=== PATIENT | male | born 1950 | race Caucasian/White ===

== ENCOUNTER → 2019-12-14 13:01 | Outpatient (BNVA) | payer MEDICARE, SELFPAY | PROVIDERS: Family Provider Family Medicine; PCP Family Medicine; Visit Provider Internal Medicine | DX: M05.79 Rheumatoid arthritis with rheumatoid factor of multiple sites without organ or systems involvement (principal); Z79.899 Other long term (current) drug therapy | CPT/HCPCS: 99203; 99213 ==

== ENCOUNTER 2019-12-14 13:46 | Outpatient (CLI) | payer MEDICARE, SELFPAY ==
--- NOTE | 2019-12-14 13:55 | XR_ITS ---
WS: [id number] XR hand RT 2V [id number] REASON FOR EXAM: hand pain FINDINGS: Defect is seen along the base of the fifth metacarpal suggesting a nondisplaced fracture. T here is soft tissue swelling over this area. [place] the remaining phalanges, metacarpals, and carpals are normal. XR/XR hand RT 2V [id number] IMPRESSION: Displaced fracture through the base of the fifth metacarpal with overriding sof t tissue swelling
--- NOTE | 2019-12-14 13:55 | XR_ITS ---
WS: [id number] XR hand LT 2V [id number] REASON FOR EXAM: hand pain FINDINGS: Mild degenerate changes of the distal interphalangeal joints. There is no fractures of the phalanges metacarpals or carpals. XR/XR hand LT 2V [id number] IMPRESSION: Negative left hand.
== END 2019-12-14 13:47 | disposition home or self-care (01) ==
LOC: WPI 13:50
PROVIDERS: Family Provider Family Medicine; PCP Family Medicine; Visit Provider Internal Medicine
DX: M79.642 Pain in left hand (principal); S62.316A Displaced fracture of base of fifth metacarpal bone, right hand, initial encounter for closed fracture; X58.XXXA Exposure to other specified factors, initial encounter
CPT/HCPCS: 73120; 80053; 85025; 85651; 86140

== ENCOUNTER → 2020-01-18 10:48 | Outpatient (BNVA) | payer MEDICARE, SELFPAY | PROVIDERS: Family Provider Family Medicine; PCP Family Medicine; Visit Provider Internal Medicine | DX: M05.79 Rheumatoid arthritis with rheumatoid factor of multiple sites without organ or systems involvement (principal); Z79.899 Other long term (current) drug therapy | CPT/HCPCS: 99213 ==

== ENCOUNTER → 2020-01-24 09:57 | Outpatient (BNVA) | payer MEDICARE, BC, SELFPAY | PROVIDERS: Family Provider Family Medicine; PCP Family Medicine; Referring Provider Internal Medicine; Visit Provider Specialist | DX: M79.643 Pain in unspecified hand (principal) | CPT/HCPCS: 73130 ==

== ENCOUNTER 2020-01-31 13:02 | Outpatient (RCR) | payer MEDICARE, BC, SELFPAY | END 2020-02-21 23:00 | disposition home or self-care (01) | LOC: SOT 13:02 | PROVIDERS: PCP Family Medicine; Referring Provider Specialist; Visit Provider Specialist | DX: M19.041 Primary osteoarthritis, right hand (principal); M25.641 Stiffness of right hand, not elsewhere classified | CPT/HCPCS: 97110; 97166; 97530 ==

== ENCOUNTER → 2020-02-08 12:46 | Outpatient (BNVA) | payer MEDICARE, BC, SELFPAY | PROVIDERS: PCP Family Medicine; Visit Provider Internal Medicine | DX: Z79.899 Other long term (current) drug therapy (principal) | CPT/HCPCS: 36415; 80053; 85025 ==

== ENCOUNTER → 2020-03-21 13:06 | Outpatient (BNVA) | payer MEDICARE, BC, SELFPAY | PROVIDERS: PCP Family Medicine; Visit Provider Internal Medicine | DX: M05.79 Rheumatoid arthritis with rheumatoid factor of multiple sites without organ or systems involvement (principal); Z79.899 Other long term (current) drug therapy | CPT/HCPCS: 99213 ==

== ENCOUNTER → 2020-05-07 14:49 | Outpatient (BNVA) | payer MEDICARE, BC, SELFPAY | PROVIDERS: PCP Family Medicine; Visit Provider Internal Medicine | DX: E11.9 Type 2 diabetes mellitus without complications (principal); Z79.899 Other long term (current) drug therapy; M05.79 Rheumatoid arthritis with rheumatoid factor of multiple sites without organ or systems involvement | CPT/HCPCS: 36415; 80053; 83036; 85025; 85651; 86140 ==

== ENCOUNTER → 2020-08-19 15:31 | Outpatient (BNVA) | payer MEDICARE, SELFPAY | PROVIDERS: PCP Family Medicine; Visit Provider Internal Medicine | DX: M05.79 Rheumatoid arthritis with rheumatoid factor of multiple sites without organ or systems involvement (principal); Z79.899 Other long term (current) drug therapy; R06.00 Dyspnea, unspecified | CPT/HCPCS: 99214 ==

== ENCOUNTER 2020-08-27 11:17 | Outpatient (CLI) | payer MEDICARE, SELFPAY ==
--- NOTE | 2020-08-27 11:38 | XRR_ITS ---
PROCEDURE INFORMATION: Exam: XR Chest Exam date and time: 08/27/2020 11:52 AM Age: 70 years old Clinical indication: Screening exam; Other screening; Additional info: Z79.899 - other skilled nursing (current) drug therapy TECHNIQUE: Imaging protocol: XR of the chest Views: 2 views. COMPARISON: No relevant prior studies available. FINDINGS: Lungs: Unremarkable. No consolidation. Pleural spaces: Unremarkable. No pleural effusion. No pneumothorax. Heart/Mediastinum: Unremarkable. No cardiomegaly. Bones/joints: Unremarkable. XR/XR chest 2V* [id number] IMPRESSION: No acute findings.
[2020-08-27 12:10] LABS: Basophils % 0.5 %; Eosinophils # 0.5 10^3/uL (0.0-0.8); Eosinophils % 8.9 %; Hematocrit 45.3 % (42.0-52.0); Lymphocytes % 17.8 %; Mean Corpuscular HGB Conc 33.1 g/dL (30.0-36.0); Mean Corpuscular Volume 96.6 fL (80-94); Mean Platelet Volume 10.3 fL (7.4-10.4); Monocytes # 0.6 10^3/uL (0.2-0.9); Monocytes % 10.8 %; Neutrophils # 3.48 10^3/uL (1.8-7.7); Neutrophils % 61.8 %; Nucleated Red Blood Cells % 0 %; Platelet Count 211 10^3/cmm (130-400); Red Blood Count 4.69 10^6/uL (4.1-5.3); Red Cell Distribution Width 13.4 % (12.1-15.1); White Blood Count 5.6 10^3/uL (4.0-10.0)
[2020-08-27 12:36] LABS: Alanine Aminotransferase 40 U/L (0-41); Albumin Level 4.2 g/dL (3.5-5.2); Alkaline Phosphatase 77 IU/L (40-130); Aspartate Amino Transferase 35 U/L (0-40); Blood Urea Nitrogen 12 mg/dL (8-23); C Reactive Protein 4.8 mg/L (0.0-4.9); Calcium 9.2 mg/dL (8.5-10.5); Carbon Dioxide 26 mmol/L (22-29); Chloride 105 mmol/L (98-107); Glomerular Filtration Rate 111.5 mL/min (90-130); Glucose 87 mg/dL (65-115); Osmolality Calculated 287 mOsm/kg (285-295); Sodium 139 mmol/L (136-145); Total Protein 7.2 g/dL (6.6-8.7)
[2020-08-27 13:35] LABS: Erythrocyte Sedimentation Rate 14 mm/hr (0-10)
== END 2020-08-27 11:18 | disposition home or self-care (01) ==
PROVIDERS: PCP Family Medicine; Visit Provider Internal Medicine
DX: M05.79 Rheumatoid arthritis with rheumatoid factor of multiple sites without organ or systems involvement (principal); Z79.899 Other long term (current) drug therapy
CPT/HCPCS: 36415; 71046; 80053; 85025; 85651; 86140

== ENCOUNTER → 2020-12-17 09:47 | Outpatient (BNVA) | payer MEDICARE, SELFPAY | PROVIDERS: PCP Family Medicine; Visit Provider Internal Medicine Rheumatology | DX: M05.79 Rheumatoid arthritis with rheumatoid factor of multiple sites without organ or systems involvement (principal); Z79.899 Other long term (current) drug therapy | CPT/HCPCS: 36415; 80053; 85025; 85651; 86140 ==

== ENCOUNTER → 2021-01-01 14:48 | Outpatient (BNVA) | payer MEDICARE, SELFPAY | PROVIDERS: PCP Family Medicine; Visit Provider Internal Medicine | DX: M05.79 Rheumatoid arthritis with rheumatoid factor of multiple sites without organ or systems involvement (principal); R06.00 Dyspnea, unspecified; Z79.899 Other long term (current) drug therapy | CPT/HCPCS: 99214 ==

== ENCOUNTER 2021-01-24 13:14 | Emergency (ER) | payer MEDICARE, SELFPAY ==
[2021-01-24 13:28] VITALS: BP 137/81; PULSE 64; RESP 15; TEMP 36.9; O2SAT 97; BMI 32.5
--- NOTE | 2021-01-24 13:38 | ECG_ITS ---
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
[2021-01-24 16:45] LABS: Basophils % 0.6 %; Eosinophils # 0.4 10^3/uL (0.0-0.8); Eosinophils % 6.3 %; Hematocrit 45.6 % (42.0-52.0); Hemoglobin 15.1 g/dL (11.7-16.6); Lymphocytes # 1.1 10^3/uL (0.8-4.8); Lymphocytes % 16.4 %; Mean Corpuscular HGB Conc 33.1 g/dL (30.0-36.0); Mean Corpuscular Hemoglobin 32.5 pg (28.0-34.0); Mean Corpuscular Volume 98.3 fL (80-94); Mean Platelet Volume 10.6 fL (7.4-10.4); Monocytes # 0.7 10^3/uL (0.2-0.9); Monocytes % 9.4 %; Neutrophils # 4.65 10^3/uL (1.8-7.7); Neutrophils % 66.9 %; Nucleated Red Blood Cells % 0 %; Platelet Count 253 10^3/cmm (130-400); Red Blood Count 4.64 10^6/uL (4.1-5.3); Red Cell Distribution Width 13.4 % (12.1-15.1)
[2021-01-24 17:01] LABS: Alanine Aminotransferase 39 U/L (0-41); Albumin Level 4.2 g/dL (3.5-5.2); Alkaline Phosphatase 71 IU/L (40-130); Anion Gap 12.9 (5-19); Aspartate Amino Transferase 33 U/L (0-40); Blood Urea Nitrogen 11 mg/dL (8-23); Calcium 8.9 mg/dL (8.5-10.5); Carbon Dioxide 28 mmol/L (22-29); Chloride 103 mmol/L (98-107); Globulin 2.8 g/dL (1.3-4.6); Glomerular Filtration Rate 111.5 mL/min (90-130); Glucose 96 mg/dL (65-115); Osmolality Calculated 289 mOsm/kg (285-295); Potassium 3.9 mmol/L (3.5-5.1); Sodium 140 mmol/L (136-145); Total Bilirubin 1.1 mg/dL (0.15-1.2)
--- NOTE | 2021-01-24 20:34 | CTR_ITS ---
PROCEDURE INFORMATION: Exam: CT Head Without Contrast Exam date and time: 01/24/2021 8:34 PM Age: 70 years old Clinical indication: Numbness / parasthesia; Patient HX: Left facial/upper ext numbness. ; Additional info: Facial and lue paresthesia TECHNIQUE: Imaging protocol: Computed tomography of the head without contrast. Radiation optimization: All CT scans at this facility use at least one of these dose optimization techniques: automated exposure control; mA and/or kV adjustment per patient size (includes targeted exams where dose is matched to clinical indication); or iterative reconstruction. COMPARISON: No relevant prior studies available. RADIATION DOSE METRICS: Total DLP (mGy-cm): 970.55 FINDINGS: Brain: Mild cerebral atrophy and ischemic leukoencephalopathy. Cerebral ventricles: No ventriculomegaly. Paranasal sinuses: Visualized sinuses are unremarkable. No fluid levels. Mastoid air cells: Visualized mastoid air cells are well aerated. Vasculature: Severe calcified intracranial atherosclerotic vessel disease. Bones/joints: Unremarkable. No acute fracture. Soft tissues: Unremarkable. CT/CT head wo con* [id number] IMPRESSION: No acute intracranial findings. Radiation Dose CTDIVOL = (mGy): DLP = 970.55 (mGy-cm)
--- NOTE | 2021-01-24 20:58 | W.ED.NEUROSD ---
HPI - Neuro Symptoms/Deficit General: Chief Complaint: Neuro Symptoms/Deficit Stated Complaint: NEURO SX:NUMBNESS/TINGLING L SIDE FACE/ARM, LIPS Time Seen by Provider: 01/24/21 20:17 History of Present Illness: HPI Narrative: 70-year-old male who for the past 2 to 3 days has been having symptoms of intermittent facial numbness on the left side. This afternoon he noticed numbness to the left upper extremity as well that lasted 4 to 5 minutes. Symptoms are resolved now. His physician told him to come to the ER to get checked out . Onset (ago): day(s) Timing confirmed by: other Location: left face and left arm History of same: Yes Severity: moderate Quality: numb and tingling Relieving factors: none Exacerbating factors: none Context: gradual onset On Anticoagulants: No Associated symptoms: Reports tingling; Deny chest pain, fevers/chills, headache(s), anorexia, vomiting or weakness Review of Systems Const: Denies: fever(s) or chills Eyes: Denies: change in vision or blurry vision ENMT: Denies: odynophagia, swelling of lips/tongue or sinus pain Card: Denies: chest pain or palpitations Resp: Denies: dyspnea or productive cough GI: Denies: vomiting : Denies: difficulty urinating or hematuria Musc: Denies: neck pain or joint warmth Skin/Breast: Denies: rash or erythema Neuro: Denies: headache(s) Psych: Denies: anxiety PFSH ED PFSH: Medical History Other snf (current) drug therapy Rheumatoid arthritis with rheumatoid factor of multiple sites without organ or systems involvement Seropositive rheumatoid arthritis Surgical History History of tonsillectomy Family History Other Diabetes Social History (Updated 01/01/21 @ 15:17 by Tanya Redding LPN) Smoking and tobacco status: never smoked Alcohol intake: current Alcohol intake frequency: few times a week Alcohol type: beer History of recent travel: No Physical Exam Const: COMMON NORMALS: patient oriented x3 GENERAL APPEARANCE: well developed ORIENTATION/CONSCIOUSNESS: Yes oriented to person, Yes oriented to place and Yes oriented to time HENMT: COMMON NORMALS: normocephalic, external ears normal and Normal external nose present HEAD & SCALP: normocephalic FACE & SINUS: normal facial exam NOSE: Normal external nose present and No nasal discharge present EXTERNAL EAR: Yes external ears normal THROAT: posterior oropharynx normal; no peritonsillar mass Eye: COMMON NORMALS: Equal, round and reactive pupils present, EOMs intact bilaterally and conjunctivae normal EYELID: eyelids normal CONJUNCTIVA: Yes conjunctivae normal PUPIL: Yes Equal, round and reactive pupils present Neck/C-Spine: GENERAL: No tracheal deviation Chest: COMMONS NORMALS: normal inspection of the chest CHEST: No tenderness Resp: COMMON NORMALS: clear to auscultation bilaterally EFFORT & INSPECTION: No tachypneic, No respiratory distress, No retractions, No uses accessory muscles and No tracheal deviation AUSCULTATION: clear to auscultation bilaterally, no rhonchi, no wheezes and lung sounds not diminished Cardio: COMMON NORMALS: regular rate and regular rhythm RATE: regular rate RHYTHM: regular rhythm HEART SOUNDS: no murmurs PERIPHERAL PULSES: radial pulses present GI: INSPECTION: No abdominal distension AUSCULTATION: No Hyperactive bowel sounds present and No Hypoactive bowel sounds present PALPATION: No Guarding due to palpation present (GI) and No Rigid due to palpation PERCUSSION: no dullness to percussion and no tympanic to percussion Neuro: PRISCILA COMA SCALE: document GCS findings Priscila coma scale eye opening: Spontaneous [place] coma scale verbal response: Orientated [place] coma scale motor response: Obey commands Priscila coma scale total score: 15 COMMON NORMALS: patient oriented x3 SENSORIUM/ORIENTATION: Yes oriented to person, Yes oriented to place and Yes oriented to time CRANIAL NERVES: Yes CN normal except as noted COORDINATION/BALANCE: [id number]-ji-[id number] test normal and lvoo-vt-[id number] test normal SPEECH: speech normal GAIT: Yes Unable to assess gait SENSORY EXAM: Yes extremities (Normal) MOTOR EXAM: Pronator motor function not present COORDINATION: [id number]-[id number] test normal and hrmt-[id number]-sbaa test normal Psych: COMMON NORMALS: mental status grossly normal Skin: COMMON NORMALS: no rashes or lesions noted GENERAL SKIN EXAM: no rashes or lesions noted Course Vital Signs: Vital signs: Vital Signs Temperature 98.5 F 07/30/21 13:28 Pulse Rate 64 01/24/21 13:28 Respiratory Rate 15 01/24/21 13:28 Blood Pressure 137/81 01/24/21 13:28 Pulse Oximetry 97 01/24/21 13:28 MDM - Neuro Symptoms/Deficit MDM Narrative: Medical decision making narrative: Ulcer good. Head CT is negative he has not had any recurrence of the paresthesia. No other symptoms. Labs are normal. He will be allowed home. He was told to increase his aspirin from baby aspirin to full dose aspirin for the time being. Further work-up as needed as an outpatient Lab Data: Labs: Lab Results 01/24/21 01/24/21 Range/Units 16:08 16:08 WBC 7.0 (4.0-10.0) 10^3/ uL RBC 4.64 (4.1-5.3) 10^6/u L Hgb 15.1 (11.7-16.6) g/dL Hct 45.6 (42.0-52.0) % MCV 98.3 H (80-94) fL MCH 32.5 (28.0-34.0) pg MCHC 33.1 (30.0-36.0) g/dL RDW 13.4 (12.1-15.1) % Plt Count 253 (130-400) 10^3/c mm MPV 10.6 H (7.4-10.4) fL Neut % (Auto) 66.9 % Lymph % (Auto) 16.4 % [place] % (Auto) 9.4 % Eos % (Auto) 6.3 % Baso % (Auto) 0.6 % Neut # (Auto) 4.65 (1.8-7.7) 10^3/u L Lymph # (Auto) 1.1 (0.8-4.8) 10^3/u L [place] # (Auto) 0.7 (0.2-0.9) 10^3/u L Eos # (Auto) 0.4 (0.0-0.8) 10^3/u L Baso # (Auto) 0.0 (0.0-0.1) 10^3/u L Nucleated RBC % (a uto) 0 % Nucleated RBCs # 0.0 /100WBC Sodium 140 (136-145) mmol/L Potassium 3.9 (3.5-5.1) mmol/L Chloride 103 (98-107) mmol/L Carbon Dioxide 28 (22-29) mmol/L Anion Gap 12.9 (5-19) BUN 11 (8-23) mg/dL Creatinine 0.7 (0.7-1.2) mg/dL GFR Calculation 111.5 (90-130) mL/min Glucose 96 (65-115) mg/dL Calculated Osmolal ity 289 (285-295) mOsm/k g Calcium 8.9 (8.5-10.5) mg/dL Total Bilirubin 1.1 (0.15-1.2) mg/dL AST 33 (0-40) U/L ALT 39 (0-41) U/L Alkaline Phosphata se 71 (40-130) IU/L Total Protein 7.0 (6.6-8.7) g/dL Albumin 4.2 (3.5-5.2) g/dL Globulin 2.8 (1.3-4.6) g/dL Discharge Plan Discharge Patient Disposition: Home Clinical Impression: Paresthesia Condition: Stable Prescriptions: New aspirin 325 mg tablet 325 mg PO DAILY Qty: 30 RF: 0 No Action folic acid 1 mg tablet 2 mg PO DAILY Qty: 60 RF: 3 lisinopril-hydrochlorothiazide 20-12.5 mg tablet 1.5 tab PO DAILY RF: 0 clonazepam [Klonopin] 0.5 mg tablet 0.5 mg PO BID RF: 0 aspirin [Adult Aspirin Regimen] 81 mg tablet,delayed release (DR/EC) 81 mg PO DAILY RF: 0 ascorbate calcium (vitamin C) 500 mg tablet 500 mg PO DAILY RF: 0 tamsulosin [Flomax] 0.4 mg capsule 0.4 mg PO DAILY RF: 0 simvastatin 40 mg tablet 40 mg PO DAILY RF: 0 paroxetine HCl 40 mg tablet 40 mg PO DAILY RF: 0 methotrexate sodium 2.5 mg tablet 17.5 mg PO Q7D RF: 0 Discharge Orders: Discharge ED (Routine); Ordered 01/24/21 Ordered By: Trenton Ashby Referrals: Ashwin Roberson MD [Primary Care Provider] - 1-3 days Patient Instructions: Paresthesia (ED) Activity Restrictions/Additional Instructions: Guidelines suggest that you increase your aspirin from a baby aspirin to a full dose aspirin daily until seen by your doctor. Further outpatient testing may be needed if symptoms continue. Return for trouble with speech, language, weakness, vision problems, other concerning symptoms. Coding Level of Care Code ED Orthodontic Treatment Coordinator for Chg Fwd Exam Comprehensive
[2021-01-25 00:02] VITALS: BP 131/65; PULSE 84; O2SAT 96
== END 2021-01-24 22:40 | disposition home or self-care (01) ==
PROVIDERS: Nurse Practitioner Family; Emergency Provider Emergency Medicine; PCP Family Medicine
DX: R20.2 Paresthesia of skin (principal); Z79.82 Long term (current) use of aspirin
CPT/HCPCS: 36415; 70450; 80053; 85025; 93005; 99283

== ENCOUNTER 2021-03-26 09:49 | Outpatient (CLI) | payer MEDICARE, SELFPAY ==
--- NOTE | 2021-03-26 09:57 | USCV_ITS ---
Cesar Mederos Age: 71 Gender: M : 1950 Exam Date: 03/26/2021 10:06 Ordering Phys: Jalen Mcclain MD Technologist: Taylor Asencio [place] [facility] [place]: Shortness of breath BP: 127 / 70 HR: 62 Rhythm: Sinus Technical Quality: Adequate MEASUREMENTS (Male / Female) Normal Values 2D ECHO LV Diastolic Diameter PLAX 4.2 cm 4.2 - 5.9 / 3.9 - 5.3 cm LV Systolic Diameter PLAX 3.4 cm LV Chamber Size 4.1 cm IVS Diastolic Thickness 1.6 cm 0.6 - 1.0 / 0.6 - 0.9 cm IVS Systolic Thickness 2.4 cm LVPW Diastolic Thickness 1.6 cm 0.6 - 1.0 / 0.6 - 0.9 cm LVPW Systolic Thickness 1.7 cm RV Chamber Size 3.5 cm LVOT Diameter 2.0 cm LV Ejection Fraction 2D Teich 39.7 % LV Ejection Fraction MOD 2C 71.5 % LV Ejection Fraction 2C AL 70.5 % LA Diameter 3.3 cm LA Width 3.8 cm LA Height 4.9 cm RA Width 3.6 cm RA Height 3.8 cm Aorta at Sinotubular Diameter 3.1 cm DOPPLER AV Peak Velocity 151.0 cm/s LVOT Peak Velocity 103.0 cm/s AV Area Cont Eq vti 2.9 cm squared AV Area Cont Eq pk 2.2 cm squared MV Area PHT 3.3 cm squared Mitral E to A Ratio 1.3 MV E' Velocity 32.0 cm/s Mitral E to MV E' Ratio 8.3 Mitral E to LV E' Lateral Ratio 11.6 Mitral E to LV E' Septal Ratio 6.5 TR Peak Velocity 119.0 cm/s TR Peak Gradient 5.7 mmHg TR Mean Velocity 98.6 cm/s TR Mean Gradient 4.3 mmHg TR Velocity Time Integral 36.5 cm TV Peak E Velocity 58.0 cm/s Right Atrial Pressure 3.0 mmHg Pulmonary Artery Systolic Pressu 8.7 mmHg PV Peak Velocity 74.0 cm/s RV Acceleration Time 0.2 s RV Ejection Time 0.3 s RV AcT/ET 0.5 FINDINGS Left Ventricle Normal left ventricular size, systolic function and mildly increased wall thickness, with no regional wall motion abnormalities. Left ventricular ejection fraction is estimated at 65 %. Normal diastolic function. Right Ventricle Normal right ventricular size and systolic function. Right ventricular systolic pressure 14 mmHg. Right Atrium Normal right atrial size. Left Atrium Normal left atrial size. Mitral Valve Structurally normal mitral valve. No mitral valve stenosis. No mitral valve regurgitation. Aortic Valve Mildly thickened trileaflet aortic valve. No aortic valve stenosis. No aortic valve regurgitation. Tricuspid Valve Structurally normal tricuspid valve. Trace tricuspid valve regurgitation. Pulmonic Valve Pulmonic valve not well visualized. No pulmonary valve stenosis. Trace pulmonary valve regurgitation. Pericardium No pericardial effusion. Aorta Normal-sized aortic root and ascending aorta. CONCLUSIONS 1. Normal left ventricular size, systolic function and mildly increased wall thickness, with no regional wall motion abnormalities. Left ventricular ejection fraction is estimated at 65 %. Normal diastolic function. 2. Normal right ventricular size and systolic function. 3. Normal pulmonary artery pressure. 4. No significant valvular normality. 5. No prior similar studies to compare. Lisa Sorto MD (Electronically Signed) Final Date: 27 March 2021 13:10 S
== END 2021-03-26 09:50 | disposition home or self-care (01) ==
LOC: RAD 09:52
PROVIDERS: PCP Family Medicine; Visit Provider Internal Medicine
DX: M05.79 Rheumatoid arthritis with rheumatoid factor of multiple sites without organ or systems involvement (principal); R06.00 Dyspnea, unspecified
CPT/HCPCS: 93306

== ENCOUNTER → 2021-03-28 10:49 | Outpatient (BNVA) | payer MEDICARE, SELFPAY | PROVIDERS: PCP Family Medicine; Visit Provider Registered Nurse Neonatal Intensive Care | DX: Z01.812 Encounter for preprocedural laboratory examination (principal); Z20.822 Contact with and (suspected) exposure to COVID-19 | CPT/HCPCS: 87635 ==

== ENCOUNTER 2021-04-03 11:27 | Outpatient (CLI) | payer MEDICARE, SELFPAY ==
--- NOTE | 2021-04-03 11:44 | PFTS_ITS ---
Date of Study:04/03/21 Date of Dictation: MECHANICS: Forced vital capacity (FVC) is reduced. Forced expiratory volume in one second (FEV1) is reduced. FEV1/FVC is normal. FLOW VOLUME LOOP: Minimal scooping. LUNG VOLUMES: Not measured DIFFUSING CAPACITY FOR CARBON MONOXIDE: Not measured. INTERPRETATION: The postbronchodilator spirometry is consistent with mild restriction. There is no significant postbronchodilator response. MTDD
== END 2021-04-03 11:28 | disposition home or self-care (01) ==
LOC: RT 11:28
PROVIDERS: PCP Family Medicine; Visit Provider Internal Medicine
DX: R06.00 Dyspnea, unspecified (principal); M05.79 Rheumatoid arthritis with rheumatoid factor of multiple sites without organ or systems involvement
CPT/HCPCS: 94060; J7611

== ENCOUNTER → 2021-04-21 12:48 | Outpatient (BNVA) | payer MEDICARE, SELFPAY | PROVIDERS: PCP Family Medicine; Visit Provider Internal Medicine | DX: M05.79 Rheumatoid arthritis with rheumatoid factor of multiple sites without organ or systems involvement (principal); J98.4 Other disorders of lung; R06.00 Dyspnea, unspecified; Z79.899 Other long term (current) drug therapy | CPT/HCPCS: 99214 ==

== ENCOUNTER 2021-07-14 15:59 | Outpatient (CLI) | payer MEDICARE, SELFPAY ==
--- NOTE | 2021-07-14 | XRR_ITS ---
PROCEDURE INFORMATION: Exam: XR Chest Exam date and time: 07/14/2021 4:27 PM Age: 71 years old Clinical indication: Cough; Additional info: Cough x 3 weeks TECHNIQUE: Imaging protocol: XR of the chest. Views: 2 views. COMPARISON: CR XR chest 2V* [id number] 08/27/2020 11:50 AM FINDINGS: Lungs: No consolidation. Pleural spaces: No pleural effusion. No pneumothorax. Heart/Mediastinum: No cardiomegaly. Bones/joints: Visualized osseous structures are intact. XR/XR chest 2V* [id number] IMPRESSION: No acute findings.
== END 2021-07-14 16:00 | disposition home or self-care (01) ==
PROVIDERS: PCP Family Medicine; Visit Provider Family Medicine
DX: R05.9 Cough, unspecified (principal)
CPT/HCPCS: 71046

== ENCOUNTER 2021-08-26 15:42 | Outpatient (CLI) | payer MEDICARE, SELFPAY ==
--- NOTE | 2021-08-26 15:59 | XRR_ITS ---
PROCEDURE INFORMATION: Exam: XR Chest Exam date and time: 08/26/2021 3:59 PM Age: 71 years old Clinical indication: Cough TECHNIQUE: Imaging protocol: XR of the chest. Views: 2 views. COMPARISON: CR XR chest 2V* [id number] 07/14/2021 4:26 PM FINDINGS: Lungs: Calcified granuloma noted in the left perihilar region. No consolidation. Pleural spaces: No pleural effusion. No pneumothorax. Heart/Mediastinum: No cardiomegaly. Bones/joints: Visualized osseous structures are intact. XR/XR chest 2V* [id number] IMPRESSION: No acute findings.
== END 2021-08-26 15:43 | disposition home or self-care (01) ==
PROVIDERS: PCP Family Medicine; Visit Provider Family Medicine
DX: R05.9 Cough, unspecified (principal)
CPT/HCPCS: 71046

== ENCOUNTER 2021-09-14 15:06 | Emergency (ER) | payer MEDICARE, SELFPAY ==
[2021-09-14 15:07] VITALS: BP 156/82; PULSE 72; RESP 16; TEMP 36.5; O2SAT 92; BMI 32.5
--- NOTE | 2021-09-14 15:13 | PC.NURSE ---
PT STATES HE REMEMBERS FEELING WEAK AND SHORT OF BREATH AND THE NEXT THING HE KNEW HE WAS ON THE GROUDN WAKING UP WHILE PEOPLE WERE SHOUTING HIS NAME.
--- NOTE | 2021-09-14 16:11 | ECG_ITS ---
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 Measurements Intervals [place] Rate: 66 P: 159 ID: [id number] QRS: -6 QRSD: 98 T: 0 QT: 394 QTc: 415 Interpretive Statements SINUS RHYTHM WITH OCCASIONAL SUPRAVENTRICULAR PREMATURE COMPLEXES Compared to ECG 01/24/2021 21:36:17 Sinus bradycardia no longer present Electronically Signed On 09-14-2021 17:30:07 CDT by Alexsandra Harper M.D. [email or web address] [facility] hospitalS B E/store/[id number]
--- NOTE | 2021-09-14 16:12 | XRR_ITS ---
PROCEDURE INFORMATION: Exam: XR Chest Exam date and time: 09/14/2021 3:31 PM Age: 71 years old Clinical indication: Shortness of breath; Additional info: Syncope TECHNIQUE: Imaging protocol: XR of the chest. Views: 1 view. COMPARISON: CR XR chest 2V* [id number] 08/26/2021 4:06 PM FINDINGS: Lungs: Slight increased density seen in the inferolateral aspects of both lungs is likely due to overlying soft tissues. The lungs are clear. Pleural spaces: Unremarkable. No pleural effusion. No pneumothorax. Heart/Mediastinum: Unremarkable. No cardiomegaly. Bones/joints: Unremarkable. XR/XR chest 1V [id number] IMPRESSION: No acute cardiopulmonary abnormality.
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
--- NOTE | 2021-09-14 16:16 | CTR_ITS ---
PROCEDURE INFORMATION: Exam: CT Head Without Contrast Exam date and time: 09/14/2021 4:38 PM Age: 71 years old Clinical indication: Syncope and collapse; Additional info: Synope with prolonged confusion TECHNIQUE: Imaging protocol: Computed tomography of the head without contrast. Radiation optimization: All CT scans at this facility use at least one of these dose optimization techniques: automated exposure control; mA and/or kV adjustment per patient size (includes targeted exams where dose is matched to clinical indication); or iterative reconstruction. COMPARISON: CT head wo con* [id number] 01/24/2021 8:48 PM RADIATION DOSE METRICS: Total DLP (mGy-cm): 958.78 FINDINGS: Brain: Mild atrophy and mild white matter chronic microvascular changes are noted. No hemorrhage or evidence of acute infarction. Cerebral ventricles: No ventriculomegaly. Paranasal sinuses: Visualized sinuses are unremarkable. No fluid levels. Mastoid air cells: Mild chronic right mastoiditis is again seen. Bones/joints: Unremarkable. No acute fracture. Soft tissues: Unremarkable. CT/CT head wo con* [id number] IMPRESSION: No acute intracranial abnormality. Mild chronic right mastoiditis is noted.
--- NOTE | 2021-09-14 16:18 | ECG_ITS ---
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 Measurements Intervals [place] Rate: 66 P: 1 VA: 151 QRS: -27 QRSD: 97 T: 12 QT: 396 QTc: 416 Interpretive Statements SINUS RHYTHM WITH OCCASIONAL SUPRAVENTRICULAR PREMATURE COMPLEXES BORDERLINE LEFT AXIS DEVIATION [QRS AXIS < -20] Compared to ECG 09/14/2021 16:24:53 No significant changes Electronically Signed On 09-15-2021 20:14:25 CDT by Alexsandra Harper M.D. [id number]
[2021-09-14 16:22] LABS: Basophils % 0.5 %; Eosinophils # 0.4 10^3/uL (0.0-0.8); Eosinophils % 4.9 %; Hematocrit 47.6 % (42.0-52.0); Hemoglobin 15.8 g/dL (11.7-16.6); Lymphocytes % 14.1 %; Mean Corpuscular HGB Conc 33.2 g/dL (30.0-36.0); Mean Corpuscular Hemoglobin 32.6 pg (28.0-34.0); Mean Corpuscular Volume 98.3 fl (80-94); Mean Platelet Volume 11.5 fL (7.4-10.4); Monocytes # 0.8 10^3/uL (0.2-0.9); Monocytes % 10.8 %; Neutrophils # 5.04 10^3/uL (1.8-7.7); Neutrophils % 69.3 %; Nucleated Red Blood Cells % 0 %; Platelet Count 212 10^3/cmm (130-400); Red Blood Count 4.84 10^6/uL (4.1-5.3); Red Cell Distribution Width 13.2 % (12.1-15.1); White Blood Count 7.3 10^3/uL (4.0-10.0)
[2021-09-14 16:33] LABS: Alanine Aminotransferase 37 U/L (0-41); Albumin Level 4.5 g/dL (3.5-5.2); Alkaline Phosphatase 73 IU/L (40-130); Anion Gap 16.5 (5-19); Aspartate Amino Transferase 29 U/L (0-40); Blood Urea Nitrogen 10 mg/dL (8-23); Calcium 9.7 mg/dL (8.5-10.5); Carbon Dioxide 26 mmol/L (22-29); Chloride 104 mmol/L (98-107); Globulin 2.6 g/dL (1.3-4.6); Glucose 114 mg/dL (65-115); Osmolality Calculated 296 mOsm/kg (285-295); Potassium 3.5 mmol/L (3.5-5.1); Sodium 143 mmol/L (136-145); Total Bilirubin 1.6 mg/dL (0.15-1.2); Total Protein 7.1 g/dL (6.6-8.7)
[2021-09-14 16:48] LABS: Troponin(5th) Baseline 21 ng/L (0-15)
[2021-09-14 18:12] VITALS: BP 156/82; PULSE 66; RESP 16; O2SAT 95
[2021-09-14 18:15] VITALS: BP 155/97; PULSE 67; RESP 20; O2SAT 98
[2021-09-14 18:45] LABS: Troponin 5 2HR 20.07 ng/L (0-15)
[2021-09-14 18:47] LABS: Troponin 5 2HR Delta -0.93 ABS# (0-10)
[2021-09-14 19:20] VITALS: BP 125/74; PULSE 70; RESP 18; O2SAT 100
== END 2021-09-14 19:11 | disposition home or self-care (01) ==
PROVIDERS: Emergency Provider Emergency Medicine; PCP Family Medicine
DX: R55 Syncope and collapse (principal); Z79.82 Long term (current) use of aspirin
CPT/HCPCS: 70450; 71045; 80053; 84484; 85025; 93005; 99283

== ENCOUNTER → 2022-02-11 09:59 | Outpatient (BNVA) | payer MEDICARE, SELFPAY | PROVIDERS: PCP Family Medicine; Visit Provider Internal Medicine | DX: R07.9 Chest pain, unspecified (principal); I48.91 Unspecified atrial fibrillation; I49.3 Ventricular premature depolarization; I47.2 Ventricular tachycardia | CPT/HCPCS: 93225 ==

== ENCOUNTER 2022-02-13 08:19 | Observation (INO) | payer MEDICARE, SELFPAY ==
[2022-02-13] VITALS (41 sets, daily range): BP systolic 95–207; BP diastolic 66–161; PULSE 71–144; RESP 13–46; TEMP 36.4; O2SAT 90–97; BMI 31.2
--- NOTE | 2022-02-13 08:22 | W.ED.SOB ---
HPI - SOB/Dyspnea General: Chief Complaint: Shortness of Breath/Dyspnea Stated Complaint: SOB, difficulty sleeping, high hr Time Seen by Provider: 02/13/22 08:21 History of Present Illness: HPI Narrative: Mr. Mederos is a 71-year-old gentleman with history of SVT, RA, hypertension, hyperlipidemia who presents to the emergency department due to shortness of breath. Symptom onset 2 weeks ago and subacute with intermittent irregular heartbeat feeling. He denies associated chest pain or other typical cardiac features. He does have fatigue and difficulty sleeping when laying flat. He saw PCP today and was noted to have tachycardia and referred to the ER for further evaluation. He did recently have a flexographic printing press operator that was unsure of exactly what it showed. Intensity symptoms is moderate to severe. Course is worsened. No other specific changes in health, exacerbating, or alleviating factors identified. 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 Rheumatoid arthritis with rheumatoid factor of multiple sites without organ or systems involvement Seropositive rheumatoid arthritis Surgical History History of tonsillectomy Family History Other Diabetes Social History (Updated 02/13/22 @ 13:38 by Abdias Harper MD) Smoking and tobacco status: never smoked Alcohol intake: current Alcohol intake frequency: few times a week Alcohol type: beer History of recent travel: No Physical Exam Const: COMMON NORMALS: alert GENERAL APPEARANCE: cooperative and well developed HENMT: COMMON NORMALS: normocephalic and atraumatic HEAD & SCALP: normocephalic and atraumatic Eye: COMMON NORMALS: conjunctivae normal CONJUNCTIVA: Yes conjunctivae normal SCLERA: sclerae normal Neck/C-Spine: COMMON NORMALS: supple GENERAL: Yes trachea midline Resp: COMMON NORMALS: normal respiratory effort EFFORT & INSPECTION: Yes able to speak in complete sentences Cardio: RATE: tachycardic RHYTHM: abnormal rhythm irregularly irregular GI: COMMON NORMALS: Soft to palpation PALPATION: Yes Soft to palpation and No Tenderness to palpation present (GI) Extremity: GENERAL: Yes normal exam except as noted and No edema Neuro: COMMON NORMALS: moves all extremities SENSORIUM/ORIENTATION: Yes alert and No Orientation impaired Psych: COMMON NORMALS: mental status grossly normal and Normal thought process present THOUGHT PROCESS: Normal thought process present Course ED course: - Patient was seen and evaluated by me at bedside - Patient placed on cardiac monitors, IV access obtained - Initial evaluation notable for exam as above. A. fib with RVR. - Labs and xrays personally interpreted by me. EKG notable for A. fib with RVR, no STEMI -Cardizem bolus and drip ordered - Labs notable for no significant hematologic abnormality for no significant electrolyte derangement to explain symptoms. Daily mild elevated compared to prior with transaminitis. Patient does have history of alcohol daily drinking - Imaging notable for no lobar consolidation or pneumothorax. Heart appears enlarged. - Upon serial reexamination after treatment the patient was improved - Based on patient history, evaluation, and testing as interpreted the most likely cause of the patient's condition is new onset atrial fibrillation with RVR - The results of ED evaluation were discussed with the patient including plan for admission due to requirement for level of care not available if discharged to prevent significant worsening/deterioration. - Admitting service was contacted and Dr Harper with the hospital service agreed to admit the patient - Patient was admitted without further deterioration or significant events. Note: Click bubbles or prepopulated haider in note writing are used for assistance with data collection and billing and are inherently more limited than narrative and other text portions of this note. Please use narrative for additional clinical history and defer to narrative/free test for any case of contradictory information. If information appears in only free text or click bubble it should be considered present or absent as reported. Please contact note video game script writer for clarifications of clinical information or contradictory information. MDM is a brief summary, contradictory or erroneous seeming information should be clarified and full note should be reviewed. Vital Signs: Vital signs: Vital Signs Temperature 98 F 02/14/22 15:03 Pulse Rate 94 02/14/22 15:03 Respiratory Rate 19 H 02/14/22 15:03 Blood Pressure 109/84 02/14/22 15:03 Pulse Oximetry 91 02/14/22 15:03 Oxygen Delivery Hi thod 02/13/22 16:17 MDM - SOB/Dyspnea Medical Decision Making 71-year-old gentleman presenting with roughly 2 weeks of progressively worsening symptoms found to have new onset A. fib with RVR. Patient placed on Cardizem drip and admitted for further management. Medical Records I reviewed the patient's medical records. Lab Data I reviewed the patient's lab results. : 02/14/22 03:13 02/14/22 03:13 Labs/Radiology: Radiology Impressions Chest X-Ray 02/13/22 08:53 Impression: 1. Bibasilar basilar patchy opacity more in the right than the left which could represent atelectasis, effusion and or pneumonia. 2. Cardiomegaly and atherosclerosis. Gallbladder Ultrasound 02/14/22 08:51 IMPRESSION: Enlarged, fatty liver. Laboratory Results WBC 8.0 10^3/uL (4.0-10.0) 02/13/22 09:06 RBC 4.50 10^6/uL (4.1-5.3) 02/13/22 09:06 Hgb 14.8 g/dL (11.7-16.6) 02/13/22 09:06 Hct 45.6 % (42.0-52.0) 02/13/22 09:06 MCV 101.3 fl (80-94) H 02/13/22 09:06 MCH 32.9 pg (28.0-34.0) 02/13/22 09:06 MCHC 32.5 g/dL (30.0-36.0) 02/13/22 09:06 RDW 14.1 % (12.1-15.1) 02/13/22 09:06 Plt Count 178 10^3/cmm (130-400) 02/13/22 09:06 MPV 12.4 fL (7.4-10.4) H 02/13/22 09:06 Neut % (Auto) 71.7 % 02/13/22 09:06 Lymph % (Auto) 14.6 % 02/13/22 09:06 [place] % (Auto) 7.3 % 02/13/22 09:06 Eos % (Auto) 5.7 % 02/13/22 09:06 Baso % (Auto) 0.4 % 02/13/22 09:06 Neut # (Auto) 5.72 10^3/uL (1.8-7.7) 02/13/22 09:06 Lymph # (Auto) 1.2 10^3/uL (0.8-4.8) 02/13/22 09:06 [place] # (Auto) 0.6 10^3/uL (0.2-0.9) 02/13/22 09:06 Eos # (Auto) 0.5 10^3/uL (0.0-0.8) 02/13/22 09:06 Baso # (Auto) 0.0 10^3/uL (0.0-0.1) 02/13/22 09:06 Nucleated RBC % (auto) 0 % 02/13/22 09:06 Nucleated RBCs # 0.0 /100WBC 02/13/22 09:06 Sodium 140 mmol/L (136-145) 02/13/22 10:20 Potassium 3.7 mmol/L (3.5-5.1) 02/13/22 10:20 Chloride 105 mmol/L (98-107) 02/13/22 10:20 Carbon Dioxide 26 mmol/L (22-29) 02/13/22 10:20 Anion Gap 12.7 (5-19) 02/13/22 10:20 BUN 15 mg/dL (8-23) 02/13/22 10:20 Creatinine 0.8 mg/dL (0.7-1.2) 02/13/22 10:20 GFR Calculation Not Reportable 02/13/22 10:20 Glucose 110 mg/dL (65-115) 02/13/22 10:20 Calculated Osmolality 291 mOsm/kg (285-295) 02/13/22 10:20 Calcium 9.0 mg/dL (8.5-10.5) 02/13/22 10:20 Magnesium 2.1 mg/dL (1.7-2.3) 02/13/22 10:20 Total Bilirubin 2.7 mg/dL (0.15-1.2) H 02/13/22 10:20 AST 62 U/L (0-40) H 02/13/22 10:20 ALT 81 U/L (0-41) H 02/13/22 10:20 Alkaline Phosphatase 79 U/L (40-130) 02/13/22 10:20 Troponin T Baseline 15 ng/L (0-15) 02/13/22 09:06 Troponin T 120 Minute 15.42 ng/L (0-15) H 02/13/22 10:20 Delta Troponin T 0.42 ABS# (0-10) 02/13/22 10:20 NT-Pro-B Natriuret Pep 1394 pg/mL (0-125) H 02/13/22 10:20 Total Protein 7.0 g/dL (6.6-8.7) 02/13/22 10:20 Albumin 4.1 g/dL (3.5-5.2) 02/13/22 10:20 Globulin 2.9 g/dL (1.3-4.6) 02/13/22 10:20 TSH 2.87 uIU/mL (0.27-4.20) 02/13/22 10:20 Coronavirus 229E (PCR) Not detected (NOT DETECT) 02/13/22 09:30 SARS-CoV-2 (PCR) Not detected (NOT DETECT) 02/13/22 09:30 Critical Care Time Critical Care Time: Critical Care Time: Yes Total Critical Care Time: 35 Attestation: Due to a high probability of clinically significant, possibly life threatening deterioration, the patient required my highest level of attention and preparedness to intervene emergently and I personally spent this critical care time directly and personally managing the patient. This critical care time included obtaining a history; examining the patient; pulse oximetry; ordering and review of laboratory and imaging studies; arranging urgent treatment with development of a management plan; evaluation of patient's response to treatment; frequent reassessment; and, discussions with other providers as applicable. It was exclusive of separately billable procedures. Primary system involved is cardiopulmonary Discharge Plan Discharge Patient Disposition: Placed in Observation Admit Provider: Abdias Harper Clinical Impression: Shortness of breath, Atrial fibrillation, new onset, Atrial fibrillation with rapid ventricular response Discharge Diet: Cardiac and Low Cholesterol Coding Level of Care Code ED Auto Claim Representative for Chg Fwd Exam Comprehensive
--- NOTE | 2022-02-13 08:42 | ECG_ITS ---
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 Measurements Intervals [place] Rate: 139 P: [place]: QRS: 9 QRSD: 94 T: 29 QT: 313 QTc: 477 Interpretive Statements ATRIAL FIBRILLATION WITH RAPID VENTRICULAR RESPONSE ABNORMAL RHYTHM ECG Compared to ECG 09/14/2021 16:50:58 Sinus rhythm no longer present Electronically Signed On 02-13-2022 17:46:24 CDT by Raffaele Sneed M.D. [id number]
--- NOTE | 2022-02-13 08:53 | XR_ITS ---
WS: [id number] Portable AP upright chest, 02/13/2022 Clinical Data: sob Comparison: Portable chest, 09/14/2021. Findings: There is patchy opacity in the right lower lobe which may represent atelectasis, effusion a nd/or pneumonia. There is minimal patchy opacity in the left basilar region which again could represe nt atelectasis and/or pneumonia. The heart is enlarged. The aortic arch is tortuous. No pneumothorax is seen. There is an old left seventh rib fracture. XR/XR chest 1V portable [id number] Impression: 1. Bibasilar basilar patchy opacity more in the right than the left which could represent atelectasis, effusion and or pneumonia. 2. Cardiomegaly and atherosclerosis.
[2022-02-13] MEDS: dilTIAZem 5 mg/mL SDV 5 mL 20 MG IVP (09:16)
[2022-02-13 09:20] LABS: Basophils % 0.4 %; Eosinophils # 0.5 10^3/uL (0.0-0.8); Eosinophils % 5.7 %; Hematocrit 45.6 % (42.0-52.0); Hemoglobin 14.8 g/dL (11.7-16.6); Lymphocytes # 1.2 10^3/uL (0.8-4.8); Lymphocytes % 14.6 %; Mean Corpuscular HGB Conc 32.5 g/dL (30.0-36.0); Mean Corpuscular Hemoglobin 32.9 pg (28.0-34.0); Mean Corpuscular Volume 101.3 fl (80-94); Mean Platelet Volume 12.4 fL (7.4-10.4); Monocytes # 0.6 10^3/uL (0.2-0.9); Monocytes % 7.3 %; Neutrophils # 5.72 10^3/uL (1.8-7.7); Neutrophils % 71.7 %; Nucleated Red Blood Cells % 0 %; Platelet Count 178 10^3/cmm (130-400); Red Cell Distribution Width 14.1 % (12.1-15.1)
[2022-02-13 09:51] LABS: Troponin(5th) Baseline 15 ng/L (0-15)
--- NOTE | 2022-02-13 09:59 | PC.PHAR ---
pt states he takes care of his own medications-pt states the dr vogt the lexapro 10mg daily on 01/29/22-notes are made in the pharmacy comments
--- NOTE | 2022-02-13 10:38 | ECG_ITS ---
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 Measurements Intervals [place] Rate: 102 P: AR: QRS: 14 QRSD: 96 T: 30 QT: 371 QTc: 485 Interpretive Statements ATRIAL FIBRILLATION WITH RAPID VENTRICULAR RESPONSE Compared to ECG 02/13/2022 08:42:21 No significant changes Electronically Signed On 02-13-2022 17:51:13 CDT by Raffaele Sneed M.D. [id number]
[2022-02-13 11:01] LABS: Troponin 5 2HR 15.42 ng/L (0-15)
[2022-02-13 11:02] LABS: Troponin 5 2HR Delta 0.42 ABS# (0-10)
[2022-02-13 11:06] LABS: Alanine Aminotransferase 81 U/L (0-41); Albumin Level 4.1 g/dL (3.5-5.2); Alkaline Phosphatase 79 U/L (40-130); Anion Gap 12.7 (5-19); Aspartate Amino Transferase 62 U/L (0-40); Blood Urea Nitrogen 15 mg/dL (8-23); Carbon Dioxide 26 mmol/L (22-29); Chloride 105 mmol/L (98-107); Globulin 2.9 g/dL (1.3-4.6); Glucose 110 mg/dL (65-115); Magnesium 2.1 mg/dL (1.7-2.3); NT Pro B Type Natriuretic Pept 1394 pg/mL (0-125); Osmolality Calculated 291 mOsm/kg (285-295); Potassium 3.7 mmol/L (3.5-5.1); Sodium 140 mmol/L (136-145); Thyroid Stimulating Hormone 2.87 uIU/mL (0.27-4.20); Total Bilirubin 2.7 mg/dL (0.15-1.2)
[2022-02-13 12:43] LABS: Adenovirus Not Detected (NOT DETECT); Chlamydia Pneumoniae Not Detected (NOT DETECT); Coronavirus 229E,HKU1,NL63,OC4 Not Detected (NOT DETECT); Human Metapneumovirus Not Detected (NOT DETECT); Human Rhinovirus/Enterovirus Not Detected (NOT DETECT); Influenza A Not Detected (NOT DETECT); Influenza A H1 Not Detected (NOT DETECT); Influenza A H1-2009 Not Detected (NOT DETECT); Influenza A H3 Not Detected (NOT DETECT); Influenza B Not Detected (NOT DETECT); Mycoplasma Pneumoniae Not Detected (NOT DETECT); Parainfluenza Virus Type 1 Not Detected (NOT DETECT); Parainfluenza Virus Type 2 Not Detected (NOT DETECT); Parainfluenza Virus Type 3 Not Detected (NOT DETECT); Parainfluenza Virus Type 4 Not Detected (NOT DETECT); Respiratory Syncytial Virus A Not Detected (NOT DETECT); Respiratory Syncytial Virus B Not Detected (NOT DETECT); SARS-COV-2 Not Detected (NOT DETECT)
--- NOTE | 2022-02-13 13:29 | USCV_ITS ---
Cesar Mederos Age: 71 Gender: M : 1950 Exam Date: 02/13/2022 15:54 Ordering Phys: Abdias Harper MD Technologist: LINSEY Exam Location: [facility] Indication: CHRONIC HEART FAILURE BP: 124 / 101 HR: 90 Rhythm: Sinus Technical Quality: Adequate MEASUREMENTS (Male / Female) Normal Values 2D ECHO LVOT Diameter 2.0 cm LV Ejection Fraction MOD 2C 65.7 % LV Ejection Fraction 2C AL 66.9 % LA Diameter 4.8 cm LA Width 4.7 cm LA Height 6.1 cm RA Width 5.1 cm RA Height 5.4 cm Aorta at Sinotubular Diameter 2.9 cm IVC Diameter 1.9 cm M-MODE Aortic Annulus Diameter 3.5 cm LA Ao Ratio MM 1.3 MV E Point Septal Separation 0.9 cm DOPPLER AV Peak Velocity 145.3 cm/s LVOT Peak Velocity 92.0 cm/s AV Area Cont Eq vti 2.2 cm squared AV Area Cont Eq pk 2.0 cm squared MV Peak Velocity 93.0 cm/s MV Area PHT 3.7 cm squared Mitral E to A Ratio 1.4 MV E' Velocity 45.0 cm/s Mitral E to MV E' Ratio 9.0 Mitral E to LV E' Lateral Ratio 9.9 Mitral E to LV E' Septal Ratio 8.3 TR Peak Velocity 243.8 cm/s TR Peak Gradient 23.8 mmHg TR Mean Velocity 188.4 cm/s TR Mean Gradient 16.2 mmHg TR Velocity Time Integral 63.6 cm TV Peak E Velocity 59.0 cm/s Right Atrial Pressure 3.0 mmHg Pulmonary Artery Systolic Pressu 26.8 mmHg PV Peak Velocity 95.0 cm/s RV Acceleration Time 0.1 s RV Ejection Time 0.3 s RV AcT/ET 0.4 FINDINGS Left Ventricle Normal left ventricular size, systolic function and wall thickness, with no regional wall motion abnormalities. Left ventricular ejection fraction is estimated at 60 %. Rhythm precludes evaluation of diastolic function. Right Ventricle Normal right ventricular size and systolic function. Right ventricular systolic pressure 32 mmHg. Right Atrium Normal right atrial size. Right atrial pressure estimated at 8 mm Hg. Left Atrium Mildly increased left atrial size. Mitral Valve Structurally normal mitral valve. No mitral valve stenosis. Trace mitral valve regurgitation. Aortic Valve Aortic valve not well visualized. No aortic valve stenosis. No aortic valve regurgitation. Tricuspid Valve Structurally normal tricuspid valve. Trace tricuspid valve regurgitation. Pulmonic Valve Pulmonic valve not well visualized. Pericardium No pericardial effusion. Aorta Normal size aortic root and proximal ascending aorta. IVC Normal IVC dimension with <50% respiratory change of the inferior vena cava. CONCLUSIONS 1. Normal left ventricular size, systolic function and wall thickness, with no regional wall motion abnormalities. Left ventricular ejection fraction is estimated at 60 %. 2. Pulmonary artery pressure estimated at 32 mm Hg. 3. Mildly increased left atrial size. 4. No significant change when compared to study dated 03/26/21. Lisa Sorto MD (Electronically Signed) Final Date: 14 February 2022 08:43 S
--- NOTE | 2022-02-13 13:30 | PM.HP ---
Providers/Chief Complaint Admitting Physician: Abdias Harper MD Primary Care Provider: Ashwin Roberson MD Chief Complaint: SOB, difficulty sleeping, high hr History of Present Illness Cesar Mederos is a 71 year old male who presents to the emergency department short of breath, with palpitations. He reports he has a nonproductive cough. This has been going on at least since early January although he thinks he had several episodes before this. He has been evaluation by his primary care provider in clinic, found to be tachycardic, and metoprolol was initiated. Patient believes this helps some. He denies any chest discomfort. He reports no fevers. No nausea or vomiting. Denies any prior history of coronary disease or heart rhythm abnormalities. In the emergency department a Cardizem drip was initiated. Review of Systems General: Reports: 10 or more systems reviewed and unremarkable except in HPI and below Const: Reports: fatigue and change in sleep pattern; Denies: fever(s) or chills Eyes: Denies: change in vision ENMT: Denies: throat pain Card: Reports: palpitations, dyspnea on exertion and orthopnea; Denies: chest pain Resp: Reports: dyspnea and non-productive cough GI: Denies: abdominal pain, hematemesis, hematochezia or melena : Denies: flank pain Musc: Denies: neck pain Skin/Breast: Denies: rash or pruritus Neuro: Denies: headache(s) Psych: Denies: anxiety or depression Endo: Denies: polyuria Leonid/Lymph: Denies: easy bruising All/Imm: Denies: urticaria Medications/Allergies Home Medications Medication Instructions Recorded Confirmed Last Taken Type ascorbate calcium (vitamin C) 500 500 mg PO DAILY 12/14/19 02/13/22 02/13/22 History mg tablet aspirin 81 mg tablet,delayed 81 mg PO QAM 12/14/19 02/13/22 02/13/22 History release (Adult Aspirin Regimen) clonazepam 0.5 mg tablet (Klonopin) See Rx Instructions .Route .COMPLEX 12/14/19 02/13/22 02/13/22 History tamsulosin 0.4 mg capsule (Flomax) 0.4 mg PO QAM 12/14/19 02/13/22 02/13/22 History simvastatin 40 mg tablet 40 mg PO QAM 0702/13/22 02/13/22 History methotrexate sodium 2.5 mg tablet 17.5 mg PO Q7D #90 tabs 05/05/21 02/13/22 Unknown Rx fluticasone propionate 50 2 spray intranasal DAILY PRN 01/09/22 02/13/22 Unknown History mcg/actuation nasal Allergy Symptoms spray,suspension lisinopril 20 1 tab PO QAM 01/29/22 02/13/22 02/13/22 History mg-hydrochlorothiazide 12.5 mg tablet metoprolol tartrate 25 mg tablet 50 mg PO BID #120 tabs 02/03/22 02/13/22 02/13/22 Rx cholecalciferol (vitamin D3) 25 25 mcg PO DAILY 02/13/22 02/13/22 Unknown History mcg (1,000 unit) tablet (Vitamin D3) folic acid 1 mg tablet 2 mg PO QAM #180 tabs 02/13/22 Unknown Rx zinc 50 mg tablet 50 mg PO DAILY 02/13/22 02/13/22 Unknown History Allergies Allergy/AdvReac Type Severity Reaction Status Date / Time ciprofloxacin [From Cipro] Allergy Severe muscle or Verified 02/13/22 07:58 joint pain paroxetine [From Paxil] AdvReac Mild made his Verified 02/13/22 07:58 head feel weird PFSH Acute PFSH: Medical History (Updated 02/13/22 @ 13:45 by Abdias Harper MD) BPH (benign prostatic hyperplasia) Depression Hyperlipidemia Hypertension Other longterm (current) drug therapy Rheumatoid arthritis with rheumatoid factor of multiple sites without organ or systems involvement Seropositive rheumatoid arthritis Surgical History History of tonsillectomy Family History Other Diabetes Social History (Updated 02/13/22 @ 13:38 by Abdias Harper MD) Smoking and tobacco status: never smoked Alcohol intake: current Alcohol intake frequency: few times a week Alcohol type: beer History of recent travel: No Vitals/I&O/Wt Last Vital Signs Temp 97.5 F L 02/13/22 08:31 Pulse 104 H 02/13/22 12:00 Resp 22 H 02/13/22 12:00 BP 177/123 02/13/22 12:00 Pulse Ox 94 02/13/22 12:00 O2 Del Method 02/13/22 12:00 Weight last 48 hrs Weight 113.398 kg Weight 113.398 kg Physical Exam Narrative: General exam is a elderly male, obviously short of breath, sitting upright in bed with at least mild retractions and mild respiratory distress HEENT: Atraumatic normocephalic. Pupils equally round. Oropharynx clear. Neck is supple no lymphadenopathy or thyromegaly Cardiovascular irregular, irregular and tachycardic. No murmur. Lungs diminished breath sounds at the bases. Few crackles. No wheezing. Abdomen is soft nontender positive bowel sounds. No obvious organomegaly exam is deferred Extremities no cyanosis clubbing or edema, cap refill brisk Skin no rash Neuro no obvious focal deficits. Data : 02/13/22 09:06 02/13/22 10:20 Other Labs: Calcium is normal. LFTs demonstrate an elevated bilirubin of 2.7, AST of 62, ALT of 61. Alk phos is normal. Troponin is 15 with repeat of 15. BNP is 1394. COVID PCR negative. TSH is normal. Chest x-ray shows fluid overload and cardiomegaly. EKG demonstrates atrial fibrillation with rapid ventricular rate, normal axis. Previous echocardiogram February 2021 demonstrates EF of 65%, no major valvular abnormalities A&P Assessment and plan (1) Atrial fibrillation with rapid ventricular response: Patient with new onset atrial fibrillation with rapid ventricular rate. Cardizem IV was started in the emergency department. TSH was checked and normal. No electrolyte abnormalities are present on potassium and magnesium is normal. He had been placed on metoprolol recently, 50 mg twice a day. He has not yet taken his morning dose. We will give him 25 mg now, and initiate his home dose. Start Cardizem 30 mg p.o. every 6 hours, wean off Cardizem drip as tolerated Has associated heart failure Check echocardiogram full anticoagulation. Patient with low bleeding risk. Risks and benefits discussed. His [id number] score will be over 2. Status: Acute (2) CHF (congestive heart failure): Consistent with acute diastolic heart failure, exacerbated with his atrial fibrillation with rapid ventricular rate Initiate Lasix 40 mg IV every 12 hours Await echocardiogram Status: Acute (3) Transaminitis: Probably secondary to acute heart failure Recheck tomorrow Check hepatitis panel Status: Acute Plan Hypertension. Continue metoprolol. Add diltiazem. Hold lisinopril/HCTZ currently until effects of other medicine on blood pressure can be appreciated Full code Lovenox for DVT prophylaxis Attestations Medical Necessity Statement*: Will need less than 2 midnight stay for evaluation and treatment of atrial fibrillation with rapid ventricular rate. Coding Level of Care Code Acute Evaluation Advisor for [facility] Fwd Diagnoses Atrial fibrillation with rapid ventricular response I48.91 CHF (congestive heart failure) I50.9 Transaminitis R74.01
[2022-02-13] MEDS: benzonatate 100 mg Capsule PO ×2 (13:36→21:52)
[2022-02-13] MEDS: enoxaparin 120 mg/0.8 mL Syringe 110 MG SUBCUT (13:36)
[2022-02-13] MEDS: metoprolol tartrate 25 mg Tablet PO (13:36)
[2022-02-13] MEDS: FUROsemide 10 mg/mL SDV 4mL 40 MG IVP (13:37)
[2022-02-13 14:55] LABS: Hepatitis A Antibody IgM Non-Reactive (Nonreactive); Hepatitis B Core IgM Non-Reactive (Nonreactive); Hepatitis B Surface Antigen Non-Reactive (Nonreactive); Hepatitis C Virus Antibody Non-Reactive (Nonreactive)
[2022-02-13] MEDS: dilTIAZem 30 mg Tablet PO ×2 (14:57→19:46)
[2022-02-13 15:23] LABS: Troponin 5 6HR 16.23 ng/L (0-15)
[2022-02-13 15:24] LABS: Troponin 5 6HR Delta 1.23 ng/L (0-12)
--- NOTE | 2022-02-13 16:48 | ECG_ITS ---
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 Measurements Intervals [place] Rate: 96 P: AL: QRS: 10 QRSD: 87 T: 20 QT: 371 QTc: 471 Interpretive Statements ATRIAL FIBRILLATION Compared to ECG 02/13/2022 10:38:26 No significant changes Electronically Signed On 02-13-2022 17:48:40 CDT by Raffaele Sneed M.D. [id number]
[2022-02-13] MEDS: famotidine 20 mg Tablet PO (17:13)
[2022-02-13] MEDS: CLONazepam 0.5 mg Tablet 0.25 MG PO (17:13)
[2022-02-13] MEDS: metoprolol tartrate 50 mg Tablet PO (20:00)
[2022-02-13] MEDS: acetaminophen 325 mg Tablet 650 MG PO (21:52)
[2022-02-14] VITALS (35 sets, daily range): BP systolic 97–143; BP diastolic 57–99; PULSE 69–135; RESP 17–34; TEMP 36.6; O2SAT 81–97
[2022-02-14] MEDS: dilTIAZem 30 mg Tablet PO ×3 (01:32→13:15)
[2022-02-14] MEDS: FUROsemide 10 mg/mL SDV 4mL 40 MG IVP (01:32)
[2022-02-14] MEDS: enoxaparin 120 mg/0.8 mL Syringe 110 MG SUBCUT ×2 (01:36→13:15)
[2022-02-14 04:15] LABS: Basophils % 0.3 %; Eosinophils # 0.4 10^3/uL (0.0-0.8); Eosinophils % 4.2 %; Hematocrit 40.5 % (42.0-52.0); Lymphocytes # 1.2 10^3/uL (0.8-4.8); Lymphocytes % 13.4 %; Mean Corpuscular HGB Conc 32.1 g/dL (30.0-36.0); Mean Corpuscular Hemoglobin 32.3 pg (28.0-34.0); Mean Corpuscular Volume 100.7 fl (80-94); Mean Platelet Volume 11.5 fL (7.4-10.4); Monocytes # 0.5 10^3/uL (0.2-0.9); Monocytes % 6.1 %; Neutrophils # 6.69 10^3/uL (1.8-7.7); Neutrophils % 75.8 %; Nucleated Red Blood Cells % 0 %; Platelet Count 183 10^3/cmm (130-400); Red Blood Count 4.02 10^6/uL (4.1-5.3); Red Cell Distribution Width 13.8 % (12.1-15.1); White Blood Count 8.8 10^3/uL (4.0-10.0)
[2022-02-14 04:43] LABS: Alanine Aminotransferase 68 U/L (0-41); Albumin Level 4.2 g/dL (3.5-5.2); Alkaline Phosphatase 71 U/L (40-130); Anion Gap 13.5 (5-19); Aspartate Amino Transferase 46 U/L (0-40); Blood Urea Nitrogen 16 mg/dL (8-23); Calcium 9.1 mg/dL (8.5-10.5); Carbon Dioxide 29 mmol/L (22-29); Chloride 102 mmol/L (98-107); Globulin 2.4 g/dL (1.3-4.6); Glucose 126 mg/dL (65-115); Magnesium 2.1 mg/dL (1.7-2.3); Osmolality Calculated 295 mOsm/kg (285-295); Potassium 3.5 mmol/L (3.5-5.1); Sodium 141 mmol/L (136-145); Total Bilirubin 2.7 mg/dL (0.15-1.2); Total Protein 6.6 g/dL (6.6-8.7)
[2022-02-14] MEDS: CLONazepam 0.5 mg Tablet 0.75 MG PO (05:11)
[2022-02-14] MEDS: atorvastatin 40 mg Tablet 20 MG PO (05:11)
[2022-02-14] MEDS: tamsulosin 0.4 mg Capsule PO (05:11)
[2022-02-14] MEDS: aspirin 81 mg EC Tablet PO (05:11)
--- NOTE | 2022-02-14 08:29 | PC.NURSE ---
restless and agitated wanting to go home somewhat confused this am has gotten out of bed removed monitor and pulled out iv line up to bathroom reoriented and placed back on monitor... 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
[2022-02-14] MEDS: metoprolol tartrate 50 mg Tablet PO (08:44)
[2022-02-14] MEDS: famotidine 20 mg Tablet PO (08:44)
--- NOTE | 2022-02-14 08:51 | USR_ITS ---
PROCEDURE INFORMATION: Exam: US Abdomen, Limited; Right Upper Quadrant Exam date and time: 02/14/2022 12:25 PM Age: 71 years old Clinical indication: Other: Abn blood work; Additional info: Hyperbilirubinemia TECHNIQUE: Imaging protocol: Real time ultrasound of the abdomen with image documentation. Limited exam focused on the right upper quadrant. COMPARISON: [facility] Abdomen Limited 03/05/2015 3:11 PM FINDINGS: Liver: Enlarged. Echogenic, consistent with fatty infiltration. Gallbladder: No gallstones. No gallbladder wall thickening or pericholecystic fluid. 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 Biliary ducts: Normal. No stones. No dilation. Pancreas: Unremarkable as visualized. Right kidney: No mass. No definite stones. No hydronephrosis. US/US gall bladder [id number] IMPRESSION: Enlarged, fatty liver.
--- NOTE | 2022-02-14 09:28 | PC.NURSE ---
Dr persaud here with orders for gallbladder us informed of npo at this time .. will stay until after test.. monitor on
[2022-02-14] MEDS: benzonatate 100 mg Capsule PO (13:15)
--- NOTE | 2022-02-14 15:05 | PM.DCS ---
Discharge Providers Date of Admission: 02/13/22 11:18 Date of Discharge: February 14, 2022 Attending Provider at Admission: Abdias Harper MD Attending Provider at Discharge: Ayan Burrell Primary Care Provider: Ashwin Roberson MD Diagnoses at Discharge Discharge Diagnosis (1) Atrial fibrillation with rapid ventricular response: Status: Acute (2) CHF (congestive heart failure): Status: Acute (3) Transaminitis: Status: Acute Reason for Visit Reason for Visit: SOB, difficulty sleeping, high hr Hospital Course Hospital Course Pleasant 71-year-old gentleman with history of HTN, HLD, RA, BPH, other comorbidities presented after having palpitations, shortness of breath, some cough, on presentation he was found to be in atrial fibrillation with RVR. He was started on Cardizem drip, his home metoprolol dose was resumed as well. Heart rate with improvement, was transitioned to oral Cardizem in addition to metoprolol. During hospitalization was started on therapeutic Lovenox for initiation of anticoagulation. TSH, electrolytes were unremarkable. He on presentation was thought to have possibly some mild CHF for which he received short course of Lasix. NT proBNP was elevated at 1394. TTE showed normal ejection fraction, pulmonary artery pressure estimated at 32 mmHg. No R WMA. Otherwise unremarkable. Today he did not appear fluid overloaded. In the morning he still had heart rate in 120s-130s before receiving his medication, but this had promptly improved and remained in the 90s. He had no chest pain or pressure. EKGs and troponin series though mildly elevated, not suggestive of acute VT. This morning he felt somewhat like he was in a haze for short period, felt disoriented, which I suspect was secondary to receiving higher dose of clonazepam 0.75 mg early this morning. This has resolved. He is otherwise feeling well, he had gotten himself dressed and ready to go. Noted mild transaminitis, T bili elevation higher than usual up to 2.7. Viral hepatitis panel was unremarkable. Gallbladder ultrasound shows enlarged liver with fatty infiltration. Please keep close follow-up of NAFLD. Abstain from any alcohol. Avoid NSAIDs. Please help him with lifestyle changes and reassess for progression to fibrosis/cirrhosis. On follow-up please reassess heart rates. If heart rates are well controlled, please refer for additional assessment by stress testing due to risk factors of coronary disease. NB due to listed interaction between Cardizem and simvastatin, simvastatin was switched over to atorvastatin. Blood pressure soft with both Cardizem and metoprolol, so her lisinopril/HCTZ for the time being is stopped. Physical Exam Narrative: Sitting up in chair Const: COMMON NORMALS: patient oriented x3 and alert GENERAL APPEARANCE: cooperative ORIENTATION/CONSCIOUSNESS: Yes awake OTHER: Conversant, feeling better HENMT: COMMON NORMALS: oropharynx normal Neck/C-Spine: COMMON NORMALS: no JVD Resp: COMMON NORMALS: normal respiratory effort and clear to auscultation bilaterally AUSCULTATION: clear to auscultation bilaterally Cardio: COMMON NORMALS: no JVD, S1 normal heart sound present, S2 normal heart sound present and No murmurs present (Cardio) RHYTHM: abnormal rhythm irregularly irregular HEART SOUNDS: S1 normal heart sound present and S2 normal heart sound present GI: COMMON NORMALS: Normal to inspection, nondistended, normoactive bowel sounds present, Soft to palpation and non-tender PALPATION: Yes Soft to palpation Extremity: COMMON NORMALS: no joint enlargement and no pedal edema Neuro: COMMON NORMALS: patient oriented x3 and moves all extremities SENSORIUM/ORIENTATION: Yes alert Skin: COMMON NORMALS: no rashes or lesions noted GENERAL SKIN EXAM: no rashes or lesions noted Discharge Data Studies Completed and Pending Completed Studies During Hospitalization Category Date Time Status XR chest 1V portable [id number] Stat Exams 02/13/22 08:53 Completed CV. echo complete* [id number] Routine Ultrasound 02/13/22 13:29 Completed US gall bladder [id number] Routine Ultrasound 02/14/22 08:51 Completed Radiology Impressions Chest X-Ray 02/13/22 08:53 Impression: 1. Bibasilar basilar patchy opacity more in the right than the left which could represent atelectasis, effusion and or pneumonia. 2. Cardiomegaly and atherosclerosis. Gallbladder Ultrasound 02/14/22 08:51 IMPRESSION: Enlarged, fatty liver. Laboratory Results WBC 8.8 10^3/uL (4.0-10.0) 02/14/22 03:13 RBC 4.02 10^6/uL (4.1-5.3) L 02/14/22 03:13 Hgb 13.0 g/dL (11.7-16.6) 02/14/22 03:13 Hct 40.5 % (42.0-52.0) L 02/14/22 03:13 MCV 100.7 fl (80-94) H 02/14/22 03:13 MCH 32.3 pg (28.0-34.0) 02/14/22 03:13 MCHC 32.1 g/dL (30.0-36.0) 02/14/22 03:13 RDW 13.8 % (12.1-15.1) 02/14/22 03:13 Plt Count 183 10^3/cmm (130-400) 02/14/22 03:13 MPV 11.5 fL (7.4-10.4) H 02/14/22 03:13 Neut % (Auto) 75.8 % 02/14/22 03:13 Lymph % (Auto) 13.4 % 02/14/22 03:13 Webb % (Auto) 6.1 % 02/14/22 03:13 Eos % (Auto) 4.2 % 02/14/22 03:13 Baso % (Auto) 0.3 % 02/14/22 03:13 Neut # (Auto) 6.69 10^3/uL (1.8-7.7) 02/14/22 03:13 Lymph # (Auto) 1.2 10^3/uL (0.8-4.8) 02/14/22 03:13 Webb # (Auto) 0.5 10^3/uL (0.2-0.9) 02/14/22 03:13 Eos # (Auto) 0.4 10^3/uL (0.0-0.8) 02/14/22 03:13 Baso # (Auto) 0.0 10^3/uL (0.0-0.1) 02/14/22 03:13 Nucleated RBC % (auto) 0 % 02/14/22 03:13 Nucleated RBCs # 0.0 /100WBC 02/14/22 03:13 Sodium 141 mmol/L (136-145) 02/14/22 03:13 Potassium 3.5 mmol/L (3.5-5.1) 02/14/22 03:13 Chloride 102 mmol/L (98-107) 02/14/22 03:13 Carbon Dioxide 29 mmol/L (22-29) 02/14/22 03:13 Anion Gap 13.5 (5-19) 02/14/22 03:13 BUN 16 mg/dL (8-23) 02/14/22 03:13 Creatinine 0.8 mg/dL (0.7-1.2) 02/14/22 03:13 GFR Calculation Not Reportable 02/14/22 03:13 Glucose 126 mg/dL (65-115) H 02/14/22 03:13 Calculated Osmolality 295 mOsm/kg (285-295) 02/14/22 03:13 Calcium 9.1 mg/dL (8.5-10.5) 02/14/22 03:13 Magnesium 2.1 mg/dL (1.7-2.3) 02/14/22 03:13 Total Bilirubin 2.7 mg/dL (0.15-1.2) H 02/14/22 03:13 AST 46 U/L (0-40) H 02/14/22 03:13 ALT 68 U/L (0-41) H 02/14/22 03:13 Alkaline Phosphatase 71 U/L (40-130) 02/14/22 03:13 Troponin T Baseline 15 ng/L (0-15) 02/13/22 09:06 Troponin T 120 Minute 15.42 ng/L (0-15) H 02/13/22 10:20 Delta Troponin T 0.42 ABS# (0-10) 02/13/22 10:20 Troponin T Hi Sens 6Hr 16.23 ng/L (0-15) H 02/13/22 14:51 Troponin T Hi Sens 6Hr Delta 1.23 ng/L (0-12) 02/13/22 14:51 NT-Pro-B Natriuret Pep 1394 pg/mL (0-125) H 02/13/22 10:20 Total Protein 6.6 g/dL (6.6-8.7) 02/14/22 03:13 Albumin 4.2 g/dL (3.5-5.2) 02/14/22 03:13 Globulin 2.4 g/dL (1.3-4.6) 02/14/22 03:13 TSH 2.87 uIU/mL (0.27-4.20) 02/13/22 10:20 Coronavirus 229E (PCR) Not detected (NOT DETECT) 02/13/22 09:30 Hepatitis A IgM Ab Non-reactive (Nonreactive) 02/13/22 13:59 Hep Bs Antigen Non-reactive (Nonreactive) 02/13/22 13:59 Hep B Core IgM Ab Non-reactive (Nonreactive) 02/13/22 13:59 Hepatitis C Antibody Non-reactive (Nonreactive) 02/13/22 13:59 SARS-CoV-2 (PCR) Not detected (NOT DETECT) 02/13/22 09:30 Vitals Last Vital Signs Temp 98 F 02/14/22 15:03 Pulse 94 02/14/22 15:03 Resp 19 H 02/14/22 15:03 BP 109/84 02/14/22 15:03 Pulse Ox 91 02/14/22 15:03 O2 Del Method 02/13/22 16:17 Discharge Plan Discharge Patient Disposition: Home Condition: Stable Prescriptions: New diltiazem HCl 60 mg capsule,extended release 12 hr 60 mg PO BID Qty: 180 0RF atorvastatin 40 mg Tablet 20 mg PO QAM Qty: 90 0RF apixaban 5 mg tablet 5 mg PO BID Qty: 180 0RF furosemide 40 mg tablet 40 mg PO DAILY PRN (Reason: edema) Qty: 90 0RF Continued clonazepam [Klonopin] 0.5 mg tablet See Rx Instructions .ROUTE .COMPLEX Rx Instructions: 0.75mg (1-1/2 tab)po qam and 0.25mg (1/2 tab) qpm aspirin [Adult Aspirin Regimen] 81 mg tablet,delayed release (DR/EC) 81 mg PO QAM ascorbate calcium (vitamin C) 500 mg tablet 500 mg PO DAILY tamsulosin [Flomax] 0.4 mg capsule 0.4 mg PO QAM fluticasone propionate 50 mcg/actuation spray,suspension 2 spray intranasal DAILY PRN (Reason: Allergy Symptoms) Rx Instructions: administer into each nostril metoprolol tartrate 25 mg tablet 50 mg PO BID Qty: 120 12RF methotrexate sodium 2.5 mg tablet 17.5 mg PO Q7D Qty: 90 1RF Rx Instructions: TAKE ON WEDNESDAY folic acid 1 mg tablet 2 mg PO QAM Qty: 180 0RF zinc 50 mg Tablet 50 mg PO DAILY Vitamin D3 25 mcg (1,000 unit) Tablet 25 mcg PO DAILY Discontinued lisinopril-hydrochlorothiazide 20-12.5 mg tablet 1 tab PO QAM simvastatin 40 mg tablet 40 mg PO QAM Discharge Orders: Discharge Order (Routine); Ordered 02/14/22 Ordered By: Ayan Burrell Referrals: Ashwin Roberson MD [Primary Care Provider] - 4-7 days Discharge Diet: Cardiac and Low Cholesterol Patient Instructions: Diltiazem (By mouth), Furosemide (By mouth) (Lasix), Atorvastatin (By mouth) (Lipitor), Apixaban (By mouth), A-fib (Atrial Fibrillation) (GEN), Non-Alcoholic Fatty Liver Disease (GEN) Activity Restrictions/Additional Instructions: Please discuss with your primary doctor regarding atrial fibrillation. Please discuss regarding anticoagulation being initiated. Please discuss referral for stress test if your heart rate is well controlled not reassessment. Please note you are found to have liver enlargement with fatty infiltration. Please make sure to maintain low-cholesterol diet, avoid any alcohol whatsoever because it may lead to progression to cirrhosis, avoid NSAIDs, and please follow-up with your primary doctor for close monitoring of fatty liver disease to avoid progression to liver cirrhosis, development of liver cancer. Please monitor your blood pressures twice a day at home. Please for now stop lisinopril/HCTZ as blood pressures are soft with metoprolol and Cardizem. Please call Wednesday to schedule follow-up appointment with Dr. Roberson. Discharge Attestations Time Spent in Discharge Care*: greater than 30 min Quality Metrics Clinical Quality Measures [ No reported AMI, CVA or VTE this stay] Coding Level of Care Code Acute [facility] note Diagnoses Atrial fibrillation with rapid ventricular response I48.91 CHF (congestive heart failure) I50.9 Transaminitis R74.01
== END 2022-02-14 17:14 | disposition home or self-care (01) ==
LOC: ER 11:18 → ICU 12:23
PROVIDERS: Admitting Provider Internal Medicine; Emergency Provider Emergency Medicine; PCP Family Medicine; Visit Provider Internal Medicine
DX: I48.91 Unspecified atrial fibrillation (principal); I11.0 Hypertensive heart disease with heart failure; I50.9 Heart failure, unspecified; R74.01 Elevation of levels of liver transaminase levels; E78.5 Hyperlipidemia, unspecified; N40.0 Benign prostatic hyperplasia without lower urinary tract symptoms; Z79.899 Other long term (current) drug therapy; M05.9 Rheumatoid arthritis with rheumatoid factor, unspecified
CPT/HCPCS: 36415; 71045; 76705; 80053; 80074; 83735; 83880; 84443; 84484; 85025; 87635; 93005; 93306; 94760; 96365; 96366; 96372; 96375; 99285; G0378; J1650; J1940; J3490

== ENCOUNTER → 2022-03-06 08:34 | Outpatient (BNVA) | payer MEDICARE, SELFPAY | PROVIDERS: PCP Family Medicine; Visit Provider Family Medicine | DX: I50.9 Heart failure, unspecified (principal); I10 Essential (primary) hypertension; I48.91 Unspecified atrial fibrillation; Z79.899 Other long term (current) drug therapy | CPT/HCPCS: 80053; 83880; 85025 ==

== ENCOUNTER → 2022-04-02 14:30 | Outpatient (BNVA) | payer MEDICARE, SELFPAY | PROVIDERS: PCP Family Medicine; Visit Provider Family Medicine | DX: I48.91 Unspecified atrial fibrillation (principal); I50.9 Heart failure, unspecified | CPT/HCPCS: 80048; 85025 ==

== ENCOUNTER → 2022-04-13 10:37 | Outpatient (BNVA) | payer MEDICARE, SELFPAY | PROVIDERS: PCP Family Medicine; Visit Provider Internal Medicine Cardiovascular Disease | DX: I48.91 Unspecified atrial fibrillation (principal); I11.0 Hypertensive heart disease with heart failure; I50.9 Heart failure, unspecified; E78.5 Hyperlipidemia, unspecified; R07.89 Other chest pain | CPT/HCPCS: 99204; 99205 ==

== ENCOUNTER 2022-05-20 07:34 | Outpatient (CLI) | payer MEDICARE, SELFPAY ==
--- NOTE | 2022-05-20 | ECG_ITS ---
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 Interpretive Statements NAME OF STUDY: LEXISCAN SESTAMIBI STRESS TEST INDICATION: Chest Pain, PROCEDURE: At the baseline, the EKG revealed atrial fibrillation with controlled ventricular response rate. Incomplete right bundle branch block. Aberrantly conducted beats. The baseline heart was 75 bpm with a blood pressue of 158/73 mm of Hg Lexiscan was infused over a period of 20 seconds. A total of 0.4 milligrams of Lexiscan was infused. The stress phase was continued for a total of 5 minutes. Heart rate at the end of the stress phase was 104 bpm with a blood pressure 122/87 mm of Hg. The EKG at the peak infusion revealed no significant changes. Sestamibi was injected 20 seconds after the Lexiscan infusion. Heart rate at the end of the recovery phase was 101 bpm with a blood pressure of 142/94 mm of Hg. CONCLUSION: 1. No significant EKG changes with the LexiScan infusion 2. No LexiScan induced chest pain or cardiac arrhythmia 3. Normal blood pressure and heart rate response 4. Sestamibi/sestamibi perfusion scan pending; see separate report. Electronically Signed On 05-21-2022 12:28:03 MEDICAL RESEARCH SCIENTIST by Alexsandra Harper M.D. [email or web address]
[2022-05-20 07:42] VITALS: BMI 31.2
--- NOTE | 2022-05-20 07:43 | NMCV_ITS ---
NM westley perf SPECT r/s* [id number] Cesar Mederos Age: 72 Gender: M : 1950 Exam Date: 05/20/2022 09:06 Ordering Phys: Adi Harper MD Technologist: STUART Perez Exam Location: [facility] Indications: CORONARY ANGIOPLASTY STATUS STRESS TEST Please [facility] IMAGE PROTOCOL Rest/Stress 1 Lexiscan Day Radiopharmaceutical Dose (mCi) Administration Site Administered by Rest: Tc-99m 9.5 IV STUART Kay Sestamibi Stress:Tc-99m 29.8 IV STUART Kay Sestamibi Rest: 20-May-2022 60 Discovery 630 Stress: 20-May-2022 30 Discovery 630 0.4mg Lexiscan. Images obtained in supine and prone position. SPECT RESULTS Technical Quality: Excellent Raw Data Analysis: Normal Image Corrections: No attenuation or motion correction applied Summed Stress Score: 0 Summed Rest Score: 3 Summed Difference Score: 0 PERFUSION FINDINGS Small area of slightly decreased tracer uptake was noted in the inferior wall, apical lateral and LV apex. No significant reversibility was noted in these regions. FUNCTIONAL RESULTS (calculated via Gated SPECT) Stress Image LV EF (%): 35 Stress EDV (mL):152 TID: 0.93 Stress ESV (mL):99 FUNCTIONAL FINDINGS: Segmental wall motion analysis revealing diffuse hypokinesia left ventricle, more so of the septum and the LV apex IMPRESSIONS 1. Myocardial perfusion imaging revealing small area of slightly decreased persistent tracer uptake in the inferior wall, apical lateral and LV apex, suggestive of myocardial scarring versus attenuation artifact. 2. Diminished LV ejection fraction of 35%. 3. Segmental wall motion analysis revealing diffuse hypokinesia of the left ventricle most of the septum and the LV apex. 4. Mildly dilated LV cavity with an end-systolic volume of 99 mL. Low probability for coronary ischemia, based on the above findings Dr Alexsandra Harper MD FACC (Electronically Signed) Final Date: 20 May 2022 18:53 S
[2022-05-20] MEDS: regadenoson 0.4 Mg/5 ml Syringe IVP (09:45)
[2022-05-20 09:55] VITALS: BP 142/94; PULSE 93
== END 2022-05-20 07:35 | disposition home or self-care (01) ==
PROVIDERS: PCP Family Medicine; Visit Provider Internal Medicine
DX: Z98.61 Coronary angioplasty status (principal)
CPT/HCPCS: 36415; 78452; 93017; 96374; A9500; J2785

== ENCOUNTER → 2022-06-26 09:51 | Outpatient (BNVA) | payer MEDICARE, SELFPAY | PROVIDERS: PCP Family Medicine; Visit Provider Family Medicine | DX: I10 Essential (primary) hypertension (principal); E78.5 Hyperlipidemia, unspecified; Z79.899 Other long term (current) drug therapy | CPT/HCPCS: 80053; 83036; 85025 ==

== ENCOUNTER → 2022-07-16 10:37 | Outpatient (BNVA) | payer MEDICARE, SELFPAY | PROVIDERS: PCP Family Medicine; Visit Provider Family Medicine | DX: R07.9 Chest pain, unspecified (principal) | CPT/HCPCS: 80061 ==

== ENCOUNTER → 2022-08-13 11:49 | Outpatient (BNVA) | payer MEDICARE, SELFPAY | PROVIDERS: PCP Family Medicine; Visit Provider Internal Medicine Cardiovascular Disease | DX: I48.91 Unspecified atrial fibrillation (principal); E78.5 Hyperlipidemia, unspecified; I10 Essential (primary) hypertension; I49.3 Ventricular premature depolarization; Z79.01 Long term (current) use of anticoagulants; Z79.82 Long term (current) use of aspirin | CPT/HCPCS: 99214 ==

== ENCOUNTER → 2022-09-03 11:17 | Outpatient (BNVA) | payer MEDICARE, SELFPAY | PROVIDERS: PCP Family Medicine; Visit Provider Nurse Practitioner Family | DX: I48.19 Other persistent atrial fibrillation (principal); I11.0 Hypertensive heart disease with heart failure; I50.9 Heart failure, unspecified; Z79.01 Long term (current) use of anticoagulants; Z79.82 Long term (current) use of aspirin | CPT/HCPCS: 93005; 99214 ==

== ENCOUNTER 2022-09-11 10:53 | Outpatient (CLI) | payer MEDICARE, SELFPAY ==
[2022-09-11 12:04] LABS: Anion Gap 12.2 (5-19); Blood Urea Nitrogen 14 mg/dL (8-23); Calcium 8.9 mg/dL (8.5-10.5); Carbon Dioxide 28 mmol/L (22-29); Chloride 107 mmol/L (98-107); Glucose 137 mg/dL (65-115); NT Pro B Type Natriuretic Pept 1221 pg/mL (0-125); Osmolality Calculated 299 mOsm/kg (285-295); Potassium 4.2 mmol/L (3.5-5.1); Sodium 143 mmol/L (136-145)
== END 2022-09-11 10:54 | disposition home or self-care (01) ==
PROVIDERS: Nurse Practitioner Family; PCP Family Medicine; Visit Provider Internal Medicine Cardiovascular Disease
DX: E78.5 Hyperlipidemia, unspecified (principal); I50.9 Heart failure, unspecified; I48.91 Unspecified atrial fibrillation
CPT/HCPCS: 36415; 80048; 83880

== ENCOUNTER → 2022-09-17 11:03 | Outpatient (BNVA) | payer MEDICARE, SELFPAY | PROVIDERS: PCP Family Medicine; Visit Provider Nurse Practitioner Family | DX: I48.19 Other persistent atrial fibrillation (principal); Z79.01 Long term (current) use of anticoagulants; Z79.82 Long term (current) use of aspirin; I11.0 Hypertensive heart disease with heart failure; I50.9 Heart failure, unspecified | CPT/HCPCS: 93005; 99214 ==

== ENCOUNTER → 2022-11-04 16:49 | Outpatient (BNVA) | payer MEDICARE, SELFPAY | PROVIDERS: PCP Family Medicine; Visit Provider Internal Medicine Cardiovascular Disease | DX: R07.9 Chest pain, unspecified (principal) | CPT/HCPCS: 93005; 99214 ==

== ENCOUNTER → 2023-01-18 09:13 | Outpatient (BNVA) | payer MEDICARE, SELFPAY | PROVIDERS: PCP Family Medicine; Visit Provider Family Medicine | DX: E78.5 Hyperlipidemia, unspecified (principal); I48.91 Unspecified atrial fibrillation; I50.9 Heart failure, unspecified; R06.02 Shortness of breath | CPT/HCPCS: 80048; 83880; 84443 ==

== ENCOUNTER → 2023-01-20 12:03 | Outpatient (BNVA) | payer MEDICARE, SELFPAY | PROVIDERS: PCP Family Medicine; Visit Provider Family Medicine | DX: I48.19 Other persistent atrial fibrillation (principal); I10 Essential (primary) hypertension; I50.9 Heart failure, unspecified; F32.A Depression, unspecified | CPT/HCPCS: 80053; 83880; 84443; 85025 ==

== ENCOUNTER → 2023-05-05 14:47 | Outpatient (BNVA) | payer MEDICARE, SELFPAY | PROVIDERS: PCP Family Medicine; Visit Provider Clinical Nurse Specialist Adult Health | DX: I50.9 Heart failure, unspecified (principal); Z23 Encounter for immunization; I50.33 Acute on chronic diastolic (congestive) heart failure; I48.91 Unspecified atrial fibrillation; I10 Essential (primary) hypertension | CPT/HCPCS: 80048; 83880 ==

== ENCOUNTER → 2023-05-19 16:36 | Outpatient (BNVA) | payer MEDICARE, SELFPAY | PROVIDERS: PCP Family Medicine; Visit Provider Internal Medicine Cardiovascular Disease | DX: R06.02 Shortness of breath (principal); Z79.899 Other long term (current) drug therapy; I10 Essential (primary) hypertension; I50.9 Heart failure, unspecified; E78.5 Hyperlipidemia, unspecified; I48.91 Unspecified atrial fibrillation; R60.0 Localized edema | CPT/HCPCS: 36415; 80048; 83880; 99214 ==

== ENCOUNTER → 2023-05-31 16:29 | Outpatient (BNVA) | payer MEDICARE, SELFPAY | PROVIDERS: PCP Family Medicine; Visit Provider Family Medicine | DX: I50.33 Acute on chronic diastolic (congestive) heart failure (principal); R60.0 Localized edema; I50.9 Heart failure, unspecified; I48.91 Unspecified atrial fibrillation; I10 Essential (primary) hypertension | CPT/HCPCS: 80048; 83880 ==

== ENCOUNTER → 2023-06-07 13:40 | Outpatient (BNVA) | payer MEDICARE, SELFPAY | PROVIDERS: PCP Family Medicine; Visit Provider Family Medicine | DX: R60.0 Localized edema (principal); I50.9 Heart failure, unspecified; I10 Essential (primary) hypertension | CPT/HCPCS: 80048; 83880 ==

== ENCOUNTER → 2023-06-10 13:23 | Outpatient (BNVA) | payer MEDICARE, SELFPAY | PROVIDERS: PCP Family Medicine; Visit Provider Family Medicine | DX: I48.91 Unspecified atrial fibrillation; I50.33 Acute on chronic diastolic (congestive) heart failure; R60.0 Localized edema; I48.19 Other persistent atrial fibrillation; R07.9 Chest pain, unspecified; E78.5 Hyperlipidemia, unspecified | CPT/HCPCS: 80053; 85025 ==

== ENCOUNTER 2023-06-18 14:18 | Outpatient (CLI) | payer MEDICARE, SELFPAY ==
--- NOTE | 2023-06-18 14:30 | USCV_ITS ---
Cesar Mederos Age: 73 Gender: M : 1950 Exam Date: 06/18/2023 14:52 Ordering Phys: Ashwin Robreson MD Technologist: Win Nguyen Exam Location: [facility] – [place] Indication: EDEMA BP: 148 / 86 HR: 106 Rhythm: Other Technical Quality: Adequate MEASUREMENTS (Male / Female) Normal Values 2D ECHO LVOT Diameter 2.1 cm LV Ejection Fraction MOD 2C 68.1 % LV Ejection Fraction 2C AL 68.6 % LA Diameter 5.3 cm LA Width 3.6 cm LA Height 5.1 cm RA Width 3.6 cm RA Height 5.1 cm Aorta at Sinotubular Diameter 3.2 cm IVC Diameter 2.8 cm M-MODE Aortic Annulus Diameter 4.1 cm LA Ao Ratio MM 1.3 MV E Point Septal Separation 0.7 cm DOPPLER AV Peak Velocity 107.0 cm/s LVOT Peak Velocity 57.0 cm/s AV Area Cont Eq vti 2.3 cm squared AV Area Cont Eq pk 1.9 cm squared MV Peak Velocity 89.0 cm/s MV Area PHT 8.1 cm squared Mitral E to A Ratio 2.3 MV E' Velocity 67.0 cm/s Mitral E to LV E' Septal Ratio 4.8 TR Peak Velocity 206.2 cm/s TR Peak Gradient 17.0 mmHg TR Mean Velocity 160.8 cm/s TR Mean Gradient 11.1 mmHg TR Velocity Time Integral 45.7 cm Right Atrial Pressure 15.0 mmHg Pulmonary Artery Systolic Pressu 32.0 mmHg PV Peak Velocity 63.7 cm/s RV Acceleration Time 0.1 s RV Ejection Time 0.2 s RV AcT/ET 0.4 FINDINGS Left Ventricle Normal left ventricular size and systolic function, EF 66 %. No regional wall motion abnormalities. Right Ventricle The right ventricle is normal in size and function. Right Atrium The right atrium is normal in size. Left Atrium Mildly increased left atrial size. Mitral Valve Mild mitral valve regurgitation. Aortic Valve Thickened aortic valve. Tricuspid Valve Trace to mild tricuspid valve regurgitation. Estimated pulmonary artery peak systolic pressure 32 mmHg. This could be an underestimation because of the poor Doppler signals. The right atrial pressure was calculated to be 15 mmHg. Pulmonic Valve No gross abnormalities noted Pericardium Normal pericardium without effusion. Aorta Normal ascending aorta dimension. IVC Dilated IVC with decreased respiratory variation. CONCLUSIONS Normal left ventricular size and systolic function, EF 66 %. No regional wall motion abnormalities. Trace to mild tricuspid valve regurgitation. Estimated pulmonary artery peak systolic pressure 32 mmHg. This could be an underestimation because of the poor Doppler signals. The right atrial pressure was calculated to be 15 mmHg. Mildly increased left atrial size. Mild mitral valve regurgitation. Thickened aortic valve. There is no pericardial effusion. There are no intracardiac masses. Compared to the study from 02/13/2022, there may not be a significant change Dr Alexsandra Harper MD [facility] (Electronically Signed) Final Date: 19 June 2023 13:58 S
== END 2023-06-18 14:19 | disposition home or self-care (01) ==
LOC: RAD 14:18
PROVIDERS: PCP Family Medicine; Visit Provider Family Medicine
DX: I08.3 Combined rheumatic disorders of mitral, aortic and tricuspid valves (principal); R07.9 Chest pain, unspecified
CPT/HCPCS: 93306

== ENCOUNTER → 2023-07-15 15:53 | Outpatient (BNVA) | payer MEDICARE, SELFPAY | PROVIDERS: PCP Family Medicine; Visit Provider Family Medicine | DX: I50.9 Heart failure, unspecified (principal) | CPT/HCPCS: 80048; 85025 ==

== ENCOUNTER → 2023-08-17 15:29 | Outpatient (BNVA) | payer MEDICARE, SELFPAY | PROVIDERS: PCP Family Medicine; Visit Provider Family Medicine | DX: F32.A Depression, unspecified (principal); I50.9 Heart failure, unspecified; I48.91 Unspecified atrial fibrillation; M05.79 Rheumatoid arthritis with rheumatoid factor of multiple sites without organ or systems involvement; I10 Essential (primary) hypertension | CPT/HCPCS: 80053; 83880; 85025 ==

== ENCOUNTER → 2023-08-24 12:05 | Outpatient (BNVA) | payer MEDICARE, SELFPAY | PROVIDERS: PCP Family Medicine; Visit Provider Internal Medicine Cardiovascular Disease | DX: R06.02 Shortness of breath (principal); I10 Essential (primary) hypertension; I48.91 Unspecified atrial fibrillation; I50.32 Chronic diastolic (congestive) heart failure; E78.5 Hyperlipidemia, unspecified; I49.3 Ventricular premature depolarization; R53.82 Chronic fatigue, unspecified | CPT/HCPCS: 36415; 80048; 83880; 99214 ==

== ENCOUNTER → 2023-09-16 14:47 | Outpatient (BNVA) | payer MEDICARE, SELFPAY | PROVIDERS: PCP Family Medicine; Visit Provider Family Medicine | DX: I50.32 Chronic diastolic (congestive) heart failure (principal); I48.91 Unspecified atrial fibrillation; I10 Essential (primary) hypertension | CPT/HCPCS: 80048; 83880 ==

== ENCOUNTER → 2023-10-14 16:18 | Outpatient (BNVA) | payer MEDICARE, SELFPAY | PROVIDERS: PCP Family Medicine; Visit Provider Family Medicine | DX: I50.33 Acute on chronic diastolic (congestive) heart failure (principal); I10 Essential (primary) hypertension | CPT/HCPCS: 80048; 83880 ==

== ENCOUNTER → 2023-10-18 09:07 | Outpatient (BNVA) | payer MEDICARE, SELFPAY | PROVIDERS: PCP Family Medicine; Visit Provider Family Medicine | DX: R53.82 Chronic fatigue, unspecified (principal); I50.33 Acute on chronic diastolic (congestive) heart failure; I48.91 Unspecified atrial fibrillation; F41.9 Anxiety disorder, unspecified; R06.02 Shortness of breath; I50.32 Chronic diastolic (congestive) heart failure; I10 Essential (primary) hypertension | CPT/HCPCS: 80048; 83880 ==

== ENCOUNTER → 2023-10-19 14:17 | Outpatient (BNVA) | payer MEDICARE, SELFPAY | PROVIDERS: PCP Family Medicine; Visit Provider Family Medicine | DX: I50.32 Chronic diastolic (congestive) heart failure (principal) | CPT/HCPCS: 80048 ==

== ENCOUNTER → 2023-10-26 15:02 | Outpatient (BNVA) | payer MEDICARE, SELFPAY | PROVIDERS: PCP Family Medicine; Visit Provider Family Medicine | DX: I50.32 Chronic diastolic (congestive) heart failure (principal); I48.91 Unspecified atrial fibrillation; I10 Essential (primary) hypertension | CPT/HCPCS: 80053; 83880 ==

== ENCOUNTER → 2023-11-08 14:57 | Outpatient (BNVA) | payer MEDICARE, SELFPAY | PROVIDERS: PCP Family Medicine; Visit Provider Family Medicine | DX: I50.32 Chronic diastolic (congestive) heart failure (principal); I10 Essential (primary) hypertension | CPT/HCPCS: 80048; 83880 ==

== ENCOUNTER → 2023-11-23 11:02 | Outpatient (BNVA) | payer MEDICARE, SELFPAY | PROVIDERS: PCP Family Medicine; Visit Provider Nurse Practitioner Family | DX: I48.19 Other persistent atrial fibrillation (principal); I11.0 Hypertensive heart disease with heart failure; I50.33 Acute on chronic diastolic (congestive) heart failure; Z79.01 Long term (current) use of anticoagulants; Z79.82 Long term (current) use of aspirin | CPT/HCPCS: 99214 ==

== ENCOUNTER → 2023-12-06 12:27 | Outpatient (BNVA) | payer MEDICARE, SELFPAY | PROVIDERS: PCP Family Medicine; Visit Provider Internal Medicine Cardiovascular Disease | DX: I48.91 Unspecified atrial fibrillation (principal); R07.9 Chest pain, unspecified; I49.3 Ventricular premature depolarization | CPT/HCPCS: 93246 ==

== ENCOUNTER → 2023-12-07 14:38 | Outpatient (BNVA) | payer MEDICARE, SELFPAY | PROVIDERS: PCP Family Medicine; Visit Provider Family Medicine | DX: I50.32 Chronic diastolic (congestive) heart failure (principal); I48.91 Unspecified atrial fibrillation; Z79.899 Other long term (current) drug therapy | CPT/HCPCS: 80048; 80053; 83880; 85025 ==

== ENCOUNTER → 2024-01-10 16:17 | Outpatient (BNVA) | payer MEDICARE, SELFPAY | PROVIDERS: PCP Family Medicine; Visit Provider Family Medicine | DX: I50.33 Acute on chronic diastolic (congestive) heart failure (principal); I50.32 Chronic diastolic (congestive) heart failure; I48.91 Unspecified atrial fibrillation; M17.12 Unilateral primary osteoarthritis, left knee | CPT/HCPCS: 80048; 83880 ==

== ENCOUNTER 2024-01-19 11:50 | Outpatient (RCR) | payer MEDICARE, SELFPAY | END 2024-01-26 23:59 | disposition home or self-care (01) | LOC: SPT 11:50 | PROVIDERS: PCP Family Medicine; Visit Provider Family Medicine | DX: M17.12 Unilateral primary osteoarthritis, left knee (principal) | CPT/HCPCS: 97110; 97162 ==

== ENCOUNTER 2024-02-01 14:53 | Outpatient (RCR) | payer MEDICARE, SELFPAY | END 2024-02-26 23:59 | disposition home or self-care (01) | LOC: SPT 14:53 | PROVIDERS: PCP Family Medicine; Visit Provider Family Medicine | DX: M17.12 Unilateral primary osteoarthritis, left knee (principal) | CPT/HCPCS: 97110 ==

== ENCOUNTER → 2024-02-14 15:55 | Outpatient (BNVA) | payer MEDICARE, SELFPAY | PROVIDERS: PCP Family Medicine; Visit Provider Family Medicine | DX: I50.32 Chronic diastolic (congestive) heart failure (principal); I48.91 Unspecified atrial fibrillation | CPT/HCPCS: 80048; 83880; 85025 ==

== ENCOUNTER → 2024-02-15 10:25 | Outpatient (BNVA) | payer MEDICARE, SELFPAY | PROVIDERS: PCP Family Medicine; Visit Provider Internal Medicine Cardiovascular Disease | DX: I48.91 Unspecified atrial fibrillation (principal); I11.0 Hypertensive heart disease with heart failure; I50.32 Chronic diastolic (congestive) heart failure; E78.5 Hyperlipidemia, unspecified; E87.6 Hypokalemia | CPT/HCPCS: 99214 ==

== ENCOUNTER 2024-03-02 22:50 | Emergency (ER) | payer MEDICARE, SELFPAY ==
[2024-03-02 22:58] VITALS: BP 136/96; RESP 18
[2024-03-02] MEDS: tetanus-dipt-pertussis 0.5 mL SDV IM (23:21)
--- NOTE | 2024-03-02 23:37 | ED_ITS ---
HPI - Wound/Laceration General: Chief Complaint: Wound/Laceration Stated Complaint: Left Finger INjury Time Seen by Provider: 03/02/24 22:54 History of Present Illness: Patient presents to the ER with a small laceration on the distal tip of his left middle finger. He cut it earlier in the day while he was cutting up food to eat. He is on Eliquis and has had multiple bandages on and the bleeding is not controlled. As a still suctioned all the bandages. Related Data Home Medications Medication Instructions Recorded Confirmed ascorbate calcium (vitamin C) 500 500 mg PO DAILY 12/14/19 02/14/24 mg tablet cholecalciferol (vitamin D3) 25 25 mcg PO DAILY 02/13/22 02/14/24 mcg (1,000 unit) tablet (Vitamin D3) zinc 50 mg tablet 50 mg PO DAILY 02/13/22 02/14/24 metolazone 5 mg tablet See Rx Instructions .Route .COMPLEX 08/17/23 02/14/24 Previous Rx's Medication Instructions Recorded tamsulosin 0.4 mg capsule See Rx Instructions .Route 08/04/22 .COMPLEX #90 caps escitalopram oxalate 20 mg tablet 20 mg PO DAILY #30 tabs 01/20/23 potassium chloride 20 mEq See Rx Instructions .Route 06/02/23 tablet,extended release .COMPLEX #90 tabs aripiprazole 5 mg tablet (Abilify) 5 mg PO DAILY #30 tabs 08/17/23 apixaban 5 mg tablet (Eliquis) See Rx Instructions .Route 08/24/23 .COMPLEX #180 tabs fluticasone propionate 50 2 spray intranasal DAILY PRN 09/30/23 mcg/actuation nasal Allergy Symptoms #16 grams spray,suspension levocetirizine 5 mg tablet 5 mg PO DAILY PRN allergy symptoms 10/18/23 #30 tabs atorvastatin 20 mg tablet 20 mg PO DAILY #180 tabs 12/23/23 furosemide 40 mg tablet 80 mg (2 x 40 mg) PO BID #60 tabs 01/10/24 spironolactone 100 mg tablet 100 mg PO DAILY #30 tabs 01/10/24 clonazepam 0.5 mg tablet (Klonopin) 1 mg (2 x 0.5 mg) PO DAILY #60 tabs 01/27/24 amiodarone 200 mg tablet 200 mg PO DAILY #90 tabs 02/15/24 Allergies Allergy/AdvReac Type Severity Reaction Status Date / Time ciprofloxacin [From Cipro] Allergy Severe muscle or Verified 02/15/24 10:34 joint pain paroxetine [From Paxil] AdvReac Mild made his Verified 02/15/24 10:34 head feel weird Review of Systems General: Reports: 10 or more systems reviewed and unremarkable except in HPI and below PFSH ED PFSH: Medical History Type 2 diabetes mellitus without complication Persistent atrial fibrillation BPH (benign prostatic hyperplasia) Hyperlipidemia Depression Hypertension Seropositive rheumatoid arthritis Rheumatoid arthritis with rheumatoid factor of multiple sites without organ or systems involvement Other care home (current) drug therapy Surgical History History of tonsillectomy Family History Other Diabetes Social History Smoking and tobacco/nicotine status: unknown if used tobacco/nicotine Alcohol intake: current Alcohol intake frequency: few times a week Alcohol type: beer Substance/Drug Use: never Physical Exam Const: COMMON NORMALS: no acute distress, average body habitus, patient oriented x3, no limitations, healthy appearing, alert and well nourished Neck/C-Spine: COMMON NORMALS: no JVD Chest: COMMONS NORMALS: normal inspection of the chest and normal palpation of entire chest wall Resp: COMMON NORMALS: normal respiratory effort, No retractions, No use of accessory muscles and clear to auscultation bilaterally AUSCULTATION: clear to auscultation bilaterally Cardio: COMMON NORMALS: no JVD, regular rate, regular rhythm, S1 normal heart sound present, S2 normal heart sound present, No gallops present (Cardio), No clicks present (Cardio), No murmurs present (Cardio) and No rub (Cardio) RATE: regular rate RHYTHM: regular rhythm HEART SOUNDS: S1 normal heart sound present and S2 normal heart sound present Extremity: NARRATIVE EXTREMITY EXAM: Small half centimeter laceration on the distal tip of the left index finger, bleeding was controlled with tourniquet, wound was cleansed and Dermabond was applied. Bleeding controlled after that. Neuro: COMMON NORMALS: patient oriented x3 SENSORIUM/ORIENTATION: Yes alert Course Vital Signs: Vital signs: Vital Signs Respiratory Rate 18 03/02/24 22:58 Blood Pressure 136/96 03/02/24 22:58 Oxygen Delivery Me thod Room Air 03/02/24 22:58 MDM - Wound/Laceration Medical Decision Making Wound repaired with Dermabond. Patient be discharged Medical Records I reviewed the patient's medical records. Lab Data I reviewed the patient's lab results. No radiology studies performed this visit Discharge Plan Discharge Patient Disposition: Home Clinical Impression: Laceration Condition: Stable Prescriptions: No Action ascorbate calcium (vitamin C) 500 mg tablet 500 mg PO DAILY atorvastatin 20 mg tablet 20 mg PO DAILY Qty: 180 11RF spironolactone 100 mg tablet 100 mg PO DAILY Qty: 30 11RF furosemide 40 mg tablet 80 mg PO BID Qty: 60 11RF escitalopram oxalate 20 mg tablet 20 mg PO DAILY Qty: 30 11RF Eliquis 5 mg tablet See Rx Instructions .ROUTE .COMPLEX Qty: 180 3RF Dose Instruction: TAKE 1 TABLET BY MOUTH TWICE DAILY Rx Instructions: TAKE 1 TABLET BY MOUTH TWICE DAILY potassium chloride 20 mEq tablet extended release See Rx Instructions .ROUTE .COMPLEX Qty: 90 11RF Dose Instruction: Take 2 tablets by mouth once daily Rx Instructions: Take 3 tablets by mouth once daily aripiprazole [Abilify] 5 mg tablet 5 mg PO DAILY Qty: 30 11RF metolazone 5 mg tablet See Rx Instructions .ROUTE .COMPLEX Dose Instruction: Take 1 tablet by mouth once daily Rx Instructions: Take 1 tablet by mouth daily levocetirizine 5 mg tablet 5 mg PO DAILY PRN (Reason: allergy symptoms) Qty: 30 11RF amiodarone 200 mg tablet 200 mg PO DAILY Qty: 90 3RF Hold Instructions: Patient No Longer Taking Rx Instructions: as instructed by the physician clonazepam [Klonopin] 0.5 mg tablet 1 mg PO DAILY Qty: 60 5RF tamsulosin 0.4 mg capsule See Rx Instructions .ROUTE .COMPLEX Qty: 90 3RF Dose Instruction: TAKE 1 CAPSULE BY MOUTH ONCE DAILY FOR PROSTATE Rx Instructions: TAKE 1 CAPSULE BY MOUTH ONCE DAILY FOR PROSTATE fluticasone propionate 50 mcg/actuation spray,suspension 2 spray intranasal DAILY PRN (Reason: Allergy Symptoms) Qty: 16 11RF Rx Instructions: administer into each nostril zinc 50 mg Tablet 50 mg PO DAILY Vitamin D3 25 mcg (1,000 unit) Tablet 25 mcg PO DAILY Discharge Orders: Discharge ED (Routine); Ordered 03/02/24 Ordered By: Flo Bradford Referrals: Ashwin Roberson MD [Primary Care Provider] - 1 week Patient Instructions: Laceration (ED), Skin Adhesive Care (ED) Activity Restrictions/Additional Instructions: Thank you for choosing [facility] for your healthcare needs today. Please realize that you were seen in the emergency department and that we are providing you with an emergency medical screening exam and this may not be a complete and all exclusive of all testing and/or medical workup we may need to determine your element or severity of your illness. It is very important that you follow-up as instructed with your primary care provider or specialist for the additional evaluation and to discuss your medical treatment plan. You may return to the emergency department should you have concerns or if your condition changes or worsens in any way. Coding Level of Care Code ED Laboratory Asst for Naya Mccord
[2024-03-02 23:56] VITALS: BP 90/65; PULSE 91; O2SAT 94
== END 2024-03-02 23:59 | disposition home or self-care (01) ==
PROVIDERS: Emergency Provider Emergency Medicine; PCP Family Medicine
DX: S61.211A Laceration without foreign body of left index finger without damage to nail, initial encounter (principal); E11.9 Type 2 diabetes mellitus without complications; E78.5 Hyperlipidemia, unspecified; I10 Essential (primary) hypertension; Z79.01 Long term (current) use of anticoagulants; W26.0XXA Contact with knife, initial encounter; Z23 Encounter for immunization
CPT/HCPCS: 90471; 90715; 99283

== ENCOUNTER → 2024-03-16 15:51 | Outpatient (BNVA) | payer MEDICARE, SELFPAY | PROVIDERS: PCP Family Medicine; Visit Provider Family Medicine | DX: I50.32 Chronic diastolic (congestive) heart failure (principal); R60.0 Localized edema | CPT/HCPCS: 80048; 83880 ==

== ENCOUNTER → 2024-03-21 11:00 | Outpatient (BNVA) | payer MEDICARE, SELFPAY | PROVIDERS: PCP Family Medicine; Visit Provider Nurse Practitioner Family | DX: L57.0 Actinic keratosis (principal); L98.1 Factitial dermatitis; L81.4 Other melanin hyperpigmentation; L57.8 Other skin changes due to chronic exposure to nonionizing radiation; D22.5 Melanocytic nevi of trunk; L82.1 Other seborrheic keratosis | CPT/HCPCS: 17000; 99203 ==

== ENCOUNTER → 2024-04-13 15:37 | Outpatient (BNVA) | payer MEDICARE, SELFPAY | PROVIDERS: PCP Family Medicine; Visit Provider Family Medicine | DX: I50.32 Chronic diastolic (congestive) heart failure (principal); I48.91 Unspecified atrial fibrillation; N18.9 Chronic kidney disease, unspecified | CPT/HCPCS: 80048; 83735 ==

== ENCOUNTER → 2024-05-11 15:39 | Outpatient (BNVA) | payer MEDICARE, SELFPAY | PROVIDERS: PCP Family Medicine; Visit Provider Family Medicine | DX: I50.32 Chronic diastolic (congestive) heart failure (principal); I48.91 Unspecified atrial fibrillation; N18.9 Chronic kidney disease, unspecified; I10 Essential (primary) hypertension | CPT/HCPCS: 80053; 82607; 83735; 84100; 84550; 85025 ==

== ENCOUNTER → 2024-06-02 11:00 | Outpatient (BNVA) | payer MEDICARE, SELFPAY | PROVIDERS: PCP Family Medicine; Visit Provider Nurse Practitioner Family | DX: L98.1 Factitial dermatitis (principal); L57.0 Actinic keratosis | CPT/HCPCS: 17000; 99213 ==

== ENCOUNTER → 2024-06-14 11:18 | Outpatient (BNVA) | payer MEDICARE, SELFPAY | PROVIDERS: PCP Family Medicine; Visit Provider Family Medicine | DX: I50.32 Chronic diastolic (congestive) heart failure (principal) | CPT/HCPCS: 80048 ==

== ENCOUNTER → 2024-07-31 16:24 | Outpatient (BNVA) | payer MEDICARE, SELFPAY | PROVIDERS: PCP Family Medicine; Visit Provider Family Medicine | DX: I48.91 Unspecified atrial fibrillation (principal); I10 Essential (primary) hypertension; I50.32 Chronic diastolic (congestive) heart failure; R73.9 Hyperglycemia, unspecified; I50.33 Acute on chronic diastolic (congestive) heart failure; N18.9 Chronic kidney disease, unspecified | CPT/HCPCS: 80048; 80053; 83036; 85025 ==

== ENCOUNTER → 2024-08-29 14:42 | Outpatient (BNVA) | payer MEDICARE, SELFPAY | PROVIDERS: PCP Family Medicine; Visit Provider Family Medicine | DX: I50.32 Chronic diastolic (congestive) heart failure (principal) | CPT/HCPCS: 80048 ==

== ENCOUNTER → 2024-09-05 13:08 | Outpatient (BNVA) | payer MEDICARE, SELFPAY | PROVIDERS: PCP Family Medicine; Visit Provider Nurse Practitioner Family | DX: S81.801A Unspecified open wound, right lower leg, initial encounter (principal); I87.2 Venous insufficiency (chronic) (peripheral); R60.0 Localized edema; L98.1 Factitial dermatitis; L85.3 Xerosis cutis; X58.XXXA Exposure to other specified factors, initial encounter | CPT/HCPCS: 99214 ==

== ENCOUNTER → 2024-09-12 13:51 | Outpatient (BNVA) | payer MEDICARE, SELFPAY | PROVIDERS: PCP Family Medicine; Visit Provider Family Medicine | DX: I50.32 Chronic diastolic (congestive) heart failure (principal) | CPT/HCPCS: 80048 ==

== ENCOUNTER → 2024-09-19 14:46 | Outpatient (BNVA) | payer MEDICARE, SELFPAY | PROVIDERS: PCP Family Medicine; Visit Provider Nurse Practitioner Family | DX: S81.801A Unspecified open wound, right lower leg, initial encounter (principal); I87.2 Venous insufficiency (chronic) (peripheral); R60.0 Localized edema; X58.XXXA Exposure to other specified factors, initial encounter | CPT/HCPCS: 99214 ==

== ENCOUNTER → 2024-09-20 11:38 | Outpatient (BNVA) | payer MEDICARE, SELFPAY | PROVIDERS: PCP Family Medicine; Visit Provider Nurse Practitioner Family | DX: R00.0 Tachycardia, unspecified (principal); I48.91 Unspecified atrial fibrillation; R06.02 Shortness of breath; I11.0 Hypertensive heart disease with heart failure; I50.32 Chronic diastolic (congestive) heart failure; R94.31 Abnormal electrocardiogram [ECG] [EKG]; I21.9 Acute myocardial infarction, unspecified; E78.5 Hyperlipidemia, unspecified; E87.6 Hypokalemia; Z79.01 Long term (current) use of anticoagulants | CPT/HCPCS: 36415; 80048; 83880; 93005; 99214 ==

== ENCOUNTER → 2024-10-05 12:57 | Outpatient (BNVA) | payer MEDICARE, SELFPAY | PROVIDERS: PCP Family Medicine; Visit Provider Nurse Practitioner Family | DX: S81.801A Unspecified open wound, right lower leg, initial encounter (principal); X58.XXXA Exposure to other specified factors, initial encounter; I87.2 Venous insufficiency (chronic) (peripheral); R60.0 Localized edema | CPT/HCPCS: 99214 ==

== ENCOUNTER → 2024-10-24 13:11 | Outpatient (BNVA) | payer MEDICARE, SELFPAY | PROVIDERS: PCP Family Medicine; Visit Provider Family Medicine | DX: I50.32 Chronic diastolic (congestive) heart failure (principal); E87.6 Hypokalemia | CPT/HCPCS: 80048 ==

== ENCOUNTER → 2024-11-02 13:02 | Outpatient (BNVA) | payer MEDICARE, SELFPAY | PROVIDERS: PCP Family Medicine; Visit Provider Nurse Practitioner Family | DX: D48.5 Neoplasm of uncertain behavior of skin (principal); D23.5 Other benign neoplasm of skin of trunk; L90.5 Scar conditions and fibrosis of skin | CPT/HCPCS: 99214 ==

== ENCOUNTER 2024-11-23 15:35 | Outpatient (CLI) | payer MEDICARE, SELFPAY ==
--- NOTE | 2024-11-23 16:00 | XRR_ITS ---
PROCEDURE INFORMATION: Exam: XR Chest Exam date and time: 11/23/2024 4:05 PM Age: 74 years old Clinical indication: Dyspnea; Afib x 2 years. Frequent chest pain; Additional info: Dyspnea/ on amiodarone TECHNIQUE: Imaging protocol: Radiologic exam of the chest. Views: 2 views. COMPARISON: CR XR chest 1V portable [id number] 02/13/2022 8:56 AM FINDINGS: Lungs: Mild linear opacity mid right lung with surrounding slight increased interstitial markings. No consolidation. Pleural spaces: Trace effusion versus mild pleural thickening right costophrenic angle. No significant pleural effusion. No pneumothorax. Heart/Mediastinum: Cardiac size is within normal limits. Vasculature: Mild arteriosclerosis of the thoracic aorta. Bones/joints: Old healed rib fracture 8th rib on the left. XR/XR chest 2V* [id number] IMPRESSION: Mild linear opacity mid right lung with surrounding slight increased interstitial markings. There may be some component of mild thickening of the minor fissure or linear atelectasis, though also consider mild interstitial pneumonitis mid right lung.
== END 2024-11-23 15:36 | disposition home or self-care (01) ==
PROVIDERS: Absent Provider Nurse Practitioner Family; PCP Family Medicine; Visit Provider Family Medicine
DX: Z79.899 Other long term (current) drug therapy (principal); I50.32 Chronic diastolic (congestive) heart failure; R91.8 Other nonspecific abnormal finding of lung field; R00.0 Tachycardia, unspecified; R07.9 Chest pain, unspecified
CPT/HCPCS: 71046; 80053; 83880; 84443; 85025

== ENCOUNTER 2024-11-30 11:10 | Outpatient (CLI) | payer MEDICARE, SELFPAY ==
--- NOTE | 2024-11-30 08:30 | USCV_ITS ---
Cesar Mederos Age: 74 Gender: M : 1950 Exam Date: 11/30/2024 11:37 Ordering Phys: Farheen Garzon NP Technologist: URSULA Exam Location: [facility] – [place] Indication: SoB BP: 90 / 68 HR: 80 Rhythm: Sinus Technical Quality: Adequate MEASUREMENTS (Male / Female) Normal Values 2D ECHO LV Diastolic Diameter PLAX 4.6 cm 4.2 - 5.9 / 3.9 - 5.3 cm IVS Diastolic Thickness 1.0 cm 0.6 - 1.0 / 0.6 - 0.9 cm IVS Systolic Thickness 1.5 cm LVPW Diastolic Thickness 1.0 cm 0.6 - 1.0 / 0.6 - 0.9 cm LVPW Systolic Thickness 1.7 cm LVOT Diameter 2.1 cm LV Ejection Fraction 2D Teich 49.5 % LV Ejection Fraction MOD 4C 49.4 % LV Ejection Fraction MOD 2C 48.6 % LV Ejection Fraction 2C AL 48.1 % LA Diameter 4.7 cm RA Systolic Volume 4C AL 82.9 ml RA Systolic Volume 4C MOD 80.6 ml LA Sys Volume AL 104.5 cm cubed LA Sys Volume Index AL 44.1 cm cubed/m squared Aorta at Sinotubular Diameter 3.1 cm IVC Diameter 2.8 cm M-MODE LA Ao Ratio MM 2.7 AV Cusp Separation MM 1.3 cm DOPPLER AV Peak Velocity 118.0 cm/s AV Area Cont Eq vti 2.0 cm squared AV Area Cont Eq pk 2.0 cm squared MV Peak Velocity 82.0 cm/s MV Area PHT 5.1 cm squared Mitral E to A Ratio 3.1 TV Peak Velocity 161.5 cm/s TR Peak Velocity 209.0 cm/s TR Peak Gradient 17.5 mmHg TV Peak E Velocity 95.0 cm/s PV Peak Velocity 95.0 cm/s FINDINGS Left Ventricle Normal left ventricular cavity size. Mildly decreased left ventricular systolic function. Left ventricular ejection fraction is estimated at 48 %. Global left ventricular hypokinesis. Right Ventricle The right ventricle is normal in size and function. Right Atrium The right atrium is normal in size. Left Atrium Moderately increased left atrial size. Mitral Valve Moderately thickened mitral valve. Mild mitral annular calcification. No mitral valve stenosis. Mild mitral valve regurgitation. Aortic Valve Moderate aortic valve calcification. No aortic valve stenosis. Trace aortic valve regurgitation. Tricuspid Valve Structurally normal tricuspid valve without significant stenosis or regurgitation. Pulmonary artery systolic pressure is normal. Pulmonic Valve Structurally normal pulmonic valve without significant stenosis. There is no pulmonic regurgitation. Pericardium Normal pericardium without effusion. Aorta Normal ascending aorta dimension. IVC The inferior vena cava appears normal. CONCLUSIONS Normal left ventricular cavity size. Mildly decreased left ventricular systolic function. Left ventricular ejection fraction is estimated at 48 %. Global left ventricular hypokinesis. There is no pericardial effusion. No significant valve abnormalities. Right atrial pressure is around 5 mm of mercury. Yovanny Holden MD (Electronically Signed) Final Date: 04 December 2024 21:35 S
== END 2024-11-30 11:11 | disposition home or self-care (01) ==
PROVIDERS: PCP Family Medicine; Visit Provider Nurse Practitioner Family
DX: I50.32 Chronic diastolic (congestive) heart failure (principal); R93.1 Abnormal findings on diagnostic imaging of heart and coronary circulation; I50.1 Left ventricular failure, unspecified; I51.7 Cardiomegaly; I34.81 Nonrheumatic mitral (valve) annulus calcification; I34.0 Nonrheumatic mitral (valve) insufficiency; I35.8 Other nonrheumatic aortic valve disorders
CPT/HCPCS: 93306

== ENCOUNTER 2024-12-13 08:17 | Outpatient (CLI) | payer MEDICARE, SELFPAY ==
[2024-12-13 08:40] VITALS: PULSE 107; RESP 18; O2SAT 98
[2024-12-13] MEDS: albuterol 2.5 mg/3 mL Neb INHALATION (08:40)
== END 2024-12-13 08:18 | disposition home or self-care (01) ==
PROVIDERS: PCP Family Medicine; Visit Provider Family Medicine
DX: Z79.899 Other long term (current) drug therapy (principal); I50.32 Chronic diastolic (congestive) heart failure; R94.2 Abnormal results of pulmonary function studies
CPT/HCPCS: 94060

== ENCOUNTER → 2025-01-01 14:23 | Outpatient (BNVA) | payer MEDICARE, SELFPAY | PROVIDERS: PCP Family Medicine; Visit Provider Internal Medicine Cardiovascular Disease | DX: I11.0 Hypertensive heart disease with heart failure (principal); I50.30 Unspecified diastolic (congestive) heart failure; I48.20 Chronic atrial fibrillation, unspecified; Z79.01 Long term (current) use of anticoagulants; E78.2 Mixed hyperlipidemia; E87.6 Hypokalemia; R06.02 Shortness of breath | CPT/HCPCS: 36415; 80048; 83880; 99214 ==

== ENCOUNTER → 2025-01-01 15:33 | Outpatient (BNVA) | payer MEDICARE, SELFPAY | PROVIDERS: PCP Family Medicine; Visit Provider Internal Medicine Cardiovascular Disease | DX: I48.91 Unspecified atrial fibrillation (principal); I48.92 Unspecified atrial flutter; I49.3 Ventricular premature depolarization | CPT/HCPCS: 93246 ==

== ENCOUNTER → 2025-01-22 14:50 | Outpatient (BNVA) | payer MEDICARE, SELFPAY | PROVIDERS: PCP Family Medicine; Referring Provider Family Medicine; Visit Provider Internal Medicine | DX: J84.9 Interstitial pulmonary disease, unspecified (principal); J98.4 Other disorders of lung; N18.9 Chronic kidney disease, unspecified; R60.0 Localized edema; I50.9 Heart failure, unspecified; I10 Essential (primary) hypertension; I48.91 Unspecified atrial fibrillation; R53.83 Other fatigue | CPT/HCPCS: 99204 ==

== ENCOUNTER 2025-02-01 15:17 | Outpatient (CLI) | payer MEDICARE, SELFPAY ==
--- NOTE | 2025-02-01 15:15 | CT_ITS ---
WS: [id number] CT CHEST CT-HIGH RESOLUTION, NONCONTRAST. HISTORY: Interstitial lung disease., Increasing short of breath. Technique: High-resolution chest CT is performed in inspiration, expiration, supine and prone positioning. All CT scans at [facility] use at least one of these dose optimization techniques: automated exposure control; mA and/or kV adjustment per patient size (includes targeted exams where dose is matched to clinical indication); or iterative reconstruction. DLP: 1945.54 mGy.cm COMPARISON: 10/13/2005 Findings: Mild volume loss in the RIGHT thorax. Linear areas of subsegmental atelectasis in the RIGHT middle and RIGHT lower lobes. There is pleural thickening along the fissures. Rounded consolidation along the RIGHT minor fissure is probably fluid. Pleural thickening in the RIGHT lower thorax. Bronch ial wall thickening RIGHT lower lobe. There is mild bronchiectasis in the RIGHT lower lobe. Bronchi are encased by bronchial wall thickening. These findings are new since 2005. No honeycombing. The areas of atelectasis and volume loss do not improve with prone positioning. There is mild mosaic attenuation within both lungs which may represent mild air trapping. Mild atherosclerosis aorta. Dilated pulmonary artery. Main pulmonary artery measures 5.0 cm. LEFT and RIGHT pulmonary arteries are also dilated. Cardiomegaly. Moderate coronary artery calcifications. Mild pericardial thickening. Small hiatal hernia. No mediastinal or hilar adenopathy. Mild thickening of the adrenal glands. CT/CT chest wo con [id number] Impression: 1. Mild volume loss in the RIGHT thorax with pleural thickening and areas of s ubsegmental atelectasis and consolidations, most significant in the RIGHT middl e and RIGHT lower lobes. 2. Diffuse bronchial wall thickening greatest in the RIGHT lower lobe with ear ly changes of bronchiectasis. 3. Additional pleural thickening along the RIGHT fissures. 4. Mild cardiomegaly with calcified coronary arteries. 5. No honeycombing identified.
--- NOTE | 2025-02-01 15:23 | CTR_ITS ---
PROCEDURE INFORMATION: Exam: CT Neck With Contrast Exam date and time: 02/01/2025 3:43 PM Age: 74 years old Clinical indication: Dysphagia / difficulty swallowing TECHNIQUE: Imaging protocol: Computed tomography of the neck with contrast. Radiation optimization: All CT scans at this facility use at least one of these dose optimization techniques: automated exposure control; mA and/or kV adjustment per patient size (includes targeted exams where dose is matched to clinical indication); or iterative reconstruction. Contrast material: OMNI 350; Contrast volume: 100 ml; Contrast route: INTRAVENOUS (IV); COMPARISON: CT chest wo con [id number] 02/01/2025 3:30 PM RADIATION DOSE METRICS: Total DLP (mGy-cm): 225.75 FINDINGS: Salivary glands: Normal. Glands are normal in size. Pharynx: Unremarkable. No significant tonsillar enlargement. Larynx: Unremarkable. Epiglottis is normal. Thyroid: Normal. No enlarged or calcified nodules. Trachea: Visualized trachea is unremarkable. Lungs: Unremarkable as visualized. Lymph nodes: Unremarkable. No lymphadenopathy. Bones/joints: Cervical spondylosis reversal of cervical lordosis. Canal stenosis at C4-C5 and C5-C6. Soft tissues: Unremarkable. No significant soft tissue swelling. CT/CT neck w con* [id number] IMPRESSION: Normal CT soft tissue neck.
[2025-02-01] MEDS: iohexol 350 mg/mL 500 mL Btl (per mL) IV (15:53)
== END 2025-02-01 15:18 | disposition home or self-care (01) ==
LOC: RAD 15:19
PROVIDERS: PCP Family Medicine; Visit Provider Specialist
DX: J84.9 Interstitial pulmonary disease, unspecified (principal); M47.812 Spondylosis without myelopathy or radiculopathy, cervical region; I51.7 Cardiomegaly
CPT/HCPCS: 70491; 71250

== ENCOUNTER 2025-02-06 12:58 | Outpatient (CLI) | payer MEDICARE, SELFPAY ==
[2025-02-06 13:23] VITALS: PULSE 81; RESP 18; O2SAT 97
== END 2025-02-06 12:59 | disposition home or self-care (01) ==
PROVIDERS: PCP Family Medicine
DX: J98.4 Other disorders of lung (principal); R94.2 Abnormal results of pulmonary function studies
CPT/HCPCS: 94060; 94726; 94729; J7613

== ENCOUNTER → 2025-02-15 14:44 | Outpatient (BNVA) | payer MEDICARE, SELFPAY | PROVIDERS: PCP Family Medicine; Visit Provider Family Medicine | DX: I50.32 Chronic diastolic (congestive) heart failure (principal) | CPT/HCPCS: 80048 ==

== ENCOUNTER 2025-02-19 11:05 | Outpatient (CLI) | payer MEDICARE, SELFPAY ==
--- NOTE | 2025-02-19 11:09 | FL_ITS ---
WS: [id number] Exam: FL barium swallow [id number] Date/Time of Exam: 02/19/2025 11:10 AM Reason For Exam: DYSPHAGIA Fluoroscopy time: 2min [id number] minutes # of spot films: 4 Oropharyngeal phase of swallowing was normal. No aspiration. The esophagus is widely patent without stricture or mass. There is some leftward deviation of the upper thoracic esophagus but no underlying mediastinal or neck mass was noted on recent CT scan of the neck performed 02/01/2025. No hiatal hernia or gastroesophageal reflux. No significant motility disorder. FL/FL barium swallow [id number] IMPRESSION: 1. No esophageal stricture mass or luminal narrowing. 2. There is some leftward deviation of the upper thoracic esophagus. No underly ing mass was identified in this region on recent CT scan performed 02/01/2025.
== END 2025-02-19 11:06 | disposition home or self-care (01) ==
LOC: RAD 11:06
PROVIDERS: PCP Family Medicine; Visit Provider Specialist
DX: R13.10 Dysphagia, unspecified (principal)
CPT/HCPCS: 74220

== ENCOUNTER → 2025-02-27 13:53 | Outpatient (BNVA) | payer MEDICARE, SELFPAY | PROVIDERS: PCP Family Medicine; Visit Provider Internal Medicine | DX: I11.0 Hypertensive heart disease with heart failure (principal); I50.9 Heart failure, unspecified; N28.9 Disorder of kidney and ureter, unspecified; I48.91 Unspecified atrial fibrillation; Z79.01 Long term (current) use of anticoagulants; J98.4 Other disorders of lung; E03.9 Hypothyroidism, unspecified; Z79.899 Other long term (current) drug therapy; J84.9 Interstitial pulmonary disease, unspecified; R06.00 Dyspnea, unspecified; R60.0 Localized edema | CPT/HCPCS: 36415; 80048; 99215; Q3014 ==

== ENCOUNTER → 2025-03-05 11:49 | Outpatient (BNVA) | payer MEDICARE, SELFPAY | PROVIDERS: PCP Family Medicine; Visit Provider Family Medicine | DX: R00.0 Tachycardia, unspecified (principal); I50.32 Chronic diastolic (congestive) heart failure; I48.91 Unspecified atrial fibrillation | CPT/HCPCS: 80053; 84439; 84443 ==

== ENCOUNTER 2025-03-14 11:49 | Outpatient (CLI) | payer MEDICARE, SELFPAY ==
--- NOTE | 2025-03-14 11:00 | CTR_ITS ---
PROCEDURE INFORMATION: Exam: CT Chest With Contrast; Diagnostic Exam date and time: 03/14/2025 12:07 PM Age: 75 years old Clinical indication: Abnormal findings; Abnormal radiologic finding of the abdomen; Radiologic exam and body structure: CT chest; Abnormal radiologic exam of lung or chest; Additional info: Rule out underlying malignancy TECHNIQUE: Imaging protocol: Diagnostic computed tomography of the chest with contrast. Radiation optimization: All CT scans at this facility use at least one of these dose optimization techniques: automated exposure control; mA and/or kV adjustment per patient size (includes targeted exams where dose is matched to clinical indication); or iterative reconstruction. Contrast material: OMNI 350; Contrast volume: 100 ml; Contrast route: INTRAVENOUS (IV); COMPARISON: 1. CT chest ION (PULM ONLY) [id number] 03/14/2025 12:[address] chest wo con [id number] 02/01/2025 3:30 PM RADIATION DOSE METRICS: Total DLP (mGy-cm): 1274.89 FINDINGS: Lungs: Unchanged right lung volume loss. Moderate soft tissue thickening surrounding lower lobe bronchi persists. Persistent linear bands of atelectasis in the right lower and middle lobes. Mild degree of peripheral interstitial thickening persists in the right middle and lower lobes. Unchanged 6 mm left lower lobe calcification. No left lung infiltrate. Pleural spaces: Moderate posterior basilar pleural thickening and small amount of pleural fluid persists on the right. Fluid or soft tissue thickening again noted along the right major and minor fissures. No left effusion. Heart: Multi chamber cardiac enlargement. Coronary arteries: Mild coronary artery calcifications. Lymph nodes: No lymph node enlargement. Vasculature: Pulmonary artery to aorta ratio is 1.3. Relative enlargement of the right ventricle (4.7 cm) as compared to the left ventricle (3.2 cm) . The pulmonary arteries are patent. Aortic caliber is normal. Bones/joints: Multilevel bulky anterior osteophyte formation in the spine. Soft tissues: Bilateral gynecomastia. PROCEDURE INFORMATION: Exam: CT Abdomen And Pelvis With Contrast Exam date and time: 03/14/2025 12:07 PM Age: 75 years old Clinical indication: Abnormal findings; Abnormal radiologic finding of the abdomen; Radiologic exam and body structure: CT chest; Abnormal radiologic exam of lung or chest; Additional info: Rule out underlying malignancy TECHNIQUE: Imaging protocol: Computed tomography of the abdomen and pelvis with contrast. Radiation optimization: All CT scans at this facility use at least one of these dose optimization techniques: automated exposure control; mA and/or kV adjustment per patient size (includes targeted exams where dose is matched to clinical indication); or iterative reconstruction. Contrast material: OMNI 350; Contrast volume: 100 ml; Contrast route: INTRAVENOUS (IV); COMPARISON: CT chest ION (PULM ONLY) [id number] 03/14/2025 12:04 PM RADIATION DOSE METRICS: Total DLP (mGy-cm): 1274.89 FINDINGS: Heart: The liver reveals early phase enhancement, likely secondary to cardiac dysfunction. No mass identified. Diaphragm: There is a small hiatal hernia. Liver: Normal. No mass. Gallbladder and biliary ducts: The gallbladder is small. Ill-defined radiodense structures in the gallbladder lumen likely represent gallstones. No pericholecystic inflammatory changes. There is no evidence of biliary ductal dilation. Pancreas: The pancreas is normal. No mass. Spleen: The spleen is normal. Adrenal glands: Unchanged 15 mm right adrenal nodule. Kidneys and ureters: 12 mm left renal cyst. No hydronephrosis. Stomach and bowel: Colonic diverticulosis without evidence of diverticulitis. Bowel caliber is normal. No paracolonic inflammatory changes. Appendix: Normal appendix. Intraperitoneal space: Small amount of free fluid in the right anterior pelvis and rectovesical space. No free intraperitoneal gas. Vasculature: Aortic caliber is normal. Lymph nodes: Portal and peripancreatic nodes are at the upper limit of normal in size, measuring up to 13 mm in short axis. Numerous para-aortic nodes also at the upper limit of normal in size, measuring 8 mm in short axis. Borderline pelvic node enlargement with external iliac nodes measuring up to 14 mm. Urinary bladder: No focal wall thickening of the urinary bladder. Reproductive: Prostate gland is enlarged. Bones/joints: Moderate lumbar scoliosis. Severe degenerative disc disease at L1-L2, L3-L4 and L4-L5. Soft tissues: Strand-like increased density is present throughout the subcutaneous fat diffusely. CT/CT chest abdpel w/*[id number] IMPRESSION: 1. Enlarged pulmonary artery and right heart chambers, consistent with pulmonary hypertension. 2. No interval change in right lung volume loss with associated pleural thickening and mild pleural fluid. 3. Right lower lobe peribronchial soft tissue thickening most consistent with a chronic inflammatory process. IMPRESSION: 1. Small amount of nonspecific free fluid in the pelvis. 2. Borderline portal, para-aortic and pelvic gabe enlargement. 3. Anasarca. 4. Unchanged 15 mm right adrenal nodule. If not previously characterized, this can be further evaluated with nonemergent adrenal protocol CT or MRI. 5. Cholelithiasis. COMMENTS: Consistent with the [employer]'s Incidental Findings Committee white paper (J Am Yonas Radiol 2018): Any incidental renal lesion less than 1 cm or classified as too small to characterize, or any incidental cystic renal lesion characterized as simple-appearing, is likely benign. No follow-up imaging is recommended for these lesions per consensus recommendations based on imaging criteria.
--- NOTE | 2025-03-14 11:00 | CT_ITS ---
WS: [id number] CT chest ION (PULM ONLY) [id number] HISTORY: Needs scheduled prior to 03/06/25 TECHNIQUE: Axial imaging performed through the thorax. Coronal and sagittal reformats are submitted. All CT scans at [facility] use at least one of these dose optimization techniques: automated exposure control; mA and/or kV adjustment per patient size (includes targeted exams where dose is matched to clinical indication); or iterative reconstruction. CONTRAST: None DLP: 369.50 mGy COMPARISON: 02/01/2025 Lungs and central airway: High-resolution imaging performed prior to navigational bronchoscopy reveals mild volume loss in the RIGHT lung with pleural thickening and areas of chronic atelectasis in the RIGHT lower lobe. These findings have been previously described. There is mild motion artifact. Bandlike areas of linear atelectasis in the RIGHT upper, RIGHT middle and RIGHT lower lobes. Thickening of the pleura along the fissures. Loculated effusion along the RIGHT minor fissure. Benign granuloma LEFT lower lobe. Pleura: Normal. No pleural effusion. Heart and pericardium: Moderate cardiomegaly. Mediastinum and sridhar: Small mediastinal and hilar lymph nodes. Vessels: Marked dilatation of the pulmonary artery. Chest wall and lower neck: No soft tissue masses. Upper abdomen: 2.0 cm RIGHT adrenal mass stable since 2005. Suspect tiny LEFT adrenal adenoma also. Cholelithiasis. Osseous structures: Degenerative scoliosis thoracic spine. CT/CT chest ION (PULM ONLY) [id number] IMPRESSION: 1. Chronic volume loss in the RIGHT thorax. Bandlike areas of atelectasis with bronchial thickening in the RIGHT lung, most significant in the RIGHT lower lo be. 2. RIGHT pleural thickening with a loculated effusion along the RIGHT minor fi ssure. 3. Moderate cardiomegaly. 4. Marked enlargement of the pulmonary artery.
[2025-03-14] MEDS: iohexol 350 mg/mL 500 mL Btl (per mL) IV (12:10)
== END 2025-03-14 11:50 | disposition home or self-care (01) ==
LOC: RAD 11:49
PROVIDERS: PCP Family Medicine; Visit Provider Internal Medicine
DX: I48.20 Chronic atrial fibrillation, unspecified (principal); Z79.01 Long term (current) use of anticoagulants; I13.0 Hypertensive heart and chronic kidney disease with heart failure and stage 1 through stage 4 chronic kidney disease, or unspecified chronic kidney disease; N18.31 Chronic kidney disease, stage 3a; I50.30 Unspecified diastolic (congestive) heart failure; E78.2 Mixed hyperlipidemia; E87.6 Hypokalemia; R06.02 Shortness of breath; I48.91 Unspecified atrial fibrillation; I49.3 Ventricular premature depolarization; R07.9 Chest pain, unspecified; J98.4 Other disorders of lung; J84.9 Interstitial pulmonary disease, unspecified; R06.00 Dyspnea, unspecified
CPT/HCPCS: 71250; 71260; 74177; 93005; 99215

== ENCOUNTER 2025-03-15 21:46 | Emergency (ER) | payer MEDICARE, SELFPAY ==
--- OUTSIDE RECORDS SUMMARY | 2025-03-15 21:51 | XMS_ITS | Clinical Summary ---
Author Organization [facility] Address [address] 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
--- OUTSIDE RECORDS SUMMARY | 2025-03-15 21:51 | XMS_ITS | Encounter Summary ---
Author Organization [facility] Address [address] [place] [address] Care Team Providers Care Shoulder Puncher Name Role Phone Unavailable Primary Care Provider Unavailabl e Encounter Details Date Type Department Care Team (Latest Contact Info) Description 11/03/1999 Outpatient Historical [facility] Ophthalmology 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
--- OUTSIDE RECORDS SUMMARY | 2025-03-15 21:51 | XMS_ITS | Encounter Summary ---
Author Organization [facility] Address [address] [place] [address] Care Team Providers Care Open Hearth Furnace Laborer Name Role Phone Unavailable Primary Care Provider Unavailabl e Encounter Details Date Type Department Care Team (Latest Contact Info) Description 01/02/2003 Outpatient Historical [facility] Opt[facility] [address] [place] [address] Nolberto Luis, OD [address] [place] [address] PREGLAUCOMA NOS (Primary Dx); MYOPIA Social History Tobacco Use Types Packs/Day Years Used Date Smoking Tobacco: Never Assessed Sex and Gender Information Value Date Recorded Sex Assigned at Not on file 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
--- OUTSIDE RECORDS SUMMARY | 2025-03-15 21:51 | XMS_ITS | Encounter Summary ---
Author Organization [facility] Address [address] [place] [address] Care Team Providers Care Title Specialist Name Role Phone Unavailable Primary Care Provider Unavailabl e Encounter Details Date Type Department Care Team (Latest Contact Info) Description 06/14/1997 Outpatient Historical [facility] Op[facility]mology 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
--- OUTSIDE RECORDS SUMMARY | 2025-03-15 21:51 | XMS_ITS | Clinical Summary ---
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
--- OUTSIDE RECORDS SUMMARY | 2025-03-15 21:51 | XMS_ITS | Encounter Summary ---
Author Organization [facility] Address [address] [place] [address] Care Team Providers Care Manager Philosophy Name Role Phone Unavailable Primary Care Provider Unavailabl e Encounter Details Date Type Department Care Team (Latest Contact Info) Description 01/04/2004 Outpatient Historical [facility] Optometry 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
--- NOTE | 2025-03-15 21:58 | CTR_ITS ---
PROCEDURE INFORMATION: Exam: CT Head Without Contrast Exam date and time: 03/15/2025 10:57 PM Age: 75 years old Clinical indication: Injury or trauma; Fall; Blunt trauma (contusions or hematomas) TECHNIQUE: Imaging protocol: Computed tomography of the head without contrast. Radiation optimization: All CT scans at this facility use at least one of these dose optimization techniques: automated exposure control; mA and/or kV adjustment per patient size (includes targeted exams where dose is matched to clinical indication); or iterative reconstruction. COMPARISON: CT head wo con* [id number] 09/14/2021 4:38 PM RADIATION DOSE METRICS: Total DLP (mGy-cm): 1194.18 FINDINGS: Brain: Cerebral volume loss, which may be age related. Periventricular white matter hypoattenuation is consistent with chronic ischemic small vessel disease. Thomson-white differentiation is otherwise normal. No mass or mass effect. No hemorrhage. Cerebral ventricles: Ex vacuo ventricular dilatation. Paranasal sinuses: Visualized sinuses are unremarkable. No fluid levels. Mastoid air cells: Visualized mastoid air cells are well aerated. Bones: No acute calvarial fracture. Soft tissues: Suggested small left frontal scalp soft tissue contusion. Subcutaneous gas over the midline parieto-occipital scalp, consistent with laceration/abrasion and contusion. Vasculature: Calcification of the V4 segment of the vertebral arteries is noted. CT/CT head wo con* [id number] IMPRESSION: 1. Midline parieto-occipital soft tissue laceration/contusion. Question of additional small left frontal scalp soft tissue contusion. Correlate with physical exam. 2. Changes from chronic ischemic small vessel disease of periventricular white matter and cerebral volume loss, likely age related. Otherwise, no acute intracranial process. 3. No acute calvarial fracture.
--- NOTE | 2025-03-15 21:59 | XRR_ITS ---
PROCEDURE INFORMATION: Exam: XR Chest Exam date and time: 03/15/2025 10:42 PM Age: 75 years old Clinical indication: Injury or trauma; Fall; Blunt trauma (contusions or hematomas); Additional info: Chest pain TECHNIQUE: Imaging protocol: Radiologic exam of the chest. Views: 1 view. COMPARISON: CT chest abdpel w/*[id number] 03/14/2025 12:07 PM FINDINGS: Lungs: Stable patchy right lower lobe airspace opacities. Pleural spaces: Stable right pleural thickening and fissural fluid. Trace right pleural effusion is present with associated atelectasis. Heart/Mediastinum: The heart is enlarged. Vasculature: Atherosclerotic changes of the aorta are noted. Bones/joints: Unremarkable. XR/XR chest 1V portable [id number] IMPRESSION: 1. Relatively stable findings of right pleural thickening and fissural/trace pleural fluid with comparison to prior CT from 03/14/2025. Right lower lobe airspace opacities favored to represent sequela of airspace disease as noted on prior CT. 2. Cardiomegaly.
--- NOTE | 2025-03-15 21:59 | ECG_ITS ---
[facility]: 2025[facility]15 Pat Name: Cesar Mederos Department: Room: Gender: Male Audio Visual Engineer: : 1950 Requested By: Dimitris Lerma Order Number: [id number] Potter MD: Raffaele Sneed M.D. Measurements Intervals [place] Rate: 103 P: 0 [place]: 0 QRS: -85 QRSD: 105 T: 0 QT: 365 QTc: 480 Interpretive Statements ATRIAL FIBRILLATION WITH RAPID VENTRICULAR RESPONSE LEFT AXIS DEVIATION [QRS AXIS < -30] LOW QRS VOLTAGE IN EXTREMITY LEADS [QRS DEFLECTION < 0.5 mV IN LIMB LEADS] Compared to ECG 03/14/2025 11:34:30 Left-axis deviation now present Low QRS voltage now present Electronically Signed On 03-17-2025 13:09:11 CDT by Raffaele Sneed M.D. [id number]
[2025-03-15 22:01] VITALS: BP 108/74; PULSE 105; RESP 18; TEMP 36.9; O2SAT 97; BMI 27.6
[2025-03-15 22:46] LABS: Troponin(5th) Baseline 26 ng/L (0-15)
[2025-03-15 22:48] LABS: Alanine Aminotransferase 13 U/L (0-41); Albumin Level 3.5 g/dL (3.5-5.2); Alkaline Phosphatase 165 U/L (40-130); Blood Urea Nitrogen 26 mg/dL (8-23); Calcium 9.0 mg/dL (8.5-10.5); Carbon Dioxide 19 mmol/L (22-29); Chloride 94 mmol/L (98-107); Creatinine Clr Calc Pharmacy 44.3007; Globulin 3.5 g/dL (1.3-4.6); Glucose 114 mg/dL (65-115); Osmolality Calculated 278 mOsm/kg (285-295); Sodium 131 mmol/L (136-145); Total Protein 7.0 g/dL (6.6-8.7)
[2025-03-15 22:52] LABS: Anion Gap 23.1 (5-19); Aspartate Amino Transferase 30 U/L (0-40); Potassium 5.1 mmol/L (3.5-5.1)
[2025-03-15 23:19] LABS: Hematocrit 31.3 % (37-53); Hemoglobin 9.40 g/dL (11.27-16.99); Mean Corpuscular HGB Conc 30.0 g/dL (30-55); Mean Corpuscular Hemoglobin 24.8 pg (27-33); Mean Corpuscular Volume 82.6 fl (82-101); Nucleated Red Blood Cells % 0 %; Platelet Count 300 10^3/cmm (157-399); Red Blood Count 3.79 10^6/uL (3.85-5.65); White Blood Count 10.03 10^3/uL (3.29-11.43)
[2025-03-15 23:22] LABS: Slide Review Slide Review Perform
--- NOTE | 2025-03-15 23:54 | ED_ITS ---
HPI - Fall 2 General: Chief Complaint: Fall Stated Complaint: Fell Time Seen by Provider: 03/15/25 21:48 History of Present Illness: 75 yo M with Hx of chronic renal dysfunc tion, type 2 DM, persistent AFib, BPH, HLD, depression, HTN, rheumatoid arthritis, and recent visits for CHF and renal insufficiency presents after a fall at a movie theater. Pt reports feeling ?woozy? after prolonged sitting when the movie ended, then does not recall events until after the fall; EMS reports he was found in the bathroom. Denies significant head pain except at the posterior scalp. On apixaban and clonazepam. Denies chest, abdominal, or back pain during interview. Related Data Home Medications ?Medication ?Instructions ?Recorded ?Confirmed ascorbate calcium (vitamin C) 500 500 mg PO DAILY 11/2603/14/25 mg tablet Previous Rx's ?Medication ?Instructions ?Recorded fluticasone propionate 50 2 spray intranasal DAILY PRN 09/30/23 mcg/actuation nasal Allergy Symptoms #16 grams spray,suspension escitalopram oxalate 20 mg tablet 20 mg PO DAILY #30 t abs 05/11/24 spironolactone 100 mg tablet 100 mg PO DAILY #30 tabs 05/11/24 levocetirizine 5 mg tablet 5 mg PO DAILY PRN allergy s ymptoms 06/28/24 #30 tabs aripiprazole 5 mg tablet (Abilify) 5 mg PO DAILY #30 t abs 07/03/24 potassium chloride 20 mEq 20 meq PO DAILY #90 tabs tablet,extended release Held on 02/15/25. Instructions: Home Medication placed on hold at Doctor's office apixaban 5 mg tablet (Eliquis) See Rx Instructions .Ro juliana 09/28/24 .COMPLEX #60 tabs tamsulosin 0.4 mg capsule See Rx Instructions .Route 0 09/28/24 .COMPLEX #30 caps lorazepam 0.5 mg tablet See Rx Instructions PO DAILY PRN 10/05/24 anxiety/ sleep #30 tabs clonazepam 0.5 mg tablet (Klonopin) 1 mg (2 x 0.5 mg) PO DAILY #60 tabs 02/13/25 furosemide 40 mg tablet 80 mg (2 x 40 mg) PO QAM #60 tabs 03/01/25 levothyroxine 25 mcg tablet 25 mcg PO DAILY #30 tabs 0 03/06/25 (Levoxyl) Allergies Allergy/AdvReac Type Severity Reaction Status Date / Time ciprofloxacin (From Cipro) Allergy Severe muscle or Verified 02/27/25 14:04 joint pain paroxetine (From Paxil) AdvReac Mild made his Verified 02/27/25 14:04 head feel weird [facility] ED 2 PFSH: Medical History (Updated 03/14/25 @ 22:55 by Alexsandra Harper MD) Acute on chronic renal insufficiency Type 2 diabetes mellitus without complication Persistent atrial fibrillation BPH (benign prostatic hyperplasia) Hyperlipidemia Depression Hypertension Seropositive rheumatoid arthritis Rheumatoid arthritis with rheumatoid factor of multiple sites without organ or systems involvement Other rn long term care (current) drug therapy Surgical History History of tonsillectomy Family History Other Diabetes Social History Smoking and tobacco/nicotine status: never used tobacco/nicotine Alcohol intake: current Alcohol intake frequency: few times a week Alcohol type: beer Substance/Drug Use: never Physical Exam 2 Narrative: EXAM NARRATIVE: Gen: Appears well. HEENT: 1.5 cm linear laceration at occipital scalp, no active bleeding. Dried blood at right edge of mouth, no obvious intraoral or lip laceration noted. Neck: Full ROM, no pain. CV: Irregularly irregular rhythm, tachycardic ~110 bpm. Skin: Very small skin tear on dorsum of L hand, no active bleeding. Neuro: Alert and oriented. Const: COMMON NORMALS: no acute distress Eye: COMMON NORMALS: Equal, round and reactive pupils present, EOMs intact bilaterally and no scleral icterus PUPIL: Yes Equal, round and reactive pupils present Resp: COMMON NORMALS: normal respiratory effort and No retractions GI: COMMON NORMALS: Normal to inspection, nondistended, normoactive bowel sounds present, Soft to palpation and non-tender PALPATION: Yes Soft to palpation Procedures Laceration Laceration 1: Site: scalp Size (cm): 1.5 Description: linear Depth: simple, single layer Skin layer closed with: other (tissue adhesive, hair apposition technique) Course 2 Vital Signs: Vital signs: Vital Signs Temperature 98.4 F 03/15/25 22:01 Pulse Rate 105 H 03/15/25 22:01 Respiratory Rate 18 03/15/25 22:01 Blood Pressure 108/74 03/15/25 22:01 Pulse Oximetry 97 03/15/25 22:01 Oxygen Delivery Me thod Room Air 03/15/25 22:01 MDM - Fall Medical Decision Making 75 yo M on apixaban with AFib presents after near-syncope/syncope and fall at movie theater with occipital scalp laceration and brief amnesia to event. No chest, abdominal, or back pain reported. Vitals notable for AFib with RVR around 110?115. PE: A&O, occipital 1.5 cm scalp lac without active bleeding, small L hand skin tear, neck full ROM without pain, irregularly irregular tachycardic heart sounds, overall well appearing. EKG interpreted by me: Time?2233?atrial fibrillation with RVR, rate of 103, no ST segment elevation or depression, no T wave inversions, QTc = 425 Planned: syncope workup with basic labs, EKG, and noncontrast head CT to evaluate for intracranial hemorrhage (ICH) given fall on anticoagulation. Wound management with hair apposition technique using tissue adhesive after thorough cleaning. Cleansing of minor oral area and L hand skin tear. Wound was closed without difficulty using hair apposition technique after wound was thoroughly cleansed. CT head shows nothing acute. Chest x-ray, EKG, labs are reassuring. I do not suspect any other emergent process warranting further workup. He is able to get up and move around. He will be observed in the emergency department overnight until he can get a ride home but feel he will be safe for discharge in the morning. Patient is agreeable to the plan Lab Data 03/15/25 22:20 03/15/25 22:[address] 03/15/25 21:58 IMPRESSION: 1. Midline parieto-occipital soft tissue laceration/contusion. Question of additional small left frontal scalp soft tissue contusion. Correlate with physical exam. 2. Changes from chronic ischemic small vessel disease of periventricular white matter and cerebral volume loss, likely age related. Otherwise, no acute intracranial process. 3. No acute calvarial fracture. Chest X-Ray 03/15/25 21:59 IMPRESSION: 1. Relatively stable findings of right pleural thickening and fissural/trace pleural fluid with comparison to prior CT from 03/14/2025. Right lower lobe airspace opacities favored to represent sequela of airspace disease as noted on prior CT. 2. Cardiomegaly. Laboratory Results WBC 10.03 10^3/uL (3.29-11.43) 03/15/25 22:20 RBC 3.79 10^6/uL (3.85-5.65) L 03/15/25 22:20 Hgb 9.40 g/dL (11.27-16.99) L 03/15/25 22:20 Hct 31.3 % (37-53) L 03/15/25 22:20 MCV 82.6 fl (82-101) 03/15/25 22:20 MCH 24.8 pg (27-33) L 03/15/25 22:20 MCHC 30.0 g/dL (30-55) 03/15/25 22:20 RDW 15.4 % (12.1-15.1) H 03/15/25 22:20 Plt Count 300 10^3/cmm (157-399) 03/15/25 22:20 MPV 10.8 fL (7.4-10.4) H 03/15/25 22:20 Neut % (Auto) 88.3 % 03/15/25 22:20 Lymph % (Auto) 3.0 % 03/15/25 22:20 [place] % (Auto) 6.3 % 03/15/25 22:20 Eos % (Auto) 1.4 % 03/15/25 22:20 Baso % (Auto) 0.5 % 03/15/25 22:20 Neut # (Auto) 8.86 10^3/uL (1.8-7.7) H 03/15/25 22:20 Lymph # (Auto) 0.3 10^3/uL (0.8-4.8) L 03/15/25 22:20 [place] # (Auto) 0.6 10^3/uL (0.2-0.9) 03/15/25 22:20 Eos # (Auto) 0.1 10^3/uL (0.0-0.8) 03/15/25 22:20 Baso # (Auto) 0.1 10^3/uL (0.0-0.1) 03/15/25 22:20 Nucleated RBC % (auto) 0 % 03/15/25 22:20 Nucleated RBCs # 0.0 /100WBC 03/15/25 22:20 Sodium 131 mmol/L (136-145) L 03/15/25 22:20 Potassium 5.1 mmol/L (3.5-5.1) 03/15/25 22:20 Chloride 94 mmol/L (98-107) L 03/15/25 22:20 Carbon Dioxide 19 mmol/L (22-29) L 03/15/25 22:20 Anion Gap 23.1 (5-19) H 03/15/25 22:20 BUN 26 mg/dL (8-23) H 03/15/25 22:20 Creatinine 1.8 mg/dL (0.7-1.2) H 03/15/25 22:20 GFR Calculation Not Reportable 03/15/25 22:20 Glucose 114 mg/dL (65-115) 03/15/25 22:20 Calculated Osmolality 278 mOsm/kg (285-295) L 03/15/25 22:20 Calcium 9.0 mg/dL (8.5-10.5) 03/15/25 22:20 Total Bilirubin 1.0 mg/dL (0.15-1.2) 03/15/25 22:20 AST 30 U/L (0-40) 03/15/25 22:20 ALT 13 U/L (0-41) 03/15/25 22:20 Alkaline Phosphatase 165 U/L (40-130) H 03/15/25 22:20 Troponin T Baseline 26 ng/L (0-15) H 03/15/25 22:20 Total Protein 7.0 g/dL (6.6-8.7) 03/15/25 22:20 Albumin 3.5 g/dL (3.5-5.2) 03/15/25 22:20 Globulin 3.5 g/dL (1.3-4.6) 03/15/25 22:20 All radiology interpretation(s) finalized by discharge Discharge Plan Discharge Condition: Stable Prescriptions: No Action ascorbate calcium (vitamin C) 500 mg tablet 500 mg PO DAILY levothyroxine [Levoxyl] 25 mcg tablet 25 mcg PO DAILY Qty: 30 11RF Rx Instructions: take 30 mins prior to food or meds escitalopram oxalate 20 mg tablet 20 mg PO DAILY Qty: 30 11RF spironolactone 100 mg tablet 100 mg PO DAILY Qty: 30 11RF potassium chloride 20 mEq tablet extended release 20 meq PO DAILY Qty: 90 11RF Eliquis 5 mg tablet See Rx Instructions .ROUTE .COMPLEX Qty: 60 11RF Dose Instruction: TAKE 1 TABLET BY MOUTH TWICE DAILY Rx Instructions: TAKE 1 TABLET BY MOUTH TWICE DAILY tamsulosin 0.4 mg capsule See Rx Instructions .ROUTE .COMPLEX Qty: 30 11RF Dose Instruction: TAKE 1 CAPSULE BY MOUTH ONCE DAILY FOR PROSTATE Rx Instructions: TAKE 1 CAPSULE BY MOUTH ONCE DAILY FOR PROSTATE lorazepam 0.5 mg tablet See Rx Instructions PO DAILY PRN (Reason: anxiety/ sleep) Qty: 30 3RF Rx Instructions: 1-2 tabs QHS prn sleep orally daily PRN; furosemide 40 mg tablet 80 mg PO QAM Qty: 60 11RF fluticasone propionate 50 mcg/actuation spray,suspension 2 spray intranasal DAILY PRN (Reason: Allergy Symptoms) Qty: 16 11RF Rx Instructions: administer into each nostril levocetirizine 5 mg tablet 5 mg PO DAILY PRN (Reason: allergy symptoms) Qty: 30 11RF aripiprazole [Abilify] 5 mg tablet 5 mg PO DAILY Qty: 30 11RF clonazepam [Klonopin] 0.5 mg tablet 1 mg PO DAILY Qty: 60 5RF Referrals: Ashwin Roberson MD [Primary Care Provider, Family Practice] Print Language: Tristanian Coding Level of Care Code ED Broke Beater for Naya Mccord
[2025-03-16 00:49] LABS: Troponin 5 2HR 24.07 ng/L (0-15)
[2025-03-16 00:51] LABS: Troponin 5 2HR Delta -1.93 ABS# (0-10)
[2025-03-16 01:06] VITALS: BP 93/66; PULSE 109; RESP 14; O2SAT 99
[2025-03-16 03:03] VITALS: BP 84/56; PULSE 108; RESP 16; O2SAT 96
[2025-03-16 05:42] LABS: Troponin 5 6HR 24.71 ng/L (0-15)
[2025-03-16 05:43] LABS: Troponin 5 6HR Delta -1.29 ng/L (0-12)
[2025-03-16 06:51] VITALS: BP 107/62; PULSE 105; RESP 14; O2SAT 93
[2025-03-16 07:07] VITALS: BP 94/65; PULSE 105; O2SAT 93
== END 2025-03-16 07:43 | disposition home or self-care (01) ==
PROVIDERS: Emergency Provider Student in an Organized Health Care Education/Training Program; PCP Family Medicine
DX: S01.01XA Laceration without foreign body of scalp, initial encounter (principal); R55 Syncope and collapse; W19.XXXA Unspecified fall, initial encounter; I48.20 Chronic atrial fibrillation, unspecified; Z79.01 Long term (current) use of anticoagulants; E78.5 Hyperlipidemia, unspecified; E11.9 Type 2 diabetes mellitus without complications; I10 Essential (primary) hypertension
CPT/HCPCS: 12001; 36415; 70450; 71045; 80053; 84484; 85025; 93005; 99285; J7030

== ENCOUNTER → 2025-03-28 10:08 | Outpatient (BNVA) | payer MEDICARE, SELFPAY | PROVIDERS: PCP Family Medicine; Visit Provider Internal Medicine | DX: R91.8 Other nonspecific abnormal finding of lung field (principal); I11.0 Hypertensive heart disease with heart failure; I50.9 Heart failure, unspecified; N28.9 Disorder of kidney and ureter, unspecified; I48.91 Unspecified atrial fibrillation; Z79.01 Long term (current) use of anticoagulants; R59.1 Generalized enlarged lymph nodes; R91.1 Solitary pulmonary nodule; E03.9 Hypothyroidism, unspecified; E27.9 Disorder of adrenal gland, unspecified; D64.9 Anemia, unspecified | CPT/HCPCS: 36415; 80048; 82570; 83880; 84156; 99213 ==

== ENCOUNTER → 2025-04-09 11:22 | Outpatient (BNVA) | payer MEDICARE, SELFPAY | PROVIDERS: PCP Family Medicine; Visit Provider Internal Medicine | DX: R93.89 Abnormal findings on diagnostic imaging of other specified body structures (principal); I48.20 Chronic atrial fibrillation, unspecified; Z79.01 Long term (current) use of anticoagulants; I11.0 Hypertensive heart disease with heart failure; I50.9 Heart failure, unspecified; R91.1 Solitary pulmonary nodule | CPT/HCPCS: 99214; Q3014 ==

== ENCOUNTER 2025-04-11 13:38 | Oncology outpatient (recurring) (ONCR) | payer MEDICARE, SELFPAY ==
[2025-04-04 11:10] LABS: Hematocrit 31.0 % (37-53); Hemoglobin 9.10 g/dL (11.27-16.99); Mean Corpuscular HGB Conc 29.4 g/dL (30-55); Mean Corpuscular Hemoglobin 23.9 pg (27-33); Mean Corpuscular Volume 81.4 fl (82-101); Nucleated Red Blood Cells % 0 %; Platelet Count 306 10^3/cmm (157-399); Red Blood Count 3.81 10^6/uL (3.85-5.65); White Blood Count 9.15 10^3/uL (3.29-11.43)
[2025-04-04 11:24] LABS: Alanine Aminotransferase 10 U/L (0-41); Albumin Level 3.9 g/dL (3.5-5.2); Alkaline Phosphatase 186 U/L (40-130); Anion Gap 18.2 (5-19); Aspartate Amino Transferase 27 U/L (0-40); Blood Urea Nitrogen 40 mg/dL (8-23); Calcium 8.7 mg/dL (8.5-10.5); Carbon Dioxide 21 mmol/L (22-29); Chloride 98 mmol/L (98-107); Creatinine Clr Calc Pharmacy 42.6858; Globulin 3.0 g/dL (1.3-4.6); Glucose 111 mg/dL (65-115); Osmolality Calculated 284 mOsm/kg (285-295); Potassium 5.2 mmol/L (3.5-5.1); Sodium 132 mmol/L (136-145); Total Protein 6.9 g/dL (6.6-8.7)
[2025-04-04 12:59] LABS: Ferritin 48 ng/mL (30-400); Iron 23 ug/dL (59-158); Total Iron Binding Capacity 425 mcg/dl; Unsaturated Iron Binding 402 ug/dL (112-347)
[2025-04-04 13:15] LABS: Vitamin B12 630 pg/mL (232-1245)
[2025-04-05 06:44] LABS: PROTEIN, TOTAL 6.4 g/dL (6.1-8.1)
[2025-04-05 14:49] LABS: KAPPA LIGHT CHAIN, FREE, SERUM 63.9 mg/L (3.3-19.4); KAPPA/LAMBDA LIGHT CHAINS FREE 1.82 (0.26-1.65); LAMBDA LIGHT CHAIN, FREE, SERU 35.2 mg/L (5.7-26.3)
[2025-04-05 16:59] LABS: ALPHA 1 GLOBULIN 0.4 g/dL (0.2-0.3); ALPHA 2 GLOBULIN 0.8 g/dL (0.5-0.9); BETA 1 GLOBULIN 0.5 g/dL (0.4-0.6); BETA 2 GLOBULIN 0.3 g/dL (0.2-0.5)
--- NOTE | 2025-04-06 14:00 | PETR_ITS ---
PROCEDURE INFORMATION: Exam: PET/CT Skull Base to Mid-thigh Exam date and time: 04/06/2025 3:38 PM Age: 75 years old Clinical indication: Abnormal findings; Lesion of lung; Additional info: Lymphadenopathy LABS AND CLINICAL REPORTS: Glucose: 132 mg/dl Treatment strategy for malignancy (PET staging): Initial Staging (PI) TECHNIQUE: Imaging protocol: Following at least four-hour fasting and following the injection of radiopharmaceutical, low dose CT images were obtained. Then, PET images were obtained. Attenuation corrected images were constructed using the CT scan. Fused images of PET and CT were reviewed. The standardized uptake values (SUV) reported below are maximum values within a region of interest, expressed in gm/ml. Exam includes orbital meatal line to mid-thigh. SUV normalization method: BodyWeight Radiopharmaceutical: 11.83 mCi F-18 FDG (Fluorodeoxyglucose), IV. Time of imaging post radiopharmaceutical administration: 45 minutes Injection site: L AC COMPARISON: 1. CT chest wo con [id number] 02/01/2025 3:[address] chest abdpel w/*[id number] 03/14/2025 12:[address] neck w con* [id number] 02/01/2025 3:43 PM FINDINGS: Brain: Visualized brain has normal physiologic uptake. Salivary glands: Stable 5 mm anterior left superficial parotid nodule with SUV max 3.5 on axial image 33. Pharynx: No abnormal uptake. Larynx: No abnormal uptake. Lungs, pleura and trachea: Stable small right pleural effusion with mildly metabolic lower right chest pleural thickening showing associated FDG uptake with SUV max 5.1. Stable right lower lobe and right middle lobe subsegmental atelectasis versus scarring. Left lower lobe calcified granuloma. Heart: Normal physiologic uptake. Cardiomegaly. Coronary arteries: Heavy coronary artery calcification. Mediastinal space: No abnormal uptake. Liver: No abnormal uptake. Gallbladder and biliary ducts: No abnormal uptake. Cholelithiasis. Pancreas: No abnormal uptake. Spleen: No abnormal uptake. Adrenal glands: No abnormal uptake. Stable non FDG avid hypodense right adrenal nodule compatible with adenoma. Unremarkable left adrenal gland. Kidneys and ureters: Normal physiologic uptake. Stomach and bowel: No abnormal uptake. Colonic diverticulosis without findings of diverticulitis. Intraperitoneal and retroperitoneal spaces: Small volume nonspecific free fluid redemonstrated. Reproductive: Prostatomegaly. No abnormal uptake. Small left hydrocele. Vasculature: No abnormal uptake. Mild systemic atherosclerotic calcification without aortic aneurysm. Stable pulmonary arterial dilatation may be seen in the setting of pulmonary hypertension. Lymph nodes: No abnormal uptake. Stable borderline prominent periportal, retroperitoneal and bilateral pelvic lymph nodes are non FDG avid. Skeleton: Focal FDG uptake at the lower S5 sacral segment with subtle suggestion of underlying fracture lucency, axial image 237, shows SUV max 4.0. Degenerative change along the axial skeletal system and shoulders. Soft tissues: No abnormal uptake in the visualized head, neck, chest, abdomen, pelvis, and extremities. Mild bilateral gynecomastia. Small bilateral fat containing inguinal hernias. Bilateral body wall and proximal thigh soft tissue edema. METRICS: Mediastinal blood pool: SUV mean 2.1 Liver uptake: SUV mean 2.7 PET/PET skull to thigh INIT [id number] IMPRESSION: 1. Stable small right pleural effusion and right lower chest pleural thickening with associated FDG uptake favored to represent chronic inflammatory process. 2. Stable non FDG avid right lower lobe and right middle lobe subsegmental atelectasis versus scarring. 3. Stable mildly FDG avid 5 mm anterior left superficial parotid nodule likely representing primary neoplasm. 4. Stable borderline prominent abdominopelvic lymph nodes are non FDG avid suggesting benignity. 5. Suggestion of nondisplaced lower S5 sacral fracture with subtle suggested fracture lucency and associated FDG uptake. 6. Additional chronic and incidental findings as above.
== END 2025-04-27 23:59 | disposition home or self-care (01) ==
PROVIDERS: Internal Medicine; PCP Family Medicine; Visit Provider Internal Medicine
DX: N18.31 Chronic kidney disease, stage 3a (principal); D64.9 Anemia, unspecified; R91.8 Other nonspecific abnormal finding of lung field; R59.0 Localized enlarged lymph nodes; R93.89 Abnormal findings on diagnostic imaging of other specified body structures; Z79.899 Other long term (current) drug therapy
CPT/HCPCS: 36415; 78815; 80053; 82607; 82668; 82728; 82784; 83010; 83540; 83550; 83615; 83883; 84155; 84165; 85025; 85045; 86334; 86880; 99204; 99213; A9552

== ENCOUNTER → 2025-04-24 14:29 | Outpatient (BNVA) | payer MEDICARE, SELFPAY | PROVIDERS: PCP Family Medicine; Visit Provider Family Medicine | DX: I50.32 Chronic diastolic (congestive) heart failure (principal); I11.0 Hypertensive heart disease with heart failure | CPT/HCPCS: 80048 ==

== ENCOUNTER 2025-04-30 13:43 | Inpatient (IN) | payer MEDICARE, SELFPAY ==
[2025-04-30] VITALS (7 sets, daily range): BP systolic 100–109; BP diastolic 65–82; PULSE 97–112; RESP 16–25; TEMP 36.6–37; O2SAT 91–97; BMI 28.2
--- NOTE | 2025-04-30 13:46 | CT_ITS ---
WS: [id number] CT HEAD TECHNIQUE: Noncontrast CT of the head obtained from the skullbase to the vertex. CLINICAL INFORMATION: fall, head injury COMPARISON: CT 03/15/2025 DLP: 1244.[address] scans at [facility] use at least one of these dose optimization techniques: automated exposure control; mA and/or kV adjustment per patient size (includes targeted exams where dose is matched to clinical indication); or iterative reconstruction. FINDINGS: No evidence of intracranial hemorrhage or mass effect. Ventricular system and basal cisterns are patent. Moderate small vessel changes with moderate parenchymal volume loss. No extra-axial chronic infarcts in the RIGHT cerebellum. Diffuse scalp soft tissue edema overlying the RIGHT frontal parietal scalp. Trace fluid in the sphenoid sinus. CT/CT head wo con* [id number] IMPRESSION: 1. No evidence of intracranial hemorrhage or mass effect. 2. No acute intracranial findings.
--- NOTE | 2025-04-30 13:46 | ECG_ITS ---
[facility] Date: 2025-04-30 Pat Name: Cesar Mederos Department: Room: Gender: Male Line Closer: : 1950 Requested By: Yani Kulkarni Order Number: [id number] Potter MD: Alexsandra Harper M.D. Measurements Intervals [place] Rate: 103 P: 0 SC: 0 QRS: 192 QRSD: 94 T: 43 QT: 345 QTc: 452 Interpretive Statements ATRIAL FIBRILLATION WITH RAPID VENTRICULAR RESPONSE RIGHT AXIS DEVIATION [QRS AXIS > 100] LOW QRS VOLTAGE IN EXTREMITY LEADS [QRS DEFLECTION < 0.5 mV IN LIMB LEADS] SEPTAL MYOCARDIAL INFARCTION , PROBABLY OLD [40+ ms Q WAVE IN V1/V2] Compared to ECG 03/15/2025 22:34:01 Right-axis deviation now present Myocardial infarct finding now present Left-axis deviation no longer present Electronically Signed On 05-01-2025 22:06:19 WIG SALES CONSULTANT by Alexsandra Harper M.D. [email or web address]
--- NOTE | 2025-04-30 13:46 | XR_ITS ---
WS: [id number] Portable AP upright chest, 04/30/2025 Clinical Data: Weakness Comparison: Portable chest, 03/15/2025 Findings: There is increase in the thickness of the right pleura which may represent a loculated pleural effusion. There is scarring of the lateral aspect of the right midlung unchanged. The left lung is clear. No nodules or masses are seen. The heart is enlarged. The descending thoracic aorta shows tortuosity. There are monitor leads on the chest wall. XR/XR chest 1V portable [id number] Impression: 1. Increase in right pleural thickening which may represent right pleural fluid . 2. Right midlung scarring unchanged. 3. Cardiomegaly and atherosclerosis.
--- OUTSIDE RECORDS SUMMARY | 2025-04-30 13:51 | XMS_ITS | Encounter Summary ---
Author Organization [facility] Address [address] [place] [address] Care Team Providers Care Teacher Of Family And Consumer Science Name Role Phone Unavailable Primary Care Provider Unavailabl e Encounter Details Date Type Department Care Team (Latest Contact Info) Description 06/14/1997 Outpatient Historical [facility] Ophthalmology 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
--- OUTSIDE RECORDS SUMMARY | 2025-04-30 13:51 | XMS_ITS | Clinical Summary ---
Author Organization [facility] Address [address] 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
--- OUTSIDE RECORDS SUMMARY | 2025-04-30 13:51 | XMS_ITS | Encounter Summary ---
Author Organization [facility] Address [address] [place] [address] Care Team Providers Care Knit Goods Mender Name Role Phone Unavailable Primary Care Provider Unavailabl e Encounter Details Date Type Department Care Team (Latest Contact Info) Description 01/04/2004 Outpatient Historical [facility] Optometry 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
--- OUTSIDE RECORDS SUMMARY | 2025-04-30 13:52 | XMS_ITS | Encounter Summary ---
Author Organization [facility] Address [address] [place] [address] Care Team Providers Care Straightening Press Operator Name Role Phone Unavailable Primary Care Provider Unavailabl e Encounter Details Date Type Department Care Team (Latest Contact Info) Description 11/03/1999 Outpatient Historical [facility] Ophthalmology [address] [place] [address] Nolberto Luis, OD [address] [place] [address] Myopia (Primary Dx) Social History Tobacco Use Types Packs/Day Years Used Date Smoking Tobacco: Never Assessed Sex and Gender Information Value Date Recorded Sex Assigned at Not on file Legal Sex Male 5:34 AM ORCHID HAND Gender Identity Not on file Sexual Orientation Not on file documented as of this encounter Plan of Treatment Not on file documented as of this encounter Visit Diagnoses Diagnosis Myopia- Primary documented in this encounter
--- OUTSIDE RECORDS SUMMARY | 2025-04-30 13:52 | XMS_ITS | Clinical Summary ---
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
--- OUTSIDE RECORDS SUMMARY | 2025-04-30 13:52 | XMS_ITS | Encounter Summary ---
Author Organization [facility] Address [address] [place] [address] Care Team Providers Care Signal Maintainer Helper Name Role Phone Unavailable Primary Care Provider Unavailabl e Encounter Details Date Type Department Care Team (Latest Contact Info) Description 01/02/2003 Outpatient Historical [facility] Opt[facility] [address] [place] [address] Nolberto Luis, OD [address] [place] [address] PREGLAUCOMA NOS (Primary Dx); MYOPIA Social History Tobacco Use Types Packs/Day Years Used Date Smoking Tobacco: Never Assessed Sex and Gender Information Value Date Recorded Sex Assigned at Not on file Legal Sex Male 5:34 AM BRICK MASON Gender Identity Not on file Sexual Orientation Not on file documented as of this encounter Plan of Treatment Not on file documented as of this encounter Visit Diagnoses Diagnosis Preglaucoma, unspecified- Primary Myopia documented in this encounter
--- NOTE | 2025-04-30 14:30 | ED_ITS ---
HPI - Weakness 2 General: Chief complaint: Weakness Stated complaint: fall Time Seen by Provider: 04/30/25 13:43 History of Present Illness: 75-year-old man with a history of chroni c renal insufficiency, type 2 diabetes, atrial fibrillation, chronic anticoagulation on Eliquis, obesity, hyperlipidemia, depression, hypertension and rheumatoid arthritis who presents to the emergency room after having had a fall yesterday and increased weakness over the last few days. He did hit the back of his head but did not lose consciousness. As stated earlier he is on anticoagulation. He has no specific pain complaints at this time. He was too weak to get up and had been down on the floor for just over 24 hours. He does report some cough. He is requiring a couple liters of oxygen that he does not normally need at home. Related Data Home Medications ?Medication ?Instructions ?Recorded ?Confirmed ascorbate calcium (vitamin C) 500 500 mg PO DAILY 11/2604/24/25 mg tablet Previous Rx's ?Medication ?Instructions ?Recorded fluticasone propionate 50 2 spray intranasal DAILY PRN 09/30/23 mcg/actuation nasal Allergy Symptoms #16 grams spray,suspension escitalopram oxalate 20 mg tablet 20 mg PO DAILY #30 t abs 05/11/24 levocetirizine 5 mg tablet 5 mg PO DAILY PRN allergy s ymptoms 06/28/24 #30 tabs aripiprazole 5 mg tablet (Abilify) 5 mg PO DAILY #30 t abs 07/03/24 apixaban 5 mg tablet (Eliquis) See Rx Instructions .Ro juliana 09/28/24 .COMPLEX #60 tabs tamsulosin 0.4 mg capsule See Rx Instructions .Route 0 09/28/24 .COMPLEX #30 caps lorazepam 0.5 mg tablet See Rx Instructions PO DAILY PRN 10/05/24 anxiety/ sleep #30 tabs furosemide 40 mg tablet 80 mg (2 x 40 mg) PO QAM #60 tabs 03/01/25 levothyroxine 25 mcg tablet 25 mcg PO DAILY #30 tabs 0 03/06/25 (Levoxyl) ferrous sulfate 325 mg (65 mg 325 mg PO BID #60 tabs 1 iron) tablet (Iron (ferrous sulfate)) clonazepam 0.5 mg tablet (Klonopin) 1 mg (2 x 0.5 mg) PO DAILY #60 tabs 04/24/25 spironolactone 100 mg tablet 100 mg PO DAILY #30 tabs 04/24/25 Allergies Allergy/AdvReac Type Severity Reaction Status Date / Time ciprofloxacin (From Cipro) Allergy Severe muscle or Verified 04/11/25 13:44 joint pain paroxetine (From Paxil) AdvReac Mild made his Verified 04/11/25 13:44 head feel weird Review of Systems 2 Narrative: Constitutional symptoms: Negative except as documented in HPI. Skin symptoms: Negative except as documented in HPI. Eye symptoms: Negative except as documented in HPI. ENMT symptoms: Negative except as documented in HPI. Respiratory symptoms: Negative except as documented in HPI. Cardiovascular symptoms: Negative except as documented in HPI. Gastrointestinal symptoms: Negative except as documented in HPI. Genitourinary symptoms: Negative except as documented in HPI. Musculoskeletal symptoms: Negative except as documented in HPI. Neurologic symptoms: Negative except as documented in HPI. Psychiatric symptoms: Negative except as documented in HPI. Endocrine symptoms: Negative except as documented in HPI. 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 Skin: Warm, dry. Head: Normocephalic, bruising to the back of the head. Neck: Supple, trachea midline. Eye: Extraocular movements are intact. Ears, nose, mouth and throat: Tacky oral mucosa Cardiovascular: Regular, Normal peripheral perfusion. Respiratory: Lungs are clear to auscultation, respirations are non-labored, breath sounds are equal, Symmetrical chest wall expansion. Gastrointestinal: Soft, Nontender, Non distended Musculoskeletal: Normal ROM, no deformity. Neurological: Alert and oriented, No focal neurological deficit observed. Psychiatric: Cooperative, appropriate mood & affect. Course 2 Vital Signs: Vital signs: Vital Signs Temperature 97.9 F 04/30/25 13:44 Pulse Rate 108 H 04/30/25 14:37 Respiratory Rate 16 04/30/25 14:37 Blood Pressure 101/65 04/30/25 14:37 Pulse Oximetry 93 04/30/25 14:37 Oxygen Delivery Me thod Nasal Cannula 04/30/25 13:44 Oxygen Flow Rate 2 04/30/25 13:44 MDM - Weakness Medical Decision Making Medical decision making: Patient's reason for coming to the emergency room: Weakness, fall could not get up Social determinants patient is retired. I believe he lives at home alone. I reviewed the patient's medical record. 75-year-old man with a history of chronic renal insufficiency, type 2 diabetes, atrial fibrillation, chronic anticoagulation on Eliquis, obesity, hyperlipidemia, depression, hypertension and rheumatoid arthritis I reviewed the patient's current home meds Patient is on Eliquis at home. Alternate historians: EMS to provide some history but the patient is lucid and gives a decent history. Differential diagnosis for patient presenting with generalized weakness including but not limited to and based on the above HPI, review of systems and physical exam: Sepsis. Dehydration. Renal failure. Electrolyte abnormalities. Anemia. Congestive heart failure. Hypotension. Coronary syndrome. Hepatitis. Cirrhosis. Infections such as pneumonia, urinary tract infection, [place] illness, Cellulitis, Viral infections including influenza and Covid-19. Workup: labwork and lab/exam driven imaging ordered to evaluate, rule in and rule out above pathologies. Differential diagnosis including but not limited to and based on the above HPI, review of systems and physical exam: patient with fall and head injury. Subdural hematoma, subarachnoid hemorrhage, concussion, skull fracture. Orders placed to evaluate differential diagnosis based on the above differential, HPI and physical exam CT scan of the head was ordered. EKG: Time 1405. Rate 103. Atrial fibrillation with rapid ventricular response, nonspecific ST changes, no ectopy, This was reviewed and interpreted by myself the ER physician at 1410 Lab Review: Laboratory results were reviewed and interpreted by myself the emergency room physician. Leukocytosis with a white count of 14,000. Lactic acidosis with a lactate of 3. Chronic renal insufficiency but a little above his baseline with a BUN/creatinine of 45 and 1.9. Anemia is stable with a hemoglobin of 9.9. Potassium is mildly elevated at 5.5. Flu COVID and RSV are negative. Assessment of risk: Level of risk: High. Patient has multiple comorbidities. Anticoagulation. Hospitalization considerations: Patient is being admitted for possible sepsis Reexamination: Patient remained stable. No increased work of breathing. No altered mental status. No focal motor deficits. Consultation: I spoke with Dr. Sena who is on-call for the hospital service who agrees to admission. Assessment and plan: Pneumonia Hypoxemia Sepsis Weakness Fall Head injury Chronic anticoagulation on Eliquis Atrial fibrillation with rapid ventricular response -2L normal saline bolus. Holding on full volume sepsis bolus secondary to patient's history of heart failure. -Broad-spectrum antibiotics were administered. -Sepsis quality measures. -Lactic acid with a reflex was ordered. -Blood cultures were ordered. ?I reevaluated the patient's volume status after sepsis fluids were given. -I discussed the patient with the hospitalist on-call who is admitting the patient. - Discussed findings and plan with patient. Answered any questions. - All laboratory values were reviewed and interpreted personally by myself, the ER physician - All imaging was reviewed and interpreted personally by myself, the ER physician. - Evaluation and treatment of this problem were appropriate in the emergency setting Critical Care: -I spent a total of 40 minutes of critical care time managing the patient, independent of any other practitioner. -The time involved in the performance of separately reportable procedures was not counted towards critical care time. Lab Data 04/30/25 14:24 04/30/25 14:24 Radiology Impressions Chest X-Ray 04/30/25 13:46 Impression: 1. Increase in right pleural thickening which may represent right pleural fluid. 2. Right midlung scarring unchanged. 3. Cardiomegaly and atherosclerosis. Head CT 04/30/25 13:46 IMPRESSION: 1. No evidence of intracranial hemorrhage or mass effect. 2. No acute intracranial findings. Laboratory Results WBC 13.89 10^3/uL (3.29-11.43) H 04/30/25 14:24 RBC 4.15 10^6/uL (3.85-5.65) 04/30/25 14:24 Hgb 9.90 g/dL (11.27-16.99) L 04/30/25 14:24 Hct 34.6 % (37-53) L 04/30/25 14:24 MCV 83.4 fl (82-101) 04/30/25 14:24 MCH 23.9 pg (27-33) L 04/30/25 14:24 MCHC 28.6 g/dL (30-55) L 04/30/25 14:24 RDW 21.8 % (12.1-15.1) H 04/30/25 14:24 Plt Count 293 10^3/cmm (157-399) 04/30/25 14:24 MPV 10.2 fL (7.4-10.4) 04/30/25 14:24 Neut % (Auto) 93.0 % 04/30/25 14:24 Lymph % (Auto) 1.3 % 04/30/25 14:24 [place] % (Auto) 4.1 % 04/30/25 14:24 Eos % (Auto) 0.6 % 04/30/25 14:24 Baso % (Auto) 0.4 % 04/30/25 14:24 Neut # (Auto) 12.93 10^3/uL (1.8-7.7) H 04/30/25 14:24 Lymph # (Auto) 0.2 10^3/uL (0.8-4.8) L 04/30/25 14:24 [place] # (Auto) 0.6 10^3/uL (0.2-0.9) 04/30/25 14:24 Eos # (Auto) 0.1 10^3/uL (0.0-0.8) 04/30/25 14:24 Baso # (Auto) 0.1 10^3/uL (0.0-0.1) 04/30/25 14:24 Nucleated RBC % (auto) 0 % 04/30/25 14:24 Nucleated RBCs # 0.0 /100WBC 04/30/25 14:24 Sodium 140 mmol/L (136-145) 04/30/25 14:24 Potassium 5.5 mmol/L (3.5-5.1) H 04/30/25 14:24 Chloride 102 mmol/L (98-107) 04/30/25 14:24 Carbon Dioxide 24 mmol/L (22-29) 04/30/25 14:24 Anion Gap 19.5 (5-19) H 04/30/25 14:24 BUN 45 mg/dL (8-23) H 04/30/25 14:24 Creatinine 1.9 mg/dL (0.7-1.2) H 04/30/25 14:24 GFR Calculation Not Reportable 04/30/25 14:24 Glucose 108 mg/dL (65-115) 04/30/25 14:24 Calculated Osmolality 302 mOsm/kg (285-295) H 04/30/25 14:24 Lactic Acid 3.0 mmol/L (0.5-2.2) H 04/30/25 14:24 Calcium 9.2 mg/dL (8.5-10.5) 04/30/25 14:24 Total Bilirubin 2.1 mg/dL (0.15-1.2) H 04/30/25 14:24 AST 32 U/L (0-40) 04/30/25 14:24 ALT 12 U/L (0-41) 04/30/25 14:24 Alkaline Phosphatase 128 U/L (40-130) 04/30/25 14:24 Creatine Kinase 305 U/L (39-308) 04/30/25 14:24 Troponin T Baseline 40 ng/L (0-15) H 04/30/25 14:24 C-Reactive Protein 44.1 mg/L (0.0-4.9) H 04/30/25 14:24 Total Protein 5.8 g/dL (6.6-8.7) L 04/30/25 14:24 Albumin 3.5 g/dL (3.5-5.2) 04/30/25 14:24 Globulin 2.3 g/dL (1.3-4.6) 04/30/25 14:24 Influenza A (PCR) Negative (Negative) 04/30/25 14:08 Influenza Type B (PCR) Negative (Negative) 04/30/25 14:08 RSV (PCR) Negative (Negative) 04/30/25 14:08 SARS-CoV-2 (PCR) Negative (Negative) 04/30/25 14:08 All radiology interpretation(s) finalized by discharge Discharge Plan Discharge Patient Disposition: Admitted As Inpatient Clinical Impression: Pneumonia, Sepsis, Hypoxemia, Atrial fibrillation with rapid ventricular response, Fall, Generalized weakness, Head injury, Chronic anticoagulation Condition: Stable Coding Level of Care Code ED Nursing Department Chairperson for Naya Mccord
[2025-04-30 14:39] LABS: Hematocrit 34.6 % (37-53); Hemoglobin 9.90 g/dL (11.27-16.99); Mean Corpuscular HGB Conc 28.6 g/dL (30-55); Mean Corpuscular Hemoglobin 23.9 pg (27-33); Mean Corpuscular Volume 83.4 fl (82-101); Nucleated Red Blood Cells % 0 %; Platelet Count 293 10^3/cmm (157-399); Red Blood Count 4.15 10^6/uL (3.85-5.65); White Blood Count 13.89 10^3/uL (3.29-11.43)
[2025-04-30 14:49] LABS: Lactic Sepsis W/Reflex 3.0 mmol/L (0.5-2.2)
[2025-04-30 14:50] LABS: Troponin(5th) Baseline 40 ng/L (0-15)
[2025-04-30 15:00] LABS: Respiratory Syncytial Virus Ce NEGATIVE (Negative); SARS-CoV-2 PCR NEGATIVE (Negative)
[2025-04-30 15:01] LABS: Alanine Aminotransferase 12 U/L (0-41); Albumin Level 3.5 g/dL (3.5-5.2); Alkaline Phosphatase 128 U/L (40-130); Anion Gap 19.5 (5-19); Aspartate Amino Transferase 32 U/L (0-40); Blood Urea Nitrogen 45 mg/dL (8-23); Calcium 9.2 mg/dL (8.5-10.5); Carbon Dioxide 24 mmol/L (22-29); Chloride 102 mmol/L (98-107); Globulin 2.3 g/dL (1.3-4.6); Glucose 108 mg/dL (65-115); Osmolality Calculated 302 mOsm/kg (285-295); Potassium 5.5 mmol/L (3.5-5.1); Sodium 140 mmol/L (136-145); Total Protein 5.8 g/dL (6.6-8.7)
[2025-04-30] MEDS: linezolid premix 600 MG/300 ML PREMIX 300 MG IV (15:40)
--- NOTE | 2025-04-30 15:48 | ECG_ITS ---
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 Measurements Intervals [place] Rate: 99 P: 0 FL: 0 QRS: 202 QRSD: 99 T: 0 QT: 373 QTc: 480 Interpretive Statements ATRIAL FIBRILLATION RIGHT AXIS DEVIATION [QRS AXIS > 100] LOW QRS VOLTAGE IN EXTREMITY LEADS [QRS DEFLECTION < 0.5 mV IN LIMB LEADS] SEPTAL MYOCARDIAL INFARCTION , OF INDETERMINATE AGE [40+ ms Q WAVE IN V1/V2] Compared to ECG 04/30/2025 14:05:38 No significant changes Electronically Signed On 05-01-2025 22:24:57 SPEECH THERAPY TEACHER by Alexsandra Harper M.D. [email or web address]
[2025-04-30 16:15] LABS: Reflex Lactate Order REFLEX LACTIC ORDERD
--- NOTE | 2025-04-30 17:07 | P.HP_ITS ---
Providers/Chief Complaint 2 Primary Care Provider: Ashwin Roberson MD Chief Complaint: fall History of Present Illness Cesar Mederos is a 75 year old male with past medical history of congestive heart failure with known EF of around 45%, Nonischemic cardiomyopathy, CKD with baseline creatinine 1.5-1.9, chronic A-fib on anticoagulation, restrictive lung disease, hypertension presents to the ER today after being found on ground. As per the patient yesterday while making breakfast he felt weak, his knees gave way and he could not get up until somebody saw him today morning. He denies any nausea, vomiting, headache, dizziness, chest pain, vertigo, dysuria, diarrhea. Complains of feeling generally weak. States only medication change has been that spironolactone has been restarted for him by his PCP. During examination patient is laying comfortably in bed having difficulty in passing urine. In the ER he was found to be having mild leukocytosis, creatinine at baseline though hyperkalemia and slightly elevated BUN with soft blood pressures mostly in low 100s mmHg. Review of Systems 2 General: Reports: 10 or more systems reviewed and unremarkable except in HPI and below Const: Denies: fever(s), chills, body aches, change in appetite, change in weight, malaise, night sweats, diaphoresis, change in sleep pattern, daytime sleepiness or snoring Eyes: Denies: change in vision, blurry vision, photophobia, eye discomfort or eye discharge ENMT: Denies: throat pain, enlarged tonsils, hoarseness, mouth pain, oral sores, dry mouth, tinnitus, nasal congestion or post nasal drip Card: Denies: chest pain, palpitations, irregular heart rhythm, edema, swelling of feet/ankles, lightheadedness, syncope, pre-syncope, dyspnea on exertion, orthopnea, leg pain with exertion or acrocyanosis Resp: Denies: dyspnea, productive cough, non-productive cough, wheezing, stridor, pain on inspiration, change in phlegm color, hemoptysis or chest congestion GI: Denies: abdominal pain, nausea, vomiting, hematemesis, coffee ground emesis, dysphagia, heartburn, diarrhea, constipation, bloating, GI cramping, change in bowel habits, pain on defecation, hematochezia or melena : Denies: flank pain, difficulty urinating, dysuria, urinary frequency, urinary urgency, urinary hesitancy, urinary dribbling, difficulty starting urination, change in urine stream, nocturia or hematuria Musc: Denies: neck pain, back pain, extremity pain, joint pain, joint swelling, joint redness, joint stiffness or limited range of motion Neuro: Denies: headache(s), numbness in extremities, weakness in extremities, sensory changes, lack of coordination, difficulty walking, frequent falls, dizziness, vertigo, confusion, Slurred speech present, difficulty communicating thoughts or seizure-like activity Psych: Denies: anxiety, depression, mood swings, panic attacks, hopelessness or irritability Endo: Denies: polyuria, polydipsia, tired all the time, cold intolerance, excessive sweating, flushing or heat intolerance Leonid/Lymph: Denies: easy bruising or easy bleeding All/Imm: Denies: tongue swelling, facial swelling or acute wheezing Medications/Allergies Home Medications ?Medication ?Instructions ?Recorded ?Confirmed ?Last Taken ?Type ascorbate calcium (vitamin C) 500 500 mg PO DAILY 11/2604/30/25 04/28/25 History mg tablet fluticasone propionate 50 2 spray intranasal DAILY PRN 09/30/23 04/30/25 04/26/25 Rx mcg/actuation nasal Allergy Symptoms #16 grams spray,suspension escitalopram oxalate 20 mg tablet 20 mg PO DAILY #30 t abs 05/11/24 04/30/25 04/28/25 Rx levocetirizine 5 mg tablet 5 mg PO DAILY PRN allergy s ymptoms 06/28/24 04/30/25 04/28/25 Rx #30 tabs aripiprazole 5 mg tablet (Abilify) 5 mg PO DAILY #30 t abs 07/03/24 04/30/25 04/28/25 Rx apixaban 5 mg tablet (Eliquis) See Rx Instructions .Ro [place] 09/28/24 04/30/25 04/28/25 Rx .COMPLEX #60 tabs tamsulosin 0.4 mg capsule See Rx Instructions .Route 0 09/28/24 04/30/25 Unknown Rx .COMPLEX #30 caps furosemide 40 mg tablet 80 mg (2 x 40 mg) PO QAM #60 tabs 03/01/25 04/30/25 Unknown Rx levothyroxine 25 mcg tablet 25 mcg PO DAILY #30 tabs 0 03/06/25 04/30/25 04/28/25 Rx (Levoxyl) ferrous sulfate 325 mg (65 mg 325 mg PO BID #60 tabs 1 04/30/25 04/28/25 Rx iron) tablet (Iron (ferrous sulfate)) clonazepam 0.5 mg tablet (Klonopin) 1 mg (2 x 0.5 mg) PO DAILY #60 tabs 04/24/25 04/30/25 04/28/25 Rx spironolactone 100 mg tablet 100 mg PO DAILY #30 tabs 04/24/25 04/30/25 04/28/25 Rx Allergies Allergy/AdvReac Type Severity Reaction Status Date / Time ciprofloxacin (From Cipro) Allergy Severe muscle or Verified 04/11/25 13:44 joint pain paroxetine (From Paxil) AdvReac Mild made his Verified 04/11/25 13:44 head feel weird PFSH Acute 2 PFSH: Medical History (Updated 04/30/25 @ 17:23 by Solitario Sena MD) Chronic anticoagulation Chest pain Abnormal CT scan Acute on chronic renal insufficiency Type 2 diabetes mellitus without complication Persistent atrial fibrillation BPH (benign prostatic hyperplasia) Hyperlipidemia Depression Hypertension Seropositive rheumatoid arthritis Rheumatoid arthritis with rheumatoid factor of multiple sites without organ or systems involvement 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 Surgical History History of tonsillectomy Family History Other Diabetes Social History Smoking and tobacco/nicotine status: never used tobacco/nicotine Alcohol intake: current Alcohol intake frequency: few times a week Alcohol type: beer Substance/Drug Use: never Vitals/I&O/Wt Last Vital Signs Temp 97.9 F 04/30/25 13:44 Pulse 106 H 04/30/25 16:58 Resp 18 04/30/25 16:58 BP 101/65 04/30/25 14:37 Pulse Ox 91 04/30/25 16:58 O2 Del Method Nasal Cannula 04/30/25 13:44 O2 Flow Rate 2 04/30/25 13:44 Weight last 48 hrs Weight 99.79 kg Physical Exam 2 Narrative: General: No acute distress, AO x3, weak appearing, tired appearing HEENT: PERRLA, pupils bilaterally equal and reactive Chest: Bilateral bronchial breath sounds all over lung haider occasional rhonchi CVS: S1-S2 regular, no murmurs, no tachycardia, no gallops, no rubs Abdomen: Soft, nontender, no organomegaly, bowel sounds present Neuro: No focal deficits, no facial deformity, AO x3, power 5/5 in all limbs Data 04/30/25 14:24 04/30/25 14:24 Micro: Microbiology 04/30/25 15:39 Blood Culture - Preliminary Blood SPECIMEN COLLECTED 04/30/25 15:21 Blood Culture - Preliminary Blood SPECIMEN COLLECTED A&P Assessment and plan 1. Sepsis: SIRS: Tachycardic, Febrile, Leukocytosis Source: Unknown source. Possible UTI versus pneumonia End organ damage: Acute infectious encephalopathy Lactic acid elevated Patient cannot receive complete sepsis bolus given concern for CHF. Monitor blood pressures. Goal more than 65 mmHg of mean. If low can start on Levophed/midodrine. Check blood culture, urinalysis, urine culture, trend procalcitonin, sputum culture, respiratory viral panel, D-dimer, MRSA swab. Empirically start patient on IV vancomycin and Zosyn. MRSA swab negative discontinue vancomycin. Last echocardiogram showed EF of 48%. Will repeat limited echocardiogram. Check CT chest abdomen pelvis without contrast. Patient high risk of pneumonia because of restrictive lung disease. Cannot rule out UTI given hesitation in urination. 2. Stage 3a chronic kidney disease: Baseline creatinine around 1.5-1.9. Currently 1.9. Medical reconciliation done for nephrotoxic drugs. Monitor BMP daily. 3. CHF (congestive heart failure): Last echocardiogram shows EF 48%. Repeat echocardiogram as above. Concern for mild fluid overload. IV Lasix 40 mg one-time. Strict input output charting, daily weights. Peralta catheterization. 4. Benign essential HTN: Goal blood pressure less than 140/90 Terri with mean over 65. Blood pressure soft currently. Monitor blood pressures. 5. 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 6. Chronic anticoagulation: 7. Restrictive lung disease: Chronic. Follows up with pulmonology. Check sputum culture. Pulmicort twice daily, ipratropium, Xopenex every 6 hours. Solu-Medrol 125 mg one-time followed by IV 40 mg every 8 hourly. Oxygen supplementation keeping saturation over 88%. Incentive spirometry. Check respiratory viral panel. 8. Shortness of breath: 9. Generalized weakness: Plan: Fall: From ground-level. Found on ground. As per patient was on ground for 24 hours. No enticing factors. Insetting of generalized weakness. Physical therapy. Normal CPK level. Continue chronic home medication including aripiprazole, clonazepam, escitalopram, levothyroxine, Flomax. CODE STATUS: Full code Cardiac diet Protonix OPD prophylaxis Eliquis will be sufficient for DVT prophylaxis PDMP PDMP Reviewed: Not Reviewed Attestations 2 Medical Necessity Statement*: Admission for more than 2 midnights for management of generalized weakness/sepsis in a patient with restrictive lung disease, congestive heart failure, CKD with concerns for pneumonia/UTI Diagnoses Sepsis A41.9 Stage 3a chronic kidney disease N18.31 Chronic kidney disease stage: stage 3 (moderate) Chronic kidney disease stage 3 subtype: stage 3a (GFR 45-59) CHF (congestive heart failure) I50.9 Benign essential HTN I10 Persistent atrial fibrillation I48.19 Chronic anticoagulation Z79.01 Restrictive lung disease J98.4 Shortness of breath R06.02 Generalized weakness R53.1
--- NOTE | 2025-04-30 17:14 | USCV_ITS ---
Cesar Mederos Age: 75 Gender: M : 1950 Exam Date: 04/30/2025 21:06 Ordering Phys: Solitario Sena MD Technologist: AMBER Exam Location: [facility] [place] Indication: History of CHF, EF 45%, CKD, Atrial fibrillation, HTN BP: 101 / 71 HR: 107 Rhythm: Atrial fibrillation Technical Quality: Adequate MEASUREMENTS (Male / Female) Normal Values 2D ECHO LV Diastolic Diameter PLAX 3.3 cm 4.2 - 5.9 / 3.9 - 5.3 cm IVS Diastolic Thickness 1.6 cm 0.6 - 1.0 / 0.6 - 0.9 cm IVS Systolic Thickness 2.0 cm LVPW Diastolic Thickness 1.7 cm 0.6 - 1.0 / 0.6 - 0.9 cm LVPW Systolic Thickness 1.8 cm LVOT Diameter 2.0 cm LV Ejection Fraction 2D Teich 56.0 % LV Ejection Fraction MOD 4C 45.1 % LA Diameter 6.3 cm Aorta at Sinotubular Diameter 3.1 cm IVC Diameter 2.9 cm M-MODE LA Ao Ratio MM 1.5 AV Cusp Separation MM 1.9 cm DOPPLER AV Peak Velocity 118.0 cm/s LVOT Peak Velocity 85.0 cm/s AV Area Cont Eq vti 2.6 cm squared AV Area Cont Eq pk 2.3 cm squared MV Peak Velocity 127.0 cm/s MV Area PHT 6.3 cm squared Mitral E to A Ratio 719.0 TV Peak Velocity 198.0 cm/s TR Peak Velocity 200.0 cm/s TR Peak Gradient 16.0 mmHg TV Peak E Velocity 62.0 cm/s PV Peak Velocity 67.0 cm/s FINDINGS Left Ventricle Normal left ventricular size and systolic function, EF 56% no regional wall motion abnormalities. Right Ventricle Normal right ventricular size and systolic function. Right Atrium mildly increased right atrial size. Left Atrium Severely increased left atrial volume 66 ml/m squared. IA Septum Appears to be intact Mitral Valve Moderate mitral annular calcification. Mild mitral valve regurgitation. Aortic Valve Thickened aortic valve. Tricuspid Valve Trace tricuspid valve regurgitation. Estimated pulmonary artery peak systolic pressure 26 mmHg Pulmonic Valve Pulmonic valve not well visualized. Pericardium No pericardial effusion. Aorta Normal diameter of the aortic root and ascending thoracic aorta. IVC Normal IVC dimension with <50% respiratory change of the inferior vena cava. CONCLUSIONS Normal left ventricular size and systolic function, EF 56% no regional wall motion abnormalities. Severely increased left atrial volume 66 ml/m squared. Mildly increased right atrial size. Moderate mitral annular calcification. Mild mitral valve regurgitation. Thickened aortic valve. Trace tricuspid valve regurgitation. Estimated pulmonary artery peak systolic pressure 26 mmHg There is no pericardial effusion. There are no intracardiac masses. Compared to the study from 11/30/2024, the LV ejection fraction appears to have improved from 48% to 56% Dr Alexsandra Harper MD [facility] (Electronically Signed) Final Date: 01 May 2025 09:05 S
--- NOTE | 2025-04-30 17:17 | CTR_ITS ---
PROCEDURE INFORMATION: Exam: CT Chest Without Contrast; Diagnostic Exam date and time: 04/30/2025 5:28 PM Age: 75 years old Clinical indication: Other: Sepsis, possible pna, ckd; PT took a fall about 1100 yesterday. PT has been on the floor since. TECHNIQUE: Imaging protocol: Diagnostic computed tomography of the chest without contrast. Radiation optimization: All CT scans at this facility use at least one of these dose optimization techniques: automated exposure control; mA and/or kV adjustment per patient size (includes targeted exams where dose is matched to clinical indication); or iterative reconstruction. COMPARISON: PT PET skull to thigh INIT [id number] 04/06/2025 3:38 PM RADIATION DOSE METRICS: Total DLP (mGy-cm): 1160.92 FINDINGS: Lungs: Patchy infiltrates in the left upper right upper and right lower lobes with small effusion on the left, nonspecific although concerning for infection. Pleural spaces: Unremarkable. No pneumothorax. No pleural effusion. Heart: Trace pericardial effusion. Lymph nodes: Unremarkable. No enlarged lymph nodes. Vasculature: Aortic and coronary atherosclerosis. Bones/joints: Rpal-of-yhyfpcgk degenerative changes of the thoracic vertebral bodies with multilevel endplate spurring and disc space narrowing. Soft tissues: Unremarkable. PROCEDURE INFORMATION: Exam: CT Abdomen And Pelvis Without Contrast Exam date and time: 04/30/2025 5:28 PM Age: 75 years old Clinical indication: Other: Sepsis, possible pna, ckd; PT took a fall about 1100 yesterday. PT has been on the floor since. TECHNIQUE: Imaging protocol: Computed tomography of the abdomen and pelvis without contrast. Radiation optimization: All CT scans at this facility use at least one of these dose optimization techniques: automated exposure control; mA and/or kV adjustment per patient size (includes targeted exams where dose is matched to clinical indication); or iterative reconstruction. COMPARISON: PT PET skull to thigh INIT [id number] 04/06/2025 3:38 PM RADIATION DOSE METRICS: Total DLP (mGy-cm): 1160.92 FINDINGS: Liver: Normal. No mass. Gallbladder and biliary ducts: Vicarious contrast excretion in the gallbladder versus small stones without definite significant inflammatory changes. Pancreas: Normal. No ductal dilation. Spleen: Normal. No splenomegaly. Adrenal glands: 1.8 cm right adrenal nodule, compatible with adenoma. Kidneys and ureters: Few nonspecific although commonly benign renal cysts. Stomach and bowel: Colonic diverticulosis predominantly sigmoid without definite significant acute inflammatory changes. Appendix: No evidence of appendicitis. Intraperitoneal space: Trace peritoneal fluid, questionable clinical significance. Vasculature: Aortic atherosclerosis. Lymph nodes: Unremarkable. No enlarged lymph nodes. Urinary bladder: Unremarkable as visualized. Reproductive: Unremarkable as visualized. Bones/joints: Moderate degenerative changes of the lumbar and lower thoracic vertebral bodies. Soft tissues: Anasarca predominantly along the posterolateral body wall. CT/[place] [id number] IMPRESSION: Patchy infiltrates in the left upper right upper and right lower lobes with small effusion on the left, nonspecific although concerning for infection. IMPRESSION: No occult abscess or infection. COMMENTS: 1. Consistent with the [employer]'s Incidental Findings Committee white paper (J Am Yonas Radiol 2017): For any incidental adrenal lesion greater than or equal to 1 cm but less than or equal to 4 cm classified in this report as benign, likely benign, or containing fat (including classification as an adenoma or myelolipoma), no follow-up imaging is recommended per consensus recommendations based on imaging criteria. Further lab evaluation could be pursued if warranted based on clinical findings. 2. Consistent with the [employer]'s Incidental Findings Committee white paper (J Am Yonas Radiol 2018): Any incidental renal lesion less than 1 cm or classified as too small to characterize, or any incidental cystic renal lesion characterized as simple-appearing, is likely benign. No follow-up imaging is recommended for these lesions per consensus recommendations based on imaging criteria.
[2025-04-30 17:58] LABS: Troponin 5 2HR 36.49 ng/L (0-15)
[2025-04-30 18:00] LABS: Troponin 5 2HR Delta -3.51 ABS# (0-10)
[2025-04-30 18:01] LABS: Lactic Acid level (Lactate) 2.5 mmol/L (0.5-2.2)
[2025-04-30 18:05] LABS: Procalcitonin 0.15 ng/mL (0-0.5)
[2025-04-30] MEDS: FUROsemide 10 mg/mL SDV 4mL 40 MG IVP (18:30)
[2025-04-30] MEDS: methylPREDNISolone sod succ 125 mg/2 mL INJ IVP (18:31)
--- NOTE | 2025-04-30 19:30 | PC.NURSE ---
Patient refuses lorenzo catheter. He said they tried 3 times in the ER and it was traumatizing for him. He said that he may allow someone to try tomorrow but not tonight. Nurse educated patient on importance of lorenzo catheter pt accepted but still refused.
[2025-04-30] MEDS: pantoprazole 40 mg SDV IVP (19:36)
--- NOTE | 2025-04-30 19:46 | ECG_ITS ---
[facility] Test Date: 2025-04-30 Pat Name: Cesar Mederos Department: Room: 107 Gender: Male Cras: : 1950 Requested By: Yani Kulkarni Order Number: [id number] Potter MD: Alexsandra Harper M.D. Measurements Intervals [place] Rate: 99 P: 0 DE: 0 QRS: 160 QRSD: 106 T: 95 QT: 380 QTc: 489 Interpretive Statements Atrial fibrillation with controlled ventricular response RIGHT AXIS DEVIATION [QRS AXIS > 100] LOW QRS VOLTAGE IN EXTREMITY LEADS [QRS DEFLECTION < 0.5 mV IN LIMB LEADS] SEPTAL MYOCARDIAL INFARCTION , OF INDETERMINATE AGE [40+ ms Q WAVE IN V1/V2] Compared to ECG 04/30/2025 15:48:07 Atrial fibrillation no longer present Myocardial infarct finding still present Electronically Signed On 05-01-2025 22:22:19 WATCH ADJUSTER by Alexsandra Harper M.D. [email or web address]
[2025-04-30 19:53] LABS: Estmated Average Glucose 103; Hemoglobin A1C 5.2 % (4.0-6.0)
--- NOTE | 2025-04-30 20:54 | PHA.VACGOAL ---
Vancomycin Goal - Goal Vancomycin Goal:: 15-20 mg/L Vancomycin Indication:: Other (Sepsis) - Therapy Current therapy:: Pip/Tazo Day of therpy:: Day [1]of [] Actual body weight (kg): 99.79 kg - Data Labs: WBC 13.89 10^3/uL (3.29-11.43) H 04/30/25 14:24 RBC 4.15 10^6/uL (3.85-5.65) 04/30/25 14:24 Hgb 9.90 g/dL (11.27-16.99) L 04/30/25 14:24 Hct 34.6 % (37-53) L 04/30/25 14:24 MCV 83.4 fl (82-101) 04/30/25 14:24 MCH 23.9 pg (27-33) L 04/30/25 14:24 MCHC 28.6 g/dL (30-55) L 04/30/25 14:24 RDW 21.8 % (12.1-15.1) H 04/30/25 14:24 Sodium 140 mmol/L (136-145) 04/30/25 14:24 Potassium 5.5 mmol/L (3.5-5.1) H 04/30/25 14:24 Chloride 102 mmol/L (98-107) 04/30/25 14:24 Carbon Dioxide 24 mmol/L (22-29) 04/30/25 14:24 Anion Gap 19.5 (5-19) H 04/30/25 14:24 BUN 45 mg/dL (8-23) H 04/30/25 14:24 Creatinine 1.9 mg/dL (0.7-1.2) H 04/30/25 14:24 GFR Calculation Not Reportable 04/30/25 14:24 Treatment plan:: new consult Regimen:: New start vancomycin for sepsis. No prior vancomycin history found. Started on maintenance dose of 1500 mg q24h.
[2025-04-30 21:08] LABS: Free T4 Free Thyroxine 1.43 ng/dL (0.82-1.77)
[2025-04-30] MEDS: piperacillin-tazobactam 3.375 GM in sodium chloride 0.9% (plus) 50 ML IV (21:27)
[2025-04-30] MEDS: methylPREDNISolone sod succ 40 mg/mL INJ IVP (21:28)
[2025-04-30 21:47] LABS: Hematocrit 32.1 % (37-53); Hemoglobin 9.10 g/dL (11.27-16.99)
[2025-04-30 21:58] LABS: Troponin 5 6HR 39.79 ng/L (0-15); Troponin 5 6HR Delta -0.21 ng/L (0-12)
[2025-05-01] VITALS (19 sets, daily range): BP systolic 81–101; BP diastolic 59–72; PULSE 91–111; RESP 16–26; TEMP 36.6–36.9; O2SAT 92–98
[2025-05-01 03:26] LABS: MRSA PCR OZH (swab) NOT DETECTED (Negative)
[2025-05-01 05:03] LABS: Hematocrit 30.4 % (37-53); Hemoglobin 8.60 g/dL (11.27-16.99); Mean Corpuscular HGB Conc 28.3 g/dL (30-55); Mean Corpuscular Hemoglobin 23.4 pg (27-33); Mean Corpuscular Volume 82.6 fl (82-101); Nucleated Red Blood Cells % 0 %; Platelet Count 213 10^3/cmm (157-399); Red Blood Count 3.68 10^6/uL (3.85-5.65); White Blood Count 11.31 10^3/uL (3.29-11.43)
[2025-05-01 05:27] LABS: Alanine Aminotransferase 12 U/L (0-41); Albumin Level 3.1 g/dL (3.5-5.2); Alkaline Phosphatase 111 U/L (40-130); Anion Gap 17.4 (5-19); Aspartate Amino Transferase 33 U/L (0-40); Blood Urea Nitrogen 46 mg/dL (8-23); Calcium 8.6 mg/dL (8.5-10.5); Carbon Dioxide 22 mmol/L (22-29); Chloride 103 mmol/L (98-107); Globulin 2.6 g/dL (1.3-4.6); Glucose 171 mg/dL (65-115); Magnesium 2.4 mg/dL (1.7-2.3); Osmolality Calculated 302 mOsm/kg (285-295); Potassium 4.4 mmol/L (3.5-5.1); Sodium 138 mmol/L (136-145); Total Protein 5.7 g/dL (6.6-8.7)
[2025-05-01 05:30] LABS: Procalcitonin 0.20 ng/mL (0-0.5)
[2025-05-01 05:33] LABS: Cholesterol 104 mg/dL (0-200); HDL Cholesterol 26 mg/dL (60-100); Triglycerides 48 mg/dL (0-150)
[2025-05-01] MEDS: methylPREDNISolone sod succ 40 mg/mL INJ IVP ×2 (05:59→14:00)
[2025-05-01] MEDS: piperacillin-tazobactam 3.375 GM in sodium chloride 0.9% (plus) 50 ML IV ×3 (05:59→21:23)
--- NOTE | 2025-05-01 09:11 | PC.CHAP ---
Pastoral Care Encounter/Spiritual Assessment Type of Contact [] Declined wharf builder visit [] Patient/Family/Request visit [] Outpatient visit [] Follow-up visit [] Physician referral [] Code/Alert [] Routine visit [] Staff referral [] Actively dying [] Patient sleeping [] Family support [] [] Out of room [] Palliative care [] [x] Receiving care in room [] Pre-surgical visit [] Trauma [] Long length of stay [] ICU visit [] Other: Relational/Emotional Strength [] Patient feels connected with others/family/visitors/staff [] Distress [] Loneliness/isolation [] Abandonment Spirituality of Patient [] Person of Raina [] Attends Mormon of their Raina [] Believes in Prayer [] Reads Bible or Christianity materials [] There are Spiritual issues to be addressed Telemarketing Supervisor Interventions [] Prayer [] Active listening [] Non-anxious presence [] Spiritual/emotional support [] Crisis/trauma care [] Spiritual counseling [] Bereavement support [] Provided bereavement packet [] Provided Bible/devotional materials [] Provided toy/stuffed animal, coloring book to patient or family member [] Provided Communion [] Anointing/[place] [] Salvation [] Completed spiritual assessment [] Other: Impact on Illness or Injury [] Angry [] Fearful [] Anxious [] Often cries [] Exhaustion [] Unable to work [] Unable to attend episcopalian [] Unable to walk/stand [] Unable to read [] Unable to drive [] Unable to eat/drink [] Unable to sleep [] Unable to be with family [] Patient intubated [] Other: Summary Time spent with patient
--- NOTE | 2025-05-01 11:43 | P.PN_ITS ---
Subjective 2 Subjective: No acute events overnight. Today morning patient laying comfortably in bed. Denies any nausea, vomiting, headache. States he is feeling slightly better. Continues to remain weak and tired appearing. Awake and alert. Saturating more than 95% on 2 L. Vitals/I&O/Wt Last Vital Signs Temp 97.9 F 05/01/25 07:32 Pulse 102 H 05/01/25 08:55 Resp 18 05/01/25 08:55 BP 95/68 05/01/25 07:32 Pulse Ox 96 05/01/25 08:55 O2 Del Method Nasal Cannula 05/01/25 08:55 O2 Flow Rate 2 05/01/25 08:55 04/30/25 05/01/25 05/01/25 22:59 06:59 14:59 Intake Total 2600 / 2600 410 / 3010 290 / 290 Output Total 200 / 200 500 / 700 50 / 50 Balance 2400 / 2400 -90 / 2310 240 / 240 Weight last 48 hrs Weight 109.4 kg Weight 109.4 kg Weight 99.79 kg Weight 99.79 kg Physical Exam 2 Narrative: General: No acute distress, AO x3, weak appearing, tired appearing HEENT: PERRLA, pupils bilaterally equal and reactive Chest: Bilateral bronchial breath sounds all over lung haider occasional rhonchi CVS: S1-S2 regular, no murmurs, no tachycardia, no gallops, no rubs Abdomen: Soft, nontender, no organomegaly, bowel sounds present Neuro: No focal deficits, no facial deformity, AO x3, power 5/5 in all limbs Data 05/01/25 04:27 05/01/25 04:27 Micro: Microbiology 04/30/25 15:39 Blood Culture - Preliminary Blood SPECIMEN COLLECTED 04/30/25 15:21 Blood Culture - Preliminary Blood SPECIMEN COLLECTED A&P Assessment and plan 1. Sepsis: SIRS: Tachycardic, Febrile, Leukocytosis Source: High likelihood of aspiration pneumonia, UTI End organ damage: Acute infectious encephalopathy Lactic acid elevated. Repeat lactate today. Patient did not receive complete sepsis bolus given concern for CHF. Echocardiogram shows improvement in EF. Will give her 1 L of IV fluid bolus today. Monitor blood pressures. Goal more than 65 mmHg of mean. If low can start on Levophed/midodrine. Follow-up blood culture, urinalysis, urine culture, appreciate trend procalcitonin, sputum culture pending, Negative respiratory viral panel, elevated D-dimer, negative MRSA swab. Continue with IV Zosyn for now. Discontinue vancomycin. Continue azithromycin and finish a 5-day course. Appreciate CT chest abdomen pelvis. 2. Aspiration pneumonia due to gastric secretions: Seen on CT chest. Speech evaluation. Antibiotic as above. Sputum culture when available. Oxygen supplementation keeping saturation over 88 to 90%. 3. Restrictive lung disease: Chronic. Follows up with pulmonology. Check sputum culture. Pulmicort twice daily, ipratropium, Xopenex every 6 hours. Continue with Solu-Medrol IV 40 mg every 8 hourly. Plan to wean in next 24 hours. Oxygen supplementation keeping saturation over 88%. Aggressive pulmonary toilet with incentive spirometry. Negative respiratory viral panel. Out of bed to chair. 4. Stage 3a chronic kidney disease: Baseline creatinine around 1.5-1.9. Creatinine at baseline. Medical reconciliation done for nephrotoxic drugs. Monitor BMP daily. Peralta catheterization. 5. Chronic diastolic congestive heart failure: Repeat limited echocardiogram shows an EF of 56%, severely increased LA volume, mildly increased RA volume mild MR, PASP of 26 mmHg. Hold off on any diuresis for now. IV fluid as above. Strict input output charting, daily weights. Peralta catheterization. 6. Benign essential HTN: Goal blood pressure less than 140/90 millimeters Hg with mean over 65. Blood pressure soft currently. Monitor blood pressures. 7. 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 Continue with full dose Lovenox 1 mg/kg body weight daily as per creatinine clearance. Takes Eliquis 5 mg twice daily at home. 8. Chronic anticoagulation: 9. Generalized weakness: 10. Shortness of breath: D-dimer elevated to more than 6. Lower limb Dopplers negative for DVT. Given CKD unfortunately cannot do CTA. Will plan for VQ scan for further evaluation. Plan: Fall: From ground-level. Found on ground. As per patient was on ground for 24 hours. No enticing factors. Insetting of generalized weakness. Physical therapy. Normal CPK level. Continue chronic home medication including aripiprazole, clonazepam, escitalopram, levothyroxine, Flomax. CODE STATUS: Full code Cardiac diet Protonix OPD prophylaxis Eliquis will be sufficient for DVT prophylaxis PDMP PDMP Reviewed: Not Reviewed Attestations 2 Medical Necessity Statement*: Requires further hospitalization for management of hypoxia in setting of aspiration pneumonia, sepsis in a patient with restrictive lung disease, A-fib, elevated D-dimer while PE is ruled out Diagnoses Sepsis A41.9 Aspiration pneumonia due to gastric secretions J69.0 Restrictive lung disease J98.4 Stage 3a chronic kidney disease N18.31 Chronic kidney disease stage: stage 3 (moderate) Chronic kidney disease stage 3 subtype: stage 3a (GFR 45-59) Chronic diastolic congestive heart failure I50.32 Heart failure type: diastolic Heart failure chronicity: chronic Benign essential HTN I10 Persistent atrial fibrillation I48.19 Chronic anticoagulation Z79.01 Generalized weakness R53.1 Shortness of breath R06.02
[2025-05-01 11:50] LABS: PCP Screen Urine Negative (Negative)
[2025-05-01 11:51] LABS: Glucose Urine UA Negative (Normal); Nitrate Urine Negative (Negative); Specific Gravity, Urine 1.019 (1.005-1.030)
[2025-05-01 12:18] LABS: UA Slide Review UA Slide Review Perf
[2025-05-01 12:59] LABS: Lactic Sepsis W/Reflex 3.0 mmol/L (0.5-2.2)
[2025-05-01 14:26] LABS: Reflex Lactate Order REFLEX LACTIC ORDERD
--- NOTE | 2025-05-01 16:13 | PC.OT ---
OT EVALUATION ATTEMPTED. PATIENT SLEEPING SOUNDLY. HR ON MONITOR IS 117 AT REST.
[2025-05-01 16:29] LABS: Ammonia 23 umol/L (16-60)
[2025-05-01 16:31] LABS: Lactic Acid level (Lactate) 2.6 mmol/L (0.5-2.2)
[2025-05-01] MEDS: pantoprazole 40 mg SDV IVP (17:54)
--- NOTE | 2025-05-01 18:05 | CTR_ITS ---
PROCEDURE INFORMATION: Exam: CT Head Without Contrast Exam date and time: 05/01/2025 6:44 PM Age: 75 years old Clinical indication: Altered mental status/memory loss; AMS, PT found on floor 04/30/2025 at home and was admitted. TECHNIQUE: Imaging protocol: Computed tomography of the head without contrast. Radiation optimization: All CT scans at this facility use at least one of these dose optimization techniques: automated exposure control; mA and/or kV adjustment per patient size (includes targeted exams where dose is matched to clinical indication); or iterative reconstruction. COMPARISON: CT head wo con* [id number] 04/30/2025 1:56 PM RADIATION DOSE METRICS: Total DLP (mGy-cm): 864.68 FINDINGS: Brain: Unchanged scattered hypodensities in the periventricular and subcortical white matter. The appearance is most consistent with chronic small-vessel ischemic changes. Moderate to severe cerebral and cerebellar volume loss is unchanged. No mass effect or midline shift. No intracranial hemorrhage. Cerebral ventricles: No ventriculomegaly. Paranasal sinuses: Visualized sinuses are unremarkable. No fluid levels. Mastoid air cells: Visualized mastoid air cells are well aerated. Bones: Unremarkable. No acute fracture. Soft tissues: Unremarkable. CT/CT head wo con* [id number] IMPRESSION: No acute intracranial abnormality. Moderate to severe cerebral and cerebellar volume loss.
--- NOTE | 2025-05-01 22:09 | USCV_ITS ---
Cesar Mederos Age: 75 Gender: M : 1950 Exam Date: 05/01/2025 04:46 Ordering Phys: Solitario Sena MD Technologist: AMBER Exam Location: [facility] – [place] Indication: elevated d-dimer HISTORY: elevated d-dimer PROCEDURES: Venous duplex imaging was performed in bilateral lower extremities. The following venous structures were evaluated: common femoral vein, profunda vein, proximal portion of the greater saphenous vein, superficial femoral vein, and the popliteal vein. In addition, the posterior tibial and peroneal veins were evaluated. Serial compression, augmentation maneuvers, and spectral Doppler flow evaluation were performed, which were normal. Bilaterally, the common femoral, superficial femoral, profunda femoral, popliteal, posterior tibial, greater saphenous veins, and the peroneal veins were identified and interrogated in the standard fashion. These veins were found to be easily compressible with spontaneous blood flow. No evidence of thrombus noted. CONCLUSIONS No evidence of right lower extremity DVT. No evidence of left lower extremity DVT. Lance Alaniz MD (Electronically Signed) Final Date: 01 May 2025 09:04 S
[2025-05-02] VITALS (37 sets, daily range): BP systolic 82–123; BP diastolic 33–77; PULSE 84–130; RESP 15–35; TEMP 36.6–36.8; O2SAT 93–100
[2025-05-02 05:43] LABS: Hematocrit 29.6 % (37-53); Hemoglobin 8.50 g/dL (11.27-16.99); Mean Corpuscular HGB Conc 28.7 g/dL (30-55); Mean Corpuscular Hemoglobin 23.9 pg (27-33); Mean Corpuscular Volume 83.1 fl (82-101); Nucleated Red Blood Cells % 0 %; Platelet Count 175 10^3/cmm (157-399); Red Blood Count 3.56 10^6/uL (3.85-5.65); White Blood Count 13.10 10^3/uL (3.29-11.43)
[2025-05-02] MEDS: methylPREDNISolone sod succ 40 mg/mL INJ IVP (05:54)
[2025-05-02 06:05] LABS: Alanine Aminotransferase 12 U/L (0-41); Albumin Level 2.9 g/dL (3.5-5.2); Alkaline Phosphatase 89 U/L (40-130); Anion Gap 17.2 (5-19); Aspartate Amino Transferase 27 U/L (0-40); Blood Urea Nitrogen 57 mg/dL (8-23); Calcium 8.4 mg/dL (8.5-10.5); Carbon Dioxide 21 mmol/L (22-29); Chloride 104 mmol/L (98-107); Globulin 2.3 g/dL (1.3-4.6); Glucose 146 mg/dL (65-115); Magnesium 2.5 mg/dL (1.7-2.3); Osmolality Calculated 304 mOsm/kg (285-295); Potassium 4.2 mmol/L (3.5-5.1); Sodium 138 mmol/L (136-145); Total Protein 5.2 g/dL (6.6-8.7)
--- NOTE | 2025-05-02 07:01 | XR_ITS ---
WS: [id number] Portable AP upright chest, 05/02/2025 Clinical Data: post vq scan Comparison: Portable chest, 04/30/2025 Findings: The right pleural thickening has diminished which probably represents pleural effusion. There are patchy opacities in both lungs. The heart is enlarged. No nodules or masses are seen. The pulmonary vascularity is not increased. No pneumothorax is seen. The descending thoracic aorta shows to rtuosity. Monitor leads are on the chest wall. XR/XR chest 1V portable [id number] Impression: 1. Bilateral patchy opacities in both lungs which could represent pneumonia or pulmonary edema. 2. Decrease in right pleural effusion with decrease in right pleural thickenin g. 3. Cardiomegaly and atherosclerosis.
[2025-05-02] MEDS: piperacillin-tazobactam 3.375 GM in sodium chloride 0.9% (plus) 50 ML IV ×3 (07:24→21:07)
--- NOTE | 2025-05-02 07:58 | PC.NURSE ---
Patient blood pressure was soft throughout shift with map above 65. Dr Zhang notified. No new orders were placed.
--- NOTE | 2025-05-02 09:27 | FL_ITS ---
WS: [id number] Modified barium swallow, 05/02/2025 Clinical Data: Oropharyngeal dysphagia Comparison: None. Fluoroscopy time: 2min [id number] # of spot films: Findings: The patient swallowed the material presented by the speech pathologist. FL/FL barium swallow modifd [id number] Impression: Refer to the speech pathologist notes for more detail.
[2025-05-02] MEDS: albumin 25 G/100 ML BAG 60 G IV ×2 (09:28→17:23)
--- NOTE | 2025-05-02 11:44 | NM_ITS ---
WS: [id number] NUCLEAR MEDICINE LUNG VENTILATION AND PERFUSION CLINICAL INFORMATION: Respiratory failure, elevated D-dimer, CKD TECHNIQUE: Ventilation/perfusion lung scan with 32.7 mCi technetium 99m DTPA. 5.4 mCi MAA COMPARISON: Chest [place] [id number] and radiograph 05/02/2025 FINDINGS: Study is somewhat limited due to pulmonary infiltrates and background of emphysematous change. Cardiomegaly. Patchy radiotracer deposition on the ventilatory images due to chronic emphysematous change with radiotracer deposition along the central bronchi. Patchy radiotracer deposition on the perfusion images. Numerous matched ventilation perfusion defects likely due to emphysematous change. No large mismatched ventilation/perfusion defects. NM/NM pul vent and perfus* [id number] IMPRESSION: 1. Low probability for pulmonary embolus considering limitations.
--- NOTE | 2025-05-02 12:37 | P.PN_ITS ---
Subjective 2 Subjective: No acute events overnight. Today morning patient laying comfortably in bed. Denies any nausea, vomiting, headache. States he is feeling slightly better. Continues to remain weak and tired appearing. Awake and alert. Saturating more than 95% on 2 L. Vitals/I&O/Wt Last Vital Signs Temp 97.8 F 05/02/25 04:00 Pulse 105 H 05/02/25 11:00 Resp 22 H 05/02/25 11:00 BP 123/33 05/02/25 11:00 Pulse Ox 97 05/02/25 11:00 O2 Del Method Room Air 05/02/25 08:36 O2 Flow Rate 2 05/01/25 08:55 05/01/25 05/02/25 05/02/25 22:59 06:59 14:59 Intake Total 50 / 340 1350 / 1690 390 / 390 Output Total 500 / 550 200 / 750 Balance -450 / -210 1150 / 940 390 / 390 Weight last 48 hrs Weight 110 kg Weight 109.4 kg Weight 109.4 kg Weight 99.79 kg Weight 99.79 kg Physical Exam 2 Narrative: General: No acute distress, AO x3, weak appearing, tired appearing HEENT: PERRLA, pupils bilaterally equal and reactive Chest: Bilateral bronchial breath sounds all over lung haider occasional rhonchi CVS: S1-S2 regular, no murmurs, no tachycardia, no gallops, no rubs Abdomen: Soft, nontender, no organomegaly, bowel sounds present Neuro: No focal deficits, no facial deformity, AO x3, power 5/5 in all limbs Urinary Catheter Management: Coude: Cath Placed During This Visit: no Reason for Continuing Indwelling Catheter: Accurate Measurement of Urinary Output in Critically Ill Patients Data 05/02/25 05:19 05/02/25 05:19 Micro: Microbiology 04/30/25 15:39 Blood Culture - Preliminary Blood NEGATIVE TO DATE 04/30/25 15:21 Blood Culture - Preliminary Blood NEGATIVE TO DATE 04/30/25 10:55 Bacterial Antigens - Final Urine Kidney A&P Assessment and plan 1. Sepsis: SIRS: Tachycardic, Febrile, Leukocytosis Source: High likelihood of aspiration pneumonia, UTI End organ damage: Acute infectious encephalopathy Lactic acid elevated. Repeat lactate today. Patient did not receive complete sepsis bolus given concern for CHF. Echocardiogram shows improvement in EF. Will give her 1 L of IV fluid bolus today. Monitor blood pressures. Goal more than 65 mmHg of mean. If low can start on Levophed/midodrine. Follow-up blood culture, urinalysis, urine culture, appreciate trend procalcitonin, sputum culture pending, Negative respiratory viral panel, elevated D-dimer, negative MRSA swab. Continue with IV Zosyn for now. Discontinue vancomycin. Continue azithromycin and finish a 5-day course. Appreciate CT chest abdomen pelvis. 2. Aspiration pneumonia due to gastric secretions: Seen on CT chest. Speech evaluation. Antibiotic as above. Sputum culture when available. Oxygen supplementation keeping saturation over 88 to 90%. 3. Restrictive lung disease: Chronic. Follows up with pulmonology. Check sputum culture. Pulmicort twice daily, ipratropium, Xopenex every 6 hours. Continue with Solu-Medrol IV 40 mg every 8 hourly. Plan to wean in next 24 hours. Oxygen supplementation keeping saturation over 88%. Aggressive pulmonary toilet with incentive spirometry. Negative respiratory viral panel. Out of bed to chair. 4. Stage 3a chronic kidney disease: Baseline creatinine around 1.5-1.9. Creatinine at baseline. Medical reconciliation done for nephrotoxic drugs. Monitor BMP daily. Peralta catheterization. 5. Chronic diastolic congestive heart failure: Repeat limited echocardiogram shows an EF of 56%, severely increased LA volume, mildly increased RA volume mild MR, PASP of 26 mmHg. Hold off on any diuresis for now. IV fluid as above. Strict input output charting, daily weights. Peralta catheterization. 6. Benign essential HTN: Goal blood pressure less than 140/90 millimeters Hg with mean over 65. Blood pressure soft currently. Monitor blood pressures. 7. 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 Continue with full dose Lovenox 1 mg/kg body weight daily as per creatinine clearance. Takes Eliquis 5 mg twice daily at home. 8. Chronic anticoagulation: 9. Generalized weakness: 10. Shortness of breath: D-dimer elevated to more than 6. Lower limb Dopplers negative for DVT. Given CKD unfortunately cannot do CTA. Will plan for VQ scan for further evaluation. Plan: Fall: From ground-level. Found on ground. As per patient was on ground for 24 hours. No enticing factors. Insetting of generalized weakness. Physical therapy. Normal CPK level. Continue chronic home medication including aripiprazole, clonazepam, escitalopram, levothyroxine, Flomax. CODE STATUS: Full code Cardiac diet Protonix OPD prophylaxis Eliquis will be sufficient for DVT prophylaxis Plan for the day: Patient more awake and alert today. Seems to be back to his baseline. Continue with Lexapro. Hold off on Abilify and Klonopin for now. Will request for cognitive study with OT. Change Solu-Medrol 40 mg IV daily. Continue with nebulization treatment. Oxygen supplementation keeping saturation over 90%. Physical therapy. Out of bed to chair. Continue with Zosyn. MRSA swab negative. Will discontinue vancomycin. Continue azithromycin to finish a 3-day course. Follow-up blood cultures. High concerns for aspiration pneumonia. Will plan for modified barium swallow. Appreciate speech evaluation. Goal blood pressure less than 140/90 mmHg with mean over 65. Blood pressures occasionally soft. Start on IV albumin every 8 hourly. IV fluid at 75 cc/h. Holding off on antihypertensive. Check orthostatic. V/Q study appreciated. Low probability of VTE. Will change Lovenox back to home dose of Eliquis. PDMP PDMP Reviewed: Not Reviewed Attestations 2 Medical Necessity Statement*: Requires further hospitalization for management of sepsis with concern for aspiration pneumonia, metabolic encephalopathy, generalized weakness Diagnoses Sepsis A41.9 Aspiration pneumonia due to gastric secretions J69.0 Restrictive lung disease J98.4 Stage 3a chronic kidney disease N18.31 Chronic kidney disease stage: stage 3 (moderate) Chronic kidney disease stage 3 subtype: stage 3a (GFR 45-59) Chronic diastolic congestive heart failure I50.32 Heart failure type: diastolic Heart failure chronicity: chronic Benign essential HTN I10 Persistent atrial fibrillation I48.19 Chronic anticoagulation Z79.01 Generalized weakness R53.1 Shortness of breath R06.02
--- NOTE | 2025-05-02 13:32 | PC.SOCIAL ---
IMM Updated Updated pt on IMM. No questions voiced. Provided pt a copy. Initialed, dated, & timed a copy & placed in chart.
[2025-05-02] MEDS: pantoprazole 40 mg SDV IVP (17:24)
[2025-05-03] VITALS (21 sets, daily range): BP systolic 92–145; BP diastolic 62–86; PULSE 82–125; RESP 18–28; TEMP 36.3–36.8; O2SAT 82–100
[2025-05-03] MEDS: albumin 25 G/100 ML BAG 60 G IV ×2 (02:35→08:15)
[2025-05-03] MEDS: piperacillin-tazobactam 3.375 GM in sodium chloride 0.9% (plus) 50 ML IV ×3 (05:21→20:27)
[2025-05-03] MEDS: methylPREDNISolone sod succ 40 mg/mL INJ IVP (05:22)
[2025-05-03 05:43] LABS: Hematocrit 27.7 % (37-53); Hemoglobin 8.00 g/dL (11.27-16.99); Mean Corpuscular HGB Conc 28.9 g/dL (30-55); Mean Corpuscular Hemoglobin 23.7 pg (27-33); Mean Corpuscular Volume 82.2 fl (82-101); Nucleated Red Blood Cells % 0.2 %; Platelet Count 190 10^3/cmm (157-399); Red Blood Count 3.37 10^6/uL (3.85-5.65); White Blood Count 13.13 10^3/uL (3.29-11.43)
[2025-05-03 06:03] LABS: Alanine Aminotransferase 13 U/L (0-41); Albumin Level 3.8 g/dL (3.5-5.2); Alkaline Phosphatase 88 U/L (40-130); Anion Gap 17.2 (5-19); Aspartate Amino Transferase 23 U/L (0-40); Blood Urea Nitrogen 60 mg/dL (8-23); Calcium 9.1 mg/dL (8.5-10.5); Carbon Dioxide 21 mmol/L (22-29); Chloride 104 mmol/L (98-107); Globulin 2.1 g/dL (1.3-4.6); Glucose 121 mg/dL (65-115); Magnesium 2.7 mg/dL (1.7-2.3); Osmolality Calculated 304 mOsm/kg (285-295); Potassium 4.2 mmol/L (3.5-5.1); Sodium 138 mmol/L (136-145); Total Protein 5.9 g/dL (6.6-8.7)
--- NOTE | 2025-05-03 11:35 | P.PN_ITS ---
Subjective 2 Subjective: No acute events overnight. Patient has remained hemodynamically stable and afebrile. Denies any nausea, vomiting. Awake and alert. Laying comfortably in bed on examination. Awake and alert. Worked with physical therapy yesterday. Not orthostatic today. Remains on room air. Vitals/I&O/Wt Last Vital Signs Temp 97.4 F L 05/03/25 11:16 Pulse 95 05/03/25 11:16 Resp 21 H 05/03/25 11:16 BP 103/67 05/03/25 11:16 Pulse Ox 99 05/03/25 11:16 O2 Del Method Room Air 05/03/25 11:16 O2 Flow Rate 2 05/01/25 08:55 05/02/25 05/03/25 05/03/25 22:59 06:59 14:59 Intake Total 1390 / 2020 270 / 2290 1390 / 1390 Output Total 400 / 600 Balance 1390 / 1820 -130 / 1690 1390 / 1390 Weight last 48 hrs Weight 112.8 kg Weight 110 kg Physical Exam 2 Narrative: General: No acute distress, AO x3, weak appearing, tired appearing HEENT: PERRLA, pupils bilaterally equal and reactive Chest: Bilateral bronchial breath sounds all over lung haider occasional rhonchi CVS: S1-S2 regular, no murmurs, no tachycardia, no gallops, no rubs Abdomen: Soft, nontender, no organomegaly, bowel sounds present Neuro: No focal deficits, no facial deformity, AO x3, power 5/5 in all limbs Urinary Catheter Management: Coude: Cath Placed During This Visit: yes, but has since been removed by the nurse Reason for Continuing Indwelling Catheter: Accurate Measurement of Urinary Output in Critically Ill Patients Date Urinary Catheter Removed: 05/02/25 Time Urinary Catheter Discontinued: 14:00 Data 05/03/25 05:22 05/03/25 05:22 Micro: Microbiology 04/30/25 15:39 Blood Culture - Preliminary Blood NEGATIVE TO DATE 04/30/25 15:21 Blood Culture - Preliminary Blood NEGATIVE TO DATE 04/30/25 10:55 Bacterial Antigens - Final Urine Kidney A&P Assessment and plan 1. Orthostatic hypotension: 2. Sepsis: SIRS: Tachycardic, Febrile, Leukocytosis Source: High likelihood of aspiration pneumonia, UTI End organ damage: Acute infectious encephalopathy Lactic acid elevated. Repeat lactate today. Patient did not receive complete sepsis bolus given concern for CHF. Echocardiogram shows improvement in EF. Will give her 1 L of IV fluid bolus today. Monitor blood pressures. Goal more than 65 mmHg of mean. If low can start on Levophed/midodrine. Follow-up blood culture, urinalysis, urine culture, appreciate trend procalcitonin, sputum culture pending, Negative respiratory viral panel, elevated D-dimer, negative MRSA swab. Continue with IV Zosyn for now. Discontinue vancomycin. Continue azithromycin and finish a 5-day course. Appreciate CT chest abdomen pelvis. 3. Aspiration pneumonia due to gastric secretions: Seen on CT chest. Speech evaluation. Antibiotic as above. Sputum culture when available. Oxygen supplementation keeping saturation over 88 to 90%. 4. Restrictive lung disease: Chronic. Follows up with pulmonology. Check sputum culture. Pulmicort twice daily, ipratropium, Xopenex every 6 hours. Continue with Solu-Medrol IV 40 mg every 8 hourly. Plan to wean in next 24 hours. Oxygen supplementation keeping saturation over 88%. Aggressive pulmonary toilet with incentive spirometry. Negative respiratory viral panel. Out of bed to chair. 5. Stage 3a chronic kidney disease: Baseline creatinine around 1.5-1.9. Creatinine at baseline. Medical reconciliation done for nephrotoxic drugs. Monitor BMP daily. Peralta catheterization. 6. Chronic diastolic congestive heart failure: Repeat limited echocardiogram shows an EF of 56%, severely increased LA volume, mildly increased RA volume mild MR, PASP of 26 mmHg. Hold off on any diuresis for now. IV fluid as above. Strict input output charting, daily weights. Peralta catheterization. 7. Benign essential HTN: Goal blood pressure less than 140/90 millimeters Hg with mean over 65. Blood pressure soft currently. Monitor blood pressures. 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 Takes Eliquis 5 mg twice daily at home. 9. Chronic anticoagulation: 10. Generalized weakness: 11. Shortness of breath: D-dimer elevated to more than 6. Lower limb Dopplers negative for DVT. Given CKD unfortunately cannot do CTA. Will plan for VQ scan for further evaluation. Plan: Fall: From ground-level. Found on ground. As per patient was on ground for 24 hours. No enticing factors. Insetting of generalized weakness. Physical therapy. Normal CPK level. Continue chronic home medication including aripiprazole, clonazepam, escitalopram, levothyroxine, Flomax. CODE STATUS: Full code Cardiac diet Protonix OPD prophylaxis Eliquis will be sufficient for DVT prophylaxis Plan for the day: Blood pressure stable. Orthostatic negative. Patient is asymptomatic. Continue to check orthostatics. More awake and alert. Having tachycardia. Start on metoprolol 12.5 mg twice daily. Concerns for diastolic heart failure. Hold off on any Lasix for now. Can start on Farxiga 10 mg oral daily. If blood pressure soft will start the patient on midodrine 10 mg 3 times daily. Continue with IV albumin for now. Out of bed to chair. Continue with Zosyn for now. Switch to prednisone 40 mg oral daily for next 5 days. Continue with home dose of Lexapro. Change aripiprazole to 2 mg daily. Holding off on Klonopin for now. Transfer to [facility] floor. Discharge plan: Plan to discharge to home with home health versus SNF. Patient has been accepted at [facility]. Peer to peer was declined. Given patient living by himself, unsteady on his feet he would benefit from SNF placement. PDMP PDMP Reviewed: Not Reviewed Attestations 2 Medical Necessity Statement*: Requires further hospitalization for management of sepsis with concern for aspiration pneumonia, metabolic encephalopathy, generalized weakness Diagnoses Orthostatic hypotension I95.1 Sepsis A41.9 Aspiration pneumonia due to gastric secretions J69.0 Restrictive lung disease J98.4 Stage 3a chronic kidney disease N18.31 Chronic kidney disease stage: stage 3 (moderate) Chronic kidney disease stage 3 subtype: stage 3a (GFR 45-59) Chronic diastolic congestive heart failure I50.32 Heart failure chronicity: chronic Heart failure type: diastolic Benign essential HTN I10 Persistent atrial fibrillation I48.19 Chronic anticoagulation Z79.01 Generalized weakness R53.1 Shortness of breath R06.02
[2025-05-03] MEDS: DAPAGLIFLOZIN 10 MG TABLET PO (12:20)
[2025-05-03] MEDS: pantoprazole 40 mg SDV IVP (17:22)
[2025-05-04] VITALS (20 sets, daily range): BP systolic 84–150; BP diastolic 52–82; PULSE 73–117; RESP 16–22; TEMP 36.4–36.7; O2SAT 95–98
[2025-05-04] MEDS: piperacillin-tazobactam 3.375 GM in sodium chloride 0.9% (plus) 50 ML IV ×3 (04:49→21:01)
[2025-05-04] MEDS: DAPAGLIFLOZIN 10 MG TABLET PO (04:49)
[2025-05-04 05:59] LABS: Hematocrit 32.8 % (37-53); Hemoglobin 8.90 g/dL (11.27-16.99); Mean Corpuscular HGB Conc 27.1 g/dL (30-55); Mean Corpuscular Hemoglobin 23.2 pg (27-33); Mean Corpuscular Volume 85.4 fl (82-101); Nucleated Red Blood Cells % 0.2 %; Platelet Count 193 10^3/cmm (157-399); Red Blood Count 3.84 10^6/uL (3.85-5.65); White Blood Count 13.24 10^3/uL (3.29-11.43)
[2025-05-04 06:26] LABS: Alanine Aminotransferase 16 U/L (0-41); Albumin Level 3.8 g/dL (3.5-5.2); Alkaline Phosphatase 98 U/L (40-130); Aspartate Amino Transferase 27 U/L (0-40); Blood Urea Nitrogen 58 mg/dL (8-23); Calcium 9.0 mg/dL (8.5-10.5); Carbon Dioxide 20 mmol/L (22-29); Chloride 105 mmol/L (98-107); Globulin 2.0 g/dL (1.3-4.6); Glucose 90 mg/dL (65-115); Osmolality Calculated 304 mOsm/kg (285-295); Sodium 139 mmol/L (136-145); Total Protein 5.8 g/dL (6.6-8.7)
[2025-05-04 06:57] LABS: Anion Gap 18.3 (5-19); Potassium 4.3 mmol/L (3.5-5.1)
--- NOTE | 2025-05-04 09:54 | PC.SOCIAL ---
IMM UPDATED IMM dated and initialed, copy given to patient and copy placed in chart.
--- NOTE | 2025-05-04 11:27 | PM.PN ---
Subjective Subjective: No acute events overnight. Patient has remained hemodynamically stable and afebrile. Denies any nausea, vomiting. Awake and alert. Laying comfortably in bed on examination. Awake and alert. Worked with physical therapy yesterday. Not orthostatic today. Remains on room air. Vitals/I&O/Wt Last Vital Signs Temp 97.6 F 05/04/25 07:17 Pulse 110 H 05/04/25 09:15 Resp 20 H 05/04/25 08:00 BP 106/73 05/04/25 09:15 Pulse Ox 97 05/04/25 07:48 O2 Del Method Room Air 05/04/25 07:48 O2 Flow Rate 2 05/01/25 08:55 05/03/25 05/04/25 05/04/25 22:59 06:59 14:59 Intake Total 50 / 1680 450 / 2130 170 / 170 Output Total 225 / 225 240 / 465 Balance -175 / 1455 210 / 1665 170 / 170 Weight last 48 hrs Weight 112.8 kg Physical Exam Narrative: General: No acute distress, AO x3, weak appearing, tired appearing HEENT: PERRLA, pupils bilaterally equal and reactive Chest: Bilateral bronchial breath sounds all over lung haider occasional rhonchi CVS: S1-S2 regular, no murmurs, no tachycardia, no gallops, no rubs Abdomen: Soft, nontender, no organomegaly, bowel sounds present Neuro: No focal deficits, no facial deformity, AO x3, power 5/5 in all limbs Urinary Catheter Management: Coude: Cath Placed During This Visit: yes, but has since been removed by the nurse Reason for Continuing Indwelling Catheter: Accurate Measurement of Urinary Output in Critically Ill Patients Date Urinary Catheter Removed: 05/02/25 Time Urinary Catheter Discontinued: 14:00 Data 05/04/25 05:16 05/04/25 05:16 Micro: Microbiology 04/30/25 15:39 Blood Culture - Preliminary Blood NEGATIVE TO DATE 04/30/25 15:21 Blood Culture - Preliminary Blood NEGATIVE TO DATE 04/30/25 10:55 Bacterial Antigens - Final Urine Kidney A&P Assessment and plan 1. Orthostatic hypotension: 2. Sepsis: SIRS: Tachycardic, Febrile, Leukocytosis Source: High likelihood of aspiration pneumonia, UTI End organ damage: Acute infectious encephalopathy Lactic acid elevated. Repeat lactate today. Patient did not receive complete sepsis bolus given concern for CHF. Echocardiogram shows improvement in EF. Will give her 1 L of IV fluid bolus today. Monitor blood pressures. Goal more than 65 mmHg of mean. If low can start on Levophed/midodrine. Follow-up blood culture, urinalysis, urine culture, appreciate trend procalcitonin, sputum culture pending, Negative respiratory viral panel, elevated D-dimer, negative MRSA swab. Continue with IV Zosyn for now. Discontinue vancomycin. Continue azithromycin and finish a 5-day course. Appreciate CT chest abdomen pelvis. 3. Aspiration pneumonia due to gastric secretions: Seen on CT chest. Speech evaluation. Antibiotic as above. Sputum culture when available. Oxygen supplementation keeping saturation over 88 to 90%. 4. Restrictive lung disease: Chronic. Follows up with pulmonology. Check sputum culture. Pulmicort twice daily, ipratropium, Xopenex every 6 hours. Continue with Solu-Medrol IV 40 mg every 8 hourly. Plan to wean in next 24 hours. Oxygen supplementation keeping saturation over 88%. Aggressive pulmonary toilet with incentive spirometry. Negative respiratory viral panel. Out of bed to chair. 5. Stage 3a chronic kidney disease: Baseline creatinine around 1.5-1.9. Creatinine at baseline. Medical reconciliation done for nephrotoxic drugs. Monitor BMP daily. Peralta catheterization. 6. Chronic diastolic congestive heart failure: Repeat limited echocardiogram shows an EF of 56%, severely increased LA volume, mildly increased RA volume mild MR, PASP of 26 mmHg. Hold off on any diuresis for now. IV fluid as above. Strict input output charting, daily weights. Peralta catheterization. 7. Benign essential HTN: Goal blood pressure less than 140/90 millimeters Hg with mean over 65. Blood pressure soft currently. Monitor blood pressures. 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 Takes Eliquis 5 mg twice daily at home. 9. Chronic anticoagulation: 10. Generalized weakness: 11. Shortness of breath: D-dimer elevated to more than 6. Lower limb Dopplers negative for DVT. Given CKD unfortunately cannot do CTA. Will plan for VQ scan for further evaluation. Plan: Fall: From ground-level. Found on ground. As per patient was on ground for 24 hours. No enticing factors. Insetting of generalized weakness. Physical therapy. Normal CPK level. Continue chronic home medication including aripiprazole, clonazepam, escitalopram, levothyroxine, Flomax. CODE STATUS: Full code Cardiac diet Protonix OPD prophylaxis Eliquis will be sufficient for DVT prophylaxis Plan for the day: Patient continues to be positive for orthostatics. Tachycardia resolved after starting low-dose metoprolol 12.5 mg twice daily. Patient not volume depleted. No concern for infection for now. Continue with midodrine 10 mg oral 3 times daily. Add pyridostigmine 60 mg 4 times daily. Will request for compression stockings. Physical therapy to be continued. Patient continues to improve. Continue to hold off on Klonopin. Continue with current dose of Lexapro and added Prosol. Continue with prednisone to finish a 5-day course. Continue with IV Zosyn to finish a 5-day course. Discharge plan: Plan to discharge to home with home health versus SNF. Patient has been accepted at [facility]. Peer to peer was declined. Given patient living by himself, unsteady on his feet he would benefit from SNF placement. PDMP PDMP Reviewed: Not Reviewed Attestations Medical Necessity Statement*: Requires further hospitalization for management of orthostatic hypotension, sepsis with concern for aspiration pneumonia, metabolic encephalopathy, generalized weakness Diagnoses Orthostatic hypotension I95.1 Sepsis A41.9 Aspiration pneumonia due to gastric secretions J69.0 Restrictive lung disease J98.4 Stage 3a chronic kidney disease N18.31 Chronic kidney disease stage: stage 3 (moderate) Chronic kidney disease stage 3 subtype: stage 3a (GFR 45-59) Chronic diastolic congestive heart failure I50.32 Heart failure chronicity: chronic Heart failure type: diastolic Benign essential HTN I10 Persistent atrial fibrillation I48.19 Chronic anticoagulation Z79.01 Generalized weakness R53.1 Shortness of breath R06.02
--- NOTE | 2025-05-04 12:42 | PC.SLP ---
Pt will required nsg support with good oral care prior to eating each meal to reduce pneumonia risks if aspiration/penetration occurs.
[2025-05-04] MEDS: pantoprazole 40 mg SDV IVP (18:05)
[2025-05-05] VITALS (17 sets, daily range): BP systolic 96–126; BP diastolic 62–86; PULSE 56–94; RESP 16–19; TEMP 36.3–37; O2SAT 95–98
[2025-05-05] MEDS: piperacillin-tazobactam 3.375 GM in sodium chloride 0.9% (plus) 50 ML IV ×2 (04:28→12:18)
[2025-05-05] MEDS: DAPAGLIFLOZIN 10 MG TABLET PO (04:30)
--- NOTE | 2025-05-05 12:07 | P.PN_ITS ---
Subjective 2 Subjective: No acute events overnight. Patient seen sitting up in chair today. Denies any nausea, vomiting, headache. Not orthostatic anymore. Denies any dizziness. Worked with physical therapy. Vitals/I&O/Wt Last Vital Signs Temp 97.5 F L 05/05/25 11:10 Pulse 56 L 05/05/25 11:10 Resp 18 05/05/25 11:10 BP 100/64 05/05/25 11:10 Pulse Ox 96 05/05/25 11:10 O2 Del Method Room Air 05/05/25 11:10 O2 Flow Rate 2 05/01/25 08:55 05/04/25 05/05/25 05/05/25 22:59 06:59 14:59 Intake Total 290 / 580 50 / 630 290 / 290 Output Total 250 / 250 Balance 290 / 580 50 / 630 40 / 40 Physical Exam 2 Narrative: General: No acute distress, AO x3, weak appearing, tired appearing HEENT: PERRLA, pupils bilaterally equal and reactive Chest: Bilateral bronchial breath sounds all over lung haider occasional rhonchi CVS: S1-S2 regular, no murmurs, no tachycardia, no gallops, no rubs Abdomen: Soft, nontender, no organomegaly, bowel sounds present Neuro: No focal deficits, no facial deformity, AO x3, power 5/5 in all limbs Urinary Catheter Management: Coude: Cath Placed During This Visit: yes, but has since been removed by the nurse Reason for Continuing Indwelling Catheter: Accurate Measurement of Urinary Output in Critically Ill Patients Date Urinary Catheter Removed: 05/02/25 Time Urinary Catheter Discontinued: 14:00 Data 05/04/25 05:16 05/04/25 05:16 A&P Assessment and plan 1. Orthostatic hypotension: 2. Sepsis: SIRS: Tachycardic, Febrile, Leukocytosis Source: High likelihood of aspiration pneumonia, UTI End organ damage: Acute infectious encephalopathy Lactic acid elevated. Repeat lactate today. Patient did not receive complete sepsis bolus given concern for CHF. Echocardiogram shows improvement in EF. Will give her 1 L of IV fluid bolus today. Monitor blood pressures. Goal more than 65 mmHg of mean. If low can start on Levophed/midodrine. Follow-up blood culture, urinalysis, urine culture, appreciate trend procalcitonin, sputum culture pending, Negative respiratory viral panel, elevated D-dimer, negative MRSA swab. Continue with IV Zosyn for now. Discontinue vancomycin. Continue azithromycin and finish a 5-day course. Appreciate CT chest abdomen pelvis. 3. Aspiration pneumonia due to gastric secretions: Seen on CT chest. Speech evaluation. Antibiotic as above. Sputum culture when available. Oxygen supplementation keeping saturation over 88 to 90%. 4. Restrictive lung disease: Chronic. Follows up with pulmonology. Check sputum culture. Pulmicort twice daily, ipratropium, Xopenex every 6 hours. Continue with Solu-Medrol IV 40 mg every 8 hourly. Plan to wean in next 24 hours. Oxygen supplementation keeping saturation over 88%. Aggressive pulmonary toilet with incentive spirometry. Negative respiratory viral panel. Out of bed to chair. 5. Stage 3a chronic kidney disease: Baseline creatinine around 1.5-1.9. Creatinine at baseline. Medical reconciliation done for nephrotoxic drugs. Monitor BMP daily. Peralta catheterization. 6. Chronic diastolic congestive heart failure: Repeat limited echocardiogram shows an EF of 56%, severely increased LA volume, mildly increased RA volume mild MR, PASP of 26 mmHg. Hold off on any diuresis for now. IV fluid as above. Strict input output charting, daily weights. Peralta catheterization. 7. Benign essential HTN: Goal blood pressure less than 140/90 millimeters Hg with mean over 65. Blood pressure soft currently. Monitor blood pressures. 8. 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 Continue with full dose Lovenox 1 mg/kg body weight daily as per creatinine clearance. Takes Eliquis 5 mg twice daily at home. 9. Chronic anticoagulation: 10. Generalized weakness: 11. Shortness of breath: D-dimer elevated to more than 6. Lower limb Dopplers negative for DVT. Given CKD unfortunately cannot do CTA. Will plan for VQ scan for further evaluation. Plan: Fall: From ground-level. Found on ground. As per patient was on ground for 24 hours. No enticing factors. Insetting of generalized weakness. Physical therapy. Normal CPK level. Continue chronic home medication including aripiprazole, clonazepam, escitalopram, levothyroxine, Flomax. CODE STATUS: Full code Cardiac diet Protonix OPD prophylaxis Eliquis will be sufficient for DVT prophylaxis Plan for the day: Lab holiday today. Not orthostatic currently. Continue with current dose of midodrine and pyridostigmine. Episodes of bradycardia. Discontinue metoprolol 12.5 mg twice daily. Check EKG. Continue with current dose of Lexapro and Abilify. Will discontinue Klonopin. Last dose of Zosyn today. Continue to finish a 5-day course of prednisone. Discharge plan: Plan to discharge to home with home health versus SNF. Patient has been accepted at [facility]. Peer to peer was declined. Given patient living by himself, unsteady on his feet he would benefit from SNF placement. PDMP PDMP Reviewed: Not Reviewed Attestations 2 Medical Necessity Statement*: Requires further hospitalization while safe discharge planning is sought in a patient with orthostatic hypotension requiring medication changes, generalized weakness in setting of aspiration pneumonia Diagnoses Orthostatic hypotension I95.1 Sepsis A41.9 Aspiration pneumonia due to gastric secretions J69.0 Restrictive lung disease J98.4 Stage 3a chronic kidney disease N18.31 Chronic kidney disease stage: stage 3 (moderate) Chronic kidney disease stage 3 subtype: stage 3a (GFR 45-59) Chronic diastolic congestive heart failure I50.32 Heart failure type: diastolic Heart failure chronicity: chronic Benign essential HTN I10 Persistent atrial fibrillation I48.19 Chronic anticoagulation Z79.01 Generalized weakness R53.1 Shortness of breath R06.02
--- NOTE | 2025-05-05 14:13 | ECG_ITS ---
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: : 1950 Requested By: Solitario Sena Order Number: [id number] Abbey MD: JABIER CONLEY Measurements Intervals [place] Rate: 81 P: 0 SD: 0 QRS: -56 QRSD: 108 T: 0 QT: 406 QTc: 473 Interpretive Statements ATRIAL FLUTTER/TACHYCARDIA INDETERMINATE AXIS LOW QRS VOLTAGE [QRS DEFLECTION < 0.5/1.0 mV IN LIMB/CHEST LEADS] PATTERN CONSISTENT WITH PULMONARY DISEASE MINIMAL ST DEPRESSION [0.025+ mV ST DEPRESSION] Compared to ECG 04/30/2025 20:49:16 Indeterminate axis now present ST (T wave) deviation now present Atrial fibrillation no longer present Right-axis deviation no longer present Myocardial infarct finding no longer present Electronically Signed On 05-05-2025 16:07:33 ALARM SERVICE TECHNICIAN by JABIER CONLEY [id number]
[2025-05-05] MEDS: pantoprazole 40 mg SDV IVP (18:13)
[2025-05-06] VITALS (12 sets, daily range): BP systolic 98–155; BP diastolic 62–94; PULSE 58–103; RESP 17–23; TEMP 36.3–36.6; O2SAT 90–98
[2025-05-06] MEDS: DAPAGLIFLOZIN 10 MG TABLET PO (04:34)
[2025-05-06 05:20] LABS: Hematocrit 35.8 % (37-53); Hemoglobin 10.20 g/dL (11.27-16.99); Mean Corpuscular HGB Conc 28.5 g/dL (30-55); Mean Corpuscular Hemoglobin 23.4 pg (27-33); Mean Corpuscular Volume 82.3 fl (82-101); Nucleated Red Blood Cells % 0.5 %; Platelet Count 232 10^3/cmm (157-399); Red Blood Count 4.35 10^6/uL (3.85-5.65); White Blood Count 14.44 10^3/uL (3.29-11.43)
[2025-05-06 05:47] LABS: Alanine Aminotransferase 18 U/L (0-41); Albumin Level 3.9 g/dL (3.5-5.2); Alkaline Phosphatase 125 U/L (40-130); Anion Gap 16.4 (5-19); Aspartate Amino Transferase 25 U/L (0-40); Blood Urea Nitrogen 57 mg/dL (8-23); Calcium 9.4 mg/dL (8.5-10.5); Carbon Dioxide 20 mmol/L (22-29); Chloride 106 mmol/L (98-107); Globulin 2.4 g/dL (1.3-4.6); Glucose 101 mg/dL (65-115); Osmolality Calculated 302 mOsm/kg (285-295); Potassium 4.4 mmol/L (3.5-5.1); Sodium 138 mmol/L (136-145); Total Protein 6.3 g/dL (6.6-8.7)
--- NOTE | 2025-05-06 13:21 | P.PN_ITS ---
Subjective 2 Subjective: No acute events overnight. Does have episodes of confusion overnight as per the nursing staff. Not requiring Haldol. Denies any nausea, vomiting, headache today morning. AAO x 3 today morning. Has remained hemodynamically stable. Blood pressure is better. Vitals/I&O/Wt Last Vital Signs Temp 97.7 F 05/06/25 11:04 Pulse 75 05/06/25 11:04 Resp 18 05/06/25 11:04 BP 114/75 05/06/25 11:04 Pulse Ox 95 05/06/25 11:04 O2 Del Method Room Air 05/06/25 11:04 O2 Flow Rate 2 05/01/25 08:55 05/05/25 05/06/25 05/06/25 22:59 06:59 14:59 Intake Total 410 / 940 720 / 720 Output Total 500 / 750 Balance -90 / 190 720 / 720 Weight last 48 hrs Weight 113.217 kg Physical Exam 2 Narrative: General: No acute distress, AO x3, weak appearing, tired appearing HEENT: PERRLA, pupils bilaterally equal and reactive Chest: Bilateral bronchial breath sounds all over lung haider occasional rhonchi CVS: S1-S2 regular, no murmurs, no tachycardia, no gallops, no rubs Abdomen: Soft, nontender, no organomegaly, bowel sounds present Neuro: No focal deficits, no facial deformity, AO x3, power 5/5 in all limbs Urinary Catheter Management: Coude: Cath Placed During This Visit: yes, but has since been removed by the nurse Reason for Continuing Indwelling Catheter: Accurate Measurement of Urinary Output in Critically Ill Patients Date Urinary Catheter Removed: 05/02/25 Time Urinary Catheter Discontinued: 14:00 Data 05/06/25 04:55 05/06/25 04:55 A&P Assessment and plan 1. Orthostatic hypotension: 2. Sepsis: SIRS: Tachycardic, Febrile, Leukocytosis Source: High likelihood of aspiration pneumonia, UTI End organ damage: Acute infectious encephalopathy Lactic acid elevated. Repeat lactate today. Patient did not receive complete sepsis bolus given concern for CHF. Echocardiogram shows improvement in EF. Will give her 1 L of IV fluid bolus today. Monitor blood pressures. Goal more than 65 mmHg of mean. If low can start on Levophed/midodrine. Follow-up blood culture, urinalysis, urine culture, appreciate trend procalcitonin, sputum culture pending, Negative respiratory viral panel, elevated D-dimer, negative MRSA swab. Continue with IV Zosyn for now. Discontinue vancomycin. Continue azithromycin and finish a 5-day course. Appreciate CT chest abdomen pelvis. 3. Aspiration pneumonia due to gastric secretions: Seen on CT chest. Speech evaluation. Antibiotic as above. Sputum culture when available. Oxygen supplementation keeping saturation over 88 to 90%. 4. Restrictive lung disease: Chronic. Follows up with pulmonology. Check sputum culture. Pulmicort twice daily, ipratropium, Xopenex every 6 hours. Continue with Solu-Medrol IV 40 mg every 8 hourly. Plan to wean in next 24 hours. Oxygen supplementation keeping saturation over 88%. Aggressive pulmonary toilet with incentive spirometry. Negative respiratory viral panel. Out of bed to chair. 5. Stage 3a chronic kidney disease: Baseline creatinine around 1.5-1.9. Creatinine at baseline. Medical reconciliation done for nephrotoxic drugs. Monitor BMP daily. Peralta catheterization. 6. Chronic diastolic congestive heart failure: Repeat limited echocardiogram shows an EF of 56%, severely increased LA volume, mildly increased RA volume mild MR, PASP of 26 mmHg. Hold off on any diuresis for now. IV fluid as above. Strict input output charting, daily weights. Peralta catheterization. 7. Benign essential HTN: Goal blood pressure less than 140/90 millimeters Hg with mean over 65. Blood pressure soft currently. Monitor blood pressures. 8. 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 Continue with full dose Lovenox 1 mg/kg body weight daily as per creatinine clearance. Takes Eliquis 5 mg twice daily at home. 9. Chronic anticoagulation: 10. Generalized weakness: 11. Shortness of breath: D-dimer elevated to more than 6. Lower limb Dopplers negative for DVT. Given CKD unfortunately cannot do CTA. Will plan for VQ scan for further evaluation. Plan: Fall: From ground-level. Found on ground. As per patient was on ground for 24 hours. No enticing factors. Insetting of generalized weakness. Physical therapy. Normal CPK level. Continue chronic home medication including aripiprazole, clonazepam, escitalopram, levothyroxine, Flomax. CODE STATUS: Full code Cardiac diet Protonix OPD prophylaxis Eliquis will be sufficient for DVT prophylaxis Plan for the day: Appreciate blood work. Orthostatic blood pressures improving. Continue with midodrine and pyridostigmine. Continue to hold off on metoprolol. Increase dose of Abilify to home dose of 5 mg daily. Holding off on Klonopin for now. Continue with Lexapro. Finished course of IV antibiotics. Physical therapy. Discharge plan: Plan to discharge to home with home health versus SNF. Patient has been accepted at [facility]. Peer to peer was declined. Given patient living by himself, unsteady on his feet he would benefit from SNF placement. PDMP PDMP Reviewed: Not Reviewed Attestations 2 Medical Necessity Statement*: Requested hospitalization for management of orthostatic hypotension, generalized weakness while safe discharge planning is sought Diagnoses Orthostatic hypotension I95.1 Sepsis A41.9 Aspiration pneumonia due to gastric secretions J69.0 Restrictive lung disease J98.4 Stage 3a chronic kidney disease N18.31 Chronic kidney disease stage: stage 3 (moderate) Chronic kidney disease stage 3 subtype: stage 3a (GFR 45-59) Chronic diastolic congestive heart failure I50.32 Heart failure type: diastolic Heart failure chronicity: chronic Benign essential HTN I10 Persistent atrial fibrillation I48.19 Chronic anticoagulation Z79.01 Generalized weakness R53.1 Shortness of breath R06.02
[2025-05-06] MEDS: pantoprazole 40 mg SDV IVP (17:10)
[2025-05-07] VITALS (13 sets, daily range): BP systolic 99–125; BP diastolic 68–84; PULSE 74–135; RESP 15–18; TEMP 36.3–36.8; O2SAT 91–100; BMI 21.2
[2025-05-07] MEDS: DAPAGLIFLOZIN 10 MG TABLET PO (04:19)
--- NOTE | 2025-05-07 07:46 | ECG_ITS ---
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 Measurements Intervals [place] Rate: 87 P: 0 SC: 0 QRS: 257 QRSD: 106 T: 166 QT: 378 QTc: 457 Interpretive Statements ATRIAL FLUTTER/TACHYCARDIA INDETERMINATE AXIS LOW QRS VOLTAGE IN EXTREMITY LEADS [QRS DEFLECTION < 0.5 mV IN LIMB LEADS] PATTERN CONSISTENT WITH PULMONARY DISEASE MINIMAL ST DEPRESSION [0.025+ mV ST DEPRESSION] Compared to ECG 05/05/2025 14:13:03 No significant changes Electronically Signed On 05-07-2025 18:12:29 STEEL CHIPPER by Alexsandra Harper M.D. [email or web address] [id number]
--- NOTE | 2025-05-07 10:21 | PM.PN ---
Subjective Subjective: Today morning seen sitting up in chair. Denies any nausea, vomiting, headache. Did have tachycardia again overnight. Not orthostatic. Vitals/I&O/Wt Last Vital Signs Temp 97.6 F 05/07/25 07:06 Pulse 99 05/07/25 08:00 Resp 16 05/07/25 08:00 BP 105/74 05/07/25 07:13 Pulse Ox 96 05/07/25 08:00 O2 Del Method Nasal Cannula 05/07/25 08:00 O2 Flow Rate 2 05/07/25 08:00 05/06/25 05/07/25 05/07/25 22:59 06:59 14:59 Intake Total 480 / 1200 240 / 1440 240 / 240 Output Total 200 / 200 Balance 280 / 1000 240 / 1240 240 / 240 Weight last 48 hrs Weight 77.111 kg Weight 113.217 kg Physical Exam Narrative: General: No acute distress, AO x3, weak appearing, tired appearing HEENT: PERRLA, pupils bilaterally equal and reactive Chest: Bilateral bronchial breath sounds all over lung haider occasional rhonchi CVS: S1-S2 regular, no murmurs, no tachycardia, no gallops, no rubs Abdomen: Soft, nontender, no organomegaly, bowel sounds present Neuro: No focal deficits, no facial deformity, AO x3, power 5/5 in all limbs Urinary Catheter Management: Coude: Cath Placed During This Visit: yes, but has since been removed by the nurse Reason for Continuing Indwelling Catheter: Accurate Measurement of Urinary Output in Critically Ill Patients Date Urinary Catheter Removed: 05/02/25 Time Urinary Catheter Discontinued: 14:00 Data 05/06/25 04:55 05/06/25 04:55 A&P Assessment and plan 1. Orthostatic hypotension: 2. Sepsis: SIRS: Tachycardic, Febrile, Leukocytosis Source: High likelihood of aspiration pneumonia, UTI End organ damage: Acute infectious encephalopathy Lactic acid elevated. Repeat lactate today. Patient did not receive complete sepsis bolus given concern for CHF. Echocardiogram shows improvement in EF. Will give her 1 L of IV fluid bolus today. Monitor blood pressures. Goal more than 65 mmHg of mean. If low can start on Levophed/midodrine. Follow-up blood culture, urinalysis, urine culture, appreciate trend procalcitonin, sputum culture pending, Negative respiratory viral panel, elevated D-dimer, negative MRSA swab. Continue with IV Zosyn for now. Discontinue vancomycin. Continue azithromycin and finish a 5-day course. Appreciate CT chest abdomen pelvis. 3. Aspiration pneumonia due to gastric secretions: Seen on CT chest. Speech evaluation. Antibiotic as above. Sputum culture when available. Oxygen supplementation keeping saturation over 88 to 90%. 4. Restrictive lung disease: Chronic. Follows up with pulmonology. Check sputum culture. Pulmicort twice daily, ipratropium, Xopenex every 6 hours. Continue with Solu-Medrol IV 40 mg every 8 hourly. Plan to wean in next 24 hours. Oxygen supplementation keeping saturation over 88%. Aggressive pulmonary toilet with incentive spirometry. Negative respiratory viral panel. Out of bed to chair. 5. Stage 3a chronic kidney disease: Baseline creatinine around 1.5-1.9. Creatinine at baseline. Medical reconciliation done for nephrotoxic drugs. Monitor BMP daily. Peralta catheterization. 6. Chronic diastolic congestive heart failure: Repeat limited echocardiogram shows an EF of 56%, severely increased LA volume, mildly increased RA volume mild MR, PASP of 26 mmHg. Hold off on any diuresis for now. IV fluid as above. Strict input output charting, daily weights. Peralta catheterization. 7. Benign essential HTN: Goal blood pressure less than 140/90 millimeters Hg with mean over 65. Blood pressure soft currently. Monitor blood pressures. 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 Continue with full dose Lovenox 1 mg/kg body weight daily as per creatinine clearance. Takes Eliquis 5 mg twice daily at home. 9. Chronic anticoagulation: 10. Generalized weakness: 11. Shortness of breath: D-dimer elevated to more than 6. Lower limb Dopplers negative for DVT. Given CKD unfortunately cannot do CTA. Will plan for VQ scan for further evaluation. 12. Atrial fibrillation with rapid ventricular response: 13. Bradycardia: Plan: Fall: From ground-level. Found on ground. As per patient was on ground for 24 hours. No enticing factors. Insetting of generalized weakness. Physical therapy. Normal CPK level. Continue chronic home medication including aripiprazole, clonazepam, escitalopram, levothyroxine, Flomax. CODE STATUS: Full code Cardiac diet Protonix OPD prophylaxis Eliquis will be sufficient for DVT prophylaxis Plan for the day: Orthostatic blood pressures are improving. Continue with midodrine and pyridostigmine. Physical therapy. Continue with Abilify and Lexapro at home dose. Holding off on Klonopin. Mild tachycardia again overnight. EKG shows a flutter. On metoprolol patient did have bradycardia with heart rate down to high 50s though patient was asymptomatic. Will restart her metoprolol 12.5 mg twice daily. Repeat CBC and CMP in AM. Finish 5-day course of prednisone. Last dose on 05/08. Continue with Biju Marcos. Patient euvolemic. Discharge plan: Plan to discharge to home with home health versus SNF. Patient has been accepted at [facility]. Peer to peer was declined. Given patient living by himself, unsteady on his feet he would benefit from SNF placement. PDMP PDMP Reviewed: Not Reviewed Attestations Medical Necessity Statement*: Requires further hospitalization for management of orthostatic hypotension, A-flutter with RVR as medications are adjusted and safe discharge planning is sought as patient requires transfer to SNF given physical deconditioning, high risk of fall Diagnoses Orthostatic hypotension I95.1 Sepsis A41.9 Aspiration pneumonia due to gastric secretions J69.0 Restrictive lung disease J98.4 Stage 3a chronic kidney disease N18.31 Chronic kidney disease stage: stage 3 (moderate) Chronic kidney disease stage 3 subtype: stage 3a (GFR 45-59) Chronic diastolic congestive heart failure I50.32 Heart failure type: diastolic Heart failure chronicity: chronic Benign essential HTN I10 Persistent atrial fibrillation I48.19 Chronic anticoagulation Z79.01 Generalized weakness R53.1 Shortness of breath R06.02 Atrial fibrillation with rapid ventricular response I48.91 Bradycardia R00.1
--- NOTE | 2025-05-07 10:57 | PC.SOCIAL ---
IMM updated Updated pt on IMM. No questions voiced. Provided pt a copy. Initialed, dated, & timed copy in chart.
[2025-05-07] MEDS: pantoprazole 40 mg SDV IVP (17:42)
[2025-05-08] VITALS (12 sets, daily range): BP systolic 95–118; BP diastolic 68–90; PULSE 73–175; RESP 15–18; TEMP 36.4–36.8; O2SAT 94–99
[2025-05-08] MEDS: DAPAGLIFLOZIN 10 MG TABLET PO (04:17)
[2025-05-08 04:56] LABS: Hematocrit 34.4 % (37-53); Hemoglobin 9.40 g/dL (11.27-16.99); Mean Corpuscular HGB Conc 27.3 g/dL (30-55); Mean Corpuscular Hemoglobin 22.9 pg (27-33); Mean Corpuscular Volume 83.7 fl (82-101); Nucleated Red Blood Cells % 0.3 %; Platelet Count 202 10^3/cmm (157-399); Red Blood Count 4.11 10^6/uL (3.85-5.65); White Blood Count 15.77 10^3/uL (3.29-11.43)
[2025-05-08 05:15] LABS: Alanine Aminotransferase 17 U/L (0-41); Albumin Level 3.7 g/dL (3.5-5.2); Alkaline Phosphatase 123 U/L (40-130); Anion Gap 16.2 (5-19); Aspartate Amino Transferase 23 U/L (0-40); Blood Urea Nitrogen 50 mg/dL (8-23); Calcium 9.3 mg/dL (8.5-10.5); Carbon Dioxide 21 mmol/L (22-29); Chloride 106 mmol/L (98-107); Globulin 2.0 g/dL (1.3-4.6); Glucose 93 mg/dL (65-115); Osmolality Calculated 299 mOsm/kg (285-295); Potassium 5.2 mmol/L (3.5-5.1); Sodium 138 mmol/L (136-145); Total Protein 5.7 g/dL (6.6-8.7)
[2025-05-08 09:01] LABS: Free T4 Free Thyroxine 1.29 ng/dL (0.82-1.77); Thyroid Stimulating Hormone 3.49 uIU/mL (0.27-4.20)
--- NOTE | 2025-05-08 09:38 | PM.DCS ---
Discharge Providers Date of Admission: 04/30/25 17:27 Date of Discharge: May 08, 2025 Attending Provider at Admission: Solitario Sena MD Attending Provider at Discharge: Solitario Sena MD Primary Care Provider: Ashwin Roberson MD Diagnoses at Discharge Discharge Diagnosis 1. Orthostatic hypotension: 2. Sepsis: 3. Aspiration pneumonia due to gastric secretions: 4. Restrictive lung disease: 5. Stage 3a chronic kidney disease: 6. Chronic diastolic congestive heart failure: 7. Benign essential HTN: 8. Persistent atrial fibrillation: 9. Chronic anticoagulation: 10. Generalized weakness: 11. Shortness of breath: 12. Atrial fibrillation with rapid ventricular response: 13. Bradycardia: Reason for Visit Reason for Visit: fall Hospital Course Hospital Course Cesar Mederos is a 75 year old male with past medical history of congestive heart failure with known EF of around 45%, Nonischemic cardiomyopathy, CKD with baseline creatinine 1.5-1.9, chronic A-fib on anticoagulation, restrictive lung disease, hypertension presents to the ER today after being found on ground. As per the patient yesterday while making breakfast he felt weak, his knees gave way and he could not get up until somebody saw him today morning. He denies any nausea, vomiting, headache, dizziness, chest pain, vertigo, dysuria, diarrhea. Complains of feeling generally weak. States only medication change has been that spironolactone has been restarted for him by his PCP. During examination patient is laying comfortably in bed having difficulty in passing urine. In the ER he was found to be having mild leukocytosis, creatinine at baseline though hyperkalemia and slightly elevated BUN with soft blood pressures mostly in low 100s mmHg. Patient was admitted to the hospital further evaluation and management of sepsis in setting of aspiration pneumonia, concern for possible congestive heart failure and atrial fibrillation in setting of baseline chronic restrictive lung disease. He was started on treatment broad-spectrum antibiotics, nebulization treatment along with steroid treatment and IV Lasix. During hospitalization his cultures remain negative. Repeat echocardiogram was done which showed an EF improvement to 55%, severely increased LA size, mildly increased RV size with mild MR and PASP of 26 mmHg. Patient has finished course of antibiotics for pneumonia. Diet was advanced as per speech evaluation. On admission there was also concern for altered mental status for which his chronic medications were adjusted. He is to continue taking Lexapro and Abilify as before though Klonopin has been discontinued. During hospitalization he was found to have orthostatic hypotension which did not improve after IV hydration. Blood pressures are stable and he is not orthostatic hypotensive anymore on daily midodrine and pyridostigmine. Safe discharge plan were discussed in detail with the patient and he has been discharged to SNF as per physical therapy evaluation for further rehabitation. He is to take midodrine and pyridostigmine 3 times a day every day. Goal blood pressure is between 100-140 systolic. Once blood pressures are persistently over 140 he can decrease the dose of midodrine to 5 mg 3 times a day. He is to take Lasix only when needed for weight gain of more than 5 pounds. Farxiga daily has been added. Physical Exam Narrative: General: No acute distress, AO x3, weak appearing, tired appearing HEENT: PERRLA, pupils bilaterally equal and reactive Chest: Bilateral bronchial breath sounds all over lung haider occasional rhonchi CVS: S1-S2 regular, no murmurs, no tachycardia, no gallops, no rubs Abdomen: Soft, nontender, no organomegaly, bowel sounds present Neuro: No focal deficits, no facial deformity, AO x3, power 5/5 in all limbs Urinary Catheter Management: Coude: Cath Placed During This Visit: yes, but has since been removed by the nurse Reason for Continuing Indwelling Catheter: Accurate Measurement of Urinary Output in Critically Ill Patients Date Urinary Catheter Removed: 05/02/25 Time Urinary Catheter Discontinued: 14:00 Discharge Data Studies Completed and Pending Completed Studies During Hospitalization Category Date Time Status CT chest abdomen pelvis [[place] [id number] Cat Scan 04/30/25 17:17 Completed ] Stat CT head wo con* [id number] Routine Cat Scan 05/01/25 18:[address] head wo con* [id number] Stat Cat Scan 04/30/25 13:46 Completed CXRP [XR chest 1V portable [id number]] Routine Exams 05/02/25 07:01 Completed Modified barium swallow [FL barium swallow modifd [id number] Exams 05/02/25 09:27 Completed ] Routine XR chest 1V portable [id number] Stat Exams 04/30/25 13:46 Completed NM pul vent and perfus* [id number] Urgent Nuc Med 05/02/25 11:44 [place] [id number] Routine Ultrasound 05/01/25 22:09 Completed CV. echo limited [id number] Stat Ultrasound 04/30/25 17:14 Completed Pending at discharge Category Date Time Status Blood Culture Stat Lab 04/30/25 15:39 Results Sputum Culture and Gram Stain Stat Lab 04/30/25 16:42 Uncollected Radiology Impressions Chest/Abdomen/Pelvis CT 04/30/25 17:17 IMPRESSION: Patchy infiltrates in the left upper right upper and right lower lobes with small effusion on the left, nonspecific although concerning for infection. IMPRESSION: No occult abscess or infection. COMMENTS: 1. Consistent with the [employer]'s Incidental Findings Committee white paper (J Am Yonas Radiol 2017): For any incidental adrenal lesion greater than or equal to 1 cm but less than or equal to 4 cm classified in this report as benign, likely benign, or containing fat (including classification as an adenoma or myelolipoma), no follow-up imaging is recommended per consensus recommendations based on imaging criteria. Further lab evaluation could be pursued if warranted based on clinical findings. 2. Consistent with the [employer]'s Incidental Findings Committee white paper (J Am Yonas Radiol 2018): Any incidental renal lesion less than 1 cm or classified as too small to characterize, or any incidental cystic renal lesion characterized as simple-appearing, is likely benign. No follow-up imaging is recommended for these lesions per consensus recommendations based on imaging criteria. Head CT 05/01/25 18:05 IMPRESSION: No acute intracranial abnormality. Moderate to severe cerebral and cerebellar volume loss. Chest X-Ray 05/02/25 07:01 Impression: 1. Bilateral patchy opacities in both lungs which could represent pneumonia or pulmonary edema. 2. Decrease in right pleural effusion with decrease in right pleural thickening. 3. Cardiomegaly and atherosclerosis. Modified Barium Swallow 05/02/25 09:27 Impression: Refer to the speech pathologist notes for more detail. Pulmonary Perfusion Imaging 05/02/25 11:44 IMPRESSION: 1. Low probability for pulmonary embolus considering limitations. Microbiology 04/30/25 15:39 Blood Blood Culture - Preliminary NEGATIVE TO DATE 04/30/25 15:21 Blood Blood Culture - Preliminary NEGATIVE TO DATE 04/30/25 10:55 Urine Kidney Bacterial Antigens - Final Laboratory Results WBC 15.77 10^3/uL (3.29-11.43) H 05/08/25 04:37 RBC 4.11 10^6/uL (3.85-5.65) 05/08/25 04:37 Hgb 9.40 g/dL (11.27-16.99) L 05/08/25 04:37 Hct 34.4 % (37-53) L 05/08/25 04:37 MCV 83.7 fl (82-101) 05/08/25 04:37 MCH 22.9 pg (27-33) L 05/08/25 04:37 MCHC 27.3 g/dL (30-55) L 05/08/25 04:37 RDW 21.4 % (12.1-15.1) H 05/08/25 04:37 Plt Count 202 10^3/cmm (157-399) 05/08/25 04:37 MPV 10.4 fL (7.4-10.4) 05/08/25 04:37 Neut % (Auto) 90.3 % 05/08/25 04:37 Lymph % (Auto) 1.6 % 05/08/25 04:37 [place] % (Auto) 6.6 % 05/08/25 04:37 Eos % (Auto) 0.4 % 05/08/25 04:37 Baso % (Auto) 0.1 % 05/08/25 04:37 Neut # (Auto) 14.24 10^3/uL (1.8-7.7) H 05/08/25 04:37 Lymph # (Auto) 0.3 10^3/uL (0.8-4.8) L 05/08/25 04:37 [place] # (Auto) 1.0 10^3/uL (0.2-0.9) H 05/08/25 04:37 Eos # (Auto) 0.1 10^3/uL (0.0-0.8) 05/08/25 04:37 Baso # (Auto) 0.0 10^3/uL (0.0-0.1) 05/08/25 04:37 Nucleated RBC % (auto) 0.3 % 05/08/25 04:37 Nucleated RBCs # 0.0 /100WBC 05/08/25 04:37 D-Dimer 6.18 ug/mLFEU (0-0.59) H 04/30/25 14:24 Sodium 138 mmol/L (136-145) 05/08/25 04:37 Potassium 5.2 mmol/L (3.5-5.1) H 05/08/25 04:37 Chloride 106 mmol/L (98-107) 05/08/25 04:37 Carbon Dioxide 21 mmol/L (22-29) L 05/08/25 04:37 Anion Gap 16.2 (5-19) 05/08/25 04:37 BUN 50 mg/dL (8-23) H 05/08/25 04:37 Creatinine 1.2 mg/dL (0.7-1.2) 05/08/25 04:37 GFR Calculation Not Reportable 05/08/25 04:37 Glucose 93 mg/dL (65-115) 05/08/25 04:37 POC Glucose 118 mg/dL (70-110) H 05/08/25 06:17 Estimat Average Glucose 103 04/30/25 18:37 Hemoglobin A1c 5.2 % (4.0-6.0) 04/30/25 18:37 Calculated Osmolality 299 mOsm/kg (285-295) H 05/08/25 04:37 Lactic Acid 3.0 mmol/L (0.5-2.2) H 05/01/25 12:33 Lactic Acid (Sepsis) 2.6 mmol/L (0.5-2.2) H 05/01/25 15:54 Calcium 9.3 mg/dL (8.5-10.5) 05/08/25 04:37 Phosphorus 3.7 mg/dL (2.5-4.5) 05/03/25 05:22 Magnesium 2.7 mg/dL (1.7-2.3) H 05/03/25 05:22 Total Bilirubin 0.9 mg/dL (0.15-1.2) 05/08/25 04:37 AST 23 U/L (0-40) 05/08/25 04:37 ALT 17 U/L (0-41) 05/08/25 04:37 Alkaline Phosphatase 123 U/L (40-130) 05/08/25 04:37 Ammonia 23 umol/L (16-60) 05/01/25 15:54 Creatine Kinase 305 U/L (39-308) 04/30/25 14:24 Troponin T Baseline 40 ng/L (0-15) H 04/30/25 14:24 Troponin T 120 Minute 36.49 ng/L (0-15) H 04/30/25 17:04 Delta Troponin T -3.51 ABS# (0-10) L 04/30/25 17:04 Troponin T Hi Sens 6Hr 39.79 ng/L (0-15) H 04/30/25 20:46 Troponin T Hi Sens 6Hr Delta -0.21 ng/L (0-12) L 04/30/25 20:46 C-Reactive Protein 44.1 mg/L (0.0-4.9) H 04/30/25 14:24 Total Protein 5.7 g/dL (6.6-8.7) L 05/08/25 04:37 Albumin 3.7 g/dL (3.5-5.2) 05/08/25 04:37 Globulin 2.0 g/dL (1.3-4.6) 05/08/25 04:37 Triglycerides 48 mg/dL (0-150) 05/01/25 04:27 Cholesterol 104 mg/dL (0-200) 05/01/25 04:27 LDL Cholesterol, Calc 68 mg/dL (50-129) 05/01/25 04:27 HDL Cholesterol 26 mg/dL (60-100) L 05/01/25 04:27 LDL/HDL Ratio 2.62 RATIO (0.00-3.22) 05/01/25 04:27 Cholesterol/HDL Ratio 4.00 mg/dL (1.0-5.00) 05/01/25 04:27 Folate 12.2 ng/mL (4.5-32.2) 05/01/25 04:27 Procalcitonin 0.20 ng/mL (0-0.5) 05/01/25 04:27 TSH 3.49 uIU/mL (0.27-4.20) 05/08/25 04:37 Free T4 1.29 ng/dL (0.82-1.77) 05/08/25 04:37 Urine Color Yellow (Yellow) 04/30/25 10:55 Urine Appearance Clear (CLEAR) 04/30/25 10:55 Urine pH 5.0 (5-7) 04/30/25 10:55 Ur Specific [place] 1.019 (1.005-1.030) 04/30/25 10:55 Urine Protein Negative (Negative) 04/30/25 10:55 Urine Glucose (UA) Negative (Normal) 04/30/25 10:55 Urine Ketones Trace (Negative) 04/30/25 10:55 Urine Blood Negative (Negative) 04/30/25 10:55 Urine Nitrate Negative (Negative) 04/30/25 10:55 Urine Bilirubin Negative (Negative) 04/30/25 10:55 Urine Urobilinogen 1.0 mg/dL (Negative) 04/30/25 10:55 Ur Leukocyte Esterase Negative (Negative) 04/30/25 10:55 Urine RBC 0-2 /hpf (0-2) 04/30/25 10:55 Urine WBC 0-5 /hpf (0-5) 04/30/25 10:55 Ur Squamous Epith Cells 0-5 /hpf (0-5) 04/30/25 10:55 Amorphous Sediment Not Reportable 04/30/25 10:55 Urine Bacteria None seen /hpf (NONE) 04/30/25 10:55 Hyaline Casts 20.27 /lpf 04/30/25 10:55 Nasal MRSA (PCR) Not detected (Negative) 05/01/25 02:06 Urine Opiates Screen Negative ng/mL (Negative) 04/30/25 10:55 Ur Barbiturates Screen Negative ng/mL (Negative) 04/30/25 10:55 Ur Phencyclidine Scrn Negative ng/mL (Negative) 04/30/25 10:55 Ur Amphetamines Screen Negative ng/mL (Negative) 04/30/25 10:55 U Benzodiazepines Scrn Negative ng/mL (Negative) 04/30/25 10:55 Urine Cocaine Screen Negative ng/mL (Negative) 04/30/25 10:55 U Marijuana (THC) Screen Negative ng/mL (Negative) 04/30/25 10:55 Influenza A (PCR) Negative (Negative) 04/30/25 14:08 Influenza Type B (PCR) Negative (Negative) 04/30/25 14:08 RSV (PCR) Negative (Negative) 04/30/25 14:08 SARS-CoV-2 (PCR) Negative (Negative) 04/30/25 14:08 Vitals Last Vital Signs Temp 97.5 F L 05/08/25 07:16 Pulse 73 05/08/25 09:26 Resp 16 05/08/25 08:00 BP 107/71 05/08/25 09:26 Pulse Ox 98 05/08/25 07:35 O2 Del Method Nasal Cannula 05/08/25 07:35 O2 Flow Rate 1 05/08/25 07:35 Discharge Plan Discharge Patient Disposition: Xfer SNF Condition: Stable Prescriptions: New dapagliflozin propanediol 10 mg Tablet 10 mg PO DAILY Qty: 30 0RF midodrine 5 mg Tablet 10 mg PO TID 30 Days Qty: 180 0RF prednisone 20 mg Tablet 40 mg PO DAILY Qty: 6 0RF pyridostigmine bromide 60 mg Tablet 60 mg PO TID 30 Days Qty: 90 0RF metoprolol tartrate 25 mg Tablet 12.5 mg PO BID@0900,2100 30 Days Qty: 30 0RF Continued ascorbate calcium (vitamin C) 500 mg tablet 500 mg PO DAILY levothyroxine [Levoxyl] 25 mcg tablet 25 mcg PO DAILY Qty: 30 11RF Rx Instructions: take 30 mins prior to food or meds ferrous sulfate [Iron (ferrous sulfate)] 325 mg (65 mg iron) tablet 325 mg PO BID Qty: 60 6RF escitalopram oxalate 20 mg tablet 20 mg PO DAILY Qty: 30 11RF Eliquis 5 mg tablet See Rx Instructions .ROUTE .COMPLEX Qty: 60 11RF Dose Instruction: TAKE 1 TABLET BY MOUTH TWICE DAILY Rx Instructions: TAKE 1 TABLET BY MOUTH TWICE DAILY tamsulosin 0.4 mg capsule See Rx Instructions .ROUTE .COMPLEX Qty: 30 11RF Dose Instruction: TAKE 1 CAPSULE BY MOUTH ONCE DAILY FOR PROSTATE Rx Instructions: TAKE 1 CAPSULE BY MOUTH ONCE DAILY FOR PROSTATE fluticasone propionate 50 mcg/actuation spray,suspension 2 spray intranasal DAILY PRN (Reason: Allergy Symptoms) Qty: 16 11RF Rx Instructions: administer into each nostril levocetirizine 5 mg tablet 5 mg PO DAILY PRN (Reason: allergy symptoms) Qty: 30 11RF aripiprazole [Abilify] 5 mg tablet 5 mg PO DAILY Qty: 30 11RF Changed furosemide 40 mg tablet 40 mg PO QAM PRN (Reason: weight gain of 5 lbs, SOB) Qty: 60 11RF Discontinued spironolactone 100 mg tablet 100 mg PO DAILY Qty: 30 11RF clonazepam [Klonopin] 0.5 mg tablet 1 mg PO DAILY Qty: 60 5RF Referrals: [facility] [Outside] Ashwin Roberson MD [Primary Care Provider, [facility]] - 05/14/25 3:00 pm Discharge Diet: Regular Discharge Activity: Resume usual activity and Increase activity as tolerated Patient Instructions: Opioid Safety, Patient Portal & Luz Instructions Activity Restrictions/Additional Instructions: Check your blood pressures daily at home maintain a blood pressure diary. Goal blood pressure is between 100-140 systolic. Continue taking midodrine 10 mg 3 times a day along with pyridostigmine 60 mg 3 times a day. Once her blood pressures are persistently over 140 mmHg you can cardiomyopathy and down to 5 mg 3 times a day. Take Lasix only as needed for weight gain of more than 5 pounds. Discharge Attestations Time Spent in Discharge Care*: greater than 30 min Specific Discharge Activities: educating patient, educating and/or supporting family/caregiver, discussing with pcp/other providers, discussing with case checker/social workers/dc planners, documenting/other paperwork and evaluating patient/reviewing data Status at Discharge: Cognitive status at discharge: cognitively intact, Behavioral status at discharge: cooperative, Functional status at discharge: uses cane/walker, Overall status at discharge: patient is back to baseline Quality Metrics Clinical Quality Measures [ No reported AMI, CVA or VTE this stay] Coding Level of Care Code 12319 Total time (in minutes) for Discharge: 65 Diagnoses Orthostatic hypotension I95.1 Sepsis A41.9 Aspiration pneumonia due to gastric secretions J69.0 Restrictive lung disease J98.4 Stage 3a chronic kidney disease N18.31 Chronic kidney disease stage: stage 3 (moderate) Chronic kidney disease stage 3 subtype: stage 3a (GFR 45-59) Chronic diastolic congestive heart failure I50.32 Heart failure chronicity: chronic Heart failure type: diastolic Benign essential HTN I10 Persistent atrial fibrillation I48.19 Chronic anticoagulation Z79.01 Generalized weakness R53.1 Shortness of breath R06.02 Atrial fibrillation with rapid ventricular response I48.91 Bradycardia R00.1
[2025-05-08 12:39] LABS: Anion Gap 16.5 (5-19); Blood Urea Nitrogen 52 mg/dL (8-23); Calcium 9.2 mg/dL (8.5-10.5); Carbon Dioxide 22 mmol/L (22-29); Chloride 106 mmol/L (98-107); Glucose 125 mg/dL (65-115); Osmolality Calculated 304 mOsm/kg (285-295); Potassium 5.5 mmol/L (3.5-5.1); Sodium 139 mmol/L (136-145)
[2025-05-08] MEDS: insulin regular-human 100 units/1 mL 10 UNIT IVP (13:32)
--- NOTE | 2025-05-08 15:55 | PC.OT ---
OT TREATMENT HELD DUE TO SCHEDULED PATIENT D/C TODAY
[2025-05-08] MEDS: pantoprazole 40 mg SDV IVP (17:06)
[2025-05-08 17:32] LABS: Potassium 5.3 mmol/L (3.5-5.1)
--- NOTE | 2025-05-08 19:52 | PC.NURSE ---
Discharge: Day shift nurse reported giving pt all of his paperwork. Wallet and check book also given back to pt at time of discharge.
== END 2025-05-08 19:30 | disposition skilled nursing facility (03) | DRG 871 ==
LOC: ER 15:43 → ER IP 17:27 → CSU 17:41 → MEDSURG 05-03 21:59
PROVIDERS: Admitting Provider Student in an Organized Health Care Education/Training Program; Emergency Provider Emergency Medicine; PCP Family Medicine; Visit Provider Student in an Organized Health Care Education/Training Program
DX: A41.9 Sepsis, unspecified organism (principal); G93.41 Metabolic encephalopathy; J69.0 Pneumonitis due to inhalation of food and vomit; I13.0 Hypertensive heart and chronic kidney disease with heart failure and stage 1 through stage 4 chronic kidney disease, or unspecified chronic kidney disease; I48.19 Other persistent atrial fibrillation; I42.8 Other cardiomyopathies; I50.32 Chronic diastolic (congestive) heart failure; E11.22 Type 2 diabetes mellitus with diabetic chronic kidney disease; R00.0 Tachycardia, unspecified; J45.909 Unspecified asthma, uncomplicated; I95.1 Orthostatic hypotension; N18.31 Chronic kidney disease, stage 3a; R09.02 Hypoxemia; N40.0 Benign prostatic hyperplasia without lower urinary tract symptoms; R53.1 Weakness; M05.9 Rheumatoid arthritis with rheumatoid factor, unspecified; R65.20 Severe sepsis without septic shock; E78.5 Hyperlipidemia, unspecified; F32.A Depression, unspecified; Z79.01 Long term (current) use of anticoagulants; Z79.890 Hormone replacement therapy; Z79.899 Other long term (current) drug therapy; Z88.1 Allergy status to other antibiotic agents; Z88.8 Allergy status to other drugs, medicaments and biological substances
CPT/HCPCS: 36415; 36416; 70450; 71045; 71250; 74176; 74230; 78014; 80048; 80053; 80061; 80306; 81001; 82140; 82550; 82746; 82962; 83036; 83605; 83735; 84100; 84132; 84145; 84439; 84443; 84484; 85014; 85018; 85025; 85378; 86140; 86403; 87040; 87637; 92507; 92523; 92526; 92610; 92611; 93005; 93308; 93970; 94640; 94664; 96365; 96372; 96375; 97110; 97116; 97163; 97167; 97530; 97535; 99285; A9540; A9567; J1650; J1815; J1938; J2020; J2185; J2470; J2543; J2919; J3373; J7030; J7512; J7614; J7626; J7644; J7799; J9999; P9046; Q0144

== ENCOUNTER 2025-05-19 17:50 | Inpatient (IN) | payer MEDICARE, SELFPAY ==
[2025-05-19] VITALS (10 sets, daily range): BP systolic 85–119; BP diastolic 55–86; PULSE 78–110; RESP 14–24; TEMP 36.7; O2SAT 92–100; BMI 32.5
--- OUTSIDE RECORDS SUMMARY | 2025-05-19 18:00 | XMS_ITS | Encounter Summary ---
Author Organization [facility] Address [address] [place] [address] Care Team Providers Care Supply Chain Procurement Manager Name Role Phone Unavailable Primary Care Provider Unavailabl e Encounter Details Date Type Department Care Team (Latest Contact Info) Description 11/03/1999 Outpatient Historical [facility] Op[facility] 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
--- OUTSIDE RECORDS SUMMARY | 2025-05-19 18:00 | XMS_ITS | Encounter Summary ---
Author Organization [facility] Address [address] [place] [address] Care Team Providers Care Project Developer Name Role Phone Unavailable Primary Care Provider Unavailabl e Encounter Details Date Type Department Care Team (Latest Contact Info) Description 01/04/2004 Outpatient Historical [facility] Optometry 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
--- OUTSIDE RECORDS SUMMARY | 2025-05-19 18:00 | XMS_ITS | Clinical Summary ---
Author Organization [employer] Address [address] 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
--- OUTSIDE RECORDS SUMMARY | 2025-05-19 18:00 | XMS_ITS | Encounter Summary ---
Author Organization [facility] Address [address] [place] [address] Care Team Providers Care Event Marketing Coordinator Name Role Phone Unavailable Primary Care Provider Unavailabl e Encounter Details Date Type Department Care Team (Latest Contact Info) Description 06/14/1997 Outpatient Historical [facility] Op[facility]mology 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
--- OUTSIDE RECORDS SUMMARY | 2025-05-19 18:00 | XMS_ITS | Clinical Summary ---
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
--- OUTSIDE RECORDS SUMMARY | 2025-05-19 18:00 | XMS_ITS | Encounter Summary ---
Author Organization [facility] Address [address] [place] [address] Care Team Providers Care Equipment Coordinator Name Role Phone Unavailable Primary Care Provider Unavailabl e Encounter Details Date Type Department Care Team (Latest Contact Info) Description 01/02/2003 Outpatient Historical [facility] Optometry[facility] [address] [place] [address] Nolberto Luis, OD [address] [place] [address] PREGLAUCOMA NOS (Primary Dx); MYOPIA Social History Tobacco Use Types Packs/Day Years Used Date Smoking Tobacco: Never Assessed Sex and Gender Information Value Date Recorded Sex Assigned at Not on file 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
--- NOTE | 2025-05-19 18:44 | XRR_ITS ---
PROCEDURE INFORMATION: Exam: XR Chest Exam date and time: 05/19/2025 6:51 PM Age: 75 years old Clinical indication: Shortness of breath; Additional info: Chf; SOB; Fluid retention TECHNIQUE: Imaging protocol: Radiologic exam of the chest. Views: 1 view. COMPARISON: CR XR chest 1V portable [id number] 05/02/2025 8:06 AM FINDINGS: Lungs: Unremarkable. No consolidation. Pleural spaces: Previously noted pleural fluid on the right has decreased. Fissural thickening on the right also has decreased. No new abnormalities. Heart/Mediastinum: Stable mild prominence of cardiac silhouette. Bones/joints: No acute findings. XR/XR chest 1V portable [id number] IMPRESSION: Decrease in right-sided pleural fluid and fissural thickening. No new abnormalities.
--- NOTE | 2025-05-19 18:44 | USR_ITS ---
PROCEDURE INFORMATION: Exam: US Scrotum Exam date and time: 05/19/2025 7:08 PM Age: 75 years old Clinical indication: Scrotum pain; Additional info: L scrotal swelling, pain TECHNIQUE: Imaging protocol: Real-time ultrasound of the scrotum and contents with color Doppler and image documentation. COMPARISON: PT PET skull to thigh INIT [id number] 04/06/2025 3:38 PM FINDINGS: Right testicle: Right testis measures 3.9 x 3.4 x 2.8 cm. No mass. Normal Doppler signal. Left testicle: Left testis measures 3.8 x 2.8 x 3.0 cm. No mass. Normal Doppler signal. Epididymides: Epididymis bilaterally is unremarkable. Scrotum/soft tissues: Bilateral hydroceles, moderate on the left and small on the right. Edematous thickening of scrotal wall suggested bilaterally. US/US scrotum [id number] IMPRESSION: Edematous thickening of scrotum that can be correlated clinically for infectious/inflammatory change. Bilateral hydroceles. No acute testicular findings.
--- NOTE | 2025-05-19 18:45 | ECG_ITS ---
[facility] Test Date: 2025-05-19 Pat Name: Cesar Mederos Department: Room: Gender: Male Motion Graphics Artist: : 1950 Requested By: Tejas Noble Order Number: [id number] Potter MD: Alexsandra Harper M.D. Measurements Intervals [place] Rate: 101 P: 0 TN: 0 QRS: 265 QRSD: 101 T: 180 QT: 369 QTc: 479 Interpretive Statements ATRIAL FIBRILLATION WITH RAPID VENTRICULAR RESPONSE RIGHT AXIS DEVIATION [QRS AXIS > 100] LOW QRS VOLTAGE IN EXTREMITY LEADS [QRS DEFLECTION < 0.5 mV IN LIMB LEADS] INCOMPLETE RIGHT BUNDLE BRANCH BLOCK [90+ ms QRS DURATION, TERMINAL R IN V1/V2, 40+ ms S IN I/aVL/V4/V5/V6] MINIMAL ST DEPRESSION [0.025+ mV ST DEPRESSION] Compared to ECG 05/19/2025 19:05:20 Right-axis deviation now present Incomplete right bundle-branch block now present Indeterminate axis no longer present ST (T wave) deviation still present Electronically Signed On 05-20-2025 17:26:52 [employer] by Alexsandra Harper M.D. [email or web address]
--- NOTE | 2025-05-19 19:05 | ECG_ITS ---
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 Measurements Intervals [place] Rate: 92 P: 0 NH: 0 QRS: 220 QRSD: 93 T: 163 QT: 354 QTc: 439 Interpretive Statements ATRIAL FIBRILLATION INDETERMINATE AXIS LOW QRS VOLTAGE IN EXTREMITY LEADS [QRS DEFLECTION < 0.5 mV IN LIMB LEADS] MINIMAL ST DEPRESSION [0.025+ mV ST DEPRESSION] Compared to ECG 05/07/2025 08:18:30 Atrial flutter no longer present ST (T wave) deviation still present Electronically Signed On 05-20-2025 17:27:01 HOGSHEAD STRIPPER by Alexsandra Harper M.D. [email or web address]
[2025-05-19 19:24] LABS: Glucose Urine UA 1+ (Normal); Nitrate Urine Negative (Negative); Specific Gravity, Urine 1.013 (1.005-1.030)
[2025-05-19 19:29] LABS: Add Urine Microscopic? YES; Universal Test for UA Present (0)
--- NOTE | 2025-05-19 19:45 | ED_ITS ---
HPI - Male Genitourinary 2 General: Chief complaint: Urogenital-Male Stated complaint: swollen penis and testicles Time Seen by Provider: 05/19/25 18:04 History of Present Illness: Patient is a 75-year-old male with a history of AF on Eliquis, MDD, DM, CHF who presents with left testicular pain and swelling over the last few days. Has still been able to urinate without difficulty, last bowel movement was yesterday and seemingly normal for him. He endorses chronic swelling and redness to his legs, states these are mildly more so than normal. Denies any fevers, chills, diaphoresis, has had some diffuse abdominal tenderness associated with a couple days of loose stools. Has been having a normal appetite, lives at home but gets help with some of his ADLs. States compliance with his medications. Related Data Home Medications ?Medication ?Instructions ?Recorded ?Confirmed ascorbate calcium (vitamin C) 500 500 mg PO DAILY 11/2604/30/25 mg tablet Previous Rx's ?Medication ?Instructions ?Recorded fluticasone propionate 50 2 spray intranasal DAILY PRN 09/30/23 mcg/actuation nasal Allergy Symptoms #16 grams spray,suspension escitalopram oxalate 20 mg tablet 20 mg PO DAILY #30 t abs 05/11/24 levocetirizine 5 mg tablet 5 mg PO DAILY PRN allergy s ymptoms 06/28/24 #30 tabs aripiprazole 5 mg tablet (Abilify) 5 mg PO DAILY #30 t abs 07/03/24 apixaban 5 mg tablet (Eliquis) See Rx Instructions .[place] 09/28/24 .COMPLEX #60 tabs tamsulosin 0.4 mg capsule See Rx Instructions .Route 0 09/28/24 .COMPLEX #30 caps levothyroxine 25 mcg tablet 25 mcg PO DAILY #30 tabs 0 03/06/25 (Levoxyl) ferrous sulfate 325 mg (65 mg 325 mg PO BID #60 tabs 1 iron) tablet (Iron (ferrous sulfate)) dapagliflozin propanediol 10 mg 10 mg PO DAILY #30 tab s 05/08/25 tablet furosemide 40 mg tablet 40 mg PO QAM PRN weight gain of 5 05/08/25 lbs, SOB #60 tabs metoprolol tartrate 25 mg tablet 12.5 mg (1/2 x 25 mg) PO 05/08/25 BID@0900,2100 30 days #30 tabs midodrine 5 mg tablet 10 mg (2 x 5 mg) PO TID 30 d ays 05/08/25 #180 tabs prednisone 20 mg tablet 40 mg (2 x 20 mg) PO DAILY # 6 tabs 05/08/25 pyridostigmine bromide 60 mg tablet 60 mg PO TID 30 da ys #90 tabs 05/08/25 Allergies Allergy/AdvReac Type Severity Reaction Status Date / Time ciprofloxacin (From Cipro) Allergy Severe muscle or Verified 04/11/25 13:44 joint pain paroxetine (From Paxil) AdvReac Mild made his Verified 04/11/25 13:44 head feel weird Review of Systems 2 General: Reports: 10 or more systems reviewed and unremarkable except in HPI and below Const: Reports: fatigue Card: Reports: swelling of feet/ankles GI: Reports: abdominal pain and diarrhea : Reports: scrotal swelling PFSH ED 2 PFSH: Medical History (Updated 05/19/25 @ 22:55 by Tejas Noble DO) Chronic anticoagulation Chest pain Abnormal CT scan Acute on chronic renal insufficiency Type 2 diabetes mellitus without complication Persistent atrial fibrillation BPH (benign prostatic hyperplasia) Hyperlipidemia Depression Hypertension Seropositive rheumatoid arthritis Rheumatoid arthritis with rheumatoid factor of multiple sites without organ or systems involvement 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 Abdomen soft, nontender, nondistended, no overlying skin changes, bowel sounds increased, no CVA tenderness. Scrotum with mild diffuse erythema, some minor excoriations to posterior scrotal sac, no pain with testicular palpation, no penile erythema or tenderness, no discharge elicited. Breathing mildly labored on room air, sinus tachycardia with 3+ pitting edema bilaterally. GCS 15. Course 2 Vital Signs: Vital signs: Vital Signs Temperature 98.0 F 05/19/25 17:55 Pulse Rate 98 05/19/25 22:12 Respiratory Rate 24 H 05/19/25 22:12 Blood Pressure 102/66 05/19/25 22:12 Pulse Oximetry 100 05/19/25 22:12 Oxygen Delivery Me thod Room Air 05/19/25 19:50 MDM - Male Medical Decision Making -ddx: Epididymoorchitis, hydrocele, varicocele, cystitis, diarrheal illness, fluid overload, cellulitis - Patient chronically ill-appearing, with few days of scrotal swelling and redness, clinically with mild tenderness, will evaluate with scrotal ultrasound, get cardiac and infectious labs in setting of his lower extremity edema, tachycardia and recent diarrhea, denying needing any medications at this time, will reevaluate after above. - Patient with concerns for underlying bacteremia after initial evaluation, will leukocytosis at 19, lactate of 4.4, initially tachycardic at 110, afebrile, does have his redness and testicular swelling, scrotal ultrasound with nothing obvious but may be some inflammatory scrotal wall thickening, has also been having this diarrhea and so due to comorbidities, placed on Vanco and Zosyn to cover for anything intra-abdominal at this time. Decision made then to get CT scans, which were ultimately reassuring for improving previous pneumonia but still some persistent fluid, nothing identifiable in his abdomen pelvis. Patient's BNP elevated from baseline, has worsening pitting edema on exam, would normally diurese him but with concerns for sepsis, will hold off at this time, on room air and no reasons for aggressive fluid removal at this time, patient had no deterioration in clinical status and vital signs actually normalized on their own and so he was admitted to the hospitalist for further management of his CHF and eventual fluid removal after further evaluation of his possible sepsis, in stable condition at this time. Lab Data 05/19/25 19:40 05/19/25 19:40 Radiology Impressions Chest X-Ray 05/19/25 18:44 IMPRESSION: Decrease in right-sided pleural fluid and fissural thickening. No new abnormalities. Scrotum Ultrasound 05/19/25 18:44 IMPRESSION: Edematous thickening of scrotum that can be correlated clinically for infectious/inflammatory change. Bilateral hydroceles. No acute testicular findings. Chest/Abdomen/Pelvis CT 05/19/25 20:37 IMPRESSION: Interstitial thickening and bronchial wall thickening on the right suspected to relate to edema/congestion. Minimal ground-glass opacities are also suggested on the right and are favored to relate to edema. Pulmonary opacities seen previously have largely cleared. Interval decrease in bilateral pleural fluid. Suspected pulmonary hypertension. IMPRESSION: Anasarca more notable than on previous study. Minimal ascites with interval increase. Liver attenuation pattern suggesting passive congestion. COMMENTS: Consistent with the [place] [employer]'s Incidental Findings Committee white paper (J Am Yonas Radiol 2018): Any incidental renal lesion less than 1 cm or classified as too small to characterize, or any incidental cystic renal lesion characterized as simple-appearing, is likely benign. No follow-up imaging is recommended for these lesions per consensus recommendations based on imaging criteria. Laboratory Results WBC 18.91 10^3/uL (3.29-11.43) H 05/19/25 19:40 RBC 4.17 10^6/uL (3.85-5.65) 05/19/25 19:40 Hgb 9.90 g/dL (11.27-16.99) L 05/19/25 19:40 Hct 34.3 % (37-53) L 05/19/25 19:40 MCV 82.3 fl (82-101) 05/19/25 19:40 MCH 23.7 pg (27-33) L 05/19/25 19:40 MCHC 28.9 g/dL (30-55) L 05/19/25 19:40 RDW 24.9 % (12.1-15.1) H 05/19/25 19:40 Plt Count 168 10^3/cmm (157-399) 05/19/25 19:40 MPV 10.4 fL (7.4-10.4) 05/19/25 19:40 Neut % (Auto) 89.9 % 05/19/25 19:40 Lymph % (Auto) 1.5 % 05/19/25 19:40 Wirt % (Auto) 5.6 % 05/19/25 19:40 Eos % (Auto) 1.3 % 05/19/25 19:40 Baso % (Auto) 0.1 % 05/19/25 19:40 Neut # (Auto) 17.00 10^3/uL (1.8-7.7) H 05/19/25 19:40 Lymph # (Auto) 0.3 10^3/uL (0.8-4.8) L 05/19/25 19:40 Wirt # (Auto) 1.1 10^3/uL (0.2-0.9) H 05/19/25 19:40 Eos # (Auto) 0.3 10^3/uL (0.0-0.8) 05/19/25 19:40 Baso # (Auto) 0.0 10^3/uL (0.0-0.1) 05/19/25 19:40 Nucleated RBC % (auto) 0.1 % 05/19/25 19:40 Nucleated RBCs # 0.0 /100WBC 05/19/25 19:40 Sodium 136 mmol/L (136-145) 05/19/25 19:40 Potassium 4.5 mmol/L (3.5-5.1) 05/19/25 19:40 Chloride 98 mmol/L (98-107) 05/19/25 19:40 Carbon Dioxide 22 mmol/L (22-29) 05/19/25 19:40 Anion Gap 20.5 (5-19) H 05/19/25 19:40 BUN 64 mg/dL (8-23) H 05/19/25 19:40 Creatinine 1.9 mg/dL (0.7-1.2) H 05/19/25 19:40 GFR Calculation Not Reportable 05/19/25 19:40 Glucose 123 mg/dL (65-115) H 05/19/25 19:40 Calculated Osmolality 302 mOsm/kg (285-295) H 05/19/25 19:40 Lactic Acid 4.4 mmol/L (0.5-2.2) H* 05/19/25 19:40 Calcium 8.7 mg/dL (8.5-10.5) 05/19/25 19:40 Phosphorus 4.7 mg/dL (2.5-4.5) H 05/19/25 19:40 Magnesium 2.5 mg/dL (1.7-2.3) H 05/19/25 19:40 Total Bilirubin 1.0 mg/dL (0.15-1.2) 05/19/25 19:40 AST 50 U/L (0-40) H 05/19/25 19:40 ALT 80 U/L (0-41) H 05/19/25 19:40 Alkaline Phosphatase 273 U/L (40-130) H 05/19/25 19:40 Troponin T Baseline 42 ng/L (0-15) H 05/19/25 19:40 Troponin T 120 Minute 38.60 ng/L (0-15) H 05/19/25 21:33 Delta Troponin T -3.40 ABS# (0-10) L 05/19/25 21:33 C-React Prot High Sens 1.330 mg/dL (0.0-0.3) H 05/19/25 19:40 NT-Pro-B Natriuret Pep 2103 pg/mL (0-450) H 05/19/25 19:40 Total Protein 5.7 g/dL (6.6-8.7) L 05/19/25 19:40 Albumin 3.7 g/dL (3.5-5.2) 05/19/25 19:40 Globulin 2.0 g/dL (1.3-4.6) 05/19/25 19:40 Procalcitonin 0.28 ng/mL (0-0.5) 05/19/25 19:40 Urine Color Yellow (Yellow) 05/19/25 19:11 Urine Appearance Clear (CLEAR) 05/19/25 19:11 Urine pH 5.0 (5-7) 05/19/25 19:11 Ur Specific Damar 1.013 (1.005-1.030) 05/19/25 19:11 Urine Protein Negative (Negative) 05/19/25 19:11 Urine Glucose (UA) 1+ (Normal) H 05/19/25 19:11 Urine Ketones Negative (Negative) 05/19/25 19:11 Urine Blood 2+ (Negative) A 05/19/25 19:11 Urine Nitrate Negative (Negative) 05/19/25 19:11 Urine Bilirubin Negative (Negative) 05/19/25 19:11 Urine Urobilinogen 0.2 mg/dL (Negative) 05/19/25 19:11 Ur Leukocyte Esterase Trace (Negative) A 05/19/25 19:11 Urine RBC 6-10 /hpf (0-2) 05/19/25 19:11 Urine WBC 0-5 /hpf (0-5) 05/19/25 19:11 Ur Squamous Epith Cells 0-5 /hpf (0-5) 05/19/25 19:11 Amorphous Sediment Not Reportable 05/19/25 19:11 Urine Bacteria None seen /hpf (NONE) 05/19/25 19:11 Hyaline Casts 6.17 /lpf 05/19/25 19:11 Urine Yeast 1+ /hpf H 05/19/25 19:11 All radiology interpretation(s) finalized by discharge Critical Care Time 2 Critical Care Time: Critical Care Time: Yes Total Critical Care Time: 33 Attestation: Sepsis, CHF exacerbation Discharge Plan Discharge Patient Disposition: Admitted As Inpatient Clinical Impression: CHF exacerbation, Sepsis Condition: Stable Coding Level of Care Code ED Nursing Director for Naya Mccord
[2025-05-19 19:53] LABS: Hematocrit 34.3 % (37-53); Hemoglobin 9.90 g/dL (11.27-16.99); Mean Corpuscular HGB Conc 28.9 g/dL (30-55); Mean Corpuscular Hemoglobin 23.7 pg (27-33); Mean Corpuscular Volume 82.3 fl (82-101); Nucleated Red Blood Cells % 0.1 %; Platelet Count 168 10^3/cmm (157-399); Red Blood Count 4.17 10^6/uL (3.85-5.65); White Blood Count 18.91 10^3/uL (3.29-11.43)
[2025-05-19 20:16] LABS: Troponin(5th) Baseline 42 ng/L (0-15)
[2025-05-19 20:26] LABS: Lactic Sepsis W/Reflex 4.4 mmol/L (0.5-2.2)
[2025-05-19 20:33] LABS: NT Pro B Type Natriuretic Pept 2103 pg/mL (0-450); Procalcitonin 0.28 ng/mL (0-0.5)
--- NOTE | 2025-05-19 20:37 | CTR_ITS ---
PROCEDURE INFORMATION: Exam: CT Chest With Contrast; Diagnostic Exam date and time: 05/19/2025 8:55 PM Age: 75 years old Clinical indication: Pain and abnormal findings; Abnormal lab test; Abnormal kidney function lab tests and elevated wbc; Abdominal pain; Generalized; Other: N/a; C/O abd pain with diarrhea. Tachycardia with leukocytosis and berta. History of chf. ; Additional info: Septic, diarrhea, abd and testicular pain, HX chf TECHNIQUE: Imaging protocol: Diagnostic computed tomography of the chest with contrast. Radiation optimization: All CT scans at this facility use at least one of these dose optimization techniques: automated exposure control; mA and/or kV adjustment per patient size (includes targeted exams where dose is matched to clinical indication); or iterative reconstruction. Contrast material: OMNI 350; Contrast volume: 100 ml; Contrast route: INTRAVENOUS (IV); COMPARISON: [place] [id number] 04/30/2025 5:28 PM RADIATION DOSE METRICS: Total DLP (mGy-cm): 1450.05 FINDINGS: Lungs: Calcified pulmonary granulomatous change. Interstitial thickening and bronchial wall thickening on the right suspected to relate to edema/congestion. Minimal ground-glass opacities are also suggested on the right and are favored to relate to edema. Pulmonary opacities seen previously have largely cleared. Pleural spaces: Very small bilateral pleural fluid is noted with interval decrease from prior study. Heart: Cardiomegaly. Coronary arteries: Coronary calcifications are noted. Lymph nodes: Unremarkable. No enlarged lymph nodes. Vasculature: Enlargement of central pulmonary arteries. Bones/joints: No acute fracture. Soft tissues: Mild symmetric gynecomastia. Other findings: Fissural fluid seen on the right. PROCEDURE INFORMATION: Exam: CT Abdomen And Pelvis With Contrast Exam date and time: 05/19/2025 8:55 PM Age: 75 years old Clinical indication: Pain and abnormal findings; Abnormal lab test; Abnormal kidney function lab tests and elevated wbc; Abdominal pain; Generalized; Other: N/a; C/O abd pain with diarrhea. Tachycardia with leukocytosis and berta. History of chf. ; Additional info: Septic, diarrhea, abd and testicular pain, HX chf TECHNIQUE: Imaging protocol: Computed tomography of the abdomen and pelvis with contrast. Radiation optimization: All CT scans at this facility use at least one of these dose optimization techniques: automated exposure control; mA and/or kV adjustment per patient size (includes targeted exams where dose is matched to clinical indication); or iterative reconstruction. Contrast material: OMNI 350; Contrast volume: 100 ml; Contrast route: INTRAVENOUS (IV); COMPARISON: PT PET skull to thigh INIT [id number] 04/06/2025 3:38 PM RADIATION DOSE METRICS: Total DLP (mGy-cm): 1450.05 FINDINGS: Liver: Liver attenuation has nutmeg liver pattern suspected to relate to some passive congestion. Gallbladder and biliary ducts: Cholelithiasis suggested. Gallbladder is contracted. Pancreas: Normal. No ductal dilation. Spleen: Normal. No splenomegaly. Adrenal glands: Right adrenal nodule is unchanged and is consistent with adenoma. Kidneys and ureters: Left renal cysts are likely benign; no specific follow-up is necessary. No hydronephrosis. Stomach and bowel: Colonic diverticula noted. No evident pericolic inflammatory change. No findings of abnormal bowel distention. Appendix: No evidence of appendicitis. Intraperitoneal space: Minimal ascites. Vasculature: Vascular calcifications are noted. No abdominal aortic aneurysm. Lymph nodes: Unremarkable. No enlarged lymph nodes. Urinary bladder: Unremarkable as visualized. Reproductive: Unremarkable as visualized. Bones/joints: No acute fracture. Soft tissues: Anasarca noted. Small fatty inguinal hernias. CT/CT chest abdpel w/*[id number] IMPRESSION: Interstitial thickening and bronchial wall thickening on the right suspected to relate to edema/congestion. Minimal ground-glass opacities are also suggested on the right and are favored to relate to edema. Pulmonary opacities seen previously have largely cleared. Interval decrease in bilateral pleural fluid. Suspected pulmonary hypertension. IMPRESSION: Anasarca more notable than on previous study. Minimal ascites with interval increase. Liver attenuation pattern suggesting passive congestion. COMMENTS: Consistent with the [employer] [employer]'s Incidental Findings Committee white paper (J Am Yonas Radiol 2018): Any incidental renal lesion less than 1 cm or classified as too small to characterize, or any incidental cystic renal lesion characterized as simple-appearing, is likely benign. No follow-up imaging is recommended for these lesions per consensus recommendations based on imaging criteria.
[2025-05-19 20:44] LABS: Alanine Aminotransferase 80 U/L (0-41); Albumin Level 3.7 g/dL (3.5-5.2); Alkaline Phosphatase 273 U/L (40-130); Aspartate Amino Transferase 50 U/L (0-40); Blood Urea Nitrogen 64 mg/dL (8-23); Calcium 8.7 mg/dL (8.5-10.5); Carbon Dioxide 22 mmol/L (22-29); Chloride 98 mmol/L (98-107); Globulin 2.0 g/dL (1.3-4.6); Glucose 123 mg/dL (65-115); Magnesium 2.5 mg/dL (1.7-2.3); Osmolality Calculated 302 mOsm/kg (285-295); Sodium 136 mmol/L (136-145); Total Protein 5.7 g/dL (6.6-8.7)
[2025-05-19 20:45] LABS: Anion Gap 20.5 (5-19); Potassium 4.5 mmol/L (3.5-5.1)
[2025-05-19 20:57] LABS: CRP High Sensitivity Cardiac 1.330 mg/dL (0.0-0.3)
[2025-05-19] MEDS: iohexol 350 mg/mL 500 mL Btl (per mL) IV (20:58)
[2025-05-19] MEDS: piperacillin-tazobactam 4.5 GM in sodium chloride 0.9% (plus) 50 ML IV (21:08)
[2025-05-19 21:39] LABS: Reflex Lactate Order REFLEX LACTIC ORDERD
[2025-05-19 23:03] LABS: Lactic Acid level (Lactate) 3.5 mmol/L (0.5-2.2)
--- NOTE | 2025-05-19 23:09 | PM.HP ---
Providers/Chief Complaint Admitting Physician: Ollie Hartley MD Primary Care Provider: Ashwin Roberson MD Chief Complaint: swollen penis and testicles History of Present Illness Cesar Mederos is a 75 year old male with history significant for atrial fibrillation(on Eliquis), CKD, and HFpEF(most recent EF 56% 04/30/2025) who presents with complaints of scrotal bleeding. He noticed bleeding today and feels he started to have scrotal and penile swelling over the past 1-2 days. He has never had such issues in the past. He denies any genital traumas or recent sexual activity. He feels the issues started with a rash on onset. He does feel like he has been having some burning with urination as of late. Denies fevers, chest pain, shortness of breath, nasuea, vomiting, diarrhea, or abdominal pain. He does endorse chronic lower extremity edema and taking furosemide daily to help treat this. Review of Systems Narrative: As stated in the HPI Medications/Allergies Home Medications ?Medication ?Instructions ?Recorded ?Confirmed ?Last Taken ?Type ascorbate calcium (vitamin C) 500 500 mg PO DAILY 12/14/19 04/30/25 04/28/25 History mg tablet fluticasone propionate 50 2 spray intranasal DAILY PRN 09/30/23 04/30/25 04/26/25 Rx mcg/actuation nasal Allergy Symptoms #16 grams spray,suspension escitalopram oxalate 20 mg tablet 20 mg PO DAILY #30 tabs 05/11/24 04/30/25 04/28/25 Rx levocetirizine 5 mg tablet 5 mg PO DAILY PRN allergy symptoms 06/28/24 04/30/25 04/28/25 Rx #30 tabs aripiprazole 5 mg tablet (Abilify) 5 mg PO DAILY #30 tabs 07/03/24 04/30/25 04/28/25 Rx apixaban 5 mg tablet (Eliquis) See Rx Instructions .Route 09/28/24 04/30/25 04/28/25 Rx .COMPLEX #60 tabs tamsulosin 0.4 mg capsule See Rx Instructions .Route 09/28/24 04/30/25 Unknown Rx .COMPLEX #30 caps levothyroxine 25 mcg tablet 25 mcg PO DAILY #30 tabs 03/06/25 04/30/25 04/28/25 Rx (Levoxyl) ferrous sulfate 325 mg (65 mg 325 mg PO BID #60 tabs 04/11/25 04/30/25 04/28/25 Rx iron) tablet (Iron (ferrous sulfate)) dapagliflozin propanediol 10 mg 10 mg PO DAILY #30 tabs 05/08/25 Unknown Rx tablet furosemide 40 mg tablet 40 mg PO QAM PRN weight gain of 5 05/08/25 04/30/25 Unknown Rx lbs, SOB #60 tabs metoprolol tartrate 25 mg tablet 12.5 mg (1/2 x 25 mg) PO 05/08/25 Unknown Rx BID@0900,2100 30 days #30 tabs midodrine 5 mg tablet 10 mg (2 x 5 mg) PO TID 30 days 05/08/25 Unknown Rx #180 tabs prednisone 20 mg tablet 40 mg (2 x 20 mg) PO DAILY #6 tabs 05/08/25 Unknown Rx pyridostigmine bromide 60 mg tablet 60 mg PO TID 30 days #90 tabs 05/08/25 Unknown Rx Allergies Allergy/AdvReac Type Severity Reaction Status Date / Time ciprofloxacin (From Cipro) Allergy Severe muscle or Verified 04/11/25 13:44 joint pain paroxetine (From Paxil) AdvReac Mild made his Verified 04/11/25 13:44 head feel weird PFSH Acute PFSH: Medical History Chronic anticoagulation Chest pain Abnormal CT scan Acute on chronic renal insufficiency Type 2 diabetes mellitus without complication Persistent atrial fibrillation BPH (benign prostatic hyperplasia) Hyperlipidemia Depression Hypertension Seropositive rheumatoid arthritis Rheumatoid arthritis with rheumatoid factor of multiple sites without organ or systems involvement 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 Surgical History History of tonsillectomy Family History Other Diabetes Social History Smoking and tobacco/nicotine status: never used tobacco/nicotine Alcohol intake: current Alcohol intake frequency: few times a week Alcohol type: beer Substance/Drug Use: never Vitals/I&O/Wt Last Vital Signs Temp 98.0 F 05/19/25 17:55 Pulse 91 05/19/25 22:54 Resp 21 H 05/19/25 22:54 BP 97/76 05/19/25 22:54 Pulse Ox 99 05/19/25 22:54 O2 Del Method Room Air 05/19/25 19:50 05/19/25 05/19/25 05/20/25 14:59 22:59 06:59 Intake Total 50 / 50 Balance 50 / 50 Physical Exam Const: COMMON NORMALS: patient oriented x3, alert and well nourished Chest: COMMONS NORMALS: normal inspection of the chest Resp: COMMON NORMALS: No retractions EFFORT & INSPECTION: Yes able to speak in complete sentences (but mildly short of breath when speaking while laying 30 degrees ) AUSCULTATION: clear to auscultation bilaterally (on anterior auscultation) Cardio: RATE: regular rate RHYTHM: regular rhythm GI: INSPECTION: Yes central obesity and Yes other (left lower pannus with ecchymosis/petechiae ) PALPATION: Yes Soft to palpation and Yes Other GI palpation findings present (non-tender) : OTHER: Scrotal and penile edema note. Scrotum is pink with areas of erythema/petechiae. Intertrigo noted to the left groin. No active bleeding. Brown stool noted at perineum Extremity: OTHER: Bilateral lower extremity pitting edema, 2+ Neuro: COMMON NORMALS: patient oriented x3 and CN's II-XII intact bilaterally Skin: OTHER: See above Data 05/19/25 19:40 05/19/25 19:40 Micro: Microbiology 05/19/25 20:49 Blood Culture - Preliminary Blood SPECIMEN COLLECTED 05/19/25 20:47 Blood Culture - Preliminary Blood SPECIMEN COLLECTED A&P Assessment and plan 1. Sepsis without acute organ dysfunction, due to unspecified organism: - Meets criteria with elevated RR and WBC. Lactic acid noted to be elevated - Source unclear but possibly from scrotal cellulitis vs other - ED has provided broad spectum antibiotics with Vanc/Zosyn. WIll continue for now - Blood and urine cultures collected. Monitor for results - No 30cc/kg of crystalloid provided in the setting of BNP elevation, worsened anasarca on CT imaging. Suspect patient is fluid overloaded. Thus, reassesment of fluid status not performed - Patient reported diarrhea to ED physician but denied to me. Stool panel ordered by ED 2. Scrotal edema: - Elevate scrotum for comfort - Scrotal U/S noted with wall edema and bilateral hydroceles - Plan as above otherwise 3. Intertrigo of genitocrural region: - Apply nystatin powder to the affected area BID - Need to keep area dry. Place lorenzo tonight. May also need lorenzo for accurate I/Os 4. Stage 3a chronic kidney disease: - Monitor BMP 5. Bilateral lower extremity edema: - Give lasix 40mg IV x1 in the ED - May need more aggressive diuresis. Lasix infusion should be considered. Would prefer to see how he responds to the 40mg IV lasix. Will order daily for now and defer to daytime attending for adjustments. Watch for hypotension 6. Chronic diastolic congestive heart failure: - Continue metoprolol and farxiga 7. Shortness of breath: - May be related to volume status and HFpEF vs his known restrictive lung disease(seen by pulm on 04/09/25). Plan as above 8. Persistent atrial fibrillation: - Continue Eliquis and Metoprolol 9. History of orthostatic hypotension: - Continue midodrine and pyridostigmine PDMP PDMP Reviewed: Not Reviewed Attestations Medical Necessity Statement*: Patient will require more than two midnights for evaluate and management of sepsis with IV antibiotics and close lab monitoring Coding Level of Care Code Acute Code for Chg Fwd Diagnoses Sepsis without acute organ dysfunction, due to unspecified organism A41.9 Sepsis acute organ dysfunction status: without acute organ dysfunction Sepsis type: sepsis due to unspecified organism Scrotal edema N50.89 Intertrigo of genitocrural region L30.4 Stage 3a chronic kidney disease N18.31 Chronic kidney disease stage: stage 3 (moderate) Chronic kidney disease stage 3 subtype: stage 3a (GFR 45-59) Bilateral lower extremity edema R60.0 Chronic diastolic congestive heart failure I50.32 Heart failure chronicity: chronic Heart failure type: diastolic Shortness of breath R06.02 Dyspnea type: shortness of breath Persistent atrial fibrillation I48.19 History of orthostatic hypotension Z86.79
[2025-05-19] MEDS: FUROsemide 10 mg/mL SDV 4mL 40 MG IVP (23:44)
[2025-05-20] VITALS (7 sets, daily range): BP systolic 89–115; BP diastolic 50–80; PULSE 81–100; RESP 16–19; TEMP 36.3–36.8; O2SAT 97–99
[2025-05-20 04:31] LABS: Hematocrit 31.3 % (37-53); Hemoglobin 9.20 g/dL (11.27-16.99); Mean Corpuscular HGB Conc 29.4 g/dL (30-55); Mean Corpuscular Hemoglobin 23.9 pg (27-33); Mean Corpuscular Volume 81.3 fl (82-101); Nucleated Red Blood Cells % 0 %; Platelet Count 132 10^3/cmm (157-399); Red Blood Count 3.85 10^6/uL (3.85-5.65); White Blood Count 15.92 10^3/uL (3.29-11.43)
[2025-05-20 04:58] LABS: Anion Gap 17.1 (5-19); Blood Urea Nitrogen 65 mg/dL (8-23); Calcium 8.6 mg/dL (8.5-10.5); Carbon Dioxide 25 mmol/L (22-29); Chloride 99 mmol/L (98-107); Glucose 119 mg/dL (65-115); Magnesium 2.4 mg/dL (1.7-2.3); Osmolality Calculated 304 mOsm/kg (285-295); Potassium 4.1 mmol/L (3.5-5.1); Sodium 137 mmol/L (136-145)
[2025-05-20] MEDS: DAPAGLIFLOZIN 10 MG TABLET PO (05:09)
[2025-05-20] MEDS: ferrous sulfate EC 325 mg Tablet PO ×2 (05:09→17:14)
[2025-05-20] MEDS: piperacillin-tazobactam 3.375 GM in sodium chloride 0.9% (plus) 50 ML IV ×2 (06:36→17:15)
--- NOTE | 2025-05-20 08:25 | PHA.VACGOAL ---
Vancomycin Goal - Goal Vancomycin Goal:: 15-20 mg/L Vancomycin Indication:: Other (SEPSIS) - Therapy Current therapy:: Pip/Tazo Day of therpy:: Day []of [] . Actual body weight (kg): 260 lb - Data Labs: WBC 15.92 10^3/uL (3.29-11.43) H 05/20/25 04:16 RBC 3.85 10^6/uL (3.85-5.65) 05/20/25 04:16 Hgb 9.20 g/dL (11.27-16.99) L 05/20/25 04:16 Hct 31.3 % (37-53) L 05/20/25 04:16 MCV 81.3 fl (82-101) L 05/20/25 04:16 MCH 23.9 pg (27-33) L 05/20/25 04:16 MCHC 29.4 g/dL (30-55) L 05/20/25 04:16 RDW 24.9 % (12.1-15.1) H 05/20/25 04:16 Sodium 137 mmol/L (136-145) 05/20/25 04:16 Potassium 4.1 mmol/L (3.5-5.1) 05/20/25 04:16 Chloride 99 mmol/L (98-107) 05/20/25 04:16 Carbon Dioxide 25 mmol/L (22-29) 05/20/25 04:16 Anion Gap 17.1 (5-19) 05/20/25 04:16 BUN 65 mg/dL (8-23) H 05/20/25 04:16 Creatinine 2.0 mg/dL (0.7-1.2) H 05/20/25 04:16 GFR Calculation Not Reportable 05/20/25 04:16 Last dialysis session:: N/A Treatment plan:: new consult Regimen:: INITIAL LOADING DOSE OF 2000 MG GIVEN IN ER. STARTED ON MAINTENANCE DOSE OF 1500 MG Q24H PER DOSING PROTOCOL Follow up:: WILL CONTINUE TO MONITOR AND FOLLOW UP DAILY
--- NOTE | 2025-05-20 09:06 | P.PN_ITS ---
Subjective 2 Subjective: Patient is seen this morning in the medical floor. He is a 75-year-old male who was admitted yesterday because of scrotal swelling, found to have scrotal cellulitis. He reports little improvement in symptoms. He has no new complaints. He denies any fever, headache, dizziness, or any systemic symptoms. Vitals/I&O/Wt Last Vital Signs Temp 97.4 F L 05/20/25 08:00 Pulse 92 05/20/25 08:00 Resp 17 05/20/25 08:00 BP 89/61 05/20/25 08:00 Pulse Ox 97 05/20/25 08:00 O2 Del Method Room Air 05/20/25 08:00 05/19/25 05/20/25 05/20/25 22:59 06:59 14:59 Intake Total 50 / 50 640 / 690 360 / 360 Output Total 1300 / 1300 Balance 50 / 50 -660 / -610 360 / 360 Weight last 48 hrs Weight 117.934 kg Weight 118.252 kg Physical Exam 2 Narrative: General: Awake and alert. Cooperative. Chest/Resp: Normal respiratory chest movts; no obvious respiratory distress. CVS: Regular heart rate and rhythm. GI: Non-distended; No obvious organomegaly. UGS: Diffusely swollen scrotum measuring about 8 x 7 cm in diameter. Remarkably tender. No area of ulcer or necrosis appreciated. Not foul-smelling. Extremities: Bilateral 3+ pitting edema. Skin: No obvious new rashes or new skin lesions. Urinary Catheter Management: Peralta: Cath Placed During This Visit: yes Reason for Continuing Indwelling Catheter: Other Urinary Catheter Date of Insertion: 05/20/25 Urinary Catheter Time of Insertion: 00:30 Data 05/20/25 04:16 05/20/25 04:16 Micro: Microbiology 05/19/25 20:49 Blood Culture - Preliminary Blood SPECIMEN COLLECTED 05/19/25 20:47 Blood Culture - Preliminary Blood SPECIMEN COLLECTED A&P Assessment and plan 1. Cellulitis of scrotum: 2. Orthostatic hypotension: 3. Intertrigo of genitocrural region: 4. Chronic anticoagulation: 5. Edema, peripheral: 6. Persistent atrial fibrillation: 7. Chronic diastolic congestive heart failure: 8. Benign essential HTN: Plan: 1. Acute scrotal cellulitis with intertrigo of the genitocrural region: Continue ongoing IV antibiotics, and topical nystatin. 2. Chronic peripheral edema in the setting of known CHF: Patient currently on IV Lasix. I will continue with this at this time. Monitor daily weight. 3. Orthostatic hypotension in the setting of known essential hypertension: Patient has blood pressure so far is soft. I see that he is currently on metoprolol; I will hold this at this time. Continue to monitor closely. Given the patient is also getting some IV Lasix, I expect the blood pressure to take a bit more hit for this. This further justifies/underscores the need to hold BP meds and monitor closely. 4. Acute on chronic anticoagulation for chronic A-fib: Patient Eliquis already resumed. Monitor closely. If need be, I think diltiazem may be able to gabe blockade to use, given soft BPs, then metoprolol. Another good option would not be amiodarone, but the current poor kidney function will be reported. Nevertheless, we will adjust therapy/make decisions as clinical picture evolves. PDMP PDMP Reviewed: Not Reviewed Attestations 2 Medical Necessity Statement*: Patient admitted for apparent severe clinical condition, as outlined in the Assessment & Plan section above. Patient will need up to 2 midnight stay, estimated, at least, to adequately and appropriately treat and optimally control above-named clinical conditions,. Coding Level of Care Code Acute Code for Chg Fwd Diagnoses Cellulitis of scrotum N49.2 Orthostatic hypotension I95.1 Intertrigo of genitocrural region L30.4 Chronic anticoagulation Z79.01 Edema, peripheral R60.0 Persistent atrial fibrillation I48.19 Chronic diastolic congestive heart failure I50.32 Benign essential HTN I10
[2025-05-20] MEDS: FUROsemide 10 mg/mL SDV 4mL 40 MG IVP (10:25)
[2025-05-21] VITALS (7 sets, daily range): BP systolic 88–97; BP diastolic 59–72; PULSE 58–97; RESP 16–18; TEMP 36.3–36.8; O2SAT 93–99
[2025-05-21] MEDS: piperacillin-tazobactam 3.375 GM in sodium chloride 0.9% (plus) 50 ML IV ×3 (00:42→16:29)
[2025-05-21] MEDS: ferrous sulfate EC 325 mg Tablet PO ×2 (04:39→16:28)
[2025-05-21] MEDS: FUROsemide 10 mg/mL SDV 4mL 40 MG IVP (08:03)
[2025-05-21 08:31] LABS: C.Diff PCR (Lab) POSITIVE (Negative)
[2025-05-21 09:03] LABS: Troponin(5th) Baseline 50 ng/L (0-15)
[2025-05-21 09:06] LABS: Alanine Aminotransferase 51 U/L (0-41); Albumin Level 3.2 g/dL (3.5-5.2); Alkaline Phosphatase 198 U/L (40-130); Anion Gap 16.7 (5-19); Aspartate Amino Transferase 26 U/L (0-40); Blood Urea Nitrogen 72 mg/dL (8-23); Calcium 8.0 mg/dL (8.5-10.5); Carbon Dioxide 23 mmol/L (22-29); Chloride 97 mmol/L (98-107); Globulin 1.9 g/dL (1.3-4.6); Glucose 110 mg/dL (65-115); Magnesium 2.6 mg/dL (1.7-2.3); Osmolality Calculated 298 mOsm/kg (285-295); Potassium 3.7 mmol/L (3.5-5.1); Sodium 133 mmol/L (136-145); Total Protein 5.1 g/dL (6.6-8.7)
[2025-05-21 09:11] LABS: Clostridioides Difficile Toxin POSITIVE (Negative)
--- NOTE | 2025-05-21 10:31 | ECG_ITS ---
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 Measurements Intervals [place] Rate: 80 P: 0 CO: 0 QRS: 251 QRSD: 101 T: 156 QT: 395 QTc: 457 Interpretive Statements ATRIAL FIBRILLATION INDETERMINATE AXIS LOW QRS VOLTAGE [QRS DEFLECTION < 0.5/1.0 mV IN LIMB/CHEST LEADS] PATTERN CONSISTENT WITH PULMONARY DISEASE Compared to ECG 05/19/2025 20:13:27 Indeterminate axis now present Right-axis deviation no longer present Incomplete right bundle-branch block no longer present ST (T wave) deviation no longer present Electronically Signed On 05-21-2025 10:41:00 [employer]ANDFILL GRADER by Alexsandra Harper M.D. [email or web address]
[2025-05-21 12:07] LABS: Ferritin 62 ng/mL (30-400); Iron 28 ug/dL (59-158); Total Iron Binding Capacity 324 mcg/dl; Unsaturated Iron Binding 296 ug/dL (112-347)
--- NOTE | 2025-05-21 12:39 | PC.SOCIAL ---
IMM Update pg 2 of IMM Updated and reviewed w/ patient. Copy provided and copy dated, initialed and placed in chart.
[2025-05-21 13:12] LABS: Hematocrit 30.5 % (37-53); Hemoglobin 9.00 g/dL (11.27-16.99); Mean Corpuscular HGB Conc 29.5 g/dL (30-55); Mean Corpuscular Hemoglobin 24.5 pg (27-33); Mean Corpuscular Volume 83.1 fl (82-101); Nucleated Red Blood Cells % 0 %; Platelet Count 118 10^3/cmm (157-399); Red Blood Count 3.67 10^6/uL (3.85-5.65); White Blood Count 13.35 10^3/uL (3.29-11.43)
[2025-05-21 13:28] LABS: INR 1.67 (0.8-1.2); Prothrombin Time 20.80 SECONDS (12.1-14.9)
[2025-05-21 13:29] LABS: Partial Thromboplastin Time 29.5 SECONDS (23.9-36.7)
[2025-05-21] MEDS: albumin 37.5 GM/150 ML VIAL IV (14:04)
--- NOTE | 2025-05-21 14:17 | PM.CONSULT ---
Providers/Reason For Consult Consulting Physician/Specialty*: Dr. Merritt general surgery Reason for Consult*: Rule out GI bleed Attending Physician: Elmer Orourke MD Primary Care Provider: Ashwin Roberson MD History of Present Illness History of Present Illness Cesar Mederos is a 75 year old male whom surgery was consulted for hematochezia and black tarry stools. Patient on Eliquis for A-fib. Hemodynamically stable. Patient having some diarrhea. Medications/Allergies Home Medications ?Medication ?Instructions ?Recorded ?Confirmed ?Last Taken ?Type ascorbate calcium (vitamin C) 500 500 mg PO DAILY 12/14/19 05/20/25 05/19/25 08:00 History mg tablet fluticasone propionate 50 2 spray intranasal DAILY PRN 09/30/23 05/20/25 04/26/25 Rx mcg/actuation nasal Allergy Symptoms #16 grams spray,suspension escitalopram oxalate 20 mg tablet 20 mg PO DAILY #30 tabs 05/11/24 05/20/25 05/19/25 08:00 Rx levocetirizine 5 mg tablet 5 mg PO DAILY PRN allergy symptoms 06/28/24 05/20/25 04/28/25 Rx #30 tabs aripiprazole 5 mg tablet (Abilify) 5 mg PO DAILY #30 tabs 07/03/24 05/20/25 05/19/25 08:00 Rx apixaban 5 mg tablet (Eliquis) See Rx Instructions .Route 09/28/24 05/20/25 05/19/25 08:00 Rx .COMPLEX #60 tabs tamsulosin 0.4 mg capsule See Rx Instructions .Route 09/28/24 05/20/25 05/19/25 08:00 Rx .COMPLEX #30 caps levothyroxine 25 mcg tablet 25 mcg PO DAILY #30 tabs 03/06/25 05/20/25 05/19/25 08:00 Rx (Levoxyl) ferrous sulfate 325 mg (65 mg 325 mg PO BID #60 tabs 04/11/25 05/20/25 05/19/25 08:00 Rx iron) tablet (Iron (ferrous sulfate)) dapagliflozin propanediol 10 mg 10 mg PO DAILY #30 tabs 05/08/25 05/20/25 05/19/25 08:00 Rx tablet metoprolol tartrate 25 mg tablet 12.5 mg (1/2 x 25 mg) PO 05/08/25 05/20/25 05/19/25 08:00 Rx BID@0900,2100 30 days #30 tabs midodrine 5 mg tablet 10 mg (2 x 5 mg) PO TID 30 days 05/08/25 05/20/25 05/19/25 08:00 Rx #180 tabs prednisone 20 mg tablet 40 mg (2 x 20 mg) PO DAILY #6 tabs 05/08/25 05/20/25 05/19/25 08:00 Rx pyridostigmine bromide 60 mg tablet 60 mg PO TID 30 days #90 tabs 05/08/25 05/20/25 05/19/25 08:00 Rx bisacodyl 10 mg rectal suppository 10 mg WI DAILY PRN Constipation 05/20/25 05/20/25 Unknown History docusate sodium 100 mg capsule 200 mg PO BEDTIME 05/20/25 05/20/25 05/18/25 18:00 History furosemide 40 mg tablet (Lasix) 40 mg PO BID 05/20/25 05/20/25 05/19/25 08:00 History lidocaine HCl 2 % mucosal solution 1 applic mucous membrane BID PRN 05/20/25 05/20/25 05/19/25 08:00 History (Lidocaine Viscous) Mouth Pain magnesium hydroxide 400 mg/5 mL 30 ml PO DAILY PRN Constipation 05/20/25 05/20/25 Unknown History oral suspension (Milk of Magnesia) metolazone 5 mg tablet 5 mg PO DAILY 05/20/25 05/20/25 05/19/25 08:00 History potassium chloride 20 mEq 20 meq PO BID 05/20/25 05/20/25 05/19/25 08:00 History tablet,extended release sodium phosphates 19 gram-7 118 ml WI DAILY PRN Constipation 05/20/25 05/20/25 Unknown History gram/118 mL enema (Fleet Enema) Allergies Allergy/AdvReac Type Severity Reaction Status Date / Time ciprofloxacin (From Cipro) Allergy Severe muscle or Verified 04/11/25 13:44 joint pain paroxetine (From Paxil) AdvReac Mild made his Verified 04/11/25 13:44 head feel weird Current Medications Generic Name Dose Route Start Last Admin Trade Name Freq PRN Reason Stop Dose Admin Aripiprazole 5 mg 05/20/25 05:00 05/21/25 04:40 Aripiprazole 10 Mg Tablet PO 5 mg DAILY ALEJANDRO Administration Ascorbic Acid 500 mg 05/20/25 05:00 05/21/25 04:40 Ascorbic Acid 500 Mg Tablet PO 500 mg DAILY ALEJANDRO Administration Escitalopram Oxalate 20 mg 05/20/25 05:00 05/21/25 04:40 Escitalopram 10 Mg Tablet PO 20 mg DAILY ALEJANDRO Administration Ferrous Sulfate 325 mg 05/20/25 05:00 05/21/25 04:39 Ferrous Sulfate Ec 325 Mg Tablet PO 325 mg BID ALEJANDRO Administration Furosemide 40 mg 05/20/25 08:00 05/21/25 08:03 Furosemide 10 Mg/Ml Sdv 4ml IVP 40 mg Q24H ALEJANDRO Administration Piperacillin Sod/Tazobactam 50 mls @ 12.5 mls/hr 05/20/25 06:30 05/21/25 08:00 Sod 3.375 gm/ Sodium Chloride IV 12.5 mls/hr Q8H ALEJANDRO Administration Vancomycin HCl 1,500 mg in 300 mls @ 200 mls/hr 05/20/25 21:30 05/20/25 23:50 Vancocin IV Infused Q24H ALEJANDRO Infusion Insulin Human Lispro 0 unit 05/20/25 18:00 05/21/25 12:23 Insulin Lispro 100 Unit/1 Ml SUBCUT Not Given TIDWM [facility] Protocol Levothyroxine Sodium 25 mcg 05/20/25 05:00 05/21/25 04:40 Levothyroxine 25 Mcg Tablet PO 25 mcg DAILY ALEJANDRO Administration Midodrine 10 mg 05/20/25 05:00 05/21/25 14:04 Midodrine 5 Mg Tablet PO 10 mg TID ALEJANDRO Administration Nystatin 1 applic 05/20/25 06:15 05/21/25 04:41 Nystatin Powder 15 Gm Btl TOPICAL 1 applic BID ALEJANDRO Administration Pyridostigmine Dawson 60 mg 05/20/25 05:00 05/21/25 14:04 Pyridostigmine 60 Mg Tablet PO 60 mg TID ALEJANDRO Administration Tamsulosin HCl 0.4 mg 05/20/25 08:00 05/21/25 04:40 Tamsulosin 0.4 Mg Capsule PO 0.4 mg DAILY ALEJANDRO Administration Vancomycin HCl 125 mg 05/21/25 12:15 05/21/25 14:05 Vancomycin 125 Mg Capsule PO 125 mg Q6H ALEJANDRO Administration PFSH Acute PFSH: Medical History (Updated 05/21/25 @ 15:06 by Elmer Orourke MD) Chronic anticoagulation Chest pain Abnormal CT scan Acute on chronic renal insufficiency Type 2 diabetes mellitus without complication Persistent atrial fibrillation BPH (benign prostatic hyperplasia) Hyperlipidemia Depression Hypertension Seropositive rheumatoid arthritis Rheumatoid arthritis with rheumatoid factor of multiple sites without organ or systems involvement Other skilled nursing (current) drug therapy Surgical History History of tonsillectomy Family History Other Diabetes Social History Smoking and tobacco/nicotine status: never used tobacco/nicotine Alcohol intake: current Alcohol intake frequency: few times a week Alcohol type: beer Substance/Drug Use: never Vitals/I&O/Wt Last Vital Signs Temp 97.6 F 05/21/25 11:33 Pulse 81 05/21/25 11:33 Resp 18 05/21/25 11:33 BP 92/60 05/21/25 11:33 Pulse Ox 99 05/21/25 11:33 O2 Del Method Room Air 05/21/25 11:33 05/20/25 05/21/25 05/21/25 22:59 06:59 14:59 Intake Total 650 / 1540 350 / 1890 840 / 840 Output Total 675 / 2325 600 / 2925 Balance -25 / -785 -250 / -1035 840 / 840 Weight last 48 hrs Weight 264 lb Weight 262 lb 9.6 oz Weight 260 lb Weight 260 lb 11.2 oz Physical Exam Narrative: Chest: Unlabored breathing room air. No lymphadenopathy. Heart: Regular rate and rhythm. Abdomen: Soft, nontender, nondistended. No masses or lymphadenopathy. Urinary Catheter Management: Peralta: Cath Placed During This Visit: yes Reason for Continuing Indwelling Catheter: Other Urinary Catheter Date of Insertion: 05/20/25 Urinary Catheter Time of Insertion: 00:30 Data 05/22/25 11:49 05/22/25 05:30 Micro: Microbiology 05/19/25 19:11 Urine Culture - Preliminary Urine,Clean Catch Gram Negative Rods 05/19/25 20:49 Blood Culture - Preliminary Blood NEGATIVE TO DATE 05/19/25 20:47 Blood Culture - Preliminary Blood NEGATIVE TO DATE A&P Assessment and plan 1. GI bleed: Plan: 75-year-old male whom surgery was consulted to rule out GI bleed. Reports melena and some hematochezia. Will plan for endoscopy on Wednesday. PDMP PDMP Reviewed: Not Reviewed Coding Level of Care Code Acute Code for Chg Fwd Diagnoses GI bleed K92.2
--- NOTE | 2025-05-21 14:26 | PICC.NOTE ---
Midline placed to left basilic vein. Referred to vascular access nurse for midline placement due to poor access and need for blood transfusion. Risks and benefits discussed and informed consent obtained from pt cousin, Amita Warren, via phone. Left arm assessed with left basilic vein measuring 5.0 mm, straight, and apparent best choice for placement. Using sterile technique and MST, left basilic vein accessed x 1 stick. Mid-arm circumference measured 10 cm from left AC 33 cm. Trimmed cath 10 cm with 0 cm external length noted. Line secured with stat-lock. Insertion site covered with Biopatch and TSM. Report given to bedside nurse, CHANCE Kat.
--- NOTE | 2025-05-21 14:46 | ECG_ITS ---
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 Measurements Intervals [place] Rate: 83 P: 0 IA: 0 QRS: 121 QRSD: 106 T: 0 QT: 419 QTc: 494 Interpretive Statements ATRIAL FLUTTER/TACHYCARDIA INDETERMINATE AXIS LOW QRS VOLTAGE IN PRECORDIAL LEADS [QRS DEFLECTION < 1.0 mV IN CHEST LEADS] MINIMAL ST DEPRESSION [0.025+ mV ST DEPRESSION] Compared to ECG 05/21/2025 10:31:04 ST (T wave) deviation now present Atrial fibrillation no longer present Electronically Signed On 05-21-2025 17:50:09 PRODUCT INSPECTION SUPERVISOR by Alexsandra Harper M.D. [email or web address] [id number]
[2025-05-21 15:00] LABS: Lactate (Lactic Acid level) 2.8 mmol/L (0.5-2.2)
--- NOTE | 2025-05-21 15:00 | P.PN_ITS ---
Subjective 2 Subjective: - Patient was seen this morning - He is alert oriented x 3, following al l commands - Denies any fevers, no chills, no cough - No lightheadedness, no dizziness - He does report that the area around hi s testicles remain excoriated, denies any trauma, no fevers, chills, flank pain - Patient was found to be C. difficile p ositive, discussed starting oral p.o. vancomycin - During my examination with patient, he was examined and found to have a large amount of black tarry bowel movement, reposition, no active bleeding per rectum - Nursing staff deny any bleeding episod es yesterday, he is on Eliquis - Discussed with patient the risk and be nefits of holding anticoagulant therapy, he voiced understanding, all questions answered, agreed to proceed - Discussed doing EGD and colonoscopy, g iven his black tarry bowel movement, he voices understanding, all questions answered, agreed to proceed - Denies a history of GI bleeds, denies a history of scoping, denies requiring blood transfusions Vitals/I&O/Wt Last Vital Signs Temp 97.6 F 05/21/25 11:33 Pulse 81 05/21/25 11:33 Resp 18 05/21/25 11:33 BP 92/60 05/21/25 11:33 Pulse Ox 99 05/21/25 11:33 O2 Del Method Room Air 05/21/25 11:33 05/21/25 05/21/25 05/21/25 06:59 14:59 22:59 Intake Total 350 / 1890 890 / 890 Output Total 600 / 2925 Balance -250 / -1035 890 / 890 Weight last 48 hrs Weight 119.748 kg Weight 119.113 kg Weight 117.934 kg Weight 118.252 kg Physical Exam 2 Const: COMMON NORMALS: no acute distress and patient oriented x3 Resp: COMMON NORMALS: normal respiratory effort, No retractions, No use of accessory muscles and clear to auscultation bilaterally AUSCULTATION: clear to auscultation bilaterally Cardio: COMMON NORMALS: regular rate, regular rhythm, S1 normal heart sound present and S2 normal heart sound present RATE: regular rate RHYTHM: r egular rhythm HEART SOUNDS: S1 normal heart sound present and S2 normal heart sound present GI: COMMON NORMALS: Normal to inspection, nondistended, normoactive bowel sounds present and non-tender Extremity: COMMON NORMALS: no pedal edema Neuro: COMMON NORMALS: patient oriented x3 Psych: COMMON NORMALS: mental status grossly normal Skin: NARRATIVE SKIN EXAM: Area over scrotum - No acute tenderness over bilateral noemy ticles or epididymis - Urethra no acute drainage - Scrotal skin is excoriated with superf icial abrasions OTHER: Patient has black tarry bowel movement, roughly 100 cc Urinary Catheter Management: Peralta: Cath Placed During This Visit: yes Reason for Continuing Indwelling Catheter: Other Urinary Catheter Date of Insertion: 05/20/25 Urinary Catheter Time of Insertion: 00:30 Data 05/21/25 13:00 05/21/25 08:28 Micro: Microbiology 05/19/25 19:11 Urine Culture - Preliminary Urine,Clean Catch Gram Negative Rods 05/19/25 20:49 Blood Culture - Preliminary Blood NEGATIVE TO DATE 05/19/25 20:47 Blood Culture - Preliminary Blood NEGATIVE TO DATE A&P Assessment and plan 1. Cellulitis of scrotum: 2. Orthostatic hypotension: 3. Intertrigo of genitocrural region: 4. Chronic anticoagulation: 5. Edema, peripheral: 6. Persistent atrial fibrillation: 7. Chronic diastolic congestive heart failure: 8. Benign essential HTN: 9. GI bleed: 10. Anemia, unspecified type: 11. Cellulitis: Plan: Cellulitis -CT scan no acute findings - Area involving scrotum FINDINGS: Right testicle: Right testis measures 3.9 x 3.4 x 2.8 cm. No mass. Normal Doppler signal. Left testicle: Left testis measures 3.8 x 2.8 x 3.0 cm. No mass. Normal Doppler signal. Epididymides: Epididymis bilaterally is unremarkable. Scrotum/soft tissues: Bilateral hydroceles, moderate on the left and small on the right. Edematous thickening of scrotal wall suggested bilaterally. Plan - Try scrotal elevation - Keep area clean and dry - Vancomycin - Zosyn - IV Lasix C. difficile colitis - Start p.o. vancomycin - Isolation precautions GI bleed - Seems like upper GI bleed on clinical examination - On Eliquis - Plan - Eliquis on hold - Will monitor if hemodynamic covered by his active black tarry stools will consider Eliquis reversal - Monitor hemoglobin every 4 hours - Will monitor blood pressure closely -Protonix, Carafate -General Surgery consulted History of orthostatic hypotension History of aspiration pneumonia History of restrictive lung disease History of CKD stage IIIa History of diastolic CHF History of atrial fibrillation PDMP PDMP Reviewed: Not Reviewed Attestations 2 Medical Necessity Statement*: Patient requires hospitalization for cellulitis, C. difficile colitis, GI bleed Diagnoses Cellulitis of scrotum N49.2 Orthostatic hypotension I95.1 Intertrigo of genitocrural region L30.4 Chronic anticoagulation Z79.01 Edema, peripheral R60.0 Persistent atrial fibrillation I48.19 Chronic diastolic congestive heart failure I50.32 Benign essential HTN I10 GI bleed K92.2 Anemia, unspecified type D64.9 Anemia type: unspecified type Cellulitis L03.90
[2025-05-21 15:20] LABS: Troponin 5 6HR 43.92 ng/L (0-15)
[2025-05-21 15:21] LABS: Troponin 5 6HR Delta -6.08 ng/L (0-12)
[2025-05-21 16:51] LABS: Hematocrit 31.3 % (37-53); Hemoglobin 8.80 g/dL (11.27-16.99)
[2025-05-21 20:07] LABS: Hematocrit 29.5 % (37-53); Hemoglobin 8.70 g/dL (11.27-16.99)
[2025-05-22] VITALS (7 sets, daily range): BP systolic 93–116; BP diastolic 56–76; PULSE 79–118; RESP 17–18; TEMP 36.2–36.9; O2SAT 92–99
[2025-05-22 01:43] LABS: Hematocrit 29.6 % (37-53); Hemoglobin 8.80 g/dL (11.27-16.99)
[2025-05-22] MEDS: piperacillin-tazobactam 3.375 GM in sodium chloride 0.9% (plus) 50 ML IV ×2 (01:54→08:28)
[2025-05-22 05:45] LABS: Hematocrit 27.7 % (37-53); Hemoglobin 8.10 g/dL (11.27-16.99); Mean Corpuscular HGB Conc 29.2 g/dL (30-55); Mean Corpuscular Hemoglobin 24.0 pg (27-33); Mean Corpuscular Volume 82.0 fl (82-101); Nucleated Red Blood Cells % 0 %; Platelet Count 108 10^3/cmm (157-399); Red Blood Count 3.38 10^6/uL (3.85-5.65); White Blood Count 10.77 10^3/uL (3.29-11.43)
[2025-05-22] MEDS: ferrous sulfate EC 325 mg Tablet PO ×2 (05:49→17:35)
[2025-05-22 06:07] LABS: Alanine Aminotransferase 36 U/L (0-41); Albumin Level 3.0 g/dL (3.5-5.2); Alkaline Phosphatase 179 U/L (40-130); Anion Gap 19.5 (5-19); Aspartate Amino Transferase 21 U/L (0-40); Blood Urea Nitrogen 79 mg/dL (8-23); Calcium 7.7 mg/dL (8.5-10.5); Carbon Dioxide 20 mmol/L (22-29); Chloride 99 mmol/L (98-107); Globulin 2.0 g/dL (1.3-4.6); Glucose 104 mg/dL (65-115); Osmolality Calculated 304 mOsm/kg (285-295); Potassium 3.5 mmol/L (3.5-5.1); Sodium 135 mmol/L (136-145); Total Protein 5.0 g/dL (6.6-8.7)
[2025-05-22 06:14] LABS: Procalcitonin 0.40 ng/mL (0-0.5)
[2025-05-22 08:00] LABS: Hematocrit 30.6 % (37-53); Hemoglobin 9.00 g/dL (11.27-16.99)
[2025-05-22] MEDS: FUROsemide 10 mg/mL SDV 4mL 40 MG IVP (08:28)
[2025-05-22 12:03] LABS: Hematocrit 29.2 % (37-53); Hemoglobin 8.50 g/dL (11.27-16.99)
[2025-05-22] MEDS: magnesium citrate Btl 296 mL PO (13:18)
--- NOTE | 2025-05-22 15:49 | P.PN_ITS ---
Subjective 2 Subjective: Patient was seen this morning, currently alert oriented x 2, following all commands, reports his diarrhea has resolved, no abdominal pain, no fevers, no chills Vitals/I&O/Wt Last Vital Signs Temp 97.2 F L 05/22/25 11:52 Pulse 81 05/22/25 11:52 Resp 17 05/22/25 11:52 BP 116/71 05/22/25 11:52 Pulse Ox 99 05/22/25 11:52 O2 Del Method Room Air 05/22/25 11:52 05/22/25 05/22/25 05/22/25 06:59 14:59 22:59 Intake Total 300 / 1870 580 / 580 Balance 300 / 945 580 / 580 Weight last 48 hrs Weight 121.279 kg Weight 119.748 kg Physical Exam 2 Const: COMMON NORMALS: no acute distress Resp: COMMON NORMALS: normal respiratory effort, No retractions, No use of accessory muscles and clear to auscultation bilaterally AUSCULTATION: clear to auscultation bilaterally Cardio: COMMON NORMALS: regular rate, regular rhythm, S1 normal heart sound present and S2 normal heart sound present RATE: regular rate RHYTHM: r egular rhythm HEART SOUNDS: S1 normal heart sound present and S2 normal heart sound present GI: COMMON NORMALS: Normal to inspection, nondistended, normoactive bowel sounds present and non-tender Extremity: COMMON NORMALS: no pedal edema Psych: COMMON NORMALS: mental status grossly normal Urinary Catheter Management: Peralta: Cath Placed During This Visit: yes Reason for Continuing Indwelling Catheter: Other Urinary Catheter Date of Insertion: 05/20/25 Urinary Catheter Time of Insertion: 00:30 Data 05/22/25 11:49 05/22/25 05:30 Micro: Microbiology 05/21/25 20:58 Occult Blood (FIT) - Final Stool - Stool Aspirate A&P Assessment and plan 1. Cellulitis of scrotum: 2. Orthostatic hypotension: 3. Intertrigo of genitocrural region: 4. Chronic anticoagulation: 5. Edema, peripheral: 6. Persistent atrial fibrillation: 7. Chronic diastolic congestive heart failure: 8. Benign essential HTN: 9. GI bleed: 10. Anemia, unspecified type: 11. Cellulitis: Plan: Cellulitis -CT scan no acute findings - Area involving scrotum FINDINGS: Right testicle: Right testis measures 3.9 x 3.4 x 2.8 cm. No mass. Normal Doppler signal. Left testicle: Left testis measures 3.8 x 2.8 x 3.0 cm. No mass. Normal Doppler signal. Epididymides: Epididymis bilaterally is unremarkable. Scrotum/soft tissues: Bilateral hydroceles, moderate on the left and small on the right. Edematous thickening of scrotal wall suggested bilaterally. Plan - Try scrotal elevation - Keep area clean and dry - De-escalate to Augmentin, doxycycline - IV Lasix on hold C. difficile colitis, diarrhea has resolved - Start p.o. vancomycin - Isolation precautions GI bleed - Seems like upper GI bleed on clinical examination - On Eliquis - Plan - Eliquis on hold - Will monitor if hemodynamic covered by his active black tarry stools will consider Eliquis reversal - Monitor hemoglobin every 4 hours - Will monitor blood pressure closely -Protonix, Carafate -General Surgery consulted, plan for EGD tomorrow History of orthostatic hypotension History of aspiration pneumonia History of restrictive lung disease History of CKD stage IIIa History of diastolic CHF History of atrial fibrillation PDMP PDMP Reviewed: Not Reviewed Attestations 2 Medical Necessity Statement*: Patient requires hospitalization for GI bleed, scrotal cellulitis, C. difficile colitis Diagnoses Cellulitis of scrotum N49.2 Orthostatic hypotension I95.1 Intertrigo of genitocrural region L30.4 Chronic anticoagulation Z79.01 Edema, peripheral R60.0 Persistent atrial fibrillation I48.19 Chronic diastolic congestive heart failure I50.32 Benign essential HTN I10 GI bleed K92.2 Anemia, unspecified type D64.9 Anemia type: unspecified type Cellulitis L03.90
--- NOTE | 2025-05-22 15:51 | XRR_ITS ---
PROCEDURE INFORMATION: Exam: XR Abdomen Exam date and time: 05/22/2025 5:34 PM Age: 75 years old Clinical indication: Bloating; Additional info: Distention TECHNIQUE: Imaging protocol: Radiologic exam of the abdomen. Views: Frontal supine view of the abdomen. 1 View. COMPARISON: 1. PT PET skull to thigh INIT [id number] 04/06/2025 3:[address] chest abdpel w/*[id number] 05/19/2025 8:55 PM 3. CR (CHEST, ) 05/19/2025 6:51 PM FINDINGS: Lungs: Increased parenchymal density in the medial right lung base which could represent unchanged atelectasis or developing pneumonia. Gastrointestinal tract: The stomach is mildly distended with gas. No bowel dilatation to suggest obstruction. Intraperitoneal space: Abdominal mass is not identified. Bones/joints: Lumbar scoliosis and severe degenerative disc disease again noted. XR/XR KUB portable [id number] IMPRESSION: 1. No bowel dilatation to suggest obstruction. 2. Increased parenchymal density in the medial right lung base which could represent unchanged atelectasis or developing pneumonia.
--- NOTE | 2025-05-22 16:42 | PM.MISC ---
Miscellaneous Note Note: Patient is C. difficile positive. Hospitalist concern for C. difficile colitis. No tarry stools or hematochezia today. Discussed with hospitalist. Will hold off on endoscopy and plan for outpatient endoscopy. Will cancel endoscopy 05/23
[2025-05-23] VITALS (9 sets, daily range): BP systolic 92–133; BP diastolic 64–89; PULSE 85–96; RESP 16–19; TEMP 36.2–36.8; O2SAT 91–98; BMI 33.4
[2025-05-23 05:24] LABS: Hematocrit 30.4 % (37-53); Hemoglobin 8.70 g/dL (11.27-16.99); Mean Corpuscular HGB Conc 28.6 g/dL (30-55); Mean Corpuscular Hemoglobin 24.1 pg (27-33); Mean Corpuscular Volume 84.2 fl (82-101); Nucleated Red Blood Cells % 0 %; Platelet Count 118 10^3/cmm (157-399); Red Blood Count 3.61 10^6/uL (3.85-5.65); White Blood Count 11.49 10^3/uL (3.29-11.43)
[2025-05-23] MEDS: ferrous sulfate EC 325 mg Tablet PO ×2 (05:29→17:25)
[2025-05-23 05:45] LABS: Alanine Aminotransferase 37 U/L (0-41); Albumin Level 3.2 g/dL (3.5-5.2); Alkaline Phosphatase 248 U/L (40-130); Anion Gap 21.5 (5-19); Aspartate Amino Transferase 24 U/L (0-40); Calcium 7.9 mg/dL (8.5-10.5); Carbon Dioxide 20 mmol/L (22-29); Chloride 98 mmol/L (98-107); Globulin 2.0 g/dL (1.3-4.6); Glucose 121 mg/dL (65-115); Osmolality Calculated 308 mOsm/kg (285-295); Potassium 3.5 mmol/L (3.5-5.1); Sodium 136 mmol/L (136-145); Total Protein 5.2 g/dL (6.6-8.7)
[2025-05-23 07:00] LABS: Blood Urea Nitrogen 81 mg/dL (8-23)
[2025-05-23] MEDS: FUROsemide 10 mg/mL SDV 4mL 40 MG IVP ×2 (11:50→17:25)
--- NOTE | 2025-05-23 12:04 | PC.SOCIAL ---
IMM Update pg 2 of IMM updated and reviewed w/ patient. Copy provided and copy dated, initialed and placed in chart.
[2025-05-23 12:45] LABS: NT Pro B Type Natriuretic Pept 3079 pg/mL (0-450)
--- NOTE | 2025-05-23 13:04 | USR_ITS ---
PROCEDURE INFORMATION: Exam: US Retroperitoneal, Complete, Kidneys, Aorta, IVC. Exam date and time: 05/23/2025 3:40 PM Age: 75 years old Clinical indication: Condition or disease; Other: Yonatan TECHNIQUE: Imaging protocol: Real-time ultrasound of the retroperitoneum with image documentation. Complete exam focused on the bilateral kidneys, aorta, and inferior vena cava. COMPARISON: US gall bladder [id number] 02/14/2022 12:25 PM FINDINGS: Right kidney: The right kidney measures 9.1 x 4.3 x 5.6 cm. There is good corticomedullary differentiation and no hydronephrosis. Renal cortex measures 1.3 cm. Left kidney: Inadequate visualization of the left kidney. The left kidney measures 10.0 x 5.0 x 5.3 cm. There is good corticomedullary differentiation with no hydronephrosis. The renal cortex measures 1.4 cm. Aorta: Not evaluated Common iliac arteries: Not evaluated Inferior vena cava: Not evaluated Urinary bladder: The bladder is decompressed secondary to presence of a Peralta catheter within it. US/US renal BI* [id number] IMPRESSION: No acute findings.
[2025-05-23 15:04] LABS: Anion Gap 21.6 (5-19); Calcium 7.9 mg/dL (8.5-10.5); Carbon Dioxide 19 mmol/L (22-29); Chloride 98 mmol/L (98-107); Glucose 123 mg/dL (65-115); Osmolality Calculated 306 mOsm/kg (285-295); Potassium 3.6 mmol/L (3.5-5.1); Sodium 135 mmol/L (136-145)
[2025-05-23 15:41] LABS: Blood Urea Nitrogen 82 mg/dL (8-23)
--- NOTE | 2025-05-23 16:38 | P.PN_ITS ---
Subjective 2 Subjective: Patient was seen this morning, currently alert oriented x 3, following all commands, he reports shortness of breath, does report wheezing, does report edema of his arms and legs - We discussed his DIXON, and uremia - No bloody black stools reported - No abdominal pain reported - Discussed his scrotal pain has signifi cantly resolved with barrier cream - Discussed IV diuresis, renal ultrasoun d and nephrology consultation he is in agreement, - With his C. difficile he denies any re current diarrhea Vitals/I&O/Wt Last Vital Signs Temp 97.3 F L 05/23/25 15:51 Pulse 92 05/23/25 15:51 Resp 17 05/23/25 15:51 BP 106/65 05/23/25 15:51 Pulse Ox 98 05/23/25 15:51 O2 Del Method Room Air 05/23/25 15:51 05/23/25 05/23/25 05/23/25 06:59 14:59 22:59 Intake Total 360 / 2300 1480 / 1480 Balance 360 / 1050 1480 / 1480 Weight last 48 hrs Weight 121.279 kg Weight 121.279 kg Physical Exam 2 Const: COMMON NORMALS: no acute distress and patient oriented x3 Resp: COMMON NORMALS: normal respiratory effort, No retractions and No use of accessory muscles AUSCULTATION: wheezes Cardio: COMMON NORMALS: regular rate, regular rhythm, S1 normal heart sound present and S2 normal heart sound present RATE: regular rate RHYTHM: r egular rhythm HEART SOUNDS: S1 normal heart sound present and S2 normal heart sound present GI: COMMON NORMALS: Normal to inspection, nondistended, normoactive bowel sounds present and non-tender Extremity: NARRATIVE EXTREMITY EXAM: 2+ pitting edema, anasarca Neuro: COMMON NORMALS: patient oriented x3 Psych: COMMON NORMALS: mental status grossly normal Urinary Catheter Management: Peralta: Cath Placed During This Visit: yes Reason for Continuing Indwelling Catheter: Other Urinary Catheter Date of Insertion: 05/20/25 Urinary Catheter Time of Insertion: 00:30 Data 05/23/25 05:05 05/23/25 14:38 A&P Assessment and plan 1. Cellulitis of scrotum: 2. Orthostatic hypotension: 3. Intertrigo of genitocrural region: 4. Chronic anticoagulation: 5. Edema, peripheral: 6. Persistent atrial fibrillation: 7. Chronic diastolic congestive heart failure: 8. Benign essential HTN: 9. GI bleed: 10. Anemia, unspecified type: 11. Cellulitis: Plan: Cellulitis -CT scan no acute findings - Area involving scrotum FINDINGS: Right testicle: Right testis measures 3.9 x 3.4 x 2.8 cm. No mass. Normal Doppler signal. Left testicle: Left testis measures 3.8 x 2.8 x 3.0 cm. No mass. Normal Doppler signal. Epididymides: Epididymis bilaterally is unremarkable. Scrotum/soft tissues: Bilateral hydroceles, moderate on the left and small on the right. Edematous thickening of scrotal wall suggested bilaterally. Plan - Try scrotal elevation - Keep area clean and dry - De-escalate to Augmentin, doxycycline Systolic CHF exacerbation - With elevated BNP, evidence of fluid overload - IV Lasix 40 IV twice daily DIXON on CKD -Potentially contrast-induced nephropathy -vancomycin trough elevated 29.2, possibly vancomycin toxicity - Vancomycin has been stopped - Renal ultrasound - monitor urine output monitor creatinine Uremia - GI bleed has resolved - Will monitor closely C. difficile colitis, diarrhea has resolved - Start p.o. vancomycin - Isolation precautions GI bleed - Seems like upper GI bleed on clinical examination - On Eliquis - Plan - Eliquis on hold - Will monitor if hemodynamic covered by his active black tarry stools will consider Eliquis reversal - Monitor hemoglobin - Will monitor blood pressure closely -Protonix, Carafate -General Surgery consulted, his hemoglobin has stabilized, no active bloody or black stools, EGD has been postponed to outpatient History of orthostatic hypotension History of aspiration pneumonia History of restrictive lung disease History of CKD stage IIIa History of diastolic CHF History of atrial fibrillation, anticoagulant therapy on hold PDMP PDMP Reviewed: Not Reviewed Attestations 2 Medical Necessity Statement*: Patient requires hospitalization for systolic CHF, DIXON, requiring IV diuresis, nephrology consultation, C. difficile colitis Diagnoses Cellulitis of scrotum N49.2 Orthostatic hypotension I95.1 Intertrigo of genitocrural region L30.4 Chronic anticoagulation Z79.01 Edema, peripheral R60.0 Persistent atrial fibrillation I48.19 Chronic diastolic congestive heart failure I50.32 Benign essential HTN I10 GI bleed K92.2 Anemia, unspecified type D64.9 Anemia type: unspecified type Cellulitis L03.90
--- NOTE | 2025-05-23 19:11 | P.CONIM_ITS ---
Providers/Reason For Consult 2 Consulting Physician/Specialty*: kommana/Nephrology Reason for Consult*: DIXON Attending Physician: Elmer Orourke MD Primary Care Provider: Ashwin Roberson MD History of Present Illness History of Present Illness Cesar Mederos is a 75 year old male Patient is a 75-year-old male with past medical history significant for atrial fibrillation on chronic anticoagulation with Eliquis, chronic kidney disease, CHF, orthostatic hypotension, hypothyroidism is admitted to the hospital on 05/19/2025 for sepsis secondary to scrotal cellulitis and has received IV Zosyn and IV vancomycin. He also has C. difficile's colitis and is on p.o. vancomycin. During the hospital course patient also developed upper GI bleed likely but hemoglobin had been stable. Patient has chronic kidney disease with a baseline creatinine seems to be 1.2- 1.8 range since 2022. Creatinine on admission was 1.9 and progressed to 2.7 currently, oliguric. Renal ultrasound with no hydronephrosis. Urine analysis has showed 2+ blood and no protein on 05/19/2025. No microscopic hematuria. Patient currently on room air has volume overload, status post diuretics. Review of Systems 2 Narrative: Negative Medications/Allergies Home Medications ?Medication ?Instructions ?Recorded ?Confirmed ?Last Taken ?Type ascorbate calcium (vitamin C) 500 500 mg PO DAILY 11/2605/20/25 05/19/25 08:00 History mg tablet fluticasone propionate 50 2 spray intranasal DAILY PRN 09/30/23 05/20/25 04/26/25 Rx mcg/actuation nasal Allergy Symptoms #16 grams spray,suspension escitalopram oxalate 20 mg tablet 20 mg PO DAILY #30 t abs 05/11/24 05/20/25 05/19/25 08:00 Rx levocetirizine 5 mg tablet 5 mg PO DAILY PRN allergy s ymptoms 06/28/24 05/20/25 04/28/25 Rx #30 tabs aripiprazole 5 mg tablet (Abilify) 5 mg PO DAILY #30 t abs 07/03/24 05/20/25 05/19/25 08:00 Rx apixaban 5 mg tablet (Eliquis) See Rx Instructions .Ro juliana 09/28/24 05/20/25 05/19/25 08:00 Rx .COMPLEX #60 tabs tamsulosin 0.4 mg capsule See Rx Instructions .Route 0 09/28/24 05/20/25 05/19/25 08:00 Rx .COMPLEX #30 caps levothyroxine 25 mcg tablet 25 mcg PO DAILY #30 tabs 0 03/06/25 05/20/25 05/19/25 08:00 Rx (Levoxyl) ferrous sulfate 325 mg (65 mg 325 mg PO BID #60 tabs 1 05/20/25 05/19/25 08:00 Rx iron) tablet (Iron (ferrous sulfate)) dapagliflozin propanediol 10 mg 10 mg PO DAILY #30 tab s 05/08/25 05/20/25 05/19/25 08:00 Rx tablet metoprolol tartrate 25 mg tablet 12.5 mg (1/2 x 25 mg) PO 05/08/25 05/20/25 05/19/25 08:00 Rx BID@0900,2100 30 days #30 tabs midodrine 5 mg tablet 10 mg (2 x 5 mg) PO TID 30 d ays 05/08/25 05/20/25 05/19/25 08:00 Rx #180 tabs prednisone 20 mg tablet 40 mg (2 x 20 mg) PO DAILY # 6 tabs 05/08/25 05/20/25 05/19/25 08:00 Rx pyridostigmine bromide 60 mg tablet 60 mg PO TID 30 da ys #90 tabs 05/08/25 05/20/25 05/19/25 08:00 Rx bisacodyl 10 mg rectal suppository 10 mg GA DAILY PRN Constipation 05/20/25 05/20/25 Unknown History docusate sodium 100 mg capsule 200 mg PO BEDTIME 05/2005/20/25 05/18/25 18:00 History furosemide 40 mg tablet (Lasix) 40 mg PO BID 05/20/25 05/20/25 05/19/25 08:00 History lidocaine HCl 2 % mucosal solution 1 applic mucous mem brane BID PRN 05/20/25 05/20/25 05/19/25 08:00 History (Lidocaine Viscous) Mouth Pain magnesium hydroxide 400 mg/5 mL 30 ml PO DAILY PRN Con stipation 05/20/25 05/20/25 Unknown History oral suspension (Milk of Magnesia) metolazone 5 mg tablet 5 mg PO DAILY 05/20/2505/2005/19/25 08:00 History potassium chloride 20 mEq 20 meq PO BID 05/20/2505/2005/19/25 08:00 History tablet,extended release sodium phosphates 19 gram-7 118 ml GA DAILY PRN Consti pation 05/20/25 05/20/25 Unknown History gram/118 mL enema (Fleet Enema) Allergies Allergy/AdvReac Type Severity Reaction Status Date / Time ciprofloxacin (From Cipro) Allergy Severe muscle or Verified 04/11/25 13:44 joint pain paroxetine (From Paxil) AdvReac Mild made his Verified 04/11/25 13:44 head feel weird Current Medications Generic Name Dose Route Start Last Admin Trade Name Freq PRN Reason Stop Dose Admin Albuterol/Ipratropium 3 ml 05/23/25 03:18 05/23/25 13:22 Ipratropium-Albuterol 3 Ml Neb INHALATION 3 ml Q6H PRN Administration SHORTNESS OF BREATH Amoxicillin/Clavulanate Potassium 1 tab 05/22/25 17:00 05/23/25 17:25 Amoxicillin-Clav 875-125 Mg Tablet PO 1 tab BID ALEJANDRO Administration Protocol Aripiprazole 5 mg 05/20/25 05:00 05/23/25 05:28 Aripiprazole 10 Mg Tablet PO 5 mg DAILY ALEJANDRO Administration Ascorbic Acid 500 mg 05/20/25 05:00 05/23/25 05:29 Ascorbic Acid 500 Mg Tablet PO 500 mg DAILY ALEJANDRO Administration Doxycycline Monohydrate 100 mg 05/22/25 17:00 05/23/25 17:25 Doxycycline 100 Mg Tablet PO 100 mg BID ALEJANDRO Administration Protocol Escitalopram Oxalate 20 mg 05/20/25 05:00 05/23/25 05:29 Escitalopram 10 Mg Tablet PO 20 mg DAILY ALEJANDRO Administration Ferrous Sulfate 325 mg 05/20/25 05:00 05/23/25 17:25 Ferrous Sulfate Ec 325 Mg Tablet PO 325 mg BID ALEJANDRO Administration Insulin Human Lispro 0 unit 05/20/25 18:00 05/23/25 17:25 Insulin Lispro 100 Unit/1 Ml SUBCUT 2 unit TIDWM ALEJANDRO Administration Protocol Levothyroxine Sodium 25 mcg 05/20/25 05:00 05/23/25 05:29 Levothyroxine 25 Mcg Tablet PO 25 mcg DAILY ALEJANDRO Administration Midodrine 10 mg 05/20/25 05:00 05/23/25 11:50 Midodrine 5 Mg Tablet PO 10 mg TID ALEJANDRO Administration Nystatin 1 applic 05/20/25 06:15 05/23/25 17:30 Nystatin Powder 15 Gm Btl TOPICAL 1 applic BID ALEJANDRO Administration Pyridostigmine [place] 60 mg 05/20/25 05:00 05/23/25 11:50 Pyridostigmine 60 Mg Tablet PO 60 mg TID ALEJANDRO Administration Tamsulosin HCl 0.4 mg 05/20/25 08:00 05/23/25 05:29 Tamsulosin 0.4 Mg Capsule PO 0.4 mg DAILY ALEJANDRO Administration Vancomycin HCl 125 mg 05/21/25 12:15 05/23/25 14:29 Vancomycin 125 Mg Capsule PO 125 mg Q6H ALEJANDRO Administration PFSH Acute 2 PFSH: Medical History (Updated 05/23/25 @ 19:40 by Lisa Ho MD) Chronic anticoagulation Chest pain Abnormal CT scan Acute on chronic renal insufficiency Type 2 diabetes mellitus without complication Persistent atrial fibrillation BPH (benign prostatic hyperplasia) Hyperlipidemia Depression Hypertension Seropositive rheumatoid arthritis Rheumatoid arthritis with rheumatoid factor of multiple sites without organ or systems involvement Other alf (current) drug therapy Surgical History History of tonsillectomy Family History Other Diabetes Social History Smoking and tobacco/nicotine status: never used tobacco/nicotine Alcohol intake: current Alcohol intake frequency: few times a week Alcohol type: beer Substance/Drug Use: never Vitals/I&O/Wt Last Vital Signs Temp 97.3 F L 05/23/25 15:51 Pulse 92 05/23/25 15:51 Resp 17 05/23/25 15:51 BP 106/65 05/23/25 15:51 Pulse Ox 98 05/23/25 15:51 O2 Del Method Room Air 05/23/25 15:51 05/23/25 05/23/25 05/23/25 06:59 14:59 22:59 Intake Total 360 / 2300 1480 / 1480 480 / 1960 Output Total 900 / 900 Balance 360 / 1050 1480 / 1480 -420 / 1060 Weight last 48 hrs Weight 121.279 kg Weight 121.279 kg Physical Exam 2 Narrative: Patient is awake alert no acute distress on room air No JVD PERRLA S1-S2 regular rate and rhythm Lungs with decreased breath sounds bilaterally Abdomen soft, nontender Extremities has 3+ pedal edema Skin no rash. Urinary Catheter Management: Peralta: Cath Placed During This Visit: yes Reason for Continuing Indwelling Catheter: Required Immobilization for Trauma or Surgery or Anesthesia Urinary Catheter Date of Insertion: 05/20/25 Urinary Catheter Time of Insertion: 00:30 Data 05/23/25 05:05 05/23/25 14:38 A&P Assessment and plan 1. DIXON (acute kidney injury): 1. Acute on chronic kidney disease stage III: Baseline creatinine in the 1.2- 1.8 range previously since 2022. Current DIXON with a creatinine of 2.7 likely multifactorial in the setting of IV contrast exposure, vancomycin nephrotoxicity and status post diuretics. Unlikely AIN - Vanco has been discontinued, status post diuretics on-on hold now - No acute indication for dialysis, has uremia likely due to GI bleed - Placed on IV albumin, continue midodrine keep MAP more than 65, will give as needed IV diuretics -Check urine electrolytes and urine eosinophils - Etiology of CKD unclear, UA show UA showed no protein with 2+ blood, no microscopic hematuria, will repeat urine analysis. Will check serologies including C3-C4, LOPEZ, ANCA, SPEP and UPEP. - Set up nephrology outpatient appointment 2. Sepsis secondary to cellulitis, 3. C. difficile colitis 4. History of CHF status post IV diuretics due to volume overload/anasarca 5. Orthostatic hypotension, on midodrine PDMP PDMP Reviewed: Not Reviewed Consult Attestations 2 Medical Necessity Statement: Per medicine team Coding Level of Care Code Acute Code for [facility] Diagnoses DIXON (acute kidney injury) N17.9
[2025-05-23] MEDS: albumin 25 G/100 ML BAG 60 G IV (20:26)
[2025-05-23 21:47] LABS: Urine Random Chloride 74 mmol/L; Urine Random Sodium 58 mmol/L
[2025-05-24] VITALS (7 sets, daily range): BP systolic 92–108; BP diastolic 62–76; PULSE 67–99; RESP 15–18; TEMP 36.3–36.8; O2SAT 94–98; BMI 33.4
[2025-05-24 00:38] LABS: Urine Eosinophil Count 0 (0-0)
[2025-05-24] MEDS: albumin 25 G/100 ML BAG 60 G IV ×3 (03:47→19:34)
[2025-05-24] MEDS: ferrous sulfate EC 325 mg Tablet PO ×2 (04:16→17:16)
[2025-05-24 04:40] LABS: Hematocrit 28.6 % (37-53); Hemoglobin 8.50 g/dL (11.27-16.99); Mean Corpuscular HGB Conc 29.7 g/dL (30-55); Mean Corpuscular Hemoglobin 24.2 pg (27-33); Mean Corpuscular Volume 81.5 fl (82-101); Nucleated Red Blood Cells % 0 %; Platelet Count 103 10^3/cmm (157-399); Red Blood Count 3.51 10^6/uL (3.85-5.65); White Blood Count 9.11 10^3/uL (3.29-11.43)
[2025-05-24 04:56] LABS: Alanine Aminotransferase 30 U/L (0-41); Albumin Level 3.5 g/dL (3.5-5.2); Alkaline Phosphatase 215 U/L (40-130); Anion Gap 19.8 (5-19); Aspartate Amino Transferase 21 U/L (0-40); Calcium 8.1 mg/dL (8.5-10.5); Carbon Dioxide 22 mmol/L (22-29); Chloride 98 mmol/L (98-107); Globulin 2.1 g/dL (1.3-4.6); Glucose 89 mg/dL (65-115); Osmolality Calculated 308 mOsm/kg (285-295); Potassium 3.8 mmol/L (3.5-5.1); Sodium 136 mmol/L (136-145); Total Protein 5.6 g/dL (6.6-8.7)
[2025-05-24 05:01] LABS: Blood Urea Nitrogen 86 mg/dL (8-23)
--- NOTE | 2025-05-24 06:46 | P.PN_ITS ---
Subjective 2 Subjective: no new c/o Medications: Reviewed: Yes Vitals/I&O/Wt Last Vital Signs Temp 97.7 F 05/24/25 00:00 Pulse 88 05/24/25 00:00 Resp 16 05/24/25 00:00 BP 104/72 05/24/25 00:00 Pulse Ox 98 05/24/25 00:00 O2 Del Method Room Air 05/24/25 00:00 05/23/25 05/23/25 05/24/25 14:59 22:59 06:59 Intake Total 1480 / 1480 580 / 2060 100 / 2160 Output Total 1150 / 1150 Balance 1480 / 1480 -570 / 910 100 / 1010 Weight last 48 hrs Weight 121.279 kg Physical Exam 2 Narrative: Patient is awake alert no acute distress on room air No JVD PERRLA S1-S2 regular rate and rhythm Lungs with decreased breath sounds bilaterally Abdomen soft, nontender Extremities has 3+ pedal edema Skin no rash. Urinary Catheter Management: Peralta: Cath Placed During This Visit: yes Reason for Continuing Indwelling Catheter: Required Immobilization for Trauma or Surgery or Anesthesia Urinary Catheter Date of Insertion: 05/20/25 Urinary Catheter Time of Insertion: 00:30 Data 05/24/25 04:30 05/24/25 04:30 A&P Assessment and plan 1. DIXON (acute kidney injury): 1. Acute on chronic kidney disease stage III: Baseline creatinine in the 1.2- 1.8 range previously since 2022. Current DIXON with a creatinine of 2.7 likely multifactorial in the setting of IV contrast exposure, vancomycin nephrotoxicity and status post diuretics. Unlikely AIN - Vanco has been discontinued, status post diuretics on-on hold now - No acute indication for dialysis, has uremia likely due to GI bleed - Placed on IV albumin, continue midodrine keep MAP more than 65, will give as needed IV diuretics -Check urine electrolytes and urine eosinophils - Etiology of CKD unclear, UA show UA showed no protein with 2+ blood, no microscopic hematuria, will repeat urine analysis. PrioR spep - no monoclonal protwin Will check serologies including C3-C4, LOPEZ, ANCA, SPEP and UPEP. - Set up nephrology outpatient appointment 2. Sepsis secondary to cellulitis, 3. C. difficile colitis 4. History of CHF status post IV diuretics due to volume overload/anasarca 5. Orthostatic hypotension, on midodrine PDMP PDMP Reviewed: Not Reviewed Attestations 2 Medical Necessity Statement*: per medicine Coding Level of Care Code Acute Code for Chg Fwd Diagnoses DIXON (acute kidney injury) N17.9
--- NOTE | 2025-05-24 11:29 | USR_ITS ---
PROCEDURE INFORMATION: Exam: US Duplex Lower Extremity Veins, Bilateral Exam date and time: 05/24/2025 2:18 PM Age: 75 years old Clinical indication: Edema, localized; Lower extremity, bilateral; Additional info: Swelling TECHNIQUE: Imaging protocol: Real-time duplex ultrasound of the bilateral extremities with 2-D landaverde scale, color Doppler flow and spectral waveform analysis including responses to compression and other maneuvers (when performed) with image documentation. Complete exam focused on the lower extremity veins. COMPARISON: US scrotum [id number] 05/19/2025 7:08 PM FINDINGS: Right deep veins: Unremarkable. The common femoral, femoral, proximal profunda femoral and popliteal veins are patent without thrombus. Normal Doppler waveforms. Normal compressibility and/or augmentation response. Left deep veins: Unremarkable. The common femoral, femoral, proximal profunda femoral and popliteal veins are patent without thrombus. Normal Doppler waveforms. Normal compressibility and/or augmentation response. Superficial veins: Greater saphenous veins at the saphenofemoral junctions are patent bilaterally without thrombus. Soft tissues: Mild diffuse soft tissue edema is noted. US/[place] [id number] IMPRESSION: 1. No evidence of deep vein thrombosis. 2. Mild diffuse soft tissue edema is noted in both extremities.
--- NOTE | 2025-05-24 12:17 | P.PN_ITS ---
Subjective 2 Subjective: Patient denies any bloody black stools, no diarrhea no abdominal pain passing gas, no nausea, no vomiting, no lightheadedness, dizziness, does report edema, shortness of breath improving Vitals/I&O/Wt Last Vital Signs Temp 98.3 F 05/24/25 11:21 Pulse 85 05/24/25 11:21 Resp 17 05/24/25 11:21 BP 103/69 05/24/25 11:21 Pulse Ox 97 05/24/25 11:21 O2 Del Method Room Air 05/24/25 11:21 05/23/25 05/24/25 05/24/25 22:59 06:59 14:59 Intake Total 580 / 2060 100 / 2160 360 / 360 Output Total 1150 / 1150 600 / 1750 Balance -570 / 910 -500 / 410 360 / 360 Weight last 48 hrs Weight 121.279 kg Weight 121.279 kg Physical Exam 2 Const: COMMON NORMALS: no acute distress and patient oriented x3 Resp: COMMON NORMALS: normal respiratory effort, No retractions and No use of accessory muscles AUSCULTATION: crackles and wheezes Cardio: COMMON NORMALS: regular rate, regular rhythm, S1 normal heart sound present and S2 normal heart sound present RATE: regular rate RHYTHM: r egular rhythm HEART SOUNDS: S1 normal heart sound present and S2 normal heart sound present GI: COMMON NORMALS: Normal to inspection, nondistended, normoactive bowel sounds present and non-tender Extremity: NARRATIVE EXTREMITY EXAM: 1+ edema Neuro: COMMON NORMALS: patient oriented x3 Psych: COMMON NORMALS: mental status grossly normal Urinary Catheter Management: Peralta: Cath Placed During This Visit: yes Reason for Continuing Indwelling Catheter: Required Immobilization for Trauma or Surgery or Anesthesia Urinary Catheter Date of Insertion: 05/20/25 Urinary Catheter Time of Insertion: 00:30 Data 05/24/25 04:30 05/24/25 04:30 A&P Assessment and plan 1. Cellulitis of scrotum: 2. Orthostatic hypotension: 3. Intertrigo of genitocrural region: 4. Chronic anticoagulation: 5. Edema, peripheral: 6. Persistent atrial fibrillation: 7. Chronic diastolic congestive heart failure: 8. Benign essential HTN: 9. GI bleed: 10. Anemia, unspecified type: 11. Cellulitis: Plan: Cellulitis -CT scan no acute findings - Area involving scrotum FINDINGS: Right testicle: Right testis measures 3.9 x 3.4 x 2.8 cm. No mass. Normal Doppler signal. Left testicle: Left testis measures 3.8 x 2.8 x 3.0 cm. No mass. Normal Doppler signal. Epididymides: Epididymis bilaterally is unremarkable. Scrotum/soft tissues: Bilateral hydroceles, moderate on the left and small on the right. Edematous thickening of scrotal wall suggested bilaterally. Plan - Try scrotal elevation - Keep area clean and dry - De-escalate to Augmentin, doxycycline Systolic CHF exacerbation - With elevated BNP, evidence of fluid overload - IV Lasix 40 IV once today DIXON on CKD -Potentially contrast-induced nephropathy -vancomycin trough elevated 29.2, possibly vancomycin toxicity - Vancomycin has been stopped - Renal ultrasound - monitor urine output monitor creatinine Uremia - GI bleed has resolved - Will monitor closely C. difficile colitis, diarrhea has resolved - Start p.o. vancomycin - Isolation precautions GI bleed - Seems like upper GI bleed on clinical examination - On Eliquis - Plan - Eliquis on hold - Will monitor if hemodynamic covered by his active black tarry stools will consider Eliquis reversal - Monitor hemoglobin - Will monitor blood pressure closely -Protonix, Carafate -General Surgery consulted, his hemoglobin has stabilized, no active bloody or black stools, EGD has been postponed to outpatient History of orthostatic hypotension History of aspiration pneumonia History of restrictive lung disease History of CKD stage IIIa History of diastolic CHF History of atrial fibrillation, anticoagulant therapy on hold, discussed morbidity and mortality with the patient, he voiced understanding, all questions answered, agreed to proceed Full code SCDs for DVT prophylaxis, Lovenox relatively contraindicated GI bleed, discussed morbidity mortality with patient, he voiced understanding, all questions answered answered PDMP PDMP Reviewed: Not Reviewed Attestations 2 Medical Necessity Statement*: Patient requires hospitalization for DIXON, uremia, fluid overload Diagnoses Cellulitis of scrotum N49.2 Orthostatic hypotension I95.1 Intertrigo of genitocrural region L30.4 Chronic anticoagulation Z79.01 Edema, peripheral R60.0 Persistent atrial fibrillation I48.19 Chronic diastolic congestive heart failure I50.32 Benign essential HTN I10 GI bleed K92.2 Anemia, unspecified type D64.9 Anemia type: unspecified type Cellulitis L03.90
[2025-05-24] MEDS: FUROsemide 10 mg/mL SDV 4mL 40 MG IVP (12:55)
[2025-05-25] VITALS (7 sets, daily range): BP systolic 97–115; BP diastolic 48–81; PULSE 63–104; RESP 14–18; TEMP 36.2–36.9; O2SAT 90–97
[2025-05-25] MEDS: albumin 25 G/100 ML BAG 60 G IV (02:15)
[2025-05-25 04:00] LABS: Hematocrit 27.2 % (37-53); Hemoglobin 8.10 g/dL (11.27-16.99); Mean Corpuscular HGB Conc 29.8 g/dL (30-55); Mean Corpuscular Hemoglobin 24.8 pg (27-33); Mean Corpuscular Volume 83.2 fl (82-101); Nucleated Red Blood Cells % 0 %; Platelet Count 117 10^3/cmm (157-399); Red Blood Count 3.27 10^6/uL (3.85-5.65); White Blood Count 8.06 10^3/uL (3.29-11.43)
[2025-05-25 04:31] LABS: Alanine Aminotransferase 24 U/L (0-41); Albumin Level 4.2 g/dL (3.5-5.2); Alkaline Phosphatase 240 U/L (40-130); Anion Gap 19.9 (5-19); Aspartate Amino Transferase 21 U/L (0-40); Calcium 8.3 mg/dL (8.5-10.5); Carbon Dioxide 21 mmol/L (22-29); Chloride 99 mmol/L (98-107); Globulin 1.6 g/dL (1.3-4.6); Glucose 94 mg/dL (65-115); Osmolality Calculated 309 mOsm/kg (285-295); Potassium 3.9 mmol/L (3.5-5.1); Sodium 136 mmol/L (136-145); Total Protein 5.8 g/dL (6.6-8.7)
[2025-05-25 04:42] LABS: Blood Urea Nitrogen 90 mg/dL (8-23)
[2025-05-25] MEDS: ferrous sulfate EC 325 mg Tablet PO ×2 (05:13→17:50)
--- NOTE | 2025-05-25 05:47 | PC.NURSE ---
re HOSPICE; pt had questions re pain mgmt, questions answered including Hospice routine care. Pt said he is not ready yet to be in HOSPICE yet.
--- NOTE | 2025-05-25 06:44 | PC.NURSE ---
notified Dr Colin sent text ; 278-2 NORTH-- sounded wet (+ audible coarse LS) this morning. pt was 260 lb on admission and 267 lb this am. pt co little SOB , vs 97/,93 ox sat RA. diaper changed x1. HR 96 rr 18
--- NOTE | 2025-05-25 06:44 | XRR_ITS ---
PROCEDURE INFORMATION: Exam: XR Chest Exam date and time: 05/25/2025 9:03 AM Age: 75 years old Clinical indication: Shortness of breath; Additional info: SOB TECHNIQUE: Imaging protocol: Radiologic exam of the chest. Views: 1 view. COMPARISON: CT chest abdpel w/*[id number] 05/19/2025 8:55 PM FINDINGS: Lungs: Pulmonary vessels are within normal limits. Pleural spaces: No significant change of small fluid in the right minor fissure and right basilar linear density. Heart/Mediastinum: Cardiomegaly is seen. Bones/joints: Unremarkable. XR/XR chest 1V portable [id number] IMPRESSION: No significant change.
[2025-05-25] MEDS: FUROsemide 10 mg/mL SDV 4mL 40 MG IVP ×2 (09:32→16:12)
[2025-05-25] MEDS: methylPREDNISolone sod succ 125 mg/2 mL INJ IVP (09:32)
--- NOTE | 2025-05-25 13:37 | P.PN_ITS ---
Subjective 2 Subjective: sob Medications: Reviewed: Yes Vitals/I&O/Wt Last Vital Signs Temp 97.6 F 05/25/25 11:57 Pulse 97 05/25/25 11:57 Resp 14 05/25/25 11:57 BP 107/81 05/25/25 11:57 Pulse Ox 97 05/25/25 11:57 O2 Del Method Room Air 05/25/25 11:57 05/24/25 05/25/25 05/25/25 22:59 06:59 14:59 Intake Total 420 / 1000 720 / 1720 480 / 480 Output Total 300 / 300 451 / 751 Balance 120 / 700 269 / 969 480 / 480 Weight last 48 hrs Weight 121.109 kg Weight 121.109 kg Weight 121.279 kg Physical Exam 2 Narrative: Patient is awake alert no acute distress on room air No JVD PERRLA S1-S2 regular rate and rhythm Lungs with decreased breath sounds bilaterally Abdomen soft, nontender Extremities has 3+ pedal edema Skin no rash. Urinary Catheter Management: Peralta: Cath Placed During This Visit: yes Reason for Continuing Indwelling Catheter: Acute Urinary Retention or Obstruction Urinary Catheter Date of Insertion: 05/20/25 Urinary Catheter Time of Insertion: 00:30 Data 05/26/25 04:57 05/26/25 04:57 Micro: Microbiology 05/19/25 20:49 Blood Culture - Final Blood NO GROWTH AFTER 5 DAYS 05/19/25 20:47 Blood Culture - Final Blood NO GROWTH AFTER 5 DAYS A&P Assessment and plan 1. DIXON (acute kidney injury): 1. Acute on chronic kidney disease stage III: Baseline creatinine in the 1.2- 1.8 range previously since 2022. Current DIXON with a creatinine of 2.9 likely multifactorial in the setting of IV contrast exposure, vancomycin nephrotoxicity and status post diuretics. Unlikely AIN - Vanco has been discontinued, status post diuretics on-on hold now - No acute indication for dialysis, has uremia likely due to GI bleed - Placed on IV albumin, continue midodrine keep MAP more than 65, will give as needed IV diuretics -Check urine electrolytes and urine eosinophils - Etiology of CKD unclear, UA show UA showed no protein with 2+ blood, no microscopic hematuria, will repeat urine analysis. PrioR spep - no monoclonal protein Will check serologies including C3-C4, LOPEZ, ANCA, SPEP and UPEP. - Set up nephrology outpatient appointment 2. Sepsis secondary to cellulitis, 3. C. difficile colitis 4. History of CHF status post IV diuretics due to volume overload/anasarca 5. Orthostatic hypotension, on midodrine PDMP PDMP Reviewed: Not Reviewed Attestations 2 Medical Necessity Statement*: per concepción Coding Level of Care Code Acute Code for Chg Fwd Diagnoses DIXON (acute kidney injury) N17.9
--- NOTE | 2025-05-25 14:54 | P.PN_ITS ---
Subjective 2 Subjective: Patient was seen this morning, does report wheezing, lower extremity edema although improving, no choking, no coughing, no chest pain, no diarrhea Vitals/I&O/Wt Last Vital Signs Temp 97.6 F 05/25/25 11:57 Pulse 97 05/25/25 11:57 Resp 14 05/25/25 11:57 BP 107/81 05/25/25 11:57 Pulse Ox 97 05/25/25 11:57 O2 Del Method Room Air 05/25/25 11:57 05/24/25 05/25/25 05/25/25 22:59 06:59 14:59 Intake Total 420 / 1000 720 / 1720 480 / 480 Output Total 300 / 300 451 / 751 500 / 500 Balance 120 / 700 269 / 969 -20 / -20 Weight last 48 hrs Weight 121.109 kg Weight 121.109 kg Weight 121.279 kg Physical Exam 2 Const: COMMON NORMALS: no acute distress and patient oriented x3 Resp: COMMON NORMALS: normal respiratory effort, No retractions and No use of accessory muscles AUSCULTATION: wheezes OTHER: crackles Cardio: COMMON NORMALS: regular rate, regular rhythm, S1 normal heart sound present and S2 normal heart sound present RATE: regular rate RHYTHM: r egular rhythm HEART SOUNDS: S1 normal heart sound present and S2 normal heart sound present GI: COMMON NORMALS: Normal to inspection, nondistended, normoactive bowel sounds present and non-tender Neuro: COMMON NORMALS: patient oriented x3 Psych: COMMON NORMALS: mental status grossly normal Skin: NARRATIVE SKIN EXAM: 2+ edema Urinary Catheter Management: Peralta: Cath Placed During This Visit: yes Reason for Continuing Indwelling Catheter: Acute Urinary Retention or Obstruction Urinary Catheter Date of Insertion: 05/20/25 Urinary Catheter Time of Insertion: 00:30 Data 05/25/25 03:00 05/25/25 03:00 Micro: Microbiology 05/19/25 19:11 Urine Culture - Final Urine,Clean Catch Enterobacter cloacae 05/19/25 20:49 Blood Culture - Final Blood NO GROWTH AFTER 5 DAYS 05/19/25 20:47 Blood Culture - Final Blood NO GROWTH AFTER 5 DAYS A&P Assessment and plan 1. Cellulitis of scrotum: 2. Orthostatic hypotension: 3. Intertrigo of genitocrural region: 4. Chronic anticoagulation: 5. Edema, peripheral: 6. Persistent atrial fibrillation: 7. Chronic diastolic congestive heart failure: 8. Benign essential HTN: 9. GI bleed: 10. Anemia, unspecified type: 11. Cellulitis: Plan: Cellulitis -CT scan no acute findings - Area involving scrotum FINDINGS: Right testicle: Right testis measures 3.9 x 3.4 x 2.8 cm. No mass. Normal Doppler signal. Left testicle: Left testis measures 3.8 x 2.8 x 3.0 cm. No mass. Normal Doppler signal. Epididymides: Epididymis bilaterally is unremarkable. Scrotum/soft tissues: Bilateral hydroceles, moderate on the left and small on the right. Edematous thickening of scrotal wall suggested bilaterally. Plan - Try scrotal elevation - Keep area clean and dry - De-escalate to Augmentin, doxycycline Systolic CHF exacerbation - With elevated BNP, evidence of fluid overload - IV Lasix 40 IV twice daily Upper airway wheezing, potentially aspiration - 1 dose IV steroids - Dysphagia diet, aspiration precautions DIXON on CKD -Potentially contrast-induced nephropathy -vancomycin trough elevated 29.2, possibly vancomycin toxicity - Vancomycin has been stopped - Renal ultrasound - monitor urine output monitor creatinine Uremia - GI bleed has resolved - Will monitor closely C. difficile colitis, diarrhea has resolved - p.o. vancomycin - Isolation precautions GI bleed - Seems like upper GI bleed on clinical examination - On Eliquis - Plan - Eliquis on hold - Will monitor if hemodynamic covered by his active black tarry stools will consider Eliquis reversal - Monitor hemoglobin - Will monitor blood pressure closely -Protonix, Carafate -General Surgery consulted, his hemoglobin has stabilized, no active bloody or black stools, EGD has been postponed to outpatient History of orthostatic hypotension History of aspiration pneumonia History of restrictive lung disease History of CKD stage IIIa History of diastolic CHF History of atrial fibrillation, anticoagulant therapy on hold, discussed morbidity and mortality with the patient, he voiced understanding, all questions answered, agreed to proceed Full code SCDs for DVT prophylaxis, Lovenox relatively contraindicated GI bleed, discussed morbidity mortality with patient, he voiced understanding, all questions answered answered PDMP PDMP Reviewed: Not Reviewed Attestations 2 Medical Necessity Statement*: Patient requires hospitalization for respiratory failure, wheezing Diagnoses Cellulitis of scrotum N49.2 Orthostatic hypotension I95.1 Intertrigo of genitocrural region L30.4 Chronic anticoagulation Z79.01 Edema, peripheral R60.0 Persistent atrial fibrillation I48.19 Chronic diastolic congestive heart failure I50.32 Benign essential HTN I10 GI bleed K92.2 Anemia, unspecified type D64.9 Anemia type: unspecified type Cellulitis L03.90
--- NOTE | 2025-05-25 15:13 | PC.SOCIAL ---
*IMM Update* Patient received a copy of Important Message from Medicare. Initialled, dated and placed in Chart.
[2025-05-25 19:33] LABS: Respiratory Syncytial Virus Ce NEGATIVE (Negative); SARS-CoV-2 PCR NEGATIVE (Negative)
[2025-05-26] VITALS (7 sets, daily range): BP systolic 100–119; BP diastolic 71–83; PULSE 81–115; RESP 16–18; TEMP 36.7–36.8; O2SAT 94–98
[2025-05-26 01:16] LABS: PROTEIN, TOTAL 5.0 g/dL (6.1-8.1)
[2025-05-26 02:39] LABS: Creatinine, Random Urine 43 mg/dL (20-320); Protein, Total, Random 21 mg/dL (5-25); Protein/Creatinine Ratio 0.488 (0.025-0.148); Protein/Creatinine Ratio 488 mg/g creat (25-148)
[2025-05-26 05:04] LABS: Hematocrit 31.1 % (37-53); Hemoglobin 9.10 g/dL (11.27-16.99); Mean Corpuscular HGB Conc 29.3 g/dL (30-55); Mean Corpuscular Hemoglobin 24.4 pg (27-33); Mean Corpuscular Volume 83.4 fl (82-101); Nucleated Red Blood Cells % 0 %; Platelet Count 136 10^3/cmm (157-399); Red Blood Count 3.73 10^6/uL (3.85-5.65); White Blood Count 9.71 10^3/uL (3.29-11.43)
[2025-05-26 05:27] LABS: Alanine Aminotransferase 26 U/L (0-41); Albumin Level 4.1 g/dL (3.5-5.2); Alkaline Phosphatase 213 U/L (40-130); Anion Gap 22.0 (5-19); Aspartate Amino Transferase 21 U/L (0-40); Calcium 9.0 mg/dL (8.5-10.5); Carbon Dioxide 20 mmol/L (22-29); Chloride 97 mmol/L (98-107); Globulin 2.0 g/dL (1.3-4.6); Glucose 136 mg/dL (65-115); Osmolality Calculated 311 mOsm/kg (285-295); Potassium 4.0 mmol/L (3.5-5.1); Sodium 135 mmol/L (136-145); Total Protein 6.1 g/dL (6.6-8.7)
[2025-05-26 05:33] LABS: Blood Urea Nitrogen 93 mg/dL (8-23)
[2025-05-26] MEDS: ferrous sulfate EC 325 mg Tablet PO ×2 (05:40→17:11)
[2025-05-26] MEDS: albumin 25 G/100 ML BAG 60 G IV (09:50)
[2025-05-26] MEDS: FUROsemide 10 mg/mL SDV 4mL 40 MG IVP ×2 (09:51→17:12)
--- NOTE | 2025-05-26 12:10 | P.PN_ITS ---
Subjective 2 Subjective: no new c/o Medications: Reviewed: Yes Vitals/I&O/Wt Last Vital Signs Temp 98.0 F 05/26/25 10:55 Pulse 92 05/26/25 10:55 Resp 18 05/26/25 10:55 BP 100/71 05/26/25 10:55 Pulse Ox 98 05/26/25 10:55 O2 Del Method Room Air 05/26/25 10:55 05/25/25 05/26/25 05/26/25 22:59 06:59 14:59 Intake Total 120 / 600 350 / 950 240 / 240 Output Total 800 / 1300 240 / 1540 Balance -680 / -700 110 / -590 240 / 240 Weight last 48 hrs Weight 121.109 kg Weight 121.109 kg Weight 121.109 kg Physical Exam 2 Narrative: Patient is awake alert no acute distress on room air No JVD PERRLA S1-S2 regular rate and rhythm Lungs with decreased breath sounds bilaterally Abdomen soft, nontender Extremities has 3+ pedal edema Skin no rash. Urinary Catheter Management: Peralta: Cath Placed During This Visit: yes Reason for Continuing Indwelling Catheter: Acute Urinary Retention or Obstruction Urinary Catheter Date of Insertion: 05/20/25 Urinary Catheter Time of Insertion: 00:30 Data 05/26/25 04:57 05/26/25 04:57 Micro: Microbiology 05/19/25 19:11 Urine Culture - Final Urine,Clean Catch Enterobacter cloacae A&P Assessment and plan 1. DIXON (acute kidney injury): 1. Acute on chronic kidney disease stage III: Baseline creatinine in the 1.2- 1.8 range previously since 2022. Current DIXON with a creatinine of 2.9 likely multifactorial in the setting of IV contrast exposure, vancomycin nephrotoxicity and status post diuretics. Unlikely AIN - Vanco has been discontinued, status post diuretics on-on hold now - No acute indication for dialysis, has uremia likely due to GI bleed, diuretics - Placed on IV albumin, continue midodrine keep MAP more than 65, will give as needed IV diuretics -Cr better , monitor - Etiology of CKD unclear, UA show UA showed no protein with 2+ blood, no microscopic hematuria, will repeat urine analysis. PrioR spep - no monoclonal protein - ordered serologies including C3-C4, LOPEZ, ANCA, SPEP and UPEP. - Set up nephrology outpatient appointment 2. Sepsis secondary to cellulitis, 3. C. difficile colitis 4. History of CHF status post IV diuretics due to volume overload/anasarca 5. Orthostatic hypotension, on midodrine PDMP PDMP Reviewed: Not Reviewed Attestations 2 Medical Necessity Statement*: per medicine Coding Level of Care Code Acute Code for Chg Fwd Diagnoses DIXON (acute kidney injury) N17.9
--- NOTE | 2025-05-26 13:33 | P.PN_ITS ---
Subjective 2 Subjective: Patient was seen this morning, noted to have 3, wheezing improving, no fevers, chills, cough, aspiration, no coughing with meals, wheezing has improved Vitals/I&O/Wt Last Vital Signs Temp 98.0 F 05/26/25 10:55 Pulse 92 05/26/25 10:55 Resp 18 05/26/25 10:55 BP 100/71 05/26/25 10:55 Pulse Ox 98 05/26/25 10:55 O2 Del Method Room Air 05/26/25 10:55 05/25/25 05/26/25 05/26/25 22:59 06:59 14:59 Intake Total 120 / 600 350 / 950 340 / 340 Output Total 800 / 1300 240 / 1540 Balance -680 / -700 110 / -590 340 / 340 Weight last 48 hrs Weight 121.109 kg Weight 121.109 kg Weight 121.109 kg Physical Exam 2 Const: COMMON NORMALS: no acute distress and patient oriented x3 Resp: COMMON NORMALS: normal respiratory effort, No retractions, No use of accessory muscles and clear to auscultation bilaterally AUSCULTATION: clear to auscultation bilaterally Cardio: COMMON NORMALS: regular rate, regular rhythm, S1 normal heart sound present and S2 normal heart sound present RATE: regular rate RHYTHM: r egular rhythm HEART SOUNDS: S1 normal heart sound present and S2 normal heart sound present GI: COMMON NORMALS: Normal to inspection, nondistended, normoactive bowel sounds present and non-tender Extremity: COMMON NORMALS: no calf tenderness Neuro: COMMON NORMALS: patient oriented x3 Psych: COMMON NORMALS: mental status grossly normal Urinary Catheter Management: Peralta: Cath Placed During This Visit: yes Reason for Continuing Indwelling Catheter: Acute Urinary Retention or Obstruction Urinary Catheter Date of Insertion: 05/20/25 Urinary Catheter Time of Insertion: 00:30 Data 05/26/25 04:57 05/26/25 04:57 Micro: Microbiology 05/19/25 19:11 Urine Culture - Final Urine,Clean Catch Enterobacter cloacae A&P Assessment and plan 1. Cellulitis of scrotum: 2. Orthostatic hypotension: 3. Intertrigo of genitocrural region: 4. Chronic anticoagulation: 5. Edema, peripheral: 6. Persistent atrial fibrillation: 7. Chronic diastolic congestive heart failure: 8. Benign essential HTN: 9. GI bleed: 10. Anemia, unspecified type: 11. Cellulitis: Plan: Cellulitis -CT scan no acute findings - Area involving scrotum FINDINGS: Right testicle: Right testis measures 3.9 x 3.4 x 2.8 cm. No mass. Normal Doppler signal. Left testicle: Left testis measures 3.8 x 2.8 x 3.0 cm. No mass. Normal Doppler signal. Epididymides: Epididymis bilaterally is unremarkable. Scrotum/soft tissues: Bilateral hydroceles, moderate on the left and small on the right. Edematous thickening of scrotal wall suggested bilaterally. Plan - Try scrotal elevation - Keep area clean and dry - De-escalate to Augmentin, doxycycline Systolic CHF exacerbation - With elevated BNP, evidence of fluid overload - IV Lasix 40 IV twice daily Upper airway wheezing, potentially aspiration - 1 dose IV steroids - Dysphagia diet, aspiration precautions DIXON on CKD -Potentially contrast-induced nephropathy -vancomycin trough elevated 29.2, possibly vancomycin toxicity - Vancomycin has been stopped - Renal ultrasound - monitor urine output monitor creatinine Uremia - GI bleed has resolved - Will monitor closely C. difficile colitis, diarrhea has resolved - p.o. vancomycin - Isolation precautions GI bleed - Seems like upper GI bleed on clinical examination - On Eliquis - Plan - Eliquis on hold - Will monitor if hemodynamic covered by his active black tarry stools will consider Eliquis reversal - Monitor hemoglobin - Will monitor blood pressure closely -Protonix, Carafate -General Surgery consulted, his hemoglobin has stabilized, no active bloody or black stools, EGD has been postponed to outpatient History of orthostatic hypotension History of aspiration pneumonia History of restrictive lung disease History of CKD stage IIIa History of diastolic CHF History of atrial fibrillation, anticoagulant therapy on hold, discussed morbidity and mortality with the patient, he voiced understanding, all questions answered, agreed to proceed Full code SCDs for DVT prophylaxis, Lovenox relatively contraindicated GI bleed, discussed morbidity mortality with patient, he voiced understanding, all questions answered answered PDMP PDMP Reviewed: Not Reviewed Attestations 2 Medical Necessity Statement*: Patient requires hospitalization for fluid overload, CHF requiring IV diuresis, lower extremity edema, C. difficile colitis Diagnoses Cellulitis of scrotum N49.2 Orthostatic hypotension I95.1 Intertrigo of genitocrural region L30.4 Chronic anticoagulation Z79.01 Edema, peripheral R60.0 Persistent atrial fibrillation I48.19 Chronic diastolic congestive heart failure I50.32 Benign essential HTN I10 GI bleed K92.2 Anemia, unspecified type D64.9 Anemia type: unspecified type Cellulitis L03.90
--- NOTE | 2025-05-26 13:50 | PC.SLP ---
Phone conversation with doctor on upgrading diet to level 7-- easy to chew and thin liquids.
[2025-05-27] VITALS (8 sets, daily range): BP systolic 99–128; BP diastolic 59–80; PULSE 63–102; RESP 16–19; TEMP 36.4–36.9; O2SAT 94–98
[2025-05-27 04:06] LABS: Hematocrit 29.4 % (37-53); Hemoglobin 8.70 g/dL (11.27-16.99); Mean Corpuscular HGB Conc 29.6 g/dL (30-55); Mean Corpuscular Hemoglobin 24.6 pg (27-33); Mean Corpuscular Volume 83.1 fl (82-101); Nucleated Red Blood Cells % 0 %; Platelet Count 145 10^3/cmm (157-399); Red Blood Count 3.54 10^6/uL (3.85-5.65); White Blood Count 11.69 10^3/uL (3.29-11.43)
[2025-05-27 04:35] LABS: Alanine Aminotransferase 23 U/L (0-41); Albumin Level 4.3 g/dL (3.5-5.2); Alkaline Phosphatase 190 U/L (40-130); Anion Gap 20.4 (5-19); Aspartate Amino Transferase 20 U/L (0-40); Calcium 9.4 mg/dL (8.5-10.5); Carbon Dioxide 23 mmol/L (22-29); Chloride 101 mmol/L (98-107); Globulin 1.8 g/dL (1.3-4.6); Glucose 138 mg/dL (65-115); Osmolality Calculated 323 mOsm/kg (285-295); Potassium 4.4 mmol/L (3.5-5.1); Sodium 140 mmol/L (136-145); Total Protein 6.1 g/dL (6.6-8.7)
--- NOTE | 2025-05-27 04:45 | PC.NURSE ---
left arm mod weeping - removed coban near PIV- saturated apx 40 ml from Left arm. took am meds, pt no resp distress, took meds well. wrapped both legs last night over apx 8 hours and legs less edematous- pt rehan well. education given re: lien wrap and purpose.
[2025-05-27 04:56] LABS: Blood Urea Nitrogen 98 mg/dL (8-23)
[2025-05-27] MEDS: ferrous sulfate EC 325 mg Tablet PO ×2 (05:30→17:44)
--- NOTE | 2025-05-27 09:55 | P.PN_ITS ---
Subjective 2 Subjective: denies any complaints Medications: Reviewed: Yes Vitals/I&O/Wt Last Vital Signs Temp 98 F 05/27/25 08:00 Pulse 82 05/27/25 08:00 Resp 18 05/27/25 08:00 BP 120/76 05/27/25 08:00 Pulse Ox 95 05/27/25 08:00 O2 Del Method Room Air 05/27/25 05:42 05/26/25 05/27/25 05/27/25 22:59 06:59 14:59 Intake Total 400 / 980 120 / 1100 360 / 360 Output Total 1300 / 1800 Balance 400 / 480 -1180 / -700 360 / 360 Weight last 48 hrs Weight 121.472 kg Weight 121.109 kg Weight 121.109 kg Physical Exam 2 Narrative: Patient is awake alert no acute distress on room air No JVD PERRLA S1-S2 regular rate and rhythm Lungs with decreased breath sounds bilaterally Abdomen soft, nontender Extremities has 3+ pedal edema Skin no rash. Urinary Catheter Management: Peralta: Cath Placed During This Visit: yes Reason for Continuing Indwelling Catheter: Acute Urinary Retention or Obstruction Urinary Catheter Date of Insertion: 05/20/25 Urinary Catheter Time of Insertion: 00:30 Data 05/27/25 03:57 05/27/25 03:57 Micro: Microbiology 05/19/25 06:15 E. coli Shiga-like Toxin (PCR) - Final Stool Salmonella/Shigella Culture - Final Campylobacter (PCR) - Final Ova and Parasite Concentrate Exam - Final A&P Assessment and plan 1. DIXON (acute kidney injury): 1. Acute on chronic kidney disease stage III: Baseline creatinine in the 1.2- 1.8 range previously since 2022. Current DIXON with a creatinine of 2.9 likely multifactorial in the setting of IV contrast exposure, vancomycin nephrotoxicity and status post diuretics. Unlikely AIN - Vanco has been discontinued, status post diuretics on-on hold now - No acute indication for dialysis, has uremia likely due to steroids - , continue midodrine will give as needed IV diuretics -Cr better , monitor - Etiology of CKD unclear, UA show UA showed no protein with 2+ blood, no microscopic hematuria, will repeat urine analysis. PrioR spep - no monoclonal protein - ordered serologies including C3-C4, LOPEZ, ANCA, SPEP and UPEP. - Set up nephrology outpatient appointment 2. Sepsis secondary to cellulitis, 3. C. difficile colitis 4. History of CHF status post IV diuretics due to volume overload/anasarca 5. Orthostatic hypotension, on midodrine PDMP PDMP Reviewed: Not Reviewed Attestations 2 Medical Necessity Statement*: per medicine Coding Level of Care Code Acute Code for Chg Fwd Diagnoses DIXON (acute kidney injury) N17.9
[2025-05-27] MEDS: FUROsemide 10 mg/mL SDV 4mL 40 MG IVP (10:00)
[2025-05-27] MEDS: albumin 25 G/100 ML BAG 60 G IV (10:00)
--- NOTE | 2025-05-27 11:36 | P.PN_ITS ---
Subjective 2 Subjective: Patient was seen this morning, currently alert oriented x 3, following all commands, denies any fevers, no chills, no cough, discussed his creatinine improved to 2.3, discussed uremia, he is edema is improving, does report some shortness of breath but he feels significant better is on room air, no choking, no coughing, no reported aspiration, discussed monitoring him closely today switching him to p.o. diuresis tomorrow and hopefully he can discharge to rehab facility tomorrow, Vitals/I&O/Wt Last Vital Signs Temp 98 F 05/27/25 08:00 Pulse 82 05/27/25 08:00 Resp 18 05/27/25 08:00 BP 120/76 05/27/25 08:00 Pulse Ox 95 05/27/25 08:00 O2 Del Method Room Air 05/27/25 05:42 05/26/25 05/27/25 05/27/25 22:59 06:59 14:59 Intake Total 400 / 980 120 / 1100 360 / 360 Output Total 1300 / 1800 Balance 400 / 480 -1180 / -700 360 / 360 Weight last 48 hrs Weight 121.472 kg Weight 121.109 kg Weight 121.109 kg Physical Exam 2 Const: COMMON NORMALS: no acute distress and patient oriented x3 Resp: COMMON NORMALS: normal respiratory effort, No retractions, No use of accessory muscles and clear to auscultation bilaterally AUSCULTATION: clear to auscultation bilaterally Cardio: COMMON NORMALS: regular rate, regular rhythm, S1 normal heart sound present and S2 normal heart sound present RATE: regular rate RHYTHM: r egular rhythm HEART SOUNDS: S1 normal heart sound present and S2 normal heart sound present GI: COMMON NORMALS: Normal to inspection, nondistended, normoactive bowel sounds present and non-tender Extremity: NARRATIVE EXTREMITY EXAM: 1+ edema Neuro: COMMON NORMALS: patient oriented x3 Psych: COMMON NORMALS: mental status grossly normal Urinary Catheter Management: Peralta: Cath Placed During This Visit: yes Reason for Continuing Indwelling Catheter: Acute Urinary Retention or Obstruction Urinary Catheter Date of Insertion: 05/20/25 Urinary Catheter Time of Insertion: 00:30 Data 05/27/25 03:57 05/27/25 03:57 Micro: Microbiology 05/19/25 06:15 E. coli Shiga-like Toxin (PCR) - Final Stool Salmonella/Shigella Culture - Final Campylobacter (PCR) - Final Ova and Parasite Concentrate Exam - Final A&P Assessment and plan 1. Cellulitis of scrotum: 2. Orthostatic hypotension: 3. Intertrigo of genitocrural region: 4. Chronic anticoagulation: 5. Edema, peripheral: 6. Persistent atrial fibrillation: 7. Chronic diastolic congestive heart failure: 8. Benign essential HTN: 9. GI bleed: 10. Anemia, unspecified type: 11. Cellulitis: Plan: Scrotal cellulitis -CT scan no acute findings - Area involving scrotum FINDINGS: Right testicle: Right testis measures 3.9 x 3.4 x 2.8 cm. No mass. Normal Doppler signal. Left testicle: Left testis measures 3.8 x 2.8 x 3.0 cm. No mass. Normal Doppler signal. Epididymides: Epididymis bilaterally is unremarkable. Scrotum/soft tissues: Bilateral hydroceles, moderate on the left and small on the right. Edematous thickening of scrotal wall suggested bilaterally. Plan - Try scrotal elevation - Keep area clean and dry - De-escalate to Augmentin, doxycycline - Does have some contact scrotal bleeding, skin remains raw, excoriated on examination, discussed risk of benefits of holding anticoagulant therapy, he voiced understanding, all question answered, agreed to proceed - Continue barrier skin cream Systolic CHF exacerbation - With elevated BNP, evidence of fluid overload - Dose IV Lasix with metolazone with albumin this morning - P.o. Lasix Upper airway wheezing, potentially aspiration - 1 dose IV steroids - Dysphagia diet, aspiration precautions - Seen by speech therapy, no significant aspiration, switch to dysphagia level 7 diet DIXON on CKD creatinine to 2.3 -Potentially contrast-induced nephropathy -vancomycin trough elevated 29.2, possibly vancomycin toxicity - Vancomycin has been stopped - Renal ultrasound - monitor urine output monitor creatinine Uremia persist, monitor - GI bleed has resolved - Will monitor closely C. difficile colitis, diarrhea has resolved - p.o. vancomycin - Isolation precautions GI bleed - Seems like upper GI bleed on clinical examination - On Eliquis - Plan - Eliquis on hold - Will monitor if hemodynamic covered by his active black tarry stools will consider Eliquis reversal - Monitor hemoglobin - Will monitor blood pressure closely -Protonix, Carafate -General Surgery consulted, his hemoglobin has stabilized, no active bloody or black stools, EGD has been postponed to outpatient - Discussed with patient the risk benefits of holding anticoagulant therapy, he voiced understanding, all questions answered, agreed to hold, likely will need to be held on discharge History of orthostatic hypotension History of aspiration pneumonia History of restrictive lung disease History of CKD stage IIIa History of diastolic CHF History of atrial fibrillation, anticoagulant therapy on hold, discussed morbidity and mortality with the patient, he voiced understanding, all questions answered, agreed to proceed Full code SCDs for DVT prophylaxis, Lovenox relatively contraindicated GI bleed, discussed morbidity mortality with patient, he voiced understanding, all questions answered answered PDMP PDMP Reviewed: Not Reviewed Attestations 2 Medical Necessity Statement*: Patient requires hospitalization for respiratory failure, CHF, uremia, anemia Diagnoses Cellulitis of scrotum N49.2 Orthostatic hypotension I95.1 Intertrigo of genitocrural region L30.4 Chronic anticoagulation Z79.01 Edema, peripheral R60.0 Persistent atrial fibrillation I48.19 Chronic diastolic congestive heart failure I50.32 Benign essential HTN I10 GI bleed K92.2 Anemia, unspecified type D64.9 Anemia type: unspecified type Cellulitis L03.90
[2025-05-27 21:05] LABS: ANCA Screen NEGATIVE (NEGATIVE)
[2025-05-28] VITALS (7 sets, daily range): BP systolic 100–128; BP diastolic 66–82; PULSE 82–110; RESP 16–18; TEMP 36.3–36.9; O2SAT 94–98
[2025-05-28] MEDS: ferrous sulfate EC 325 mg Tablet PO ×2 (05:06→15:56)
--- NOTE | 2025-05-28 08:12 | P.PN_ITS ---
Subjective 2 Subjective: no new c/o Medications: Reviewed: Yes Vitals/I&O/Wt Last Vital Signs Temp 97.8 F 05/28/25 08:08 Pulse 82 05/28/25 08:08 Resp 18 05/28/25 08:08 BP 100/66 05/28/25 08:08 Pulse Ox 96 05/28/25 08:08 O2 Del Method Room Air 05/28/25 04:00 05/27/25 05/28/25 05/28/25 22:59 06:59 14:59 Intake Total 200 / 900 120 / 1020 Output Total 200 / 200 250 / 450 750 / 750 Balance 0 / 700 -130 / 570 -750 / -750 Weight last 48 hrs Weight 123.831 kg Weight 121.472 kg Weight 121.109 kg Physical Exam 2 Narrative: Patient is awake alert no acute distress on room air No JVD PERRLA S1-S2 regular rate and rhythm Lungs with decreased breath sounds bilaterally Abdomen soft, nontender Extremities has 3+ pedal edema Skin no rash. Urinary Catheter Management: Peralta: Cath Placed During This Visit: yes Reason for Continuing Indwelling Catheter: Other Urinary Catheter Date of Insertion: 05/20/25 Urinary Catheter Time of Insertion: 00:30 Data 05/27/25 03:57 05/27/25 03:57 A&P Assessment and plan 1. DIXON (acute kidney injury): 1. Acute on chronic kidney disease stage III: Baseline creatinine in the 1.2- 1.8 range previously since 2022. Current DIXON with a creatinine of 2.9 likely multifactorial in the setting of IV contrast exposure, vancomycin nephrotoxicity and status post diuretics. Unlikely AIN - Vanco has been discontinued, status post diuretics on-on hold now - No acute indication for dialysis, has uremia likely due to steroids - , continue midodrine will give as needed IV diuretics -Cr better , monitor , BMP pending today - Etiology of CKD unclear, UA show UA showed no protein with 2+ blood, no microscopic hematuria, will repeat urine analysis. PrioR spep - no monoclonal protein - ordered serologies including C3-C4( SLIGHTLY LOW ) , LOPEZ, ANCA( NEG ) , SPEP and UPEP - Set up nephrology outpatient appointment @ [facility] 2. Sepsis secondary to cellulitis, 3. C. difficile colitis 4. History of CHF status post IV diuretics due to volume overload/anasarca 5. Orthostatic hypotension, on midodrine PDMP PDMP Reviewed: Not Reviewed Attestations 2 Medical Necessity Statement*: per medicine Coding Level of Care Code Acute Code for Chg Fwd Diagnoses DIXON (acute kidney injury) N17.9
[2025-05-28 08:41] LABS: Glucose Urine UA Negative (Normal); Nitrate Urine Negative (Negative); Specific Gravity, Urine 1.013 (1.005-1.030)
[2025-05-28 08:47] LABS: Add Urine Microscopic? YES; Universal Test for UA Present (0)
[2025-05-28 09:11] LABS: UA Manual Slide Review YES; UA Slide Review UA Slide Review Perf
[2025-05-28 09:14] LABS: Anion Gap 20.4 (5-19); Calcium 9.9 mg/dL (8.5-10.5); Carbon Dioxide 23 mmol/L (22-29); Chloride 100 mmol/L (98-107); Glucose 147 mg/dL (65-115); Osmolality Calculated 321 mOsm/kg (285-295); Potassium 4.4 mmol/L (3.5-5.1); Sodium 139 mmol/L (136-145)
[2025-05-28 09:18] LABS: Blood Urea Nitrogen 98 mg/dL (8-23)
[2025-05-28 09:25] LABS: ALPHA 1 GLOBULIN 0.4 g/dL (0.2-0.3); ALPHA 2 GLOBULIN 0.6 g/dL (0.5-0.9); BETA 1 GLOBULIN 0.4 g/dL (0.4-0.6); BETA 2 GLOBULIN 0.2 g/dL (0.2-0.5)
--- NOTE | 2025-05-28 15:25 | P.DS_ITS ---
Discharge Providers Date of Admission: 05/19/25 22:23 Date of Discharge: May 28, 2025 Attending Provider at Admission: Ollie Hartley MD Attending Provider at Discharge: Jalen Mcclain MD Primary Care Provider: Ashwin Roberson MD Diagnoses at Discharge Discharge Diagnosis 1. DIXON (acute kidney injury): Reason for Visit Reason for Visit: swollen penis and testicles Hospital Course Hospital Course H&P: 75 year old male with history significant for atrial fibrillation(on Eliquis), CKD, and HFpEF(most recent EF 56% 04/30/2025) who presents with complaints of scrotal bleeding. He noticed bleeding today and feels he started to have scrotal and penile swelling over the past 1-2 days. He has never had such issues in the past. He denies any genital traumas or recent sexual activity. He feels the issues started with a rash on onset. He does feel like he has been having some burning with urination as of late. Denies fevers, chest pain, shortness of breath, nasuea, vomiting, diarrhea, or abdominal pain. He does endorse chronic lower extremity edema and taking furosemide daily to help treat this. hospital course: Patient was treated antibiotics. Also diuresis. Scrotal elevation. Heart failure was also managed with diuretics. Transition to oral medications. Mohan nt also had some concern for aspiration which was also treated with steroids and antibiotics. Seen by speech therapy. Nephrology was also consulted for the DIXON. Thought maybe was contrast-induced nephropathy. Further complications included C. difficile as well as a GI bleed on Eliquis. Chronic conditions were also addressed. Appreciate recommendations from providers specialist. Physical Exam Const: COMMON NORMALS: no acute distress and patient oriented x3 Resp: COMMON NORMALS: normal respiratory effort, No retractions, No use of accessory muscles and clear to auscultation bilaterally AUSCULTATION: clear to auscultation bilaterally Cardio: COMMON NORMALS: regular rate, regular rhythm, S1 normal heart sound present and S2 normal heart sound present RATE: regular rate RHYTHM: regular rhythm HEART SOUNDS: S1 normal heart sound present and S2 normal heart sound present GI: COMMON NORMALS: Normal to inspection, nondistended, normoactive bowel sounds present and non-tender Extremity: NARRATIVE EXTREMITY EXAM: 1+ edema Neuro: COMMON NORMALS: patient oriented x3 Psych: COMMON NORMALS: mental status grossly normal Urinary Catheter Management: Peralta: Cath Placed During This Visit: yes Reason for Continuing Indwelling Catheter: Other Urinary Catheter Date of Insertion: 05/20/25 Urinary Catheter Time of Insertion: 00:30 Discharge Data Studies Completed and Pending Completed Studies During Hospitalization Category Date Time Status CT chest abdomen pelvis [CT chest abdpel w/*[id number] Cat Scan 05/19/25 20:37 Completed ] Stat CXRP [XR chest 1V portable [id number]] Routine Exams 05/25/25 06:44 Completed CXRP [XR chest 1V portable [id number]] Stat Exams 05/19/25 18:44 Completed XR KUB portable [id number] Stat Exams 05/22/25 15:51 Completed OVA and Parasites, Conc and PE Routine Lab 05/19/25 06:15 Completed Salmonella / Shigella / Campy Routine Lab 05/19/25 06:15 [place] [id number] Routine Ultrasound 05/24/25 11:29 Completed US renal BI* [id number] Routine Ultrasound 05/23/25 13:04 Completed US scrotum [id number] Stat Ultrasound 05/19/25 18:44 Completed Pending at discharge Category Date Time Status Urine Culture Routine Lab 05/28/25 07:52 Received Urine Protein Electrop Random Routine Lab 05/23/25 21:23 Results Radiology Impressions Scrotum Ultrasound 05/19/25 18:44 IMPRESSION: Edematous thickening of scrotum that can be correlated clinically for infectious/inflammatory change. Bilateral hydroceles. No acute testicular findings. Chest/Abdomen/Pelvis CT 05/19/25 20:37 IMPRESSION: Interstitial thickening and bronchial wall thickening on the right suspected to relate to edema/congestion. Minimal ground-glass opacities are also suggested on the right and are favored to relate to edema. Pulmonary opacities seen previously have largely cleared. Interval decrease in bilateral pleural fluid. Suspected pulmonary hypertension. IMPRESSION: Anasarca more notable than on previous study. Minimal ascites with interval increase. Liver attenuation pattern suggesting passive congestion. COMMENTS: Consistent with the [employer]'s Incidental Findings Committee white paper (J Am Yonas Radiol 2018): Any incidental renal lesion less than 1 cm or classified as too small to characterize, or any incidental cystic renal lesion characterized as simple-appearing, is likely benign. No follow-up imaging is recommended for these lesions per consensus recommendations based on imaging criteria. KUB X-Ray 05/22/25 15:51 IMPRESSION: 1. No bowel dilatation to suggest obstruction. 2. Increased parenchymal density in the medial right lung base which could represent unchanged atelectasis or developing pneumonia. Renal Ultrasound 05/23/25 13:04 IMPRESSION: No acute findings. Venous Duplex 05/24/25 11:29 IMPRESSION: 1. No evidence of deep vein thrombosis. 2. Mild diffuse soft tissue edema is noted in both extremities. Chest X-Ray 05/25/25 06:44 IMPRESSION: No significant change. Laboratory Results WBC 11.69 10^3/uL (3.29-11.43) H 05/27/25 03:57 RBC 3.54 10^6/uL (3.85-5.65) L 05/27/25 03:57 Hgb 8.70 g/dL (11.27-16.99) L 05/27/25 03:57 Hct 29.4 % (37-53) L 05/27/25 03:57 MCV 83.1 fl (82-101) 05/27/25 03:57 MCH 24.6 pg (27-33) L 05/27/25 03:57 MCHC 29.6 g/dL (30-55) L 05/27/25 03:57 RDW 26.1 % (12.1-15.1) H 05/27/25 03:57 Plt Count 145 10^3/cmm (157-399) L 05/27/25 03:57 MPV 10.1 fL (7.4-10.4) 05/27/25 03:57 Neut % (Auto) 94.7 % 05/27/25 03:57 Lymph % (Auto) 1.2 % 05/27/25 03:57 [place] % (Auto) 3.3 % 05/27/25 03:57 Eos % (Auto) 0.0 % 05/27/25 03:57 Baso % (Auto) 0.1 % 05/27/25 03:57 Neut # (Auto) 11.07 10^3/uL (1.8-7.7) H 05/27/25 03:57 Lymph # (Auto) 0.1 10^3/uL (0.8-4.8) L 05/27/25 03:57 [place] # (Auto) 0.4 10^3/uL (0.2-0.9) 05/27/25 03:57 Eos # (Auto) 0.0 10^3/uL (0.0-0.8) 05/27/25 03:57 Baso # (Auto) 0.0 10^3/uL (0.0-0.1) 05/27/25 03:57 Nucleated RBC % (auto) 0 % 05/27/25 03:57 Nucleated RBCs # 0.0 /100WBC 05/27/25 03:57 PT 20.80 SECONDS (12.1-14.9) H 05/21/25 13:00 INR 1.67 (0.8-1.2) H 05/21/25 13:00 APTT 29.5 SECONDS (23.9-36.7) 05/21/25 13:00 Sodium 139 mmol/L (136-145) 05/28/25 08:37 Potassium 4.4 mmol/L (3.5-5.1) 05/28/25 08:37 Chloride 100 mmol/L (98-107) 05/28/25 08:37 Carbon Dioxide 23 mmol/L (22-29) 05/28/25 08:37 Anion Gap 20.4 (5-19) H 05/28/25 08:37 BUN 98 mg/dL (8-23) H* 05/28/25 08:37 Creatinine 1.9 mg/dL (0.7-1.2) H 05/28/25 08:37 GFR Calculation Not Reportable 05/28/25 08:37 Glucose 147 mg/dL (65-115) H 05/28/25 08:37 POC Glucose 131 mg/dL (70-110) H 05/28/25 11:41 Calculated Osmolality 321 mOsm/kg (285-295) H 05/28/25 08:37 Lactic Acid 4.4 mmol/L (0.5-2.2) H* 05/19/25 19:40 Lactic Acid (Sepsis) 3.5 mmol/L (0.5-2.2) H 05/19/25 22:36 Lactate 2.8 mmol/L (0.5-2.2) H 05/21/25 14:18 Calcium 9.9 mg/dL (8.5-10.5) 05/28/25 08:37 Phosphorus 5.4 mg/dL (2.5-4.5) H 05/21/25 08:28 Magnesium 2.6 mg/dL (1.7-2.3) H 05/21/25 08:28 Iron 28 ug/dL (59-158) L 05/21/25 08:28 TIBC 324 mcg/dl 05/21/25 08:28 % Saturation 8.6 % (20-50) L 05/21/25 08:28 Unsat Iron Binding 296 ug/dL (112-347) 05/21/25 08:28 Ferritin 62 ng/mL (30-400) 05/21/25 08:28 Total Bilirubin 1.0 mg/dL (0.15-1.2) 05/27/25 03:57 AST 20 U/L (0-40) 05/27/25 03:57 ALT 23 U/L (0-41) 05/27/25 03:57 Alkaline Phosphatase 190 U/L (40-130) H 05/27/25 03:57 Troponin T Baseline 50 ng/L (0-15) H 05/21/25 08:28 Troponin T 120 Minute 47.09 ng/L (0-15) H 05/21/25 10:44 Delta Troponin T -2.91 ABS# (0-10) L 05/21/25 10:44 Troponin T Hi Sens 6Hr 43.92 ng/L (0-15) H 05/21/25 14:18 Troponin T Hi Sens 6Hr Delta -6.08 ng/L (0-12) L 05/21/25 14:18 C-Reactive Protein 31.0 mg/L (0.0-4.9) H 05/24/25 04:30 C-React Prot High Sens 1.330 mg/dL (0.0-0.3) H 05/19/25 19:40 NT-Pro-B Natriuret Pep 3079 pg/mL (0-450) H 05/23/25 05:05 Total Protein 6.1 g/dL (6.6-8.7) L 05/27/25 03:57 Albumin 4.3 g/dL (3.5-5.2) 05/27/25 03:57 Globulin 1.8 g/dL (1.3-4.6) 05/27/25 03:57 Tqioz-1-Alhtofeae 0.4 g/dL (0.2-0.3) H 05/23/25 20:00 Cgyew-6-Uflcfiiuw 0.6 g/dL (0.5-0.9) 05/23/25 20:00 Yrcg-4-Mzyjkkum 0.4 g/dL (0.4-0.6) 05/23/25 20:00 Snyt-9-Gmneaiwc 0.2 g/dL (0.2-0.5) 05/23/25 20:00 Gamma Globulins 0.5 g/dL (0.8-1.7) L 05/23/25 20:00 Abnorm Protein Band 1 Not Reportable 05/23/25 20:00 Procalcitonin 0.40 ng/mL (0-0.5) 05/22/25 05:30 Urine Color Yellow (Yellow) 05/28/25 07:52 Urine Appearance Cloudy (CLEAR) A 05/28/25 07:52 Urine pH 5.0 (5-7) 05/28/25 07:52 Ur Specific Bowie 1.013 (1.005-1.030) 05/28/25 07:52 Urine Protein Negative (Negative) 05/28/25 07:52 Urine Glucose (UA) Negative (Normal) 05/28/25 07:52 Urine Ketones Negative (Negative) 05/28/25 07:52 Urine Blood 2+ (Negative) A 05/28/25 07:52 Urine Nitrate Negative (Negative) 05/28/25 07:52 Urine Bilirubin Negative (Negative) 05/28/25 07:52 Urine Urobilinogen 0.2 mg/dL (Negative) 05/28/25 07:52 Ur Leukocyte Esterase 1+ (Negative) A 05/28/25 07:52 Urine RBC 5-10 /hpf (0-2) H 05/28/25 07:52 Urine WBC 5-10 /hpf (0-5) H 05/28/25 07:52 Ur Eosinophil Smear 0 (0-0) 05/23/25 21:23 Ur Squamous Epith Cells 0-4 /hpf (0-5) H 05/28/25 07:52 Amorphous Sediment Not Reportable 05/28/25 07:52 Urine Bacteria 1+ /hpf (NONE) H 05/28/25 07:52 Hyaline Casts 6.17 /lpf 05/19/25 19:11 Urine Yeast 3+ /hpf H 05/28/25 07:52 Urine Eosinophils No eosinophils seen 05/23/25 21:23 Ur Random Creatinine 43 mg/dL (20-320) 05/23/25 21:23 U Random Total Protein 21 mg/dL (5-25) 05/23/25 21:23 Ur Random Sodium 58 mmol/L 05/23/25 21:23 Ur Random Chloride 74 mmol/L 05/23/25 21:23 Protein/Creatinin Ratio 488 mg/g creat (25-148) H 05/23/25 21:23 Protein/Creat Ratio 24h 0.488 (0.025-0.148) H 05/23/25 21:23 U Abnormal Prot Band 2 Not Reportable 05/23/25 20:00 U Abnormal Prot Band 3 Not Reportable 05/23/25 20:00 Vancomycin Trough 23.0 ug/mL (10-15) H 05/23/25 20:00 Pro Electrophoresis Int See note 05/23/25 20:00 LOPEZ Screen Negative (NEGATIVE) 05/23/25 20:00 ANCA Screen Negative (NEGATIVE) 05/23/25 20:00 ANCA Titer Not Reportable 05/23/25 20:00 Complement C3 88 mg/dL (90-180) L 05/23/25 20:00 Complement C4 9 mg/dL (10-40) L 05/23/25 20:00 C. difficile (PCR) Positive (Negative) H 05/19/25 06:15 C.difficile Tox Confrm Positive (Negative) H 05/19/25 06:15 Influenza A (PCR) Negative (Negative) 05/25/25 18:48 Influenza Type B (PCR) Negative (Negative) 05/25/25 18:48 RSV (PCR) Negative (Negative) 05/25/25 18:48 SARS-CoV-2 (PCR) Negative (Negative) 05/25/25 18:48 Blood Type O Positive 05/21/25 13:00 Rho(D) Type Rh positive 05/21/25 13:00 Antibody Screen Negative 05/21/25 13:00 Vitals Last Vital Signs Temp 97.3 F L 05/28/25 11:27 Pulse 97 05/28/25 11:27 Resp 18 05/28/25 11:27 BP 105/69 05/28/25 11:27 Pulse Ox 96 05/28/25 11:27 O2 Del Method Room Air 05/28/25 10:00 Discharge Plan Discharge Patient Disposition: Xfer SNF Condition: Stable Prescriptions: New furosemide 40 mg Tablet 40 mg PO QAM Qty: 1 0RF doxycycline monohydrate 100 mg Tablet 100 mg PO BID Qty: 10 0RF amoxicillin-pot clavulanate 875-125 mg Tablet 1 tab PO BID Qty: 10 0RF prednisone 10 mg tablet See Rx Instructions .ROUTE .COMPLEX Qty: 30 0RF Rx Instructions: take 20mg po qday x 7 days, then 15mg po qday x 7 days , then 10mg po qday Continued ascorbate calcium (vitamin C) 500 mg tablet 500 mg PO DAILY levothyroxine [Levoxyl] 25 mcg tablet 25 mcg PO DAILY Qty: 30 11RF Rx Instructions: take 30 mins prior to food or meds ferrous sulfate [Iron (ferrous sulfate)] 325 mg (65 mg iron) tablet 325 mg PO BID Qty: 60 6RF escitalopram oxalate 20 mg tablet 20 mg PO DAILY Qty: 30 11RF Eliquis 5 mg tablet See Rx Instructions .ROUTE .COMPLEX Qty: 60 11RF Dose Instruction: TAKE 1 TABLET BY MOUTH TWICE DAILY Rx Instructions: TAKE 1 TABLET BY MOUTH TWICE DAILY tamsulosin 0.4 mg capsule See Rx Instructions .ROUTE .COMPLEX Qty: 30 11RF Dose Instruction: TAKE 1 CAPSULE BY MOUTH ONCE DAILY FOR PROSTATE Rx Instructions: TAKE 1 CAPSULE BY MOUTH ONCE DAILY FOR PROSTATE fluticasone propionate 50 mcg/actuation spray,suspension 2 spray intranasal DAILY PRN (Reason: Allergy Symptoms) Qty: 16 11RF Rx Instructions: administer into each nostril levocetirizine 5 mg tablet 5 mg PO DAILY PRN (Reason: allergy symptoms) Qty: 30 11RF aripiprazole [Abilify] 5 mg tablet 5 mg PO DAILY Qty: 30 11RF midodrine 5 mg Tablet 10 mg PO TID 30 Days Qty: 180 0RF pyridostigmine bromide 60 mg Tablet 60 mg PO TID 30 Days Qty: 90 0RF metoprolol tartrate 25 mg Tablet 12.5 mg PO BID@0900,2100 30 Days Qty: 30 0RF dapagliflozin propanediol 10 mg Tablet 10 mg PO DAILY Qty: 30 0RF magnesium hydroxide [Milk of Magnesia] 400 mg/5 mL Suspension 30 ml PO DAILY PRN (Reason: Constipation) bisacodyl 10 mg Suppository 10 mg ID DAILY PRN (Reason: Constipation) Fleet Enema 19-7 gram/118 mL Enema 118 ml ID DAILY PRN (Reason: Constipation) docusate sodium 100 mg Capsule 200 mg PO BEDTIME Rx Instructions: For seven days starting 05/13/25 lidocaine HCl [Lidocaine Viscous] 2 % Solution 1 applic MUCOUS MEMBRANE BID PRN (Reason: Mouth Pain) potassium chloride 20 mEq Tablet Extended Release 20 meq PO BID Rx Instructions: For 5 days with Lasix - Started 05/15/25. THEN reduce dose to 20meq once daily after 05/20/25 Discontinued prednisone 20 mg Tablet 40 mg PO DAILY Qty: 6 0RF furosemide [Lasix] 40 mg Tablet 40 mg PO BID Rx Instructions: Starting 05/15/25 through 05/20/25 for five days. After 5 days, reduce doseage to 40mg PO daily. metolazone 5 mg Tablet 5 mg PO DAILY Discharge Order = DC NOW: Discharge Order (Routine); Ordered 05/28/25 Ordered By: Jalen Mcclain Referrals: Ashwin Roberson MD [Primary Care Provider, Family Practice] Elysia Rizvi DO [Referring, Internal Medicine] Referral Note: We have notified your physician's clinic of the need for a follow-up appointment to be scheduled. If you have not heard from them within the next 2 business days, please call them directly.sent referral Discharge Diet: Cardiac Discharge Activity: Resume usual activity Patient Instructions: Furosemide (By mouth), Doxycycline (By mouth), Prednisone (By mouth), Amoxicillin/Clavulanate Potassium (By mouth), GI Post Discharge Instructions w/ Anesthesia, Opioid Safety, Patient Portal & Luz Instructions Plan of Treatment: take medicines as prescribed, followup with nephrology and pcp 4-7 days Discharge Attestations Time Spent in Discharge Care*: less than 30 min Status at Discharge: Cognitive status at discharge: cognitively intact , Behavioral status at discharge: cooperative , Quality Metrics Clinical Quality Measures [ No reported AMI, CVA or VTE this stay] Coding Level of Care Code 39282 Diagnoses DIXON (acute kidney injury) N17.9
--- NOTE | 2025-05-28 15:39 | PC.NURSE ---
Prescriptions printed and placed in SNF packet
--- NOTE | 2025-05-28 16:17 | PC.NURSE ---
This nurse called report to CHANCE Ahumada on [address] at [facility] at [phone]. They will be coming to pick pt up.
[2025-05-30 16:13] LABS: Albumin,Urine Random 100 %; Alpha-1-Globulins Urine Random 0 %; Alpha-2-Globulins Urine Random 0 %; Beta-Globulin,Urine Random 0 %; Gamma Globulin,Urine Random 0 %
== END 2025-05-28 16:49 | disposition skilled nursing facility (03) | DRG 871 ==
LOC: ER 22:55 → MEDSURG 23:03
PROVIDERS: Family Medicine; Hospitalist; Admitting Provider Family Medicine; Emergency Provider Student in an Organized Health Care Education/Training Program; PCP Family Medicine; Visit Provider Internal Medicine
DX: A41.9 Sepsis, unspecified organism (principal); I50.31 Acute diastolic (congestive) heart failure; J96.90 Respiratory failure, unspecified, unspecified whether with hypoxia or hypercapnia; N17.9 Acute kidney failure, unspecified; I48.20 Chronic atrial fibrillation, unspecified; I13.0 Hypertensive heart and chronic kidney disease with heart failure and stage 1 through stage 4 chronic kidney disease, or unspecified chronic kidney disease; I50.32 Chronic diastolic (congestive) heart failure; K92.1 Melena; A04.72 Enterocolitis due to Clostridium difficile, not specified as recurrent; Z79.01 Long term (current) use of anticoagulants; N18.31 Chronic kidney disease, stage 3a; N49.2 Inflammatory disorders of scrotum; L30.4 Erythema intertrigo; J98.4 Other disorders of lung; I95.1 Orthostatic hypotension; Z79.890 Hormone replacement therapy; Z79.4 Long term (current) use of insulin; E11.22 Type 2 diabetes mellitus with diabetic chronic kidney disease; D64.9 Anemia, unspecified; E03.9 Hypothyroidism, unspecified
CPT/HCPCS: 36415; 36416; 36569; 51702; 71045; 71260; 74018; 74177; 76770; 76870; 80048; 80053; 80202; 81001; 82274; 82436; 82570; 82728; 82962; 83540; 83550; 83605; 83735; 83880; 84100; 84145; 84155; 84156; 84165; 84166; 84300; 84484; 85014; 85018; 85025; 85610; 85730; 85999; 86036; 86038; 86140; 86141; 86160; 86850; 86900; 87040; 87045; 87077; 87086; 87106; 87177; 87186; 87209; 87324; 87427; 87449; 87493; 87637; 92526; 92610; 93005; 93970; 94640; 96365; 96366; 96367; 96372; 96375; 97110; 97116; 97161; 97166; 97530; 97535; 99285; C1751; J1815; J1938; J2543; J2919; J3372; J3373; J7030; J7512; J9999; P9046; P9047

== ENCOUNTER 2025-06-03 16:10 | Emergency (ER) | payer MEDICARE, SELFPAY ==
[2025-06-03 16:13] VITALS: BP 117/87; PULSE 106; RESP 20; TEMP 37; O2SAT 94; BMI 32.3
--- NOTE | 2025-06-03 16:13 | ECG_ITS ---
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 [email or web address]
--- NOTE | 2025-06-03 16:13 | XRR_ITS ---
PROCEDURE INFORMATION: Exam: XR Chest Exam date and time: 06/03/2025 4:21 PM Age: 75 years old Clinical indication: Other: Edema TECHNIQUE: Imaging protocol: Radiologic exam of the chest. Views: 1 view. COMPARISON: CR XR chest 1V portable [id number] 05/25/2025 9:03 AM FINDINGS: Lungs: Lungs are hyperinflated. No infiltrate or mass lesion is evident. Pleural spaces: A small right pleural effusion is again seen. Heart/Mediastinum: There is stable cardiomegaly. An interval slight decrease in pulmonary vascular prominence is suggested. Bones/joints: Unremarkable. XR/XR chest 1V portable [id number] IMPRESSION: Cardiomegaly with a small right pleural effusion and mild pulmonary vascular prominence consistent with congestive heart failure, slightly improved as compared to prior study.
--- OUTSIDE RECORDS SUMMARY | 2025-06-03 16:15 | XMS_ITS | Data Portability ---
Author Organization [facility] Marquez Christie Atkinson [facility] Luis F Redmond [facility] Address [address] [place] [address] Assessment No assessment recorded. Plan of Treatment Reminders Order Date Submit Date Provider Last Modified By Organization Details Last Modified Time Details Appointments None record ed. Lab None record ed. Referral None record ed. Procedures None record ed. Surgeries None record ed. Imaging None record ed. Medication Orders None record ed. Patient TargetsNo targets recorded. Patient Instructions Encounter Date Encounter Id Patient Instructions Last Modified By Organization Details Last Modified Time 05/10/2025 [id number] Hospital records reviewed. Past medical history of congestive heart failure with known EF of around 45%, Nonischemic cardiomyopathy, CKD with baseline creatinine 1.5-1.9, chronic A-fib on anticoagulation, restrictive lung disease, hypertension. Admitted for aspiration pneumonia. Follows with cardiology, Dr. Harper. Plan for therapy with goal of returning home. [email or web address] Not available 05/20/2025 15:37:47 05/17/2025 [id number] Weight up 12 lbs . Increased SOB. Started increased 2 days ago. Will start metolazone 5mg x 3 days. Labs on Wednesday. f/u on Wednesday. [email or web address] Not available 05/17/2025 14:23:23 Reason for Referral None Reported. Problems Name Problem SNOMED Code Status Onset Date Resolution Date Notes Provider Name and Address Organization Details Recorded Time Colonosc opy Active 2015 Colonosc opy; [facility] 01[facility]-- POLYPECT EMELIA (Hyperpl astic); 02/12/20 16 4:15PM by Duyen Vazquez RN, Office Visit; Promoted ; acuity set as *; Not Available [facility] 03:10:30 Seasonal allergic rhinitis 115529815 Completed 201710/01/2017 Seasonal allergie s - Status is Inactive ; 10/02/19 18 6:16PM by Agnes Carnes CMT, Annotati on/Adden dum; Promoted ; acuity set as *; Not Available [facility] 3 03:10:30 Anthony son type IIa hyperlip oprotein emia 177303581 Active 2017 HYPERCHO LESTEROL EMIA; Recorded 10/02/19 18 6:31PM by Agnes Carnes CMT, Office Visit; Promoted ; acuity set as *; Not Available [facility] 3 03:10:31 Aspirati on pneumoni a 901693344 Active [address] [facility] 5 12:01:33 Sepsis 41415287 Active [address] [facility] 5 12:01:34 Orthosta tic hypotens ion 89496296 Active [address] [facility] 5 12:01:36 Chronic kidney disease stage 3A 465045801 Active [address] [facility] 5 12:01:37 Chronic atrial fibrilla tion 248416602 Active [address] [facility] 5 12:01:38 Chronic congesti ve heart failure 98218818 Active [address] [facility] 5 12:01:40 [facility] 62863143 Active [address] [facility] 5 12:01:41 Problem Notes None recorded. Medical Equipment None Reported. Allergies Allergen ID Allergen Name Allergen Category Reaction Reaction Severity Criticality Documentation Date Start Date Code Code System Note Provider Name and Address Organization Details Recorded Time 19403 ciproflox acin medicatio n Not available Not available high 05/31/20252024 2551 RxNorm Not Available [facility] - External Data Service - prod 12:00:57 50373 paroxetin e Not available Not available Not available low 05/31/20252024 03118 RxNorm Not Available [employer] [employer] External Data Service - prod 12:00:57 Medications Name Sig Start Date Stop Date Status Note LastModified by Organization Details LastModified Time furosemid e 40 mg tablet TAKE 2 TABLETS BY MOUTH TWICE DAILY active Not Available Not Available No t Available prednison e 10 mg tablet TAKE 1 TABLET BY MOUTH EVERY DAY active Not Available Not Available No t Available amiodaron e 200 mg tablet TAKE 2 TABLETS BY MOUTH TWICE DAILY active Not Available Not Available No t Available clonazepa m 0.5 mg tablet TAKE 2 TABLETS BY MOUTH EVERY DAY active Not Available Not Available No t Available spironola ctone 100 mg tablet TAKE 1 TABLET BY MOUTH EVERY DAY active Not Available Not Available No t Available metolazon e 5 mg tablet TAKE 1 TABLET BY MOUTH EVERY DAY active Not Available Not Available No t Available simvastat in 80 mg tablet QD 2016 active vo JR/tn; 173; Recorded 03/24/20 17 4:51PM by Vesna carter (Authori zed through Weston Bernardo MD), Refill Request; Refill Quantity : 90; Tablet; Not Available Not Available Not Available levothyro xine 25 mcg tablet TAKE 1 TABLET BY MOUTH DAILY; take 30 minutes prior TO food or meds active Not Available Not Available No t Available prednisol one acetate 1 % eye drops,lópez pension instill 1 drop into affected eye FOUR TIMES DAILY. start DAY of surgery and continue FOR 30 DAYS active Not Available Not Available No t Available lorazepam 0.5 mg tablet TAKE 1 TO 2 TABLETS BY MOUTH AT BEDTIME as needed for sleep/an xiety active Not Available Not Available No t Available tamsulosi n 0.4 mg capsule take 1 capsule BY MOUTH ONCE daily FOR prostate active Not Available Not Available No t Available mupirocin 2 % topical ointment APPLY TO OPEN AREA ON LEFT LOWER LEG TWICE DAILY UNTIL HEALED active Not Available Not Available No t Available fluticaso ne propionat e 50 mcg/actua tion nasal spray,lópez pension USE 1 SPRAY IN EACH NOSTRIL TWICE DAILY as needed for nasal congesti on active Not Available Not Available No t Available amoxicill in 875 mg-potass ium clavulana te 125 mg tablet TAKE 1 TABLET BY MOUTH TWICE DAILY FOR 7 DAYS 05/10 completed Not Available Not Available Not Available amoxicill in 500 mg-potass ium clavulana te 125 mg tablet TAKE 1 TABLET BY MOUTH THREE TIMES DAILY 05/10 completed Not Available Not Available Not Available escitalop tova 20 mg tablet TAKE 1 TABLET BY MOUTH EVERY DAY active Not Available Not Available No t Available aripipraz ole 5 mg tablet TAKE 1 TABLET BY MOUTH EVERY DAY active Not Available Not Available No t Available metoprolo l tartrate 25 mg tablet take 1/2 tablet BY MOUTH TWICE DAILY active Not Available Not Available No t Available Vitamin C qd active 0; Recorded 10/02/19 18 6:16PM by Agnes Carnes CMT, Office Visit; Not Available Not Available Not Available Klonopin daily 2016 active vo /tn Pt will need an appointm ent before any more refills. JR/tn; 173; Recorded 02/23/20 17 1:46PM by Vesna carter (Authori zed through Weston Bernardo MD), Refill Request; Refill Quantity : 0; Not Available Not Available Not Available aspirin qd active 0; Recorded 10/02/19 18 6:16PM by Agnes Carnes CMT, Office Visit; Not Available Not Available Not Available Paxil QD 2016 active vo JR/tn; Recorded 02/03/20 17 4:06PM by Duyen Vazquez RN, Refill Request; Refill Quantity : 30; Tablet; Not Available Not Available Not Available Multivita mins qd active 0; Recorded 10/02/19 18 6:16PM by Agnes Carnes CMT, Office Visit; Not Available Not Available Not Available FeroSul 325 mg (65 mg iron) tablet TAKE 1 TABLET BY MOUTH TWICE DAILY active Not Available Not Available No t Available levocetir izine 5 mg tablet TAKE 1 TABLET BY MOUTH EVERY DAY NEEDED FOR allergy symptoms active Not Available Not Available No t Available Eliquis 5 mg tablet TAKE 1 TABLET BY MOUTH TWICE DAILY active Not Available Not Available No t Available Vitals Date Recorded Body weight Heart rate Respiratory rate Body temperature Oxygen saturation Systolic And Diastolic Provider Name and Address Organization Details Last Updated DateTime 5 048561. 05 g 97.8 /min 19 /min 97.8 [degF] 99 % 112/56 mm[Hg] [facility] 5 11:57:53 Date Recorded Heart rate Respiratory rate Body temperature Oxygen saturation Systolic And Diastolic Provider Name and Address Organization Details Last Updated DateTime 5 68 /min 18 /min 97.6 [degF] 96 % 114/65 mm[Hg] [facility] 5 14:19:50 Date Recorded Body weight Heart rate Respiratory rate Body temperature Oxygen saturation Systolic And Diastolic Provider Name and Address Organization Details Last Updated DateTime 5 599898. 05 g 98.3 /min 18 /min 98.3 [degF] 99 % 100/50 mm[Hg] [facility] 5 13:30:18 Social History None recorded. Functional Status None recorded. Mental Status None recorded. Family History Nothing Reported Notes:Mother: Asthma, Hypert ension, Hypothyroidism Negative Family History of:; Paternal Grandmother-DM, Sister(half)-DM, Paternal Grandfather-prostate cancer, Maternal uncle-prostate cancer, Father-throat cancer Medical History No medical history recorded. Immunizations Vaccine Type Date Status Note Provider Nam e and Address Organization Details Recorded Time Influenza, split virus, trivalent, preservative 2 completed Not Available [facility] 01/23/2023 02:47:00 Influenza, split virus, trivalent, preservative 1 completed Not Available [facility] 01/23/2023 02:47:00 Influenza, split virus, trivalent, preservative 3 completed Not Available [facility] 01/23/2023 02:47:00 Influenza, split virus, trivalent, preservative 6 completed Not Available [facility] 01/23/2023 02:47:00 Influenza, split virus, trivalent, preservative 5 completed Not Available [facility] 01/23/2023 02:47:01 Influenza, split virus, trivalent, preservative 5 completed Not Available [facility] 01/23/2023 02:47:01 Influenza, split virus, trivalent, preservative 3 completed Not Available [facility] 05/31/2025 12:00:34 Influenza, high-dose, trivalent, PF 7 completed Not Available [facility] 05/31/2025 12:00:34 Influenza, high-dose, trivalent, PF 8 completed Not Available [facility] 05/31/2025 12:00:34 Pneumococcal conjugate PCV 13 9 completed Not Available [facility] 05/31/2025 12:00:34 COVID-19, mRNA, LNP-S, PF, 30 mcg/0.3 mL dose 1 completed Not Available [facility] 05/31/2025 12:00:34 COVID-19, mRNA, LNP-S, PF, 30 mcg/0.3 mL dose 1 completed Not Available [facility] 05/31/2025 12:00:34 COVID-19, mRNA, LNP-S, PF, 30 mcg/0.3 mL dose 1 completed Not Available [facility] 05/31/2025 12:00:34 Influenza, high-dose, quadrivalent, PF 1 completed Not Available [facility] 05/31/2025 12:00:34 COVID-19, mRNA, LNP-S, PF, 30 mcg/0.3 mL dose, sal-sucrose 2 completed Not Available [facility] 05/31/2025 12:00:34 Influenza, high-dose, quadrivalent, PF 2 completed Not Available [facility] 05/31/2025 12:00:34 COVID-19, mRNA, LNP-S, bivalent, PF, 30 mcg/0.3 mL dose 2 completed Not Available [facility] 05/31/2025 12:00:34 Influenza, high-dose, quadrivalent, PF 3 completed Not Available [facility] 05/31/2025 12:00:34 Tdap 4 completed Not Available [facility] 05/31/2025 12:00:34 COVID-19, mRNA, LNP-S, PF, sal-sucrose, 30 mcg/0.3 mL 4 completed Not Available [facility] 05/31/2025 12:00:34 Past Encounters Encounter ID Performer Location Encounter Start Date Encounter Closed Date Diagnosis/Indication Diagnosis SNOMED-CT Code Diagnosis ICD10 Code Diagnosis IMO Codes Diagnosis Note [id number] Walter Hunter DO [facility] ([facility]) [address] [place] [phone] 05/10/2025 10:24:58 05/21/2025 08:10:00 Post-discharge follow-up 609789181 Z09 942266 Aspiration pneumonia 422 620677 J69.0 784796844 Sepsis 29446455 A41.9 6804288556 Orthostati c hypotension 63493808 I95.1 466135 Chronic ki dney disease stage 3A 352770923 N18.31 9662911952 Chronic at rial fibrillation 986233557 I48.20 039677 Chronic co ngestive heart failure 04435637 I50.9 0143333181 Essential hypertension 89943121 I10 12240 [id number] Walter Hunter DO [facility] ([facility]) [address] [place] [phone] 5 05/17/2025 12:53:48 05/21/2025 13:16:33 Chronic atrial fibrillation 314598270 I48.20 173796 Essential hypertension 16249227 I10 07222 Edema 700546475 R60.9 37294581 Health Concerns Section Related Observation LastModified by Organization Detai ls LastModified Time None Recorded Concern Status LastModified by Organization Details LastModified Time None Recorded Advance Directives Directive None Recorded Payers Insurance Date Sequence Insurance Name Policy Number Policy Orellana Covered Member ID Orellana Member ID Guarantor Name 05/10/2025 1 MEDICARE [place]: WPS Cesar Mederos [id number] Cesar Mederos 05/31/2025 1 [facility] (MEDICARE REPLACEMENT/A DVANTAGE - PPO) [id number] Cesar Mederos [id number] Cesar Mederos Notes Date Note Type Note Provider Name and Address Organization Details Recorded Time 5 text/html HypertensionReported by PatientHPIFor severity, patient reportsgrade 1 (130-139/80-89). For duration, patient reportshas noted for years. For alleviating factors, patient reportsmedication.ROS as noted in the HPI new admit to snf, plan for therapy with goal of returning home. Walter DO Elsa [address] [place] [address], [phone], [facility] 05/20/2025 15:37:58 5 text/html HypertensionReported by PatientHPIFor severity, patient reportsgrade 1 (130-139/80-89). For duration, patient reportshas noted for years. For alleviating factors, patient reportsmedication.ROS as noted in the HPI staff reports increased edema and sob Walter DO Elsa [address] [place] [address], [phone], [facility] 05/20/2025 14:18:41 5 text/html HypertensionReported by PatientHPIFor severity, patient reportsgrade 1 (130-139/80-89). For duration, patient reportshas noted for years. For alleviating factors, patient reportsmedication.ROS as noted in the HPI re-admit to snf. Not Available Not Available Not Available
--- OUTSIDE RECORDS SUMMARY | 2025-06-03 16:15 | XMS_ITS | Clinical Summary ---
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
--- OUTSIDE RECORDS SUMMARY | 2025-06-03 16:15 | XMS_ITS | Continuity of Care Document ---
Author Organization [facility] Luis F Schmidt, [facility] ([facility]) Address [address] [place] [address] Assessment No assessment recorded. Plan of Treatment [...] By Organization Details Last Modified Time 05/10/2025 [id number] Hospital records reviewed. Past medical history of congestive heart failure with known EF of around 45%, Nonischemic cardiomyopathy, CKD with baseline creatinine 1.5-1.9, chronic A-fib on anticoagulation, restrictive lung disease, hypertension. Admitted for aspiration pneumonia. Follows with cardiology, Dr. Harper. Plan for therapy with goal of returning home. [email or web address] Not available 05/20/2025 15:37:47 Reason for Referral None Reported. Problems Name Problem SNOMED Code Status Onset Date Resolution Date Notes Provider Name and Address Organization Details Recorded Time Colonosc opy Active 2015 Colonosc opy; [facility] 01/[facility]-- POLYPECT EMELIA (Hyperpl astic); 02/12/20 16 4:15PM by Duyen Vazquez RN, Office Visit; Promoted ; acuity set as *; Not Available [facility] 3 03:10:30 Seasonal allergic rhinitis 951286881 Completed 201710/01/2017 Seasonal allergie s - Status is Inactive ; 10/02/19 18 6:16PM by Agnes Carnes CMT, Annotati on/Adden dum; Promoted ; acuity set as *; Not Available [facility] 3 03:10:30 Anthony son type IIa hyperlip oprotein emia 139684745 Active 2017 HYPERCHO LESTEROL EMIA; Recorded 10/02/19 18 6:31PM by Agnes Carnes CMT, Office Visit; Promoted ; acuity set as *; Not Available [facility] 3 03:10:31 Aspirati on pneumoni a 226241297 Active 2024 PENELOPELOVE MCCLAIN [facility] 5 12:01:33 Sepsis 21675087 Active 2024 PENELOPE MCCLAIN [facility] 5 12:01:34 Orthosta tic hypotens ion 48079199 Active 2024 PENELOPE MCCLAIN [facility] 5 12:01:36 Chronic kidney disease stage 3A 871375034 Active 2024 PENELOPELOVE MCCLAIN [facility] 5 12:01:37 Chronic atrial fibrilla tion 958861410 Active 2024 PENELOPELOVE MCCLAIN [facility] 5 12:01:38 Chronic congesti ve heart failure 21122695 Active 2024 PENELOPELOVE MCCLAIN [facility] 5 12:01:40 [facility] hyperten meg 53261048 Active 2024 PENELOPE MCCLAIN [facility] 5 12:01:41 Problem Notes None recorded. Medical Equipment None Reported. Allergies Allergen ID Allergen Name Allergen Category Reaction Reaction Severity Criticality Documentation Date Start Date Code Code System Note Provider Name and Address Organization Details Recorded Time 07112 ciproflox acin medicatio n Not available Not available [facility] 05/31/20252024 2551 RxNorm Not Available [facility] - External Data Service - prod 12:00:57 96830 paroxetin e Not available Not available Not available low 05/31/20252024 15831 RxNorm Not Available [facility] External Data Service - [facility] 12:00:57 Medications Name Sig Start Date Stop [...] Not Available Klonopin daily 2016 active vo /angella Pt will need an appointm ent before any more refills. /tn; 173; Recorded 02/23/20 17 1:46PM by Vesna carter (Authori zed through Weston Bernardo MD), Refill Request; Refill Quantity : 0; Not Available Not Available Not Available aspirin qd active 0; Recorded 10/02/19 18 6:16PM by Agnes Carnes CMT, Office Visit; Not Available Not Available Not Available Paxil QD 2016 active vo /tn; Recorded 02/03/20 17 4:06PM by Duyen Vazquez [...] Address Organization Details Last Updated DateTime 5 125215. 05 g 97.8 /min 19 /min 97.8 [degF] 99 % 112/56 mm[Hg] P[facility]ELOPE [facility] 5 11:57:53 Date Recorded Heart rate Respiratory rate Body temperature Oxygen saturation Systolic And Diastolic Provider Name and Address Organization Details Last Updated DateTime 5 68 /min 18 /min 97.6 [degF] 96 % 114/65 mm[Hg] PENELOPE [facility] 5 14:19:50 Social History None recorded. Functional Status None [...] virus, trivalent, preservative 2 completed Not Available [facility] 01/23/2023 02:47:00 Influenza, split virus, trivalent, preservative 1 completed Not Available [facility] 01/23/2023 02:47:00 Influenza, split virus, trivalent, preservative 3 completed Not Available [facility] 01/23/2023 02:47:00 Influenza, split virus, trivalent, preservative 6 completed Not Available [facility] 01/23/2023 02:47:00 Influenza, split virus, trivalent, preservative 5 completed Not Available [facility] 01/23/2023 02:47:01 Influenza, split virus, trivalent, preservative 5 completed Not Available [facility] 01/23/2023 02:47:01 Influenza, split virus, trivalent, preservative 3 completed Not Available [facility] 05/31/2025 12:00:34 Influenza, high-dose, trivalent, PF 7 completed Not Available [facility] 05/31/2025 12:00:34 Influenza, high-dose, trivalent, PF 8 completed Not Available [facility] 05/31/2025 12:00:34 Pneumococcal conjugate PCV 13 9 completed Not Available [facility] 05/31/2025 12:00:34 COVID-19, mRNA, LNP-S, PF, 30 mcg/0.3 mL dose 1 completed Not Available [facility] 05/31/2025 12:00:34 COVID-19, mRNA, LNP-S, PF, 30 mcg/0.3 mL dose 1 completed Not Available [facility] 05/31/2025 12:00:34 COVID-19, mRNA, LNP-S, PF, 30 mcg/0.3 mL dose 1 completed Not Available [facility] 05/31/2025 12:00:34 Influenza, high-dose, quadrivalent, PF 1 completed Not Available [facility] 05/31/2025 12:00:34 COVID-19, mRNA, LNP-S, PF, 30 mcg/0.3 mL dose, sal-sucrose 2 completed Not Available [facility] 05/31/2025 12:00:34 Influenza, high-dose, quadrivalent, PF 2 completed Not Available [facility] 05/31/2025 12:00:34 COVID-19, mRNA, LNP-S, bivalent, PF, 30 mcg/0.3 mL dose 2 completed Not Available [facility] 05/31/2025 12:00:34 Influenza, high-dose, quadrivalent, PF 3 completed Not Available [facility] 05/31/2025 12:00:34 Tdap 4 completed Not Available [facility] 05/31/2025 12:00:34 COVID-19, mRNA, LNP-S, PF, sal-sucrose, 30 mcg/0.3 mL 4 completed Not Available [facility] 05/31/2025 12:00:34 Past Encounters Encounter ID Performer Location Encounter Start Date Encounter Closed Date Diagnosis/Indication Diagnosis SNOMED-CT Code Diagnosis ICD10 Code Diagnosis IMO Codes Diagnosis Note [id number] Walter Hunter DO [facility] ([facility]) [address] [place] [address] 05/10/2025 10:24:58 05/21/2025 08:10:00 Post-discharge follow-up 128295974 Z09 130308 Aspiration pneumonia 422 133153 J69.0 338973329 Sepsis 23232801 A41.9 5516732722 Orthostati c hypotension 31899839 I95.1 034823 Chronic ki dney disease stage 3A 342734140 N18.31 5668865570 Chronic at rial fibrillation 729295105 I48.20 908167 Chronic co ngestive heart failure 53608996 I50.9 7309760599 Essential hypertension 38335674 I10 18181 Health Concerns Section Related Observation LastModified by Organization Detai ls LastModified Time None Recorded Concern Status LastModified by Organization Details LastModified Time None Recorded Payers Encounter Date Sequence Insurance Name Policy Number Policy Orellana Covered Member ID Orellana Member ID Guarantor Name 05/10/2025 1 [facility] (MEDICARE REPLACEMENT/A DVANTAGE - PPO) [id number] Cesar Mederos [id number] Cesar Mederos Notes Date Note Type Note Provider Name and Address Organization Details Recorded Time 5 text/html HypertensionReported by PatientHPIFor severity, patient reportsgrade 1 (130-139/80-89). For duration, patient reportshas noted for years. For alleviating factors, patient reportsmedication.ROS as noted in the HPI new admit to snf, plan for therapy with goal of returning home. Walter Hunter DO [address] [place] [address], [phone], [facility], Luis F 05/20/2025 15:37:58 5 text/html HypertensionReported by PatientHPIFor severity, patient reportsgrade 1 (130-139/80-89). For duration, patient reportshas noted for years. For alleviating factors, patient reportsmedication.ROS as noted in the HPI staff reports increased edema and sob Walter Hunter DO [address] [place] [address], [phone], [facility] 05/20/2025 14:18:41
--- OUTSIDE RECORDS SUMMARY | 2025-06-03 16:15 | XMS_ITS | Clinical Summary ---
Author Organization [employer] Address [address] 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
--- OUTSIDE RECORDS SUMMARY | 2025-06-03 16:15 | XMS_ITS | Encounter Summary ---
Author Organization [facility] Address [address] [place] [address] Care Team Providers Care Caddie Name Role Phone Unavailable Primary Care Provider Unavailabl e Encounter Details Date Type Department Care Team (Latest Contact Info) Description 11/03/1999 Outpatient Historical [facility] Op[facility]mology 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
--- OUTSIDE RECORDS SUMMARY | 2025-06-03 16:15 | XMS_ITS | Encounter Summary ---
Author Organization [facility] Address [address] [place] [address] Care Team Providers Care Natural Remedy Consultant Name Role Phone Unavailable Primary Care Provider Unavailabl e Encounter Details Date Type Department Care Team (Latest Contact Info) Description 01/04/2004 Outpatient Historical [facility] Optometry 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
--- OUTSIDE RECORDS SUMMARY | 2025-06-03 16:15 | XMS_ITS | Encounter Summary ---
Author Organization [facility] Address [address] [place] [address] Care Team Providers Care Filling Machine Tender Name Role Phone Unavailable Primary Care Provider Unavailabl e Encounter Details Date Type Department Care Team (Latest Contact Info) Description 06/14/1997 Outpatient Historical [facility] Ophthalmology 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
--- OUTSIDE RECORDS SUMMARY | 2025-06-03 16:15 | XMS_ITS | Encounter Summary ---
Author Organization [facility] Address [address] [place] [address] Care Team Providers Care Main Line Station Engineer Name Role Phone Unavailable Primary Care Provider Unavailabl e Encounter Details Date Type Department Care Team (Latest Contact Info) Description 01/02/2003 Outpatient Historical [facility] Opt[facility] [address] [place] [address] Nolberto Luis, OD [address] [place] [address] PREGLAUCOMA NOS (Primary Dx); MYOPIA Social History Tobacco Use Types Packs/Day Years Used Date Smoking Tobacco: Never Assessed Sex and Gender Information Value Date Recorded Sex Assigned at Not on file 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
--- OUTSIDE RECORDS SUMMARY | 2025-06-03 16:15 | XMS_ITS | Continuity of Care Document ---
Author Organization [facility] Jimmy Atkinson [facility] Luis F Redmond, [facility] ([facility]) Address [address] [facility] [place] [address] Assessment No assessment recorded. Plan of Treatment [...] Modified By Organization Details Last Modified Time 05/17/2025 [id number] Weight up 12 lbs . Increased SOB. Started increased 2 days ago. Will start metolazone 5mg x 3 days. Labs on Wednesday. f/u on Wednesday. Not available 05/17/2025 14:23:23 Reason for Referral None Reported. Problems Name Problem SNOMED Code Status Onset Date Resolution Date Notes Provider Name and Address Organization Details Recorded Time Colonosc opy Active 2015 Colonosc opy; [facility] 01/31/10-- POLYPECT EMELIA (Hyperpl astic); 02/12/20 16 4:15PM by Duyen Vazquez RN, Office Visit; Promoted ; acuity set as *; Not Available [facility] 3 03:10:30 Seasonal allergic rhinitis 154837175 Completed 201710/01/2017 Seasonal allergie s - Status is Inactive ; 10/02/19 18 6:16PM by Agnes Carnes CMT, Annotati on/Adden dum; Promoted ; acuity set as *; Not Available [facility] 3 03:10:30 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 5 12:01:33 Sepsis 56601581 Active 2024 PENELOPELOVE MCCLAIN [facility] 5 12:01:34 Orthosta tic hypotens ion 63724852 Active 2024 PENELOPE MCCLAIN [facility] 5 12:01:36 Chronic kidney disease stage 3A 265700447 Active 2024 PENELOPE MCCLAIN [facility] 5 12:01:37 Chronic atrial fibrilla tion 841451886 [facility] 12:01:38 Chronic congesti ve heart failure 99601669 Active 2024 PENELOPELOVE MCCLAIN [facility] 5 12:01:40 [facility] hyperten meg 21241268 Active 2024 PENELOPELOVE MCCLAIN [facility] 5 12:01:41 Problem Notes None recorded. Medical Equipment None Reported. Allergies Allergen ID Allergen Name Allergen Category Reaction Reaction Severity Criticality Documentation Date Start Date Code Code System Note Provider Name and Address Organization Details Recorded Time 00590 ciproflox acin medicatio n Not available Not available high 05/31/20252024 2551 RxNorm Not Available [place] - External Data [employer] - prod 12:00:57 18715 paroxetin e Not available Not available Not available low 05/31/20252024 75165 RxNorm Not Available [place] - External Data [employer] - prod 12:00:57 Medications [...] 03/24/20 17 4:51PM by Vesna carter (Authori naveed through Weston Bernardo MD), Refill Request; Refill [...] 02/23/20 17 1:46PM by Vesna carter (Authori naveed through Weston Bernardo MD), Refill Request; Refill [...] Available No t Available Vitals Date Recorded Heart rate Respiratory rate Body temperature Oxygen saturation Systolic And Diastolic Provider Name and Address Organization Details Last Updated DateTime 5 68 /min 18 /min 97.6 [degF] 96 % 114/65 mm[Hg] PENELOPE [facility], [facility] 5 14:19:50 Social History None recorded. Functional [...] virus, trivalent, preservative 2 completed Not Available [facility] 01/23/2023 02:47:00 Influenza, split virus, trivalent, preservative 1 completed Not Available [facility] 01/23/2023 02:47:00 Influenza, split virus, trivalent, preservative 3 completed Not Available [facility] 01/23/2023 02:47:00 Influenza, split virus, trivalent, preservative 6 completed Not Available [facility] 01/23/2023 02:47:00 Influenza, split virus, trivalent, preservative 5 completed Not Available [facility] 01/23/2023 02:47:01 Influenza, split virus, trivalent, preservative 5 completed Not Available [facility] 01/23/2023 02:47:01 Influenza, split virus, trivalent, preservative 3 completed Not Available [facility] 05/31/2025 12:00:34 Influenza, high-dose, trivalent, PF 7 completed Not Available [facility] 05/31/2025 12:00:34 Influenza, high-dose, trivalent, PF 8 completed Not Available [facility] 05/31/2025 12:00:34 Pneumococcal conjugate PCV 13 9 completed Not Available [facility] 05/31/2025 12:00:34 COVID-19, mRNA, LNP-S, PF, 30 mcg/0.3 mL dose 1 completed Not Available [facility] 05/31/2025 12:00:34 COVID-19, mRNA, LNP-S, PF, 30 mcg/0.3 mL dose 1 completed Not Available [facility] 05/31/2025 12:00:34 COVID-19, mRNA, LNP-S, PF, 30 mcg/0.3 mL dose 1 completed Not Available [facility] 05/31/2025 12:00:34 Influenza, high-dose, quadrivalent, PF 1 completed Not Available [facility] 05/31/2025 12:00:34 COVID-19, mRNA, LNP-S, PF, 30 mcg/0.3 mL dose, sal-sucrose 2 completed Not Available [facility] 05/31/2025 12:00:34 Influenza, high-dose, quadrivalent, PF 2 completed Not Available [facility] 05/31/2025 12:00:34 COVID-19, mRNA, LNP-S, bivalent, PF, 30 mcg/0.3 mL dose 2 completed Not Available [facility] 05/31/2025 12:00:34 Influenza, high-dose, quadrivalent, PF 3 completed Not Available [facility] 05/31/2025 12:00:34 Tdap 4 completed Not Available [facility] 05/31/2025 12:00:34 COVID-19, mRNA, LNP-S, PF, sal-sucrose, 30 mcg/0.3 mL 4 completed Not Available [facility] 05/31/2025 12:00:34 Past Encounters Encounter ID Performer Location Encounter Start Date Encounter Closed Date Diagnosis/Indication Diagnosis SNOMED-CT Code Diagnosis ICD10 Code Diagnosis IMO Codes Diagnosis Note [id number] Walter Hunter DO [address] [address] 05/10/2025 10:24:58 05/21/2025 08:10:00 Post-discharge follow-up [id number] Z09 001380 Aspiration pneumonia 422 573996 J69.0 907256024 Sepsis 84017755 A41.9 6102999043 Orthostati c hypotension 56758547 I95.1 234169 Chronic ki dney disease stage 3A 980722777 N18.31 0259141562 Chronic at rial fibrillation 441666790 I48.20 144479 Chronic co ngestive heart failure 61311186 I50.9 3537670663 Essential hypertension 24218409 I10 02512 [id number] Walter Hunter DO [facility] ([facility]) [address] [place] [address] 05/17/2025 12:53:48 05/21/2025 13:16:33 Chronic atrial fibrillation 881784203 I48.20 876895 Essential hypertension 33019163 I10 44626 Edema 224168959 R60.9 69192062 Health Concerns Section Related Observation LastModified by Organization Detai ls LastModified Time None Recorded Concern Status LastModified by Organization Details LastModified Time None Recorded Payers Encounter Date Sequence Insurance Name Policy Number Policy Orellana Covered Member ID Orellana Member ID Guarantor Name 05/17/2025 1 [facility] (MEDICARE REPLACEMENT/A DVANTAGE - PPO) [id number] Cesar Mederos [id number] Cesar Mederos Notes Date Note Type Note Provider Name and Address Organization Details Recorded Time 5 text/html HypertensionReported by PatientHPIFor severity, patient reportsgrade 1 (130-139/80-89). For duration, patient reportshas noted for years. For alleviating factors, patient reportsmedication.ROS as noted in the HPI staff reports increased edema and sob Walter Hunter DO [address] [place] [address], [id number], [facility]NN [facility] 05/20/2025 14:18:41
[2025-06-03 16:24] LABS: Hematocrit 32.1 % (37-53); Hemoglobin 9.20 g/dL (11.27-16.99); Mean Corpuscular HGB Conc 28.7 g/dL (30-55); Mean Corpuscular Hemoglobin 24.4 pg (27-33); Mean Corpuscular Volume 85.1 fl (82-101); Nucleated Red Blood Cells % 0 %; Platelet Count 207 10^3/cmm (157-399); Red Blood Count 3.77 10^6/uL (3.85-5.65); White Blood Count 10.91 10^3/uL (3.29-11.43)
--- NOTE | 2025-06-03 16:29 | ED_ITS ---
HPI - Extremity Problem 2 General: Chief complaint: Extremity Problem,Nontraumatic Stated complaint: weeping edema to all extremities Time Seen by Provider: 06/03/25 16:13 History of Present Illness: 75-year-old man with a history of atrial fibrillation, chronic anticoagulation, chronic kidney disease, type 2 diabetes, BPH, hyperlipidemia, depression, hypertension and congestive heart failure who presents to the emergency room with swelling of his lower extremities with some weeping from the [place] [facility]. He was admitted recently for this. Recent admission where he was treated for cellulitis of the scrotum, orthostatic hypotension, edema, atrial fibrillation, hypertension, GI bleed, diastolic heart failure and kidney disease and sepsis secondary to cellulitis. He is not exactly sure why he was sent here other than it sounds like he had had some weeping from his legs. No reports of fevers. No focal motor deficits. No abdominal pain. No complaints of shortness of breath on presentation. No oxygen requirements Related Data Home Medications ?Medication ?Instructions ?Recorded ?Confirmed ascorbate calcium (vitamin C) 500 500 mg PO DAILY 11/2605/20/25 mg tablet bisacodyl 10 mg rectal suppository 10 mg NE DAILY PRN Constipation 05/20/25 05/20/25 docusate sodium 100 mg capsule 200 mg PO BEDTIME 05/2005/20/25 lidocaine HCl 2 % mucosal solution 1 applic mucous mem brane BID PRN 05/20/25 05/20/25 (Lidocaine Viscous) Mouth Pain magnesium hydroxide 400 mg/5 mL 30 ml PO DAILY PRN Con stipation 05/20/25 05/20/25 oral suspension (Milk of Magnesia) potassium chloride 20 mEq 20 meq PO BID 05/20/2505/20 tablet,extended release sodium phosphates 19 gram-7 118 ml NE DAILY PRN Consti pation 05/20/25 05/20/25 gram/118 mL enema (Fleet Enema) Previous Rx's ?Medication ?Instructions ?Recorded fluticasone propionate 50 2 spray intranasal DAILY PRN 09/30/23 mcg/actuation nasal Allergy Symptoms #16 grams spray,suspension escitalopram oxalate 20 mg tablet 20 mg PO DAILY #30 t abs 05/11/24 levocetirizine 5 mg tablet 5 mg PO DAILY PRN allergy s ymptoms 06/28/24 #30 tabs aripiprazole 5 mg tablet (Abilify) 5 mg PO DAILY #30 t abs 07/03/24 apixaban 5 mg tablet (Eliquis) See Rx Instructions .Ro juliana 09/28/24 .COMPLEX #60 tabs tamsulosin 0.4 mg capsule See Rx Instructions .Route 0 09/28/24 .COMPLEX #30 caps levothyroxine 25 mcg tablet 25 mcg PO DAILY #30 tabs 0 03/06/25 (Levoxyl) ferrous sulfate 325 mg (65 mg 325 mg PO BID #60 tabs 1 iron) tablet (Iron (ferrous sulfate)) dapagliflozin propanediol 10 mg 10 mg PO DAILY #30 tab s 05/08/25 tablet metoprolol tartrate 25 mg tablet 12.5 mg (1/2 x 25 mg) PO 05/08/25 BID@0900,2100 30 days #30 tabs midodrine 5 mg tablet 10 mg (2 x 5 mg) PO TID 30 d ays 05/08/25 #180 tabs pyridostigmine bromide 60 mg tablet 60 mg PO TID 30 da ys #90 tabs 05/08/25 amoxicillin 875 mg-potassium 1 tab PO BID #10 tabs 07/22 clavulanate 125 mg tablet doxycycline monohydrate 100 mg 100 mg PO BID #10 tabs 05/28/25 tablet furosemide 40 mg tablet 40 mg PO QAM #1 tab 05/28/25 prednisone 10 mg tablet See Rx Instructions .Route 1 07/29/24 .COMPLEX #30 tabs Allergies Allergy/AdvReac Type Severity Reaction Status Date / Time ciprofloxacin (From Cipro) Allergy Severe muscle or Verified 05/28/25 09:48 joint pain paroxetine (From Paxil) AdvReac Mild made his Verified 05/28/25 09:48 head feel weird Review of Systems 2 Narrative: Constitutional symptoms: Negative except as documented in HPI. Skin symptoms: Negative except as documented in HPI. Eye symptoms: Negative except as documented in HPI. ENMT symptoms: Negative except as documented in HPI. Respiratory symptoms: Negative except as documented in HPI. Cardiovascular symptoms: Negative except as documented in HPI. Gastrointestinal symptoms: Negative except as documented in HPI. Genitourinary symptoms: Negative except as documented in HPI. Musculoskeletal symptoms: Negative except as documented in HPI. Neurologic symptoms: Negative except as documented in HPI. Psychiatric symptoms: Negative except as documented in HPI. Endocrine symptoms: Negative except as documented in HPI. PFSH ED 2 PFSH: Medical History (Updated 06/03/25 @ 17:04 by Yani Mora MD) Chronic anticoagulation Chest pain Abnormal CT scan Acute on chronic renal insufficiency Type 2 diabetes mellitus without complication Persistent atrial fibrillation BPH (benign prostatic hyperplasia) Hyperlipidemia Depression Hypertension Seropositive rheumatoid arthritis Rheumatoid arthritis with rheumatoid factor of multiple sites without organ or systems involvement Other chcf (current) drug therapy Surgical History History of tonsillectomy Family History Other Diabetes Social History Smoking and tobacco/nicotine status: never used tobacco/nicotine Alcohol intake: current Alcohol intake frequency: few times a week Alcohol type: beer Substance/Drug Use: never Physical Exam 2 Narrative: EXAM NARRATIVE: General: Alert, no acute distress. Skin: Warm, dry. Head: Normocephalic, atraumatic. Neck: Supple, trachea midline. Eye: Extraocular movements are intact. Ears, nose, mouth and throat: mucosa moist. Cardiovascular: Regular, Normal peripheral perfusion. Respiratory: Lungs are clear to auscultation, respirations are non-labored, breath sounds are equal, Symmetrical chest wall expansion. Gastrointestinal: Soft, Nontender, Non distended Musculoskeletal: Normal ROM, no deformity. Neurological: Alert and oriented, No focal neurological deficit observed. Psychiatric: Cooperative, appropriate mood & affect. Course 2 Vital Signs: Vital signs: Vital Signs Temperature 98.6 F 06/03/25 16:13 Pulse Rate 106 H 06/03/25 16:13 Respiratory Rate 20 H 06/03/25 16:13 Blood Pressure 117/87 06/03/25 16:13 Pulse Oximetry 94 06/03/25 16:13 Oxygen Delivery Me thod Room Air 06/03/25 16:13 MDM - Extremity (Nontraumatic) Medical Decision Making Medical decision making Patient's reason for coming to the emergency room: Weeping edema Social determinants: Retired, [facility] resident. I reviewed the patient's medical record. 75-year-old man with a history of atrial fibrillation, chronic anticoagulation, chronic kidney disease, type 2 diabetes, BPH, hyperlipidemia, depression, hypertension and congestive heart failure who presents to the emergency room with swelling of his lower extremities with some weeping from the [facility]. He was admitted recently for this. Recent admission where he was treated for cellulitis of the scrotum, orthostatic hypotension, edema, atrial fibrillation, hypertension, GI bleed, diastolic heart failure and kidney disease and sepsis secondary to cellulitis I reviewed the patient's current home meds Patient is on Eliquis for anticoagulation Alternate historians: None Differential diagnosis including but not limited to and based on the above HPI, review of systems and physical exam: for patient with edema: Congestive heart failure. Kidney failure. DVT / Pulmonary embolism. Protein malnutrition. Cirrhosis. Orders placed to evaluate differential diagnosis based on the above differential, HPI and physical exam EKG: Time 1622. Rate 98. Atrial fibrillation with controlled rate, No ST-T changes, no ectopy, This was reviewed and interpreted by myself the ER physician at 1626 Chest x-ray: Cardiomegaly with small right pleural effusion and mild pulmonary vascular prominence. This similar to previous chest x-ray or slightly improved. This was reviewed and interpreted by myself the emergency room physician. I also reviewed the radiology report. Lab Review: Laboratory results were reviewed and interpreted by myself the emergency room physician. No leukocytosis. Stable anemia. BUN and creatinine are elevated. His BUN is actually coming down from when he left. His creatinine is up just a little bit but below what it was initially. 85 and 2.3 today. Troponin is at his baseline at 46. No chest pain. No shortness of breath. Assessment of risk: Level of risk: Patient has a very high risk patient. Multiple comorbidities. Lives in a [place] [facility] Hospitalization considerations: Reexamination: Patient remained stable. No increased work of breathing. No altered mental status. No focal motor deficits. Assessment and plan: Stable chronic kidney disease Stable congestive heart failure Stable to improved edema ?No interventions in the emergency room today. Continue current therapy as recommended by hospitalist at discharge or by the patient's primary provider from the [place] [facility]. - Discharged home - Discussed plan with patient. Answered any questions. - Evaluation and treatment of this problem were appropriate in the emergency setting. Lab Data 06/03/25 16:11 06/03/25 16:11 Radiology Impressions Chest X-Ray 06/03/25 16:13 IMPRESSION: Cardiomegaly with a small right pleural effusion and mild pulmonary vascular prominence consistent with congestive heart failure, slightly improved as compared to prior study. Laboratory Results WBC 10.91 10^3/uL (3.29-11.43) 06/03/25 16:11 RBC 3.77 10^6/uL (3.85-5.65) L 06/03/25 16:11 Hgb 9.20 g/dL (11.27-16.99) L 06/03/25 16:11 Hct 32.1 % (37-53) L 06/03/25 16:11 MCV 85.1 fl (82-101) 06/03/25 16:11 MCH 24.4 pg (27-33) L 06/03/25 16:11 MCHC 28.7 g/dL (30-55) L 06/03/25 16:11 RDW 27.0 % (12.1-15.1) H 06/03/25 16:11 Plt Count 207 10^3/cmm (157-399) 06/03/25 16:11 MPV 11.6 fL (7.4-10.4) H 06/03/25 16:11 Neut % (Auto) 93.9 % 06/03/25 16:11 Lymph % (Auto) 1.6 % 06/03/25 16:11 Cooper % (Auto) 3.1 % 06/03/25 16:11 Eos % (Auto) 0.0 % 06/03/25 16:11 Baso % (Auto) 0.0 % 06/03/25 16:11 Neut # (Auto) 10.25 10^3/uL (1.8-7.7) H 06/03/25 16:11 Lymph # (Auto) 0.2 10^3/uL (0.8-4.8) L 06/03/25 16:11 Cooper # (Auto) 0.3 10^3/uL (0.2-0.9) 06/03/25 16:11 Eos # (Auto) 0.0 10^3/uL (0.0-0.8) 06/03/25 16:11 Baso # (Auto) 0.0 10^3/uL (0.0-0.1) 06/03/25 16:11 Nucleated RBC % (auto) 0 % 06/03/25 16:11 Nucleated RBCs # 0.0 /100WBC 06/03/25 16:11 Sodium 139 mmol/L (136-145) 06/03/25 16:11 Potassium 4.7 mmol/L (3.5-5.1) 06/03/25 16:11 Chloride 101 mmol/L (98-107) 06/03/25 16:11 Carbon Dioxide 21 mmol/L (22-29) L 06/03/25 16:11 Anion Gap 21.7 (5-19) H 06/03/25 16:11 BUN 85 mg/dL (8-23) H* 06/03/25 16:11 Creatinine 2.3 mg/dL (0.7-1.2) H 06/03/25 16:11 GFR Calculation Not Reportable 06/03/25 16:11 Glucose 170 mg/dL (65-115) H 06/03/25 16:11 Calculated Osmolality 318 mOsm/kg (285-295) H 06/03/25 16:11 Lactic Acid 3.5 mmol/L (0.5-2.2) H 06/03/25 16:11 Calcium 9.0 mg/dL (8.5-10.5) 06/03/25 16:11 Total Bilirubin 1.1 mg/dL (0.15-1.2) 06/03/25 16:11 AST 30 U/L (0-40) 06/03/25 16:11 ALT 38 U/L (0-41) 06/03/25 16:11 Alkaline Phosphatase 202 U/L (40-130) H 06/03/25 16:11 Troponin T Baseline 46 ng/L (0-15) H 06/03/25 16:11 NT-Pro-B Natriuret Pep 2554 pg/mL (0-450) H 06/03/25 16:11 Total Protein 5.8 g/dL (6.6-8.7) L 06/03/25 16:11 Albumin 3.6 g/dL (3.5-5.2) 06/03/25 16:11 Globulin 2.2 g/dL (1.3-4.6) 06/03/25 16:11 All radiology interpretation(s) finalized by discharge Discharge Plan Discharge Patient Disposition: Home Clinical Impression: Edema, Chronic kidney disease Condition: Stable Prescriptions: No Action ascorbate calcium (vitamin C) 500 mg tablet 500 mg PO DAILY levothyroxine [Levoxyl] 25 mcg tablet 25 mcg PO DAILY Qty: 30 11RF Rx Instructions: take 30 mins prior to food or meds ferrous sulfate [Iron (ferrous sulfate)] 325 mg (65 mg iron) tablet 325 mg PO BID Qty: 60 6RF escitalopram oxalate 20 mg tablet 20 mg PO DAILY Qty: 30 11RF Eliquis 5 mg tablet See Rx Instructions .ROUTE .COMPLEX Qty: 60 11RF Dose Instruction: TAKE 1 TABLET BY MOUTH TWICE DAILY Rx Instructions: TAKE 1 TABLET BY MOUTH TWICE DAILY tamsulosin 0.4 mg capsule See Rx Instructions .ROUTE .COMPLEX Qty: 30 11RF Dose Instruction: TAKE 1 CAPSULE BY MOUTH ONCE DAILY FOR PROSTATE Rx Instructions: TAKE 1 CAPSULE BY MOUTH ONCE DAILY FOR PROSTATE fluticasone propionate 50 mcg/actuation spray,suspension 2 spray intranasal DAILY PRN (Reason: Allergy Symptoms) Qty: 16 11RF Rx Instructions: administer into each nostril levocetirizine 5 mg tablet 5 mg PO DAILY PRN (Reason: allergy symptoms) Qty: 30 11RF aripiprazole [Abilify] 5 mg tablet 5 mg PO DAILY Qty: 30 11RF midodrine 5 mg Tablet 10 mg PO TID 30 Days Qty: 180 0RF pyridostigmine bromide 60 mg Tablet 60 mg PO TID 30 Days Qty: 90 0RF metoprolol tartrate 25 mg Tablet 12.5 mg PO BID@0900,2100 30 Days Qty: 30 0RF dapagliflozin propanediol 10 mg Tablet 10 mg PO DAILY Qty: 30 0RF magnesium hydroxide [Milk of Magnesia] 400 mg/5 mL Suspension 30 ml PO DAILY PRN (Reason: Constipation) bisacodyl 10 mg Suppository 10 mg NE DAILY PRN (Reason: Constipation) Fleet Enema 19-7 gram/118 mL Enema 118 ml NE DAILY PRN (Reason: Constipation) docusate sodium 100 mg Capsule 200 mg PO BEDTIME Rx Instructions: For seven days starting 05/13/25 lidocaine HCl [Lidocaine Viscous] 2 % Solution 1 applic MUCOUS MEMBRANE BID PRN (Reason: Mouth Pain) potassium chloride 20 mEq Tablet Extended Release 20 meq PO BID Rx Instructions: For 5 days with Lasix - Started 05/15/25. THEN reduce dose to 20meq once daily after 05/20/25 furosemide 40 mg Tablet 40 mg PO QAM Qty: 1 0RF doxycycline monohydrate 100 mg Tablet 100 mg PO BID Qty: 10 0RF amoxicillin-pot clavulanate 875-125 mg Tablet 1 tab PO BID Qty: 10 0RF prednisone 10 mg tablet See Rx Instructions .ROUTE .COMPLEX Qty: 30 0RF Rx Instructions: take 20mg po qday x 7 days, then 15mg po qday x 7 days , then 10mg po qday Discharge Orders: Discharge ED (Routine); Ordered 06/03/25 Ordered By: Yani Mora Referrals: Ashwin Roberson MD [Primary Care Provider, Family Practice] Discharge Diet: Usual diet Discharge Activity: Increase activity as tolerated Patient Instructions: Leg Edema (ED), Opioid Safety, Pain Management, Patient Portal & Luz Instructions Activity Restrictions/Additional Instructions: If you develop any worsening shortness of breath or altered mental status or oxygen requirements please return to the emergency room. Today your kidney function appears about baseline. Your legs look enamel drier than they did before. I do not see indication for admission or further diuresis. This could be harmful to your kidneys. Thank you for choosing [facility] for your healthcare needs today. You have been screened and evaluated and felt safe for discharge. Health conditions do change or evolve sometimes and as such it is important that you follow up with your Primary Doctor to be re checked, 3-5 days is a general good time frame for follow up. You are always welcome to return to the ED for re assessment if your symptoms are worsening or you have new concerns Print Language: Wolof Coding Level of Care Code ED Private [employer]er for Naya Mccord
[2025-06-03 16:46] LABS: Lactic Sepsis W/Reflex 3.5 mmol/L (0.5-2.2); Troponin(5th) Baseline 46 ng/L (0-15)
[2025-06-03 16:49] VITALS: BP 105/79; PULSE 88; RESP 20; O2SAT 93
[2025-06-03 16:53] LABS: Reflex Lactate Order REFLEX LACTIC ORDERD
[2025-06-03 16:56] LABS: Alanine Aminotransferase 38 U/L (0-41); Albumin Level 3.6 g/dL (3.5-5.2); Alkaline Phosphatase 202 U/L (40-130); Anion Gap 21.7 (5-19); Aspartate Amino Transferase 30 U/L (0-40); Calcium 9.0 mg/dL (8.5-10.5); Carbon Dioxide 21 mmol/L (22-29); Chloride 101 mmol/L (98-107); Globulin 2.2 g/dL (1.3-4.6); Glucose 170 mg/dL (65-115); NT Pro B Type Natriuretic Pept 2554 pg/mL (0-450); Osmolality Calculated 318 mOsm/kg (285-295); Potassium 4.7 mmol/L (3.5-5.1); Sodium 139 mmol/L (136-145); Total Protein 5.8 g/dL (6.6-8.7)
[2025-06-03 16:59] LABS: Blood Urea Nitrogen 85 mg/dL (8-23)
[2025-06-03 18:22] VITALS: BP 101/78; PULSE 89; O2SAT 75
== END 2025-06-03 18:15 | disposition home or self-care (01) ==
PROVIDERS: Emergency Provider Emergency Medicine; PCP Family Medicine
DX: E11.22 Type 2 diabetes mellitus with diabetic chronic kidney disease (principal); I13.0 Hypertensive heart and chronic kidney disease with heart failure and stage 1 through stage 4 chronic kidney disease, or unspecified chronic kidney disease; N18.9 Chronic kidney disease, unspecified; I50.9 Heart failure, unspecified; E78.5 Hyperlipidemia, unspecified; Z79.01 Long term (current) use of anticoagulants
CPT/HCPCS: 71045; 80053; 83605; 83880; 84484; 85025; 93005; 99285

== ENCOUNTER 2025-06-12 02:15 | Inpatient (IN) | payer MEDICARE, SELFPAY ==
[2025-06-12] VITALS (84 sets, daily range): BP systolic 66–124; BP diastolic 51–101; PULSE 82–152; RESP 14–40; TEMP 36.4–36.9; O2SAT 80–100; BMI 32.7
--- NOTE | 2025-06-12 02:24 | XRR_ITS ---
PROCEDURE INFORMATION: Exam: XR Chest Exam date and time: 06/12/2025 2:32 AM Age: 75 years old Clinical indication: Shortness of breath; Additional info: SOB TECHNIQUE: Imaging protocol: Radiologic exam of the chest. Views: 1 view. COMPARISON: CR (CHEST, ) 06/03/2025 4:21 PM FINDINGS: Lungs: Central and bibasilar predominant interstitial prominence is present. Pleural spaces: Unremarkable. No pleural effusion. No pneumothorax. Heart/Mediastinum: The heart is mildly enlarged. Mediastinal contours are within normal limits. Bones/joints: Unremarkable. XR/XR chest 1V portable [id number] IMPRESSION: 1. Findings suggestive of mild pulmonary edema or interstitial pneumonia. 2. Mild cardiomegaly.
--- NOTE | 2025-06-12 02:26 | W.ED.SOB ---
HPI - SOB/Dyspnea General: Chief Complaint: General Medical Stated Complaint: CHF Time Seen by Provider: 06/12/25 02:23 History of Present Illness: HPI Narrative: Patient is a 75-year-old male with a past medical history of CHF, A-fib on Eliquis, depression who presents to the ED with increasing extremity swelling and shortness of breath over the last few days. His heart failure medications recently but does not know what exactly, documentation from the facility reports he has gained 7 pounds in the last 3 days. He has also felt chilled and fatigued over the last 2 days, had a negative COVID swab at the facility. He was placed on 2 L nasal cannula for comfort. He denies any recent trauma. Related Data Home Medications ?Medication ?Instructions ?Recorded ?Confirmed ascorbate calcium (vitamin C) 500 500 mg PO DAILY 12/14/19 06/12/25 mg tablet bisacodyl 10 mg rectal suppository 10 mg WV DAILY PRN Constipation 05/20/25 06/12/25 lidocaine HCl 2 % mucosal solution 1 applic mucous membrane BID PRN 05/20/25 06/12/25 (Lidocaine Viscous) Mouth Pain magnesium hydroxide 400 mg/5 mL 30 ml PO DAILY PRN Constipation 05/20/25 06/12/25 oral suspension (Milk of Magnesia) potassium chloride 20 mEq 20 meq PO BID 05/20/25 06/12/25 tablet,extended release sodium phosphates 19 gram-7 118 ml WV DAILY PRN Constipation 05/20/25 06/12/25 gram/118 mL enema (Fleet Enema) Lactobacillus rhamnosus GG 10 1 cap PO DAILY 06/12/25 06/12/25 billion cell capsule (Culturelle) acetaminophen 325 mg tablet 650 mg PO Q4H PRN Pain 06/12/25 06/12/25 albuterol sulfate 2.5 mg/3 mL 2.5 mg inhalation Q4H PRN 06/12/25 06/12/25 (0.083 %) solution for nebulization Congestion apixaban 5 mg tablet (Eliquis) 5 mg PO BID 06/12/25 06/12/25 furosemide 40 mg tablet 40 mg PO BID 06/12/25 06/12/25 metoprolol tartrate 25 mg tablet 12.5 mg PO BID 06/12/25 06/12/25 midodrine 10 mg tablet 10 mg PO TID 06/12/25 06/12/25 prednisone 10 mg tablet 10 mg PO DAILY 06/12/25 06/12/25 prednisone 5 mg tablet 15 mg PO DAILY 06/12/25 06/12/25 pyridostigmine bromide 60 mg tablet 60 mg PO BID 06/12/25 06/12/25 spironolactone 25 mg tablet 25 mg PO DAILY 06/12/25 06/12/25 tamsulosin 0.4 mg capsule 0.4 mg PO DAILY 06/12/25 06/12/25 Previous Rx's ?Medication ?Instructions ?Recorded fluticasone propionate 50 2 spray intranasal DAILY PRN 09/30/23 mcg/actuation nasal Allergy Symptoms #16 grams spray,suspension escitalopram oxalate 20 mg tablet 20 mg PO DAILY #30 tabs 05/11/24 levocetirizine 5 mg tablet 5 mg PO DAILY PRN allergy symptoms 06/28/24 #30 tabs aripiprazole 5 mg tablet (Abilify) 5 mg PO DAILY #30 tabs 07/03/24 levothyroxine 25 mcg tablet 25 mcg PO DAILY #30 tabs 03/06/25 (Levoxyl) ferrous sulfate 325 mg (65 mg 325 mg PO BID #60 tabs 04/11/25 iron) tablet (Iron (ferrous sulfate)) dapagliflozin propanediol 10 mg 10 mg PO DAILY #30 tabs 05/08/25 tablet Allergies Allergy/AdvReac Type Severity Reaction Status Date / Time ciprofloxacin (From Cipro) Allergy Severe muscle or Verified 05/28/25 09:48 joint pain paroxetine (From Paxil) AdvReac Mild made his Verified 05/28/25 09:48 head feel weird Review of Systems General: Reports: 10 or more systems reviewed and unremarkable except in HPI and below PFSH ED PFSH: Medical History (Updated 06/12/25 @ 23:01 by Tejas Noble DO) Chronic anticoagulation Chest pain Abnormal CT scan Acute on chronic renal insufficiency Type 2 diabetes mellitus without complication Persistent atrial fibrillation BPH (benign prostatic hyperplasia) Hyperlipidemia Depression Hypertension Seropositive rheumatoid arthritis Rheumatoid arthritis with rheumatoid factor of multiple sites without organ or systems involvement Other [facility]current[facility] drug therapy Surgical History History of tonsillectomy Family History Other Diabetes Social History Smoking and tobacco/nicotine status: never used tobacco/nicotine Alcohol intake: current Alcohol intake frequency: few times a week Alcohol type: beer Substance/Drug Use: never Physical Exam Narrative: EXAM NARRATIVE: Chronically ill-appearing but in no acute distress, vital signs stable on arrival, afebrile. Breath sounds diminished with mild crackles and end expiratory wheezes, able to speak in full sentences without getting short of breath, no retractions, no increased work of breathing, saturating in mid 90s, no signs of respiratory distress. Normal sinus rhythm with no murmurs, 3+ pitting edema to bilateral lower extremities, abdomen protuberant but soft and nontender. GCS 15, alert and oriented x 4, moving all 4 extremities symmetrically and spontaneously. Course Vital Signs: Vital signs: Vital Signs Temperature 98.4 F 06/12/25 20:00 Pulse Rate 91 06/12/25 22:00 Respiratory Rate 22 H 06/12/25 20:21 Blood Pressure 99/76 06/12/25 20:00 Pulse Oximetry 99 06/12/25 20:21 Oxygen Delivery Me thod Nasal Cannula 06/12/25 20:00 Oxygen Flow Rate 4 06/12/25 20:00 MDM - SOB/Dyspnea Medical Decision Making -ddx: CHF versus COPD exacerbation, URI, pneumonia, muscle cramps, electrolyte abnormality, renal dysfunction, ACS, dysrhythmia - Patient chronically ill-appearing, with reported 7 pound weight gain over the last 3 days, has been short of breath, has also had concerns for chills and feeling fatigued recently, lives in a facility, has had multiple recent admissions including with sepsis, will initiate cardiac/infectious workup and reassess. - Initial lactate of 5, believed to be mostly cardiac in origin, was anasarcic, cool extremities in setting of his CHF and been having weight gain despite up titration on his diuretics. For this, Bumex and metolazone given. Patient also thought to have infectious component contributing, had leukocytosis at 15, had onset of fatigue and chills today, no clear etiology to this, so 2 g of Rocephin given. Patient's pressures remained soft but never required vasopressors while in the ED. He did have an DIXON, elevated LFTs, this was believed to be prerenal and in setting of poor forward flow from his cardiogenic status. Mild hyperkalemia in setting of his creatinine slightly elevated but no peaked T wave changes, not treated at this time with hyperkalemia treatment patient was then admitted to the ICU in still guarded condition but with no clinical deterioration while in the ED. Lab Data 06/12/25 02:04 06/12/25 02:04 Labs/Radiology: Radiology Impressions Chest X-Ray 06/12/25 15:31 IMPRESSION: 1. Right IJ CVC tip is in the superior vena cava. 2. New left basilar/retrocardiac opacity is concerning for developing consolidation. Laboratory Results WBC 14.76 10^3/uL (3.29-11.43) H 06/12/25 02:04 RBC 3.82 10^6/uL (3.85-5.65) L 06/12/25 02:04 Hgb 9.60 g/dL (11.27-16.99) L 06/12/25 02:04 Hct 31.8 % (37-53) L 06/12/25 02:04 MCV 83.2 fl (82-101) 06/12/25 02:04 MCH 25.1 pg (27-33) L 06/12/25 02:04 MCHC 30.2 g/dL (30-55) 06/12/25 02:04 RDW 26.4 % (12.1-15.1) H 06/12/25 02:04 Plt Count 175 10^3/cmm (157-399) 06/12/25 02:04 MPV 11.2 fL (7.4-10.4) H 06/12/25 02:04 Neut % (Auto) 95.7 % 06/12/25 02:04 Lymph % (Auto) 1.6 % 06/12/25 02:04 [place] % (Auto) 2.2 % 06/12/25 02:04 Eos % (Auto) 0.0 % 06/12/25 02:04 Baso % (Auto) 0.1 % 06/12/25 02:04 Neut # (Auto) 14.13 10^3/uL (1.8-7.7) H 06/12/25 02:04 Lymph # (Auto) 0.2 10^3/uL (0.8-4.8) L 06/12/25 02:04 [place] # (Auto) 0.3 10^3/uL (0.2-0.9) 06/12/25 02:04 Eos # (Auto) 0.0 10^3/uL (0.0-0.8) 06/12/25 02:04 Baso # (Auto) 0.0 10^3/uL (0.0-0.1) 06/12/25 02:04 Nucleated RBC % (auto) 0.3 % 06/12/25 02:04 Nucleated RBCs # 0.1 /100WBC 06/12/25 02:04 ESR < 1 mm/hr (0-10) 06/12/25 02:04 Specimen Type Venous 06/12/25 03:15 Sample Site Not Reportable 06/12/25 03:15 Dylan Test N/a 06/12/25 03:15 VBG pH 7.38 (7.32-7.42) 06/12/25 03:15 VBG pCO2 34.8 mmHg (41-51) L 06/12/25 03:15 VBG pO2 47.2 mmHg (25-40) H 06/12/25 03:15 VBG HCO3 20.7 mmol/L (24-28) L 06/12/25 03:15 VBG Base Excess -3.9 mmol/L (-3.0-3.0) L 06/12/25 03:15 VBG Hematocrit 31.5 % (42-52) L 06/12/25 03:15 O2 Delivery Device Not Reportable 06/12/25 03:15 Administrative Executive ID [email or web address] 06/12/25 03:15 Sodium 142 mmol/L (136-145) 06/12/25 02:04 Potassium 5.4 mmol/L (3.5-5.1) H 06/12/25 02:04 Chloride 103 mmol/L (98-107) 06/12/25 02:04 Carbon Dioxide 20 mmol/L (22-29) L 06/12/25 02:04 Anion Gap 24.4 (5-19) H 06/12/25 02:04 BUN 81 mg/dL (8-23) H 06/12/25 02:04 Creatinine 2.4 mg/dL (0.7-1.2) H 06/12/25 02:04 GFR Calculation Not Reportable 06/12/25 02:04 Glucose 70 mg/dL (65-115) 06/12/25 02:04 POC Glucose 92 mg/dL (70-110) 06/12/25 06:28 Calculated Osmolality 317 mOsm/kg (285-295) H 06/12/25 02:04 Lactic Acid 5.2 mmol/L (0.5-2.2) H* 06/12/25 02:04 Lactic Acid (Sepsis) 4.6 mmol/L (0.5-2.2) H* 06/12/25 05:15 Calcium 8.7 mg/dL (8.5-10.5) 06/12/25 02:04 Phosphorus 4.7 mg/dL (2.5-4.5) H 06/12/25 02:04 Magnesium 2.4 mg/dL (1.7-2.3) H 06/12/25 02:04 Total Bilirubin 2.3 mg/dL (0.15-1.2) H 06/12/25 02:04 AST 25 U/L (0-40) 06/12/25 02:04 ALT 37 U/L (0-41) 06/12/25 02:04 Alkaline Phosphatase 213 U/L (40-130) H 06/12/25 02:04 Troponin T Baseline 75 ng/L (0-15) H 06/12/25 02:04 Troponin T 60 Minute 73.94 ng/L (0-15) H 06/12/25 03:15 Delta Troponin T -1.06 ABS# (0-10) L 06/12/25 03:15 C-React Prot High Sens 17.380 mg/dL (0.0-0.3) H 06/12/25 02:04 NT-Pro-B Natriuret Pep 3349 pg/mL (0-450) H 06/12/25 02:04 Total Protein 4.9 g/dL (6.6-8.7) L 06/12/25 02:04 Albumin 3.4 g/dL (3.5-5.2) L 06/12/25 02:04 Globulin 1.5 g/dL (1.3-4.6) 06/12/25 02:04 Procalcitonin 1.05 ng/mL (0-0.5) H 06/12/25 02:04 TSH 6.65 uIU/mL (0.27-4.20) H 06/12/25 02:04 Serum Ketones Negative (Negative) 06/12/25 02:04 All radiology interpretation(s) finalized by discharge Critical Care Time Critical Care Time: Critical Care Time: Yes Total Critical Care Time: 51 Attestation: Suspected septic cardiomyopathy with lactate over 5, diffuse anasarca, numerous laboratory abnormalities requiring IV diuresis, IV antibiotics and admitted and still guarded condition. Discharge Plan Discharge Patient Disposition: Admitted As Inpatient Admit Provider: Ayan Burrell Clinical Impression: Cardiogenic shock, Pneumonia, DIXON (acute kidney injury) Condition: Stable Coding Level of Care Code ED [employer] Faculty Member for Naya Mccord
--- NOTE | 2025-06-12 02:27 | ECG_ITS ---
[facility] 2025-06-12 Pat Name: Cesar Mederos Department: Room: Gender: Male Stunt Double: : 1950 Requested By: Tejas Noble Order Number: [id number] Potter MD: Alexsandra Hraper M.D. Measurements Intervals Barker Rate: 104 P: 0 ID: 0 QRS: 268 QRSD: 94 T: 179 QT: 344 QTc: 454 Interpretive Statements ATRIAL FIBRILLATION WITH RAPID VENTRICULAR RESPONSE RIGHT AXIS DEVIATION [QRS AXIS > 100] LOW QRS VOLTAGE IN EXTREMITY LEADS [QRS DEFLECTION < 0.5 mV IN LIMB LEADS] PATTERN CONSISTENT WITH PULMONARY DISEASE MINIMAL ST DEPRESSION [0.025+ mV ST DEPRESSION] Compared to ECG 06/03/2025 16:22:00 Right-axis deviation now present Atrial flutter no longer present Indeterminate axis no longer present ST (T wave) deviation still present Electronically Signed On 06-12-2025 21:25:14 OCEAN EXPORT ACCOUNT MANAGER by Alexsandra Harper M.D. [email or web address]
[2025-06-12 02:34] LABS: Hematocrit 31.8 % (37-53); Hemoglobin 9.60 g/dL (11.27-16.99); Mean Corpuscular HGB Conc 30.2 g/dL (30-55); Mean Corpuscular Hemoglobin 25.1 pg (27-33); Mean Corpuscular Volume 83.2 fl (82-101); Nucleated Red Blood Cells % 0.3 %; Platelet Count 175 10^3/cmm (157-399); Red Blood Count 3.82 10^6/uL (3.85-5.65); White Blood Count 14.76 10^3/uL (3.29-11.43)
--- OUTSIDE RECORDS SUMMARY | 2025-06-12 02:37 | XMS_ITS | Continuity of Care Document ---
Author Organization [facility] Jimmy Atkinson [facility] Luis F Redmond, [facility] ([facility]) Address [address] [place] [address] Assessment No assessment recorded. Plan of Treatment [...] Modified By Organization Details Last Modified Time 06/04/2025 [id number] edema improved today, breathing at baseline. d/c lorenzo. continue daily weights. [email or web address] Not available 06/04/2025 15:58:45 Reason for Referral None Reported. Problems Name Problem SNOMED Code Status Onset Date Resolution Date Notes Provider Name and Address Organization Details Recorded Time Colonosc opy Active 2015 Colonosc opy; [facility] 01/31/10-- POLYPECT EMELIA (Hyperpl astic); 02/12/20 16 4:15PM by Duyen Vazquez RN, Office Visit; Promoted ; acuity set as *; Not Available [facility] 3 03:10:30 Seasonal allergic rhinitis 926067491 Completed 201710/01/2017 Seasonal allergie s - Status is Inactive ; 10/02/19 18 6:16PM by Agnes Carnes CMT, Annotati on/Adden dum; Promoted ; acuity set as *; Not Available [facility] 3 03:10:30 Anthony son type IIa hyperlip oprotein emia 782484028 Active 2017 HYPERCHO LESTEROL EMIA; Recorded 10/02/19 18 6:31PM by Agnes Carnes CMT, Office Visit; Promoted ; acuity set as *; Not Available [facility] 3 03:10:31 Aspirati on pneumoni a 401280288 Active 2024 PENELOPELOVE MCCLAIN [facility] 5 12:01:33 Sepsis 61429713 Active 2024 PENELOPELOVE MCCLAIN [facility] 5 12:01:34 Orthosta tic hypotens ion 68340364 Active 2024 PENELOPE MCCLAIN [facility] 5 12:01:36 Chronic kidney disease stage 3A 215464783 Active 2024 PENELOPELOVE MCCLAIN [facility] 5 12:01:37 Chronic atrial fibrilla tion 653562871 Active 2024 PENELOPELOVE MCCLAIN [facility] 5 12:01:38 Chronic congesti ve heart failure 36447033 Active 2024 PENELOPELOVE MCCLAIN [facility] 5 12:01:40 [facility] hyperten meg 30765216 Active 2024 PENELOPE JOHNY [facility] 5 12:01:41 Problem Notes None recorded. Medical Equipment None Reported. Allergies Allergen ID Allergen Name Allergen Category Reaction Reaction Severity Criticality Documentation Date Start Date Code Code System Note Provider Name and Address Organization Details Recorded Time 67429 ciproflox acin medicatio n Not available Not available high 05/31/20252024 2551 RxNorm Not Available patric - External Data Service - prod 12:00:57 44119 paroxetin e Not available Not available Not available low 05/31/20252024 32127 RxNorm Not Available patric - External Data [...] 03/24/20 17 4:51PM by Vesna carter (Authori trud through Weston Bernardo MD), Refill Request; Refill [...] Not Available Klonopin daily 2016 active vo JR/tn Pt will need an appointm ent before [...] Address Organization Details Last Updated DateTime 5 504362. 09 g 112 /min 19 /min 97.9 [degF] 96 % 118/52 mm[Hg] PENELOPE MCCLAIN [facility] 15:55:57 Social History None recorded. Functional Status None [...] virus, trivalent, preservative 2 completed Not Available [facility] 01/23/2023 02:47:00 Influenza, split virus, trivalent, preservative 1 completed Not Available [facility] 01/23/2023 02:47:00 Influenza, split virus, trivalent, preservative 3 completed Not Available [facility] 01/23/2023 02:47:00 Influenza, split virus, trivalent, preservative 6 completed Not Available [facility] 01/23/2023 02:47:00 Influenza, split virus, trivalent, preservative 5 completed Not Available [facility] 01/23/2023 02:47:01 Influenza, split virus, trivalent, preservative 5 completed Not Available [facility] 01/23/2023 02:47:01 Influenza, split virus, trivalent, preservative 3 completed Not Available [facility] 06/11/2025 19:03:57 Influenza, high-dose, trivalent, PF 7 completed Not Available [facility] 06/11/2025 19:03:57 Influenza, high-dose, trivalent, PF 8 completed Not Available [facility] 06/11/2025 19:03:57 Pneumococcal conjugate PCV 13 9 completed Not Available [facility] 06/11/2025 19:03:57 COVID-19, mRNA, LNP-S, PF, 30 mcg/0.3 mL dose 1 completed Not Available [facility] 06/11/2025 19:03:57 COVID-19, mRNA, LNP-S, PF, 30 mcg/0.3 mL dose 1 completed Not Available [facility] 06/11/2025 19:03:57 COVID-19, mRNA, LNP-S, PF, 30 mcg/0.3 mL dose 1 completed Not Available [facility] 06/11/2025 19:03:57 Influenza, high-dose, quadrivalent, PF 1 completed Not Available [facility] 06/11/2025 19:03:57 COVID-19, mRNA, LNP-S, PF, 30 mcg/0.3 mL dose, sal-sucrose 2 completed Not Available [facility] 06/11/2025 19:03:57 Influenza, high-dose, quadrivalent, PF 2 completed Not Available [facility] 06/11/2025 19:03:57 COVID-19, mRNA, LNP-S, bivalent, PF, 30 mcg/0.3 mL dose 2 completed Not Available [facility] 06/11/2025 19:03:57 Influenza, high-dose, quadrivalent, PF 3 completed Not Available [facility] 06/11/2025 19:03:57 Tdap 4 completed Not Available [facility] 06/11/2025 19:03:57 COVID-19, mRNA, LNP-S, PF, sal-sucrose, 30 mcg/0.3 mL 4 completed Not Available [facility] 06/11/2025 19:03:57 Past Encounters Encounter ID Performer Location Encounter Start Date Encounter Closed Date Diagnosis/Indication Diagnosis SNOMED-CT Code Diagnosis ICD10 Code Diagnosis IMO Codes Diagnosis Note [id number] Walter Hunter DO [facility] ([facility]) [address] [place] [phone] 05/10/2025 10:24:58 05/21/2025 08:10:00 Post-discharge follow-up 315211879 Z09 197460 Aspiration pneumonia 422 482824 J69.0 755983815 Sepsis 78663122 A41.9 5286057705 Orthostati c hypotension 96399364 I95.1 286353 Chronic ki dney disease stage 3A 690795714 N18.31 4280611573 Chronic at rial fibrillation 469281810 I48.20 319423 Chronic co ngestive heart failure 95640337 I50.9 6046609633 Essential hypertension 70375520 I10 22845 [id number] Walter HunterDO [facility] ([facility]) [address] [place] [phone] 05/17/2025 12:53:48 05/21/2025 13:16:33 Chronic atrial fibrillation 914469012 I48.20 465410 Essential hypertension 97464790 I10 22084 Edema 893475271 R60.9 [id number] Walter Hunter [facility] ([facility]) [address] [place] [phone] 05/31/2025 12:00:24 06/11/2025 09:20:54 Post-discharge follow-up 488790353 Z51.89 206855 Orthostati c hypotension 15098729 I95.1 3436 Cellulitis of scrotum 34 992628 N49.2 50265 Chronic sy stolic heart failure 779586048 I50.22 294763 Gastrointe stinal hemorrhage 01015282 K92.2 [id number] Walter Hunter [facility] ([facility]) [address] [place] [phone] 06/04/2025 13:49:41 06/07/2025 17:28:20 Bilateral lower limb edema 279886616 R60.0 [id number] Health Concerns Section Related Observation LastModified by Organization Detai ls LastModified Time None Recorded Concern Status LastModified by Organization Details LastModified Time None Recorded Payers Encounter Date Sequence Insurance Name Policy Number Policy Orellana Covered Member ID Orellana Member ID Guarantor Name 06/04/2025 1 [facility] (MEDICARE REPLACEMENT/A DVANTAGE - PPO) [id number] Cesar Mederos [id number] Cesar Mederos Notes Date Note Type Note Provider Name and Address Organization Details Recorded Time 5 text/html HypertensionReported by PatientHPIFor severity, patient reportsgrade 1 (130-139/80-89). For duration, patient reportshas noted for years. For alleviating factors, patient reportsmedication.ROS as noted in the HPI er follow up for edema Walter Hunter, DO [address] [place] [address], [phone], [place] [facility] F 06/06/2025 17:33:24
--- OUTSIDE RECORDS SUMMARY | 2025-06-12 02:37 | XMS_ITS | Encounter Summary ---
Author Organization [facility] Address [address] [place] [address] Care Team Providers Care Business Intelligence Developer Name Role Phone Unavailable Primary Care Provider Unavailabl e Encounter Details Date Type Department Care Team (Latest Contact Info) Description 11/03/1999 Outpatient Historical [facility] 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
--- OUTSIDE RECORDS SUMMARY | 2025-06-12 02:37 | XMS_ITS | Continuity of Care Document ---
Author Organization [facility] Jimmy Atkinson [facility] Luis F Redmond, [facility] ([facility]) Address [address] [facility] [place] [address] Assessment No assessment recorded. Plan of Treatment [...] Modified By Organization Details Last Modified Time 05/31/2025 [id number] Hospital records reviewed. Admitted with scrotal swelling and bleeding in addition to berta thought to be secondary to vanc vs contrast. Vanc stopped Labs on Wednesday x 2 weeks. Daily weights. Not available 06/08/2025 17:10:25 Reason for Referral None Reported. Problems Name Problem SNOMED Code Status Onset Date Resolution Date Notes Provider Name and Address Organization Details Recorded Time Colonosc opy Active 2015 Colonosc opy; [facility] 01/31/10-- POLYPECT EMELIA (Hyperpl astic); 02/12/20 16 4:15PM by Duyen Vazquez RN, Office Visit; Promoted ; acuity set as *; Not Available [facility] 3 03:10:30 Seasonal allergic rhinitis 449908198 Completed 201710/01/2017 Seasonal allergie s - Status is Inactive ; 10/02/19 18 6:16PM by Agnes Carnes CMT, Annotati on/Adden dum; Promoted ; acuity set as *; Not Available [facility] 3 03:10:30 Anthony son type IIa hyperlip oprotein emia 959572139 Active 2017 HYPERCHO LESTEROL EMIA; Recorded 10/02/19 18 6:31PM by Agnes Carnes CMT, Office Visit; Promoted ; acuity set as *; Not Available [facility] 3 03:10:31 Aspirati on pneumoni a 631341424 Active 2024 PENELOPELOVE MCCLAIN [facility], [facility] 5 12:01:33 Sepsis 20459932 Active 2024 PENELOPELOVE MCCLAIN [facility], [facility] 5 12:01:34 Orthosta tic hypotens ion 58846662 Active 2024 PENELOPE MCCLAIN [facility] 5 12:01:36 Chronic kidney disease stage 3A 508200867 Active 2024 PENELOPE MCCLAIN [facility] 5 12:01:37 Chronic atrial fibrilla tion 187454619 [facility] 12:01:38 Chronic congesti ve heart failure 33620740 Active 2024 PENELOPE [facility] 5 12:01:40 [facility] hyper[facility] meg 47645055 Active 2024 PENELOPELOVE MCCLAIN [facility] 5 12:01:41 Problem Notes None recorded. Medical Equipment None Reported. Allergies Allergen ID Allergen Name Allergen Category Reaction Reaction Severity Criticality Documentation Date Start Date Code Code System Note Provider Name and Address Organization Details Recorded Time 25333 ciproflox acin medicatio n Not available Not available high 05/31/20252024 2551 RxNorm Not Available [facility] - External Data Service - prod 12:00:57 41604 paroxetin e Not available Not available Not available low 05/31/20252024 31115 RxNorm Not Available [facility] - External Data [...] BY MOUTH TWICE DAILY FOR 7 DAYS 11/13 /2025 completed Not Available Not Available Not Available [...] an appointm ent before any more refills. /angella; 173; Recorded 02/23/20 17 1:46PM by Vesna [...] Address Organization Details Last Updated DateTime 5 398063. 05 g 98.3 /min 18 /min 98.3 [degF] 99 % 100/50 mm[Hg] P[facility] 5 13:30:18 Date Recorded Body weight Heart rate Respiratory rate Body temperature Oxygen saturation Systolic And Diastolic Provider Name and Address Organization Details Last Updated DateTime 5 903874. 09 g 112 /min 19 /min 97.9 [degF] 96 % 118/52 mm[Hg] [facility] 5 15:55:57 Social History None recorded. Functional Status [...] virus, trivalent, preservative 2 completed Not Available [facility] 01/23/2023 02:47:00 Influenza, split virus, trivalent, preservative 1 completed Not Available [facility] 01/23/2023 02:47:00 Influenza, split virus, trivalent, preservative 3 completed Not Available [facility] 01/23/2023 02:47:00 Influenza, split virus, trivalent, preservative 6 completed Not Available [facility] 01/23/2023 02:47:00 Influenza, split virus, trivalent, preservative 5 completed Not Available [facility] 01/23/2023 02:47:01 Influenza, split virus, trivalent, preservative 5 completed Not Available [facility] 01/23/2023 02:47:01 Influenza, split virus, trivalent, preservative 3 completed Not Available [facility] 06/11/2025 19:03:57 Influenza, high-dose, trivalent, PF 7 completed Not Available [facility] 06/11/2025 19:03:57 Influenza, high-dose, trivalent, PF 8 completed Not Available [facility] 06/11/2025 19:03:57 Pneumococcal conjugate PCV 13 9 completed Not Available [facility] 06/11/2025 19:03:57 COVID-19, mRNA, LNP-S, PF, 30 mcg/0.3 mL dose 1 completed Not Available [facility] 06/11/2025 19:03:57 COVID-19, mRNA, LNP-S, PF, 30 mcg/0.3 mL dose 1 completed Not Available [facility] 06/11/2025 19:03:57 COVID-19, mRNA, LNP-S, PF, 30 mcg/0.3 mL dose 1 completed Not Available [facility] 06/11/2025 19:03:57 Influenza, high-dose, quadrivalent, PF 1 completed Not Available [facility] 06/11/2025 19:03:57 COVID-19, mRNA, LNP-S, PF, 30 mcg/0.3 mL dose, sal-sucrose 2 completed Not Available [facility] 06/11/2025 19:03:57 Influenza, high-dose, quadrivalent, PF 2 completed Not Available [facility] 06/11/2025 19:03:57 COVID-19, mRNA, LNP-S, bivalent, PF, 30 mcg/0.3 mL dose 2 completed Not Available [facility] 06/11/2025 19:03:57 Influenza, high-dose, quadrivalent, PF 3 completed Not Available [facility] 06/11/2025 19:03:57 Tdap 4 completed Not Available [facility] 06/11/2025 19:03:57 COVID-19, mRNA, LNP-S, PF, sal-sucrose, 30 mcg/0.3 mL 4 completed Not Available [facility] 06/11/2025 19:03:57 Past Encounters Encounter ID Performer Location Encounter Start Date Encounter Closed Date Diagnosis/Indication Diagnosis SNOMED-CT Code Diagnosis ICD10 Code Diagnosis IMO Codes Diagnosis Note [id number] Walter Hunter DO [facility] ([facility]) [address] [place] [address] 05/10/2025 10:24:58 05/21/2025 08:10:00 Post-discharge follow-up 076759371 Z09 764186 Aspiration pneumonia 422 769200 J69.0 011727228 Sepsis 74797044 A41.9 9770786391 Orthostati c hypotension 55724844 I95.1 722830 Chronic ki dney disease stage 3A 518219204 N18.31 8927026776 Chronic at rial fibrillation 069680883 I48.20 762521 Chronic co ngestive heart failure 83577898 I50.9 9536725439 Essential hypertension 39675096 I10 39377 [id number] Walter Hunter [facility] ([facility]) [address] [place] [address] 05/17/2025 12:53:48 05/21/2025 13:16:33 Chronic atrial fibrillation 807656996 I48.20 835307 Essential hypertension 70884612 I10 06461 Edema 744438218 R60.9 10900158 [id number] Walter Elsa [facility] ([facility]) [address] [place] [address] 05/31/2025 12:00:24 06/11/2025 09:20:54 Post-discharge follow-up 363958302 Z51.89 604330 Orthostati c hypotension 30077865 I95.1 3436 Cellulitis of scrotum 34 145932 N49.2 73286 Chronic sy stolic heart failure 415349958 I50.22 541057 Gastrointe stinal hemorrhage 10207846 K92.2 [id number] Health Concerns Section Related Observation LastModified by Organization Detai ls LastModified Time None Recorded Concern Status LastModified by Organization Details LastModified Time None Recorded Payers Encounter Date Sequence Insurance Name Policy Number Policy Orellana Covered Member ID Orellana Member ID Guarantor Name 05/31/2025 1 [facility] (MEDICARE REPLACEMENT/A DVANTAGE - PPO) [id number] Cesar Mederos [id number] Cesar Mederos Notes Date Note Type Note Provider Name and Address Organization Details Recorded Time 5 text/html HypertensionReported by PatientHPIFor severity, patient reportsgrade 1 (130-139/80-89). For duration, patient reportshas noted for years. For alleviating factors, patient reportsmedication.ROS as noted in the HPI re-admit to snf. Walter HunterDO [address] [place] [address], [phone], [facility] Ruy, Luis F 06/08/2025 17:10:39 5 text/html HypertensionReported by PatientHPIFor severity, patient reportsgrade 1 (130-139/80-89). For duration, patient reportshas noted for years. For alleviating factors, patient reportsmedication.ROS as noted in the HPI er follow up for edema Walter HunterDO [address] [place] [address], [phone], [facility] Ruy, Luis F 06/06/2025 17:33:24
--- OUTSIDE RECORDS SUMMARY | 2025-06-12 02:37 | XMS_ITS | Continuity of Care Document ---
Author Organization [facility] Luis F Schmidt, [facility] ([facility]) Address [address] [facility] [place] [address] Assessment No assessment recorded. Plan of Treatment [...] By Organization Details Last Modified Time 05/10/2025 [id number] Hospital records reviewed. Past medical history of congestive heart failure with known EF of around 45%, Nonischemic cardiomyopathy, CKD with baseline creatinine 1.5-1.9, chronic A-fib on anticoagulation, restrictive lung disease, hypertension. Admitted for aspiration pneumonia. Follows with cardiology, Dr. Harper. Plan for therapy with goal of returning home. [email or web address] Not available 05/20/2025 15:37:47 Reason for Referral None Reported. 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 5 12:01:33 Sepsis 99647665 Active 2024 PENELOPE MCCLAIN [facility] 5 12:01:34 Orthosta tic hypotens ion 04138831 Active 2024 PENELOPE MCCLAIN [facility] 5 12:01:36 Chronic kidney disease stage 3A 154515616 Active 2024 PENELOPELOVE MCCLAIN [facility] 5 12:01:37 Chronic atrial fibrilla tion 369363875 Active 2024 PENELOPELOVE MCCLAIN [facility] 5 12:01:38 Chronic congesti ve heart failure 49031755 Active 2024 PENELOPELOVE MCCLAIN [facility] 5 12:01:40 [facility] hyperten meg 78044763 Active 2024 PENELOPE MCCLAIN [facility] 5 12:01:41 Problem Notes None recorded. Medical Equipment None Reported. Allergies Allergen ID Allergen Name Allergen Category Reaction Reaction Severity Criticality Documentation Date Start Date Code Code System Note Provider Name and Address Organization Details Recorded Time 23960 ciproflox acin medicatio n Not available Not available [facility] 05/31/20252024 2551 RxNorm Not Available [facility] - External Data Service - prod 12:00:57 28044 paroxetin e Not available Not available Not available low 05/31/20252024 68815 RxNorm Not Available [facility] External Data Service - [facility] 12:00:57 Medications Name Sig Start Date [...] Address Organization Details Last Updated DateTime 5 721358. 05 g 97.8 /min 19 /min 97.8 [degF] 99 % 112/56 mm[Hg] PENELOPE [facility] 5 11:57:53 Date Recorded Heart rate Respiratory rate Body temperature Oxygen saturation Systolic And Diastolic Provider Name and Address Organization Details Last Updated DateTime 5 68 /min 18 /min 97.6 [degF] 96 % 114/65 mm[Hg] PENELOPE [facility] 5 14:19:50 Social History None recorded. [...] virus, trivalent, preservative 2 completed Not Available [facility] 01/23/2023 02:47:00 Influenza, split virus, trivalent, preservative 1 completed Not Available [facility] 01/23/2023 02:47:00 Influenza, split virus, trivalent, preservative 3 completed Not Available [facility] 01/23/2023 02:47:00 Influenza, split virus, trivalent, preservative 6 completed Not Available [facility] 01/23/2023 02:47:00 Influenza, split virus, trivalent, preservative 5 completed Not Available [facility] 01/23/2023 02:47:01 Influenza, split virus, trivalent, preservative 5 completed Not Available [facility] 01/23/2023 02:47:01 Influenza, split virus, trivalent, preservative 3 completed Not Available [facility] 06/11/2025 19:03:57 Influenza, high-dose, trivalent, PF 7 completed Not Available [facility] 06/11/2025 19:03:57 Influenza, high-dose, trivalent, PF 8 completed Not Available [facility] 06/11/2025 19:03:57 Pneumococcal conjugate PCV 13 9 completed Not Available [facility] 06/11/2025 19:03:57 COVID-19, mRNA, LNP-S, PF, 30 mcg/0.3 mL dose 1 completed Not Available [facility] 06/11/2025 19:03:57 COVID-19, mRNA, LNP-S, PF, 30 mcg/0.3 mL dose 1 completed Not Available [facility] 06/11/2025 19:03:57 COVID-19, mRNA, LNP-S, PF, 30 mcg/0.3 mL dose 1 completed Not Available [facility] 06/11/2025 19:03:57 Influenza, high-dose, quadrivalent, PF 1 completed Not Available [facility] 06/11/2025 19:03:57 COVID-19, mRNA, LNP-S, PF, 30 mcg/0.3 mL dose, sal-sucrose 2 completed Not Available [facility] 06/11/2025 19:03:57 Influenza, high-dose, quadrivalent, PF 2 completed Not Available [facility] 06/11/2025 19:03:57 COVID-19, mRNA, LNP-S, bivalent, PF, 30 mcg/0.3 mL dose 2 completed Not Available [facility] 06/11/2025 19:03:57 Influenza, high-dose, quadrivalent, PF 3 completed Not Available [facility] 06/11/2025 19:03:57 Tdap 4 completed Not Available [facility] 06/11/2025 19:03:57 COVID-19, mRNA, LNP-S, PF, sal-sucrose, 30 mcg/0.3 mL 4 completed Not Available [facility] 06/11/2025 19:03:57 Past Encounters Encounter ID Performer Location Encounter Start Date Encounter Closed Date Diagnosis/Indication Diagnosis SNOMED-CT Code Diagnosis ICD10 Code Diagnosis IMO Codes Diagnosis Note [id number] Walter Hunter DO [facility] ([facility]) [address] [place] [address] 05/10/2025 10:24:58 05/21/2025 08:10:00 Post-discharge follow-up 822716468 Z09 524187 Aspiration pneumonia 422 312276 J69.0 106026915 Sepsis 52648762 A41.9 8766857554 Orthostati c hypotension 74000914 I95.1 217791 Chronic ki dney disease stage 3A 186722381 N18.31 5716131743 Chronic at rial fibrillation 588329196 I48.20 883704 Chronic co ngestive heart failure 28053624 I50.9 6701372909 Essential hypertension 28037855 I10 45913 Health Concerns Section Related Observation LastModified by Organization Detai ls LastModified Time None Recorded Concern Status LastModified by Organization Details LastModified Time None Recorded Payers Encounter Date Sequence Insurance Name Policy Number Policy Orellana Covered Member ID Orellana Member ID Guarantor Name 05/10/2025 1 [facility] (MEDICARE REPLACEMENT/A DVANTAGE - PPO) [id number] Cesar Mederos [id number] Cesar Mederos Notes Date Note Type Note Provider Name and Address Organization Details Recorded Time 5 text/html HypertensionReported by PatientHPIFor severity, patient reportsgrade 1 (130-139/80-89). For duration, patient reportshas noted for years. For alleviating factors, patient reportsmedication.ROS as noted in the HPI new admit to snf, plan for therapy with goal of returning home. Walter Hunter DO [address] [place] [address], [phone], [facility], Luis F 05/20/2025 15:37:58 5 text/html HypertensionReported by PatientHPIFor severity, patient reportsgrade 1 (130-139/80-89). For duration, patient reportshas noted for years. For alleviating factors, patient reportsmedication.ROS as noted in the HPI staff reports increased edema and sob Walter Hunter DO [address] [place] [address], [phone], [facility] 05/20/2025 14:18:41
--- OUTSIDE RECORDS SUMMARY | 2025-06-12 02:37 | XMS_ITS | Continuity of Care Document ---
Author Organization [facility] Jimmy Atkinson [facility] Luis F Redmond, [facility] ([facility]) Address [address] [place] [address] Assessment No assessment recorded. Plan of Treatment [...] By Organization Details Last Modified Time 05/17/2025 8410007 Weight up 12 lbs . Increased SOB. Started increased 2 days ago. Will start metolazone 5mg x 3 days. Labs on Wednesday. f/u on Wednesday. [email or web address] Not available 05/17/2025 14:23:23 Reason for Referral None Reported. Problems Name Problem SNOMED Code Status Onset Date Resolution Date Notes Provider Name and Address Organization Details Recorded Time Colonosc opy Active 2015 Colonosc opy; [facility] 01/31/10-- POLYPECT EMELIA (Hyperpl astic); 02/12/20 16 4:15PM by Duyen Vazquez RN, Office Visit; Promoted ; acuity set as *; [facility] 3 03:10:30 Seasonal allergic rhinitis 230885735 Completed 201710/01/2017 Seasonal allergie s - Status is Inactive ; 10/02/19 18 6:16PM by Agnes Carnes CMT, Annotati on/Adden dum; Promoted ; acuity set as *; Not Available [facility] 3 03:10:30 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 5 12:01:33 Sepsis 44806720 Active 2024 PENELOPELOVE MCCLAIN [facility], [facility] 5 12:01:34 Orthosta tic hypotens ion 40420189 Active 2024 PENELOPE MCCLAIN [facility] 5 12:01:36 Chronic kidney disease stage 3A 115936678 Active 2024 PENELOPE MCCLAIN [facility] 5 12:01:37 Chronic atrial fibrilla tion 691751873 [facility] 12:01:38 Chronic congesti ve heart failure 22539039 Active 2024 PENELOPELOVE MCCLAIN [facility] 5 12:01:40 [facility] hyperten meg 15273134 Active 2024 PENELOPELOVE MCCLAIN [facility] 5 12:01:41 Problem Notes None recorded. Medical Equipment None Reported. Allergies Allergen ID Allergen Name Allergen Category Reaction Reaction Severity Criticality Documentation Date Start Date Code Code System Note Provider Name and Address Organization Details Recorded Time 75851 ciproflox acin medicatio n Not available Not available high 05/31/20252024 2551 RxNorm Not Available [employer] - External Data Service - prod 12:00:57 34448 paroxetin e Not available Not available Not available low 05/31/20252024 68172 RxNorm Not Available [employer] - External Data Service - prod 12:00:57 [...] % 114/65 mm[Hg] [facility] 14:19:50 Social History None recorded. Functional [...] virus, trivalent, preservative 2 completed Not Available Pending sale to [facility] 01/23/2023 02:47:00 Influenza, split virus, trivalent, preservative 1 completed Not Available Pending sale to [facility] 01/23/2023 02:47:00 Influenza, split virus, trivalent, preservative 3 completed Not Available Pending sale to [facility] 01/23/2023 02:47:00 Influenza, split virus, trivalent, preservative 6 completed Not Available Pending sale to [facility] 01/23/2023 02:47:00 Influenza, split virus, trivalent, preservative 5 completed Not Available Pending sale to [facility] 01/23/2023 02:47:01 Influenza, split virus, trivalent, preservative 5 completed Not Available Pending sale to [facility] 01/23/2023 02:47:01 Influenza, split virus, trivalent, preservative 3 completed Not Available Pending sale to [facility] 06/11/2025 19:03:57 Influenza, high-dose, trivalent, PF 7 completed Not Available Pending sale to [facility] 06/11/2025 19:03:57 Influenza, high-dose, trivalent, PF 8 completed Not Available Pending sale to [facility] 06/11/2025 19:03:57 Pneumococcal conjugate PCV 13 9 completed Not Available Pending sale to [facility] 06/11/2025 19:03:57 COVID-19, mRNA, LNP-S, PF, 30 mcg/0.3 mL dose 1 completed Not Available Pending sale to [facility] 06/11/2025 19:03:57 COVID-19, mRNA, LNP-S, PF, 30 mcg/0.3 mL dose 1 completed Not Available Pending sale to [facility] 06/11/2025 19:03:57 COVID-19, mRNA, LNP-S, PF, 30 mcg/0.3 mL dose 1 completed Not Available [facility] 06[facility]25 19:03:57 Influenza, high-dose, quadrivalent, PF 1 completed Not Available [facility] 06/11/2025 19:03:57 COVID-19, mRNA, LNP-S, PF, 30 mcg/0.3 mL dose, sal-sucrose 2 completed Not Available Pending sale to [facility] 06/11/2025 19:03:57 Influenza, high-dose, quadrivalent, PF 2 completed Not Available Pending sale to [facility] 06/11/2025 19:03:57 COVID-19, mRNA, LNP-S, bivalent, PF, 30 mcg/0.3 mL dose 2 completed Not Available Pending sale to [facility] 06/11/2025 19:03:57 Influenza, high-dose, quadrivalent, PF 3 completed Not Available Pending sale to [facility] 06/11/2025 19:03:57 Tdap 4 completed Not Available Pending sale to [facility] 06/11/2025 19:03:57 COVID-19, mRNA, LNP-S, PF, sal-sucrose, 30 mcg/0.3 mL 4 completed Not Available Pending sale to [facility] 06/11/2025 19:03:57 Past Encounters Encounter ID Performer Location Encounter Start Date Encounter Closed Date Diagnosis/Indication Diagnosis SNOMED-CT Code Diagnosis ICD10 Code Diagnosis IMO Codes Diagnosis Note [id number] Walter Hunter DO [address] [address] 05/10/2025 10:24:58 05/21/2025 08:10:00 Post-discharge follow-up [id number] Z09 111568 Aspiration pneumonia 422 100165 J69.0 530845486 Sepsis 55047967 A41.9 3533183365 Orthostati c hypotension 06286417 I95.1 715044 Chronic ki dney disease stage 3A 256724871 N18.31 8970974892 Chronic at rial fibrillation 705711542 I48.20 955627 Chronic co ngestive heart failure 27464603 I50.9 1376545057 Essential hypertension 17959419 I10 75918 [id number] Walter Hunter DO [facility] ([facility]) [address] [place] [address] 05/17/2025 12:53:48 05/21/2025 13:16:33 Chronic atrial fibrillation 445827085 I48.20 453544 Essential hypertension 79227395 I10 40085 Edema 786899347 R60.9 85884133 Health Concerns Section Related Observation LastModified by Organization Detai ls LastModified Time None Recorded Concern Status LastModified by Organization Details LastModified Time None Recorded Payers Encounter Date Sequence Insurance Name Policy Number Policy Orellana Covered Member ID Orellana Member ID Guarantor Name 05/17/2025 1 [facility] (MEDICARE REPLACEMENT/A DVANTAGE - PPO) [id number] Cesar Mederos [id number] Cesar Mederos Notes Date Note Type Note Provider Name and Address Organization Details Recorded Time 5 text/html HypertensionReported by PatientHPIFor severity, patient reportsgrade 1 (130-139/80-89). For duration, patient reportshas noted for years. For alleviating factors, patient reportsmedication.ROS as noted in the HPI staff reports increased edema and sob Walter Hunter DO [address] [place] [address], [id number], KAITLYNN Gallardo [facility] 05/20/2025 14:18:41
--- OUTSIDE RECORDS SUMMARY | 2025-06-12 02:37 | XMS_ITS | Clinical Summary ---
Author Organization [employer] Address [address] 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
--- OUTSIDE RECORDS SUMMARY | 2025-06-12 02:37 | XMS_ITS | Encounter Summary ---
Author Organization [facility] Address [address] [place] [address] Care Team Providers Care Lead Simulation Modeling Engineer Name Role Phone Unavailable Primary Care Provider Unavailabl e Encounter Details Date Type Department Care Team (Latest Contact Info) Description 01/04/2004 Outpatient Historical [facility] Opt[facility] 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
--- OUTSIDE RECORDS SUMMARY | 2025-06-12 02:37 | XMS_ITS | Encounter Summary ---
Author Organization [facility] Address [address] [place] [address] Care Team Providers Care Fruit Vendor Name Role Phone Unavailable Primary Care Provider Unavailabl e Encounter Details Date Type Department Care Team (Latest Contact Info) Description 06/14/1997 Outpatient Historical [facility] Ophthalmology 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
--- OUTSIDE RECORDS SUMMARY | 2025-06-12 02:37 | XMS_ITS | Clinical Summary ---
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
--- OUTSIDE RECORDS SUMMARY | 2025-06-12 02:37 | XMS_ITS | Encounter Summary ---
Author Organization [facility] Address [address] [place] [address] Care Team Providers Care Emission Technician Name Role Phone Unavailable Primary Care Provider Unavailabl e Encounter Details Date Type Department Care Team (Latest Contact Info) Description 01/02/2003 Outpatient Historical [facility] [address] [place] [address] Nolberto uLis, OD [address] [place] [address] PREGLAUCOMA NOS (Primary Dx); MYOPIA Social History Tobacco Use Types Packs/Day Years Used Date Smoking Tobacco: Never Assessed Sex and Gender Information Value Date Recorded Sex Assigned at Not on file 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
[2025-06-12] MEDS: oxyCODONE 5 mg IR Tab/Cap PO (02:51)
[2025-06-12 02:55] LABS: Lactic Sepsis W/Reflex 5.2 mmol/L (0.5-2.2); Troponin(5th) Baseline 75 ng/L (0-15)
[2025-06-12 03:05] LABS: NT Pro B Type Natriuretic Pept 3349 pg/mL (0-450); Procalcitonin 1.05 ng/mL (0-0.5)
[2025-06-12 03:12] LABS: Slide Review Slide Review Perform
[2025-06-12 03:16] LABS: Alanine Aminotransferase 37 U/L (0-41); Albumin Level 3.4 g/dL (3.5-5.2); Alkaline Phosphatase 213 U/L (40-130); Anion Gap 24.4 (5-19); Aspartate Amino Transferase 25 U/L (0-40); Calcium 8.7 mg/dL (8.5-10.5); Carbon Dioxide 20 mmol/L (22-29); Chloride 103 mmol/L (98-107); Globulin 1.5 g/dL (1.3-4.6); Glucose 70 mg/dL (65-115); Magnesium 2.4 mg/dL (1.7-2.3); Osmolality Calculated 317 mOsm/kg (285-295); Potassium 5.4 mmol/L (3.5-5.1); Sodium 142 mmol/L (136-145); Total Protein 4.9 g/dL (6.6-8.7)
[2025-06-12 03:18] LABS: Blood Urea Nitrogen 81 mg/dL (8-23)
[2025-06-12 03:22] LABS: Base Excess VBG -3.9 mmol/L (-3.0-3.0); Blood Gas Sample Type Venous; HCO3 VBG 20.7 mmol/L (24-28); PCO2 VBG 34.8 mmHg (41-51); PO2 VBG 47.2 mmHg (25-40); Venous Blood Gas Hematocrit 31.5 % (42-52); pH VBG 7.38 (7.32-7.42)
--- NOTE | 2025-06-12 03:41 | PC.NURSE ---
INFORMED PROVIDER DR. FABIAN OF CONCERNS WITH PT BEING HYPOTENSIVE.
[2025-06-12 04:22] LABS: Reflex Lactate Order REFLEX LACTIC ORDERD
[2025-06-12] MEDS: cefTRIAXone 2,000 mg SDV 2000 MG IVP (05:13)
[2025-06-12] MEDS: bumetanide 0.25 mg/mL SDV 4 mL 1 MG IVP (05:21)
[2025-06-12 05:39] LABS: Lactic Acid level (Lactate) 4.6 mmol/L (0.5-2.2)
--- NOTE | 2025-06-12 07:09 | PC.PHAR ---
Pt is from [facility]
--- NOTE | 2025-06-12 07:41 | PM.HP ---
Providers/Chief Complaint Primary Care Provider: Ashwin Roberson MD Chief Complaint: CHF History of Present Illness Cesar Mederos is a 75 year old male with history of congestive heart failure, atrial fibrillation on apixaban (Eliquis), type 2 diabetes mellitus, hypertension, hyperlipidemia, seropositive rheumatoid arthritis, benign prostatic hyperplasia, and depression presents with several days of worsening shortness of breath and increasing leg swelling, with a reported 7?lb weight gain over the preceding 3 days. A COVID swab in the last several days was negative. In the emergency department, oxygen was started at 2 L/min via nasal cannula. He reports no cough and no sputum production, denies pain, vomiting, or diarrhea. Lives alone in a house in [place]. Initially misstated the year but acknowledged it is 2024. No family nearby; has cousin and a contact listed. He expresses that he would not want chest compressions (CPR) if his heart stopped, but would accept temporary ventilator support if needed. Review of Systems Const: Denies: fever(s), chills, body aches or malaise ENMT: Denies: throat pain Card: Reports: edema and dyspnea on exertion; Denies: chest pain or pre-syncope Resp: Reports: dyspnea; Denies: productive cough, change in phlegm color or hemoptysis GI: Denies: abdominal pain, nausea, vomiting, diarrhea, constipation, hematochezia or melena : Denies: flank pain, difficulty urinating, urinary frequency or hematuria Musc: Denies: back pain, joint swelling or joint redness Skin/Breast: Denies: rash or new lesions Neuro: Denies: headache(s) or confusion Medications/Allergies Home Medications ?Medication ?Instructions ?Recorded ?Confirmed ?Last Taken ?Type ascorbate calcium (vitamin C) 500 500 mg PO DAILY 12/14/19 06/12/25 06/12/25 History mg tablet fluticasone propionate 50 2 spray intranasal DAILY PRN 09/30/23 06/12/25 06/12/25 Rx mcg/actuation nasal Allergy Symptoms #16 grams spray,suspension escitalopram oxalate 20 mg tablet 20 mg PO DAILY #30 tabs 05/11/24 06/12/25 06/12/25 Rx levocetirizine 5 mg tablet 5 mg PO DAILY PRN allergy symptoms 06/28/24 05/20/25 04/28/25 Rx #30 tabs aripiprazole 5 mg tablet (Abilify) 5 mg PO DAILY #30 tabs 07/03/24 06/12/25 06/12/25 Rx apixaban 5 mg tablet (Eliquis) See Rx Instructions .Route 09/28/24 05/20/25 05/19/25 08:00 Rx .COMPLEX #60 tabs levothyroxine 25 mcg tablet 25 mcg PO DAILY #30 tabs 03/06/25 06/12/25 06/11/25 Rx (Levoxyl) ferrous sulfate 325 mg (65 mg 325 mg PO BID #60 tabs 04/11/25 06/12/25 06/12/25 Rx iron) tablet (Iron (ferrous sulfate)) dapagliflozin propanediol 10 mg 10 mg PO DAILY #30 tabs 05/08/25 06/12/25 06/12/25 Rx tablet bisacodyl 10 mg rectal suppository 10 mg TN DAILY PRN Constipation 05/20/25 05/20/25 Unknown History docusate sodium 100 mg capsule 200 mg PO BEDTIME 05/20/25 05/20/25 05/18/25 18:00 History lidocaine HCl 2 % mucosal solution 1 applic mucous membrane BID PRN 05/20/25 05/20/25 05/19/25 08:00 History (Lidocaine Viscous) Mouth Pain magnesium hydroxide 400 mg/5 mL 30 ml PO DAILY PRN Constipation 05/20/25 05/20/25 Unknown History oral suspension (Milk of Magnesia) potassium chloride 20 mEq 20 meq PO BID 05/20/25 05/20/25 05/19/25 08:00 History tablet,extended release sodium phosphates 19 gram-7 118 ml TN DAILY PRN Constipation 05/20/25 05/20/25 Unknown History gram/118 mL enema (Fleet Enema) furosemide 40 mg tablet 40 mg PO QAM #1 tab 05/28/25 06/12/25 06/11/25 Rx Lactobacillus rhamnosus GG 10 1 cap PO DAILY 06/12/25 06/12/25 06/03/25 History billion cell capsule (Culturelle) prednisone 10 mg tablet 10 mg PO DAILY 06/12/25 06/12/25 06/12/25 History prednisone 5 mg tablet 15 mg PO DAILY 06/12/25 06/12/25 06/12/25 History spironolactone 25 mg tablet 25 mg PO DAILY 06/12/25 06/12/25 06/12/25 History tamsulosin 0.4 mg capsule 0.4 mg PO DAILY 06/12/25 06/12/25 06/12/25 History Allergies Allergy/AdvReac Type Severity Reaction Status Date / Time ciprofloxacin (From Cipro) Allergy Severe muscle or Verified 05/28/25 09:48 joint pain paroxetine (From Paxil) AdvReac Mild made his Verified 05/28/25 09:48 head feel weird PFSH Acute PFSH: Medical History Chronic anticoagulation Chest pain Abnormal CT scan Acute on chronic renal insufficiency Type 2 diabetes mellitus without complication Persistent atrial fibrillation BPH (benign prostatic hyperplasia) Hyperlipidemia Depression Hypertension Seropositive rheumatoid arthritis Rheumatoid arthritis with rheumatoid factor of multiple sites without organ or systems involvement Other snf (current) drug therapy Surgical History History of tonsillectomy Family History Other Diabetes Social History Smoking and tobacco/nicotine status: never used tobacco/nicotine Alcohol intake: current Alcohol intake frequency: few times a week Alcohol type: beer Substance/Drug Use: never Vitals/I&O/Wt Last Vital Signs Temp 97.5 F L 06/12/25 02:15 Pulse 105 H 06/12/25 07:16 Resp 17 06/12/25 02:51 BP 95/73 06/12/25 07:16 Pulse Ox 94 06/12/25 07:16 O2 Del Method Nasal Cannula 06/12/25 07:16 O2 Flow Rate 2 06/12/25 07:16 Weight last 48 hrs Weight 115.666 kg Physical Exam Const: COMMON NORMALS: alert; negative for patient oriented x3 GENERAL APPEARANCE: cooperative ORIENTATION/CONSCIOUSNESS: Yes awake HENMT: COMMON NORMALS: oropharynx normal OTHER: Dry MM Neck/C-Spine: COMMON NORMALS: no JVD Resp: COMMON NORMALS: normal respiratory effort and clear to auscultation bilaterally AUSCULTATION: clear to auscultation bilaterally Cardio: COMMON NORMALS: no JVD, regular rhythm, S1 normal heart sound present, S2 normal heart sound present and No murmurs present (Cardio) RHYTHM: regular rhythm HEART SOUNDS: S1 normal heart sound present and S2 normal heart sound present GI: COMMON NORMALS: Normal to inspection, nondistended, normoactive bowel sounds present, Soft to palpation and non-tender PALPATION: Yes Soft to palpation Extremity: COMMON NORMALS: no joint enlargement GENERAL: Yes edema (3+) Neuro: COMMON NORMALS: patient oriented x3 and moves all extremities SENSORIUM/ORIENTATION: Yes alert Skin: COMMON NORMALS: no rashes or lesions noted NARRATIVE SKIN EXAM: Loss of turgor GENERAL SKIN EXAM: no rashes or lesions noted Quick SOFA Score: Respiratory Rate: 17 Blood Pressure: 78/58 Orlando Coma Scale: 15 qSOFA Score: 1 If qSOFA score 2 or greater, continue: Blood Pressure Mean: 64 Bilirubin (mg/dl): 2.3 Platelets (x10?/ml): 175 Creatinine (mg/dl): 2.4 Evaluation: Current stage of sepsis: ruled out/differential diagnosis Sepsis stage criteria used: Sepsis-3 Focused Exam: Vital signs: Temp Pulse Resp BP Pulse Ox O2 Del Method O2 Flow Rate 06/12/25 08:28 99 78/58 98 Nasal Cannula 2 06/12/25 08:09 84/57 06/12/25 07:43 95 79/58 96 Nasal Cannula 2 06/12/25 07:16 105 H 95/73 94 Nasal Cannula 2 06/12/25 07:05 95 79/61 06/12/25 06:20 113 H 78/60 93 Room Air 06/12/25 05:41 105 H 78/54 100 Room Air 06/12/25 05:09 116 H 78/63 98 06/12/25 04:31 105 H 88/53 100 Room Air 06/12/25 04:05 100 123/97 96 Room Air 06/12/25 03:37 105 H 66/51 97 Room Air 06/12/25 02:54 104 H 95 Room Air 06/12/25 02:51 17 06/12/25 02:15 97.5 F L 103 H 22 H 124/101 94 Room Air Date exam was performed: 12/16/25 Time exam was performed: 08:52 Sepsis Screen No Definite Risk Today, 08:28 Respiratory Rate, (12 - 18) 17 breaths/min Today, 02:51 Blood Pressure 78/58 mmHg Today, 08:28 Orlando Coma Scale Score 15 Today, 02:54 Quick SOFA Score 1 Today, 08:40 SOFA Score: Orlando Coma Scale Score 15 Today, 02:54 Blood Pressure Mean 64 mmHg Today, 08:28 Total Bilirubin, (0.15-1.2) 2.3 mg/dL H Today, 02:04 Platelet Count, (157-399) 175 10^3/cmm Today, 02:04 Creatinine, (0.7-1.2) 2.4 mg/dL H Today, 02:04 Data 06/12/25 02:04 06/12/25 02:04 A&P Assessment and plan 1. Hypotension: Blood pressure decreased from 95/73 mmHg to 77/58 mmHg (MAP 64) with dry mucous membranes and mild hypoalbuminemia (albumin 3.4). Has not received any fluids with acute congestive heart failure. Possible adrenal insufficiency. Possible adrenal insufficiency with normal sodium, hyperkalemia. - Administer albumin 25 g of 25% solution - Assess hemodynamics with NICOM in the ICU - Levophed protocol - Stress dose corticosteroids 2. Acute CHF: Acute possibly diastolic congestive heart failure. Previously normal EF on review of past echo. Several days of dyspnea and leg swelling with 7?lb weight gain; chest X-ray suggests mild pulmonary edema; NT?proBNP 3349; exam with 3+ bilateral lower extremity edema; new oxygen requirement. Bumetanide and metolazone administered in the ED; diuresis deferred until blood pressure stabilizes. - Monitor intake and output - Place Peralta catheter for accurate urine output monitoring - Telemetry monitoring - Obtain echocardiogram - Consider further diuresis once blood pressure is more stable 3. Hypoxia: CHF, possible pneumonia not excluded. Possible pneumonia : Chest X-ray suggests mild pulmonary edema or interstitial pneumonia; patient denies cough and sputum; pneumonia not ruled out. - Start ceftriaxone (Supraxone) and azithromycin - Obtain sputum culture if possible (patient currently reports no sputum production) - Obtain viral panel Acute hypoxemia/new oxygen requirement : SpO2 94% on 2 L oxygen; no home oxygen use reported. - Continue supplemental oxygen - Telemetry monitoring 4. Acute kidney injury superimposed on CKD: Creatinine 2.4 with CKD baseline 1.7?2.2; caution noted regarding fluid balance given CHF. - Monitor intake and output - Consider further diuresis once blood pressure stabilizes (to balance volume status) 5. Metabolic acidosis: Lactic acidosis with elevated anion gap : Lactate 5.2 with repeat 4.6; anion gap 24.4 with bicarbonate 20 on CMP; VBG pH 7.38. Check UA. Check serum ketones. Plan: Possible sepsis : Less likely, leukocytosis (WBC 14.76), tachycardia (HR 105) due to atrial fibrillation, lactic acidosis (lactate 5.2 ? 4.6), afebrile, without tachypnea, does have new oxygen requirement; clinician notes sepsis is possible but findings are suspected more likely due to acute CHF with pneumonia not ruled out. - Start ceftriaxone and azithromycin (as above) - Telemetry monitoring Hyperkalemia : Potassium 5.4 on CMP. Hold spironolactone. Anemia : Hemoglobin 9.6. Atrial fibrillation : Known AFib; EKG shows atrial fibrillation; troponins stable (baseline 75; 60?minute 74). - Complete troponin and EKG series - Telemetry monitoring Code status discussion : Patient declines CPR (no chest compressions) but agrees to temporary ventilator support if needed; prior chart listed full code. - Update code status to DNR with acceptance of temporary mechanical ventilation PDMP PDMP Reviewed: Not Reviewed Attestations Medical Necessity Statement*: Admission over 2 midnights anticipated for assessment and management of hypotension, acute CHF, new hypoxia, DIXON on CKD, metabolic acidosis. Coding Level of Care Code Critical Care >/= 30 minutes Critical care time (in minutes): 40 The high probability of a clinically significant, sudden or life threatening deterioration, as referenced in this documentation, required my full and direct attention, intervention and personal management. The critical care time shown is in addition to time spent performing any reported separately billable procedures and includes the following: [x] Data and vital sign review and interpretation [x] Patient assessment, examination and intervention [x] Medication orders and management [x] Patient/Family updates as able [x] Care Coordination and Documentation. Diagnoses Hypotension I95.9 Acute CHF I50.9 Hypoxia R09.02 Acute kidney injury superimposed on CKD N17.9; N18.9 Metabolic acidosis E87.20
[2025-06-12 09:15] LABS: Ketone (Acetest) Serum Negative (Negative)
--- NOTE | 2025-06-12 09:22 | PC.NURSE ---
Arrived from ER, AO to self Month and beig in hospital unsure of town and day
[2025-06-12] MEDS: norepinephrine 4 MG/250 ML BAG 7.5 MG IV (09:29)
[2025-06-12] MEDS: hydrocortisone 100 mg/2 mL SDV IVP ×3 (09:29→20:21)
--- NOTE | 2025-06-12 09:29 | USCV_ITS ---
Cesar Mederos Age: 75 Gender: M : 1950 Exam Date: 06/12/2025 09:50 Ordering Phys: Ayan Burrell MD Technologist: URSULA [place]am Location[place] [facility] [place]ication: CHF BP: 78 / 58 HR: 102 Rhythm: Sinus Technical Quality: Adequate MEASUREMENTS (Male / Female) Normal Values 2D ECHO LV Diastolic Diameter PLAX 4.7 cm 4.2 - 5.9 / 3.9 - 5.3 cm IVS Diastolic Thickness 0.8 cm 0.6 - 1.0 / 0.6 - 0.9 cm IVS Systolic Thickness 0.9 cm LVPW Diastolic Thickness 0.8 cm 0.6 - 1.0 / 0.6 - 0.9 cm LVPW Systolic Thickness 1.0 cm LVOT Diameter 2.0 cm LV Ejection Fraction 2D Teich 10.9 % LV Ejection Fraction MOD 4C 45.0 % LV Ejection Fraction MOD 2C 43.0 % LV Ejection Fraction 2C AL 44.6 % LA Diameter 5.3 cm RA Systolic Volume 4C AL 67.1 ml RA Systolic Volume 4C MOD 62.4 ml LA Sys Volume AL 113.3 cm cubed LA Sys Volume Index AL 45.5 cm cubed/m squared Aorta at Sinotubular Diameter 3.0 cm IVC Diameter 2.7 cm M-MODE LA Ao Ratio MM 2.1 AV Cusp Separation MM 1.5 cm DOPPLER AV Peak Velocity 130.0 cm/s LVOT Peak Velocity 82.0 cm/s AV Area Cont Eq vti 2.3 cm squared AV Area Cont Eq pk 2.0 cm squared MV Peak Velocity 118.0 cm/s MV Area PHT 6.8 cm squared Mitral E to A Ratio 1.1 TR Peak Velocity 88.0 cm/s TR Peak Gradient 3.1 mmHg TV Peak E Velocity 95.0 cm/s PV Peak Velocity 72.0 cm/s FINDINGS Left Ventricle Normal left ventricular size and systolic function, EF 60%. (visual). Mild hypokinesia of the basal inferior wall segment Right Ventricle Normal right ventricular size and systolic function. Right Atrium Moderately increased right atrial size. Left Atrium Moderately increased left atrial size. IA Septum Normal appearance of the interatrial septum. Mitral Valve Mild mitral valve regurgitation. Aortic Valve Thickened aortic valve. Tricuspid Valve No gross abnormalities noted Pulmonic Valve Pulmonic valve not well visualized. Pericardium No pericardial effusion. Aorta Normal aortic annulus size. IVC Dilated IVC with decreased respiratory variation. CONCLUSIONS Normal left ventricular size and systolic function, EF 60%. (visual). Mild hypokinesia of the basal inferior wall segment. Moderate biatrial enlargement. Mild mitral valve regurgitation. Possibly normal PA pressure. Thickened aortic valve. There is no pericardial effusion. There are no intracardiac masses. Compared to the study from 04/30/2025, there may not be a significant change Dr Alexsandra Harper MD FACC (Electronically Signed) Final Date: 12 June 2025 17:49 S
[2025-06-12] MEDS: albumin 25 G/100 ML BAG 60 G IV (09:57)
[2025-06-12] MEDS: pantoprazole 40 mg SDV IVP (09:58)
[2025-06-12 10:16] LABS: Thyroid Stimulating Hormone 6.65 uIU/mL (0.27-4.20)
--- NOTE | 2025-06-12 11:49 | PC.NURSE ---
increased levo per protocol bp 70s systolic, [place] NICOM showed not fluid responsive Dr. Beal notified
[2025-06-12 13:07] LABS: Glucose Urine UA Negative (Normal); Nitrate Urine Negative (Negative); Specific Gravity, Urine 1.014 (1.005-1.030)
[2025-06-12 13:12] LABS: Add Urine Microscopic? YES; Universal Test for UA Present (0)
[2025-06-12 13:17] LABS: UA Slide Review UA Slide Review Perf
[2025-06-12] MEDS: norepinephrine 4 MG/250 ML BAG 60 MG IV ×2 (13:57→17:26)
--- NOTE | 2025-06-12 15:30 | PC.NURSE ---
Pressor requirements increased, Dr Beal came to bedside placed RIJ central line, order received for CXR to check placement
--- NOTE | 2025-06-12 15:31 | XRR_ITS ---
PROCEDURE INFORMATION: Exam: XR Chest Exam date and time: 06/12/2025 4:43 PM Age: 75 years old Clinical indication: Device placement; Other: Central line; Additional info: Central line placement TECHNIQUE: Imaging protocol: Radiologic exam of the chest. Views: 1 view. COMPARISON: CR (CHEST, ) 06/12/2025 2:32 AM FINDINGS: Tubes, catheters and devices: Right IJ CVC tip is in the superior vena cava. Lungs: New left basilar/retrocardiac opacity is concerning for developing consolidation. Pleural spaces: Unremarkable. No pleural effusion. No pneumothorax. Heart/Mediastinum: Unremarkable. No cardiomegaly. Bones/joints: Unremarkable. XR/XR chest 1V portable [id number] IMPRESSION: 1. Right IJ CVC tip is in the superior vena cava. 2. New left basilar/retrocardiac opacity is concerning for developing consolidation.
--- NOTE | 2025-06-12 15:33 | PM.ACPR ---
Acute Procedures Central Line Placement: Right IJ: Patient placed on monitor/pulse ox: Yes MD prep: mask, gown and gloves Central line prep: Chlorhexidine scrub and sterile drapes applied Local anesthesia used: lidocaine 1% Amount of anesthesia used (ml): 1.5 Ultrasound used for placement: Yes Central line lumen inserted: triple Post procedure: sutured in place, good blood return, all ports aspirated, flushed, capped and sterile dressing applied Post procedure x-ray: tip of catheter in good position and no pneumothorax seen Patient tolerated procedure: well Additional comments: Consent obtained from patient but due to intermittent confusion also from his cousin Pattie Jimenez over the phone after discussion of risks benefits and alternatives.
--- NOTE | 2025-06-12 16:58 | PM.CONSULT ---
Providers/Reason For Consult Consulting Physician/Specialty*: Dr Veronica Bocanegra Reason for Consult*: Septic shock Attending Physician: Ayan Burrell Primary Care Provider: Ashwin Roberson MD History of Present Illness History of Present Illness Cesar Mederos is a 75 year old male with past medical history of congestive heart failure, A-fib on Eliquis, type 2 diabetes, hypertension, hyperlipidemia, seropositive rheumatoid arthritis, sent to the hospital today with worsening shortness of breath. He was started on oxygen in ER. At a 7 point weight gain chest x-ray showed pulmonary vascular congestion, Bumex and metolazone started in ED. Echocardiogram ordered. He progressively got hypotensive and was found not to be NICOM positive. Possibly septic with pneumonia. Started on ceftriaxone and azithromycin. Mild DIXON on chronic kidney disease. Medications/Allergies Home Medications ?Medication ?Instructions ?Recorded ?Confirmed ?Last Taken ?Type ascorbate calcium (vitamin C) 500 500 mg PO DAILY 12/14/19 06/12/25 06/12/25 History mg tablet fluticasone propionate 50 2 spray intranasal DAILY PRN 09/30/23 06/12/25 06/12/25 Rx mcg/actuation nasal Allergy Symptoms #16 grams spray,suspension escitalopram oxalate 20 mg tablet 20 mg PO DAILY #30 tabs 05/11/24 06/12/25 06/12/25 Rx levocetirizine 5 mg tablet 5 mg PO DAILY PRN allergy symptoms 06/28/24 06/12/25 04/28/25 Rx #30 tabs aripiprazole 5 mg tablet (Abilify) 5 mg PO DAILY #30 tabs 07/03/24 06/12/25 06/12/25 Rx levothyroxine 25 mcg tablet 25 mcg PO DAILY #30 tabs 03/06/25 06/12/25 06/11/25 Rx (Levoxyl) ferrous sulfate 325 mg (65 mg 325 mg PO BID #60 tabs 04/11/25 06/12/25 06/12/25 Rx iron) tablet (Iron (ferrous sulfate)) dapagliflozin propanediol 10 mg 10 mg PO DAILY #30 tabs 05/08/25 06/12/25 06/12/25 Rx tablet bisacodyl 10 mg rectal suppository 10 mg FL DAILY PRN Constipation 05/20/25 06/12/25 Unknown History lidocaine HCl 2 % mucosal solution 1 applic mucous membrane BID PRN 05/20/25 06/12/25 05/19/25 08:00 History (Lidocaine Viscous) Mouth Pain magnesium hydroxide 400 mg/5 mL 30 ml PO DAILY PRN Constipation 05/20/25 06/12/25 Unknown History oral suspension (Milk of Magnesia) potassium chloride 20 mEq 20 meq PO BID 05/20/25 06/12/25 06/12/25 History tablet,extended release sodium phosphates 19 gram-7 118 ml FL DAILY PRN Constipation 05/20/25 06/12/25 Unknown History gram/118 mL enema (Fleet Enema) Lactobacillus rhamnosus GG 10 1 cap PO DAILY 06/12/25 06/12/25 06/03/25 History billion cell capsule (Culturelle) acetaminophen 325 mg tablet 650 mg PO Q4H PRN Pain 06/12/25 06/12/25 06/11/25 History albuterol sulfate 2.5 mg/3 mL 2.5 mg inhalation Q4H PRN 06/12/25 06/12/25 06/11/25 History (0.083 %) solution for nebulization Congestion apixaban 5 mg tablet (Eliquis) 5 mg PO BID 06/12/25 06/12/25 06/12/25 History furosemide 40 mg tablet 40 mg PO BID 06/12/25 06/12/25 06/12/25 History metoprolol tartrate 25 mg tablet 12.5 mg PO BID 06/12/25 06/12/25 06/12/25 History midodrine 10 mg tablet 10 mg PO TID 06/12/25 06/12/25 06/12/25 History prednisone 10 mg tablet 10 mg PO DAILY 06/12/25 06/12/25 06/12/25 History prednisone 5 mg tablet 15 mg PO DAILY 06/12/25 06/12/25 06/12/25 History pyridostigmine bromide 60 mg tablet 60 mg PO BID 06/12/25 06/12/25 06/12/25 History spironolactone 25 mg tablet 25 mg PO DAILY 06/12/25 06/12/25 06/12/25 History tamsulosin 0.4 mg capsule 0.4 mg PO DAILY 06/12/25 06/12/25 06/12/25 History Allergies Allergy/AdvReac Type Severity Reaction Status Date / Time ciprofloxacin (From Cipro) Allergy Severe muscle or Verified 05/28/25 09:48 joint pain paroxetine (From Paxil) AdvReac Mild made his Verified 05/28/25 09:48 head feel weird Current Medications Generic Name Dose Route Start Last Admin Trade Name Freq PRN Reason Stop Dose Admin Hydrocortisone Sodium Succinate 100 mg 06/12/25 08:45 06/12/25 13:57 Hydrocortisone 100 Mg/2 Ml Sdv IVP 100 mg Q6H ALEJANDRO Administration Norepinephrine Bitartrate 4 mg in 250 mls @ 0 mls/hr 06/12/25 08:30 06/12/25 13:57 Levophed IV 18 mcg/min .Q0M ALEJANDRO 67.5 mls/hr Protocol Titration Per Protocol Azithromycin 500 mg/ Sodium 250 mls @ 250 mls/hr 06/12/25 09:29 06/12/25 09:57 Chloride IV 250 mls/hr Q24H ALEJANDRO Administration Protocol Pantoprazole Sodium 40 mg 06/12/25 09:29 06/12/25 09:58 Pantoprazole 40 Mg Sdv IVP 40 mg Q24H ALEJANDRO Administration PFSH Acute PFSH: Medical History (Updated 06/12/25 @ 08:23 by Ayan Burrell MD) Chronic anticoagulation Chest pain Abnormal CT scan Acute on chronic renal insufficiency Type 2 diabetes mellitus without complication Persistent atrial fibrillation BPH (benign prostatic hyperplasia) Hyperlipidemia Depression Hypertension Seropositive rheumatoid arthritis Rheumatoid arthritis with rheumatoid factor of multiple sites without organ or systems involvement 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 Surgical History History of tonsillectomy Family History Other Diabetes Social History Smoking and tobacco/nicotine status: never used tobacco/nicotine Alcohol intake: current Alcohol intake frequency: few times a week Alcohol type: beer Substance/Drug Use: never Vitals/I&O/Wt Last Vital Signs Temp 97.5 F L 06/12/25 02:15 Pulse 125 H 06/12/25 15:45 Resp 14 06/12/25 16:00 BP 115/99 06/12/25 16:00 Pulse Ox 90 06/12/25 16:00 O2 Del Method Nasal Cannula 06/12/25 10:57 O2 Flow Rate 3 06/12/25 10:57 06/12/25 06/12/25 06/12/25 06:59 14:59 22:59 Intake Total 195.250 / 195.250 Balance 195.250 / 195.250 Weight last 48 hrs Weight 249 lb 1.957 oz Weight 255 lb Physical Exam Narrative: Per RN General: Lying in bed appears ill obese HEENT: EOMI central line in place right IJ Pulmonary: Diminished breath sounds bilaterally Cardiovascular: rrr, nl s1s2, Abdomen: soft, nt, nd, no r/g, Extremities: no edema Neurologic: grossly intact Agree with above exam Urinary Catheter Management: Peralta: Cath Placed During This Visit: yes Urinary Catheter Date of Insertion: 06/12/25 Urinary Catheter Time of Insertion: 10:43 Data 06/12/25 02:04 06/12/25 02:04 A&P Assessment and plan 1. Pneumonia: 2. Interstitial lung disease: Plan: # Septic shock Patient has been having some cough and fever and chills for the last few days. No fevers here chest x-ray done today reviewed by me personally shows some infiltrate at the left base suspicious of pneumonia. No fluid boluses been given in ER due to concern for congestive heart failure. Is not COVID-negative. Currently on Levophed at 16 mics. Vasopressin has been added. Current hydrocortisone being given at 100 every 6 IV Will change antibiotics to Zosyn and vancomycin since he is immunocompromised. He is on 15 mg of prednisone at home baseline most likely for his rheumatoid arthritis. Blood cultures ordered pending # Pneumonia - Chest x-ray reviewed shows left base pneumonia # Acute congestive heart failure - Patient has received a dose of Bumex in ER which may be contributing to his shock. Echocardiogram pending. I would limit diuresis at this time secondary to his sepsis # DIXON on chronic kidney disease - Currently making urine. Creatinine at 2.4 today. Baseline appears to be 1.2 on 05/08/2025. - Avoid NSAIDs-avoid NSAIDs, BAO and ARB's as well as contrast # Hyperkalemia - Potassium is 5.2. Will give insulin and D50. # Anemia of chronic kidney disease most likely # Immunocompromise status secondary to being on prednisone # Septic shock With some adrenal insufficiency contributing to his shock # Lactic acidosis Will need to be rechecked within 3 hours per sepsis protocol # A-fib on Eliquis rate controlled # Type 2 diabetes Monitor blood glucose. Avoid hypoglycemia # sero positive rheumatoid arthritis Goals of care-patient is okay to be intubated if needed but is a DNR. The high probability of a clinically significant, sudden or life threatening deterioration of the patient's [Respiratory, cardiac and renal] system(s) required my full and direct attention, intervention and personal management. The critical care time is as shown. This time is in addition to time spent performing any reported procedures but includes the following: [x] Data and vital sign review and interpretation [x] Patient assessment, examination and intervention [x] Documentation [x] Medication orders and management Critical Care Time (min): 35 Telemedicine Consent Patient seen today via Telemedicine by agreement and consent of patient.? Telemedicine technology used during the visit includes audio and, as available, review of images.? The patient encounter is appropriate and reasonable under the circumstances given the patient?s particular presentation at this time.? The patient has been advised of the potential risks and limitations of this mode of treatment (including but not limited to the absence of in-person examination) and has agreed to be treated in a remote fashion in spite of them.? Any, and all, of the patient?s/patient?s family?s questions on this issue have been answered and I have made no promises or guarantees to the patient. PDMP PDMP Reviewed: Not Reviewed Coding Level of Care Code Critical Care >/= 30 minutes Diagnoses Pneumonia J18.9 Interstitial lung disease J84.9
--- NOTE | 2025-06-12 17:27 | PC.NURSE ---
Dr Beal advised holding vaso until bp drops again and levo needed increased approximately 1530, Dr Tejada called at this time and requested vaso be started
[2025-06-12] MEDS: vasopressin 40 UNIT/100 ML PREMIX 4.5 UNIT IV (18:28)
[2025-06-12] MEDS: piperacillin-tazobactam 3.375 GM in sodium chloride 0.9% (plus) 50 ML IV ×2 (18:34→22:10)
--- NOTE | 2025-06-12 19:58 | PC.NURSE ---
Contacted Dr. Carrizales in reference to absent pulses in lower extremities, potentially due to severe edema, as well as complaints of pain in bilateral lower extremities. Received orders for Morphine IVP Q4 PRN for pain, and Midodrine 5mg TID to start now.
[2025-06-12] MEDS: morphine 4 mg/mL SDV 1 mL 2 MG IVP (20:21)
[2025-06-12] MEDS: norepinephrine 4 MG/250 ML BAG 30 MG IV (22:12)
[2025-06-13] VITALS (88 sets, daily range): BP systolic 80–127; BP diastolic 57–95; PULSE 85–125; RESP 16–39; TEMP 36.2–36.9; O2SAT 82–100
[2025-06-13] MEDS: hydrocortisone 100 mg/2 mL SDV IVP ×4 (02:57→20:37)
--- NOTE | 2025-06-13 04:01 | PC.NURSE ---
Spoke with [facility] with [facility], advised patient is living in the rehab ochoa at [facility] for about ~2 months, in and out of the hospital. [facility] states patient is normally completely alert and orientated, and was independent before the excess fluid buildup recently. Denies Hx of dementia with this patient, and [facility] advised a family member of the patient believed he had a cardiac stent placed sometime in the last few years at [facility]. [facility] was contacted at [facility] at [phone].
[2025-06-13 04:30] LABS: Alanine Aminotransferase 30 U/L (0-41); Albumin Level 3.1 g/dL (3.5-5.2); Alkaline Phosphatase 170 U/L (40-130); Calcium 8.4 mg/dL (8.5-10.5); Carbon Dioxide 15 mmol/L (22-29); Chloride 102 mmol/L (98-107); Globulin 1.3 g/dL (1.3-4.6); Glucose 144 mg/dL (65-115); Osmolality Calculated 315 mOsm/kg (285-295); Sodium 139 mmol/L (136-145); Total Protein 4.4 g/dL (6.6-8.7)
[2025-06-13 04:35] LABS: Absolute Segmented Neutrophil 10.8 10/cmm (1.6-7.1); Band Neutrophils Absolute 1.0 10^3/cmm (0.0-1.2); Burr Cells Trace; Hematocrit 30.7 % (37-53); Hemoglobin 9.10 g/dL (11.27-16.99); Mean Corpuscular HGB Conc 29.6 g/dL (30-55); Mean Corpuscular Hemoglobin 25.2 pg (27-33); Mean Corpuscular Volume 85.0 fl (82-101); Platelet Count 117 10^3/cmm (157-399); Poikilocytosis Trace; Red Blood Count 3.61 10^6/uL (3.85-5.65); Slide Review Slide Review Perform; Total Cells Counted 100 (0-100); White Blood Count 12.53 10^3/uL (3.29-11.43)
[2025-06-13 04:47] LABS: Anion Gap 27.6 (5-19); Aspartate Amino Transferase 33 U/L (0-40); Potassium 5.6 mmol/L (3.5-5.1)
[2025-06-13 04:48] LABS: Blood Urea Nitrogen 82 mg/dL (8-23)
[2025-06-13] MEDS: piperacillin-tazobactam 3.375 GM in sodium chloride 0.9% (plus) 50 ML IV ×3 (05:10→22:05)
[2025-06-13] MEDS: pantoprazole 40 mg SDV IVP (08:01)
[2025-06-13] MEDS: norepinephrine 4 MG/250 ML BAG 15 MG IV (08:06)
--- NOTE | 2025-06-13 10:14 | PC.NURSE ---
Addendum entered by Fred Mar RN 06/13/25 10:41: Plan if tolerates swallow start minced and moist diet, try to titrate vasopressin off Original Note: Dr. Beal came to bedside gave order for bedside swallow, patient tolerated thin water well
--- NOTE | 2025-06-13 11:29 | PHA.VACGOAL ---
Vancomycin Goal - Goal Vancomycin Goal:: 15-20 mg/L Vancomycin Indication:: Pneumonia - Therapy Day of therpy:: Day []of [] . Actual body weight (kg): 108.814 kg - Data Labs: WBC 12.53 10^3/uL (3.29-11.43) H 06/13/25 03:50 RBC 3.61 10^6/uL (3.85-5.65) L 06/13/25 03:50 Hgb 9.10 g/dL (11.27-16.99) L 06/13/25 03:50 Hct 30.7 % (37-53) L 06/13/25 03:50 MCV 85.0 fl (82-101) 06/13/25 03:50 MCH 25.2 pg (27-33) L 06/13/25 03:50 MCHC 29.6 g/dL (30-55) L 06/13/25 03:50 RDW 26.7 % (12.1-15.1) H 06/13/25 03:50 Sodium 139 mmol/L (136-145) 06/13/25 03:50 Potassium 5.6 mmol/L (3.5-5.1) H 06/13/25 03:50 Chloride 102 mmol/L (98-107) 06/13/25 03:50 Carbon Dioxide 15 mmol/L (22-29) L 06/13/25 03:50 Anion Gap 27.6 (5-19) H 06/13/25 03:50 BUN 82 mg/dL (8-23) H* 06/13/25 03:50 Creatinine 2.6 mg/dL (0.7-1.2) H 06/13/25 03:50 GFR Calculation Not Reportable 06/13/25 03:50 Treatment plan:: new consult Regimen:: CONTINUE
[2025-06-13] MEDS: norepinephrine 4 MG/250 ML BAG 37.5 MG IV (14:57)
--- NOTE | 2025-06-13 19:13 | P.PN_ITS ---
Subjective 2 Subjective: Cesar Mederos is a 75 year old male with past medical history of congestive heart failure, A-fib on Eliquis, type 2 diabetes, hypertension, hyperlipidemia, seropositive rheumatoid arthritis, sent to the hospital today with worsening shortness of breath. He was started on oxygen in ER. At a 7 point weight gain chest x-ray showed pulmonary vascular congestion, Bumex and metolazone started in ED. Echocardiogram ordered. He progressively got hypotensive and was found not to be NICOM positive. Possibly septic with pneumonia. Started on ceftriaxone and azithromycin. Mild DIXON on chronic kidney disease 06/13/25 on 10 of levo. vaso is off. awake and taking po intake well. Vitals/I&O/Wt Last Vital Signs Temp 98.4 F 06/13/25 04:00 Pulse 95 06/13/25 16:15 Resp 31 H 06/13/25 16:15 BP 92/80 06/13/25 16:15 Pulse Ox 95 06/13/25 16:15 O2 Del Method Room Air 06/13/25 04:00 O2 Flow Rate 2 06/13/25 00:00 06/13/25 06/13/25 06/13/25 06:59 14:59 22:59 Intake Total 286.625 / 1807.000 689.050 / 689.050 408.125 / 1097.175 Output Total 550 / 730 850 / 850 Balance -263.375 / 1077.000 689.050 / 689.050 -441.875 / 247.175 Weight last 48 hrs Weight 239 lb 14.314 oz Weight 249 lb 1.957 oz Weight 255 lb Physical Exam 2 Narrative: General: more alert and clear today, talking in full sentences HEENT: EOMI central line in place right IJ Pulmonary: Diminished breath sounds bilaterally Cardiovascular: rrr, nl s1s2, Abdomen: soft, nt, nd, no r/g, Neurologic: grossly intact Urinary Catheter Management: Peralta: Cath Placed During This Visit: yes Reason for Continuing Indwelling Catheter: Accurate Measurement of Urinary Output in Critically Ill Patients Urinary Catheter Date of Insertion: 06/12/25 Urinary Catheter Time of Insertion: 10:43 Data 06/13/25 03:50 06/13/25 03:50 Micro: Microbiology 06/12/25 12:50 Urine Culture - Preliminary Urine,Clean Catch A&P Assessment and plan 1. Pneumonia: 2. Interstitial lung disease: Plan: # Septic shock due to pneumonia- POA Patient has been having some cough and fever and chills for the last few days. No fevers here chest x-ray done today reviewed by me personally shows some infiltrate at the left base suspicious of pneumonia. Currently on Levophed at 10 mics. Vasopressin off, keep map above 65 Patient is critically ill due to septic shock. Impending cardiac collapse without vasopressors Current hydrocortisone being given at 100 every 6 IV continue Zosyn and vancomycin since he is immunocompromised. Renally dose Zosyn. He is on 15 mg of prednisone at home baseline most likely for his rheumatoid arthritis. Blood cultures unclear whether collected. # Pneumonia- left base pneumonia # Acute congestive heart failure - Patient has received a dose of Bumex in ER which may be contributing to his shock. Echocardiogram reviewed- 60% EF. Mild hypokinesia # DIXON on chronic kidney disease - Currently making urine. Creatinine at 2.6 today. Baseline appears to be 1.2 on 05/08/2025. - Avoid NSAIDs-avoid NSAIDs, BAO and ARB's as well as contrast # Hyperkalemia - Potassium is 5.6 today. May need nephrology consult if continues to go up # Anemia of chronic kidney disease most likely although thrombotic hemolytic anemia cannot be ruled out or HUS? Has wiley cells and poikilocytes Will check retic count and peripheral blood smear # Immunocompromise status secondary to being on prednisone # Septic shock With some adrenal insufficiency contributing to his shock # Lactic acidosis # A-fib on Eliquis rate controlled # Type 2 diabetes Monitor blood glucose. Avoid hypoglycemia # sero positive rheumatoid arthritis Goals of care-patient is okay to be intubated if needed but is a DNR. The high probability of a clinically significant, sudden or life threatening deterioration of the patient's [Respiratory, cardiac and renal] system(s) required my full and direct attention, intervention and personal management. The critical care time is as shown. This time is in addition to time spent performing any reported procedures but includes the following: [x] Data and vital sign review and interpretation [x] Patient assessment, examination and intervention [x] Documentation [x] Medication orders and management Critical Care Time (min): 35 Patient seen in person today PDMP PDMP Reviewed: Not Reviewed Attestations 2 Medical Necessity Statement*: shock on pressors Coding Level of Care Code Critical Care >/= 30 minutes Diagnoses Pneumonia J18.9 Interstitial lung disease J84.9
--- NOTE | 2025-06-13 19:46 | P.PN_ITS ---
Subjective 2 Subjective: He is feeling a bit better. Breathing is been improving. He is weaned off of nasal cannula oxygen. Vitals/I&O/Wt Last Vital Signs Temp 98.4 F 06/13/25 04:00 Pulse 95 06/13/25 16:15 Resp 31 H 06/13/25 16:15 BP 92/80 06/13/25 16:15 Pulse Ox 95 06/13/25 16:15 O2 Del Method Room Air 06/13/25 04:00 O2 Flow Rate 2 06/13/25 00:00 06/13/25 06/13/25 06/13/25 06:59 14:59 22:59 Intake Total 286.625 / 1807.000 689.050 / 689.050 408.125 / 1097.175 Output Total 550 / 730 850 / 850 Balance -263.375 / 1077.000 689.050 / 689.050 -441.875 / 247.175 Weight last 48 hrs Weight 108.814 kg Weight 113 kg Weight 115.666 kg Physical Exam 2 Const: COMMON NORMALS: patient oriented x3 and alert GENERAL APPEARANCE: c ooperative ORIENTATION/CONSCIOUSNESS: Yes awake HENMT: COMMON NORMALS: oropharynx normal Neck/C-Spine: COMMON NORMALS: no JVD Resp: COMMON NORMALS: normal respiratory effort and clear to auscultation bilaterally AUSCULTATION: clear to auscultation bilaterally Cardio: COMMON NORMALS: no JVD, regular rhythm, S1 normal heart sound present, S2 normal heart sound present and No murmurs present (Cardio) RHYTHM: regular rhythm HEART SOUNDS: S1 normal heart sound present and S2 normal heart sound present GI: COMMON NORMALS: Normal to inspection, nondistended, normoactive bowel sounds present, Soft to palpation and non-tender PALPATION: Yes Soft to palpation Extremity: COMMON NORMALS: no joint enlargement GENERAL: Yes edema (3+) Neuro: COMMON NORMALS: patient oriented x3 and moves all extremities S ENSORIUM/ORIENTATION: Yes alert Skin: COMMON NORMALS: no rashes or lesions noted GENERAL SKIN EXAM: no rashes or lesions noted Urinary Catheter Management: Peralta: Cath Placed During This Visit: yes Reason for Continuing Indwelling Catheter: Accurate Measurement of Urinary Output in Critically Ill Patients Urinary Catheter Date of Insertion: 06/12/25 Urinary Catheter Time of Insertion: 10:43 Data 06/13/25 03:50 06/13/25 03:50 Micro: Microbiology 06/12/25 12:50 Urine Culture - Preliminary Urine,Clean Catch A&P Assessment and plan 1. Hypotension: Shock appears to be likely septic shock with noted developing pneumonia. Antibiotics have been broadened to Zosyn and vancomycin. Continues on Levophed, has been coming down on pressor requirement. Down to as low as 6 mcg Levophed today, discontinue vasopressin. Slight increase in requirement. Continue to wean down as tolerating. Not fluid responsive. Reviewed TTE, good EF. Mild hypokinesia of the basal inferior wall segment, reviewed prior stress test, noted on prior study. Moderate biatrial enlargement. Reviewed vitals, CBC, noted improving leukocytosis. Afebrile. Reviewed blood culture. Preliminary negative. Continues on stress dose steroid for now, monitor for risk of gastritis, hyperglycemia, myopathy, encephalopathy. Has not received any fluids with acute congestive heart failure. Possible adrenal insufficiency. Possible adrenal insufficiency with normal sodium, hyperkalemia. Monitor intake and output. Discussed with nursing, case management rn. 2. Acute CHF: Held off any diuresis for now with hypotension. Reassess volume status. So far maintaining good oxygenation without signs of significant overload, but may require cautious intermittent diuresis. Acute possibly diastolic congestive heart failure. Previously normal EF on review of past echo. Several days of dyspnea and leg swelling with 7?lb weight gain; chest X-ray suggests mild pulmonary edema; NT?proBNP 3349; exam with 3+ bilateral lower extremity edema; new oxygen requirement. Bumetanide and metolazone administered in the ED; diuresis deferred until blood pressure stabilizes. - Monitor intake and output - Peralta catheter for accurate urine output monitoring - Telemetry monitoring - Reviewed echocardiogram - Consider further diuresis once blood pressure is more stable 3. Hypoxia: CHF, possible pneumonia not excluded. Pneumonia : Chest X-ray suggests mild pulmonary edema or interstitial pneumonia; patient denies cough and sputum; pneumonia not ruled out. Blood culture negative to date. - Continue empiric antibiotics. - Obtain sputum culture if possible (patient currently reports no sputum production) - Reviewed viral panel Acute hypoxemia/new oxygen requirement : SpO2 94% on 2 L oxygen; no home oxygen use reported. - Continue supplemental oxygen - Telemetry monitoring - Has been on anticoagulation, lower likelihood of PE. Resumed anticoagulation with Lovenox today. 4. Acute kidney injury superimposed on CKD: So far without significant worsening of DIXON, although creatinine has not improved, 2.6 today. Continue dynamic support. Hold dapagliflozin - Monitor intake and output - Consider further diuresis once blood pressure stabilizes (to balance volume status) 5. Metabolic acidosis: Lactic acidosis with elevated anion gap : Lactate 5.2 with repeat 4.6; anion gap 24.4 with bicarbonate 20 on CMP; VBG pH 7.38. Check UA. Check serum ketones. Plan: Possible sepsis : Possible sepsis: Possible septic shock. Continue hemodynamic support, antibiotics as above. Follow-up cultures. Hyperkalemia : Potassium 5.4 on CMP. Hold spironolactone. Change diet to low potassium. Anemia : Hemoglobin 9.6. Atrial fibrillation : Known AFib; EKG shows atrial fibrillation; troponins stable (baseline 75; 60?minute 74). Resume beta-conner if blood pressure improved/allows. - Reviewed troponin and EKG series - Telemetry monitoring Code status discussion : Patient declines CPR (no chest compressions) but agrees to temporary ventilator support if needed; prior chart listed full code. - Update code status to DNR with acceptance of temporary mechanical ventilation. This is confirmed by his cousin Pattie. PDMP PDMP Reviewed: Not Reviewed Attestations 2 Medical Necessity Statement*: Admission over 2 midnights anticipated for assessment and management of shock, possible septic shock, acute CHF, new hypoxia, DIXON on CKD, metabolic acidosis. Coding Level of Care Code Critical Care >/= 30 minutes Critical care time (in minutes): 35 The high probability of a clinically significant, sudden or life threatening deterioration, as referenced in this documentation, required my full and direct attention, intervention and personal management. The critical care time shown is in addition to time spent performing any reported separately billable procedures and includes the following: [x] Data and vital sign review and interpretation [x ] Patient assessment, examination and intervention [x] Medication orders and management [x] Patient/Family updates as able [x] Care Coordination and Documentation. Diagnoses Hypotension I95.9 Acute CHF I50.9 Hypoxia R09.02 Acute kidney injury superimposed on CKD N17.9; N18.9 Metabolic acidosis E87.20
[2025-06-13] MEDS: insulin regular-human 100 units/1 mL 10 UNIT IVP (20:25)
[2025-06-13 20:44] LABS: LAB Peripheral Smear Sent for Review
[2025-06-13] MEDS: norepinephrine 4 MG/250 ML BAG 30 MG IV (22:49)
[2025-06-14] VITALS (97 sets, daily range): BP systolic 78–129; BP diastolic 57–96; PULSE 73–163; RESP 14–37; TEMP 36.2–36.4; O2SAT 83–100
[2025-06-14] MEDS: chlorhexidine gluconate 4% Btl 118 mL 1 APPLIC TOPICAL (00:30)
[2025-06-14] MEDS: hydrocortisone 100 mg/2 mL SDV IVP ×4 (02:08→20:54)
[2025-06-14 04:13] LABS: Hematocrit 31.1 % (37-53); Hemoglobin 9.10 g/dL (11.27-16.99); Mean Corpuscular HGB Conc 29.3 g/dL (30-55); Mean Corpuscular Hemoglobin 25.6 pg (27-33); Mean Corpuscular Volume 87.6 fl (82-101); Nucleated Red Blood Cells % 0.4 %; Platelet Count 165 10^3/cmm (157-399); Red Blood Count 3.55 10^6/uL (3.85-5.65); White Blood Count 17.81 10^3/uL (3.29-11.43)
[2025-06-14 04:41] LABS: Alanine Aminotransferase 28 U/L (0-41); Albumin Level 2.9 g/dL (3.5-5.2); Alkaline Phosphatase 318 U/L (40-130); Anion Gap 20.9 (5-19); Aspartate Amino Transferase 26 U/L (0-40); Calcium 8.8 mg/dL (8.5-10.5); Carbon Dioxide 19 mmol/L (22-29); Chloride 104 mmol/L (98-107); Globulin 2.0 g/dL (1.3-4.6); Glucose 166 mg/dL (65-115); Osmolality Calculated 319 mOsm/kg (285-295); Potassium 4.9 mmol/L (3.5-5.1); Sodium 139 mmol/L (136-145); Total Protein 4.9 g/dL (6.6-8.7)
[2025-06-14 04:54] LABS: Blood Urea Nitrogen 89 mg/dL (8-23)
[2025-06-14] MEDS: piperacillin-tazobactam 3.375 GM in sodium chloride 0.9% (plus) 50 ML IV ×3 (05:37→22:45)
[2025-06-14] MEDS: norepinephrine 4 MG/250 ML BAG 22.5 MG IV (08:02)
[2025-06-14] MEDS: amiodarone 150 MG/100 ML PREMIX 400 MG IV (08:05)
[2025-06-14] MEDS: AMIODARONE HCL/D5W 900 MG/500 ML BAG 33.33 MG IV (08:15)
[2025-06-14] MEDS: pantoprazole 40 mg SDV IVP (10:39)
--- NOTE | 2025-06-14 17:39 | P.PN_ITS ---
Subjective 2 Subjective: Cesar Mederos is a 75 year old male with past medical history of congestive heart failure, A-fib on Eliquis, type 2 diabetes, hypertension, hyperlipidemia, seropositive rheumatoid arthritis, sent to the hospital today with worsening shortness of breath. He was started on oxygen in ER. At a 7 point weight gain chest x-ray showed pulmonary vascular congestion, Bumex and metolazone started in ED. Echocardiogram ordered. He progressively got hypotensive and was found not to be NICOM positive. Possibly septic with pneumonia. Started on ceftriaxone and azithromycin. Mild DIXON on chronic kidney disease 06/13/25 on 10 of levo. vaso is off. awake and taking po intake well. 06/14/2025 Patient is on 4 of levo. Making urine 4 and 25 mL out. No overnight events. Vitals/I&O/Wt Last Vital Signs Temp 97.1 F L 06/14/25 16:00 Pulse 92 06/14/25 16:00 Resp 19 H 06/14/25 16:00 BP 94/74 06/14/25 16:00 Pulse Ox 95 06/14/25 16:00 O2 Del Method Room Air 06/14/25 16:00 O2 Flow Rate 2 06/14/25 10:00 06/14/25 06/14/25 06/14/25 06:59 14:59 22:59 Intake Total 653.687 / 2242.737 1209.98 / 1209.98 65 / 1274.98 Output Total 425 / 1275 Balance 228.687 / 614.126 8164.98 / 1209.98 65 / 1274.98 Weight last 48 hrs Weight 250 lb 12.8 oz Weight 239 lb 14.314 oz Physical Exam 2 Narrative: General: more alert and clear today, talking in full sentences HEENT: EOMI central line in place right IJ Pulmonary: Diminished breath sounds bilaterally Cardiovascular: rrr, nl s1s2, Abdomen: soft, nt, nd, no r/g, Neurologic: grossly intact Urinary Catheter Management: Peralta: Cath Placed During This Visit: yes Reason for Continuing Indwelling Catheter: Accurate Measurement of Urinary Output in Critically Ill Patients Urinary Catheter Date of Insertion: 06/12/25 Urinary Catheter Time of Insertion: 10:43 Data 06/14/25 03:55 06/14/25 03:55 Micro: Microbiology 12/16/25 12:50 Urine Culture - Preliminary Urine,Clean Catch Yeast A&P Assessment and plan 1. Pneumonia: 2. Interstitial lung disease: Plan: # Septic shock due to pneumonia- POA Currently on Levophed at 4 mics. Vasopressin off, keep map above 65 Patient is critically ill due to septic shock requiring frequent assessment of end-organ perfusion and titration of IV fluid administration and/or vasoactive medications to prevent life-threatening deterioration Current hydrocortisone being given at 100 every 6 IV-monitor blood glucose while on high-dose steroids and agitation issues while on high-dose steroids. Reviewed CBC showing improved, I reviewed blood cultures no growth to date continue Zosyn and vancomycin since he is immunocompromised. Renally dose Zosyn. He is on 15 mg of prednisone at home baseline most likely for his rheumatoid arthritis. - Will start midodrine # Pneumonia- left base pneumonia Not coughing up any sputum. # Acute congestive heart failure - Patient has received a dose of Bumex in ER which may be contributing to his shock. Echocardiogram reviewed- 60% EF. Mild hypokinesia. Monitor weight closely avoid fluids. May need diuresis soon after weaning off of pressors.. # DIXON on chronic kidney disease - Currently making urine. Creatinine at 2.6 today. Baseline appears to be 1.2 on 05/08/2025. - Avoid NSAIDs-avoid NSAIDs, BAO and ARB's as well as contrast # Hyperkalemia - Potassium is 5.4 today. May need nephrology consult if continues to go up. Spironolactone on hold recheck potassium tomorrow. # Anemia of chronic kidney disease most likely although thrombotic hemolytic anemia cannot be ruled out or HUS? Has wiley cells and poikilocytes Will check retic count and peripheral blood smear # Immunocompromise status secondary to being on prednisone # Septic shock With some adrenal insufficiency contributing to his shock # Lactic acidosis # A-fib on Eliquis rate controlled # Type 2 diabetes Monitor blood glucose. Avoid hypoglycemia # sero positive rheumatoid arthritis Goals of care-patient is okay to be intubated if needed but is a DNR. The high probability of a clinically significant, sudden or life threatening deterioration of the patient's [Respiratory, cardiac and renal] system(s) required my full and direct attention, intervention and personal management. The critical care time is as shown. This time is in addition to time spent performing any reported procedures but includes the following: [x] Data and vital sign review and interpretation [x] Patient assessment, examination and intervention [x] Documentation [x] Medication orders and management Critical Care Time (min): 31 Telemedicine Consent This encounter was conducted via secure two-way interactive audiovisual telemedicine as part of tele-ICU multidisciplinary rounds. Verbal consent was obtained from the patient for the telemedicine encounter. The patient was located at [place], [place], and the provider was virtual. Individuals present at the bedside included [bedside nurse, respiratory therapist, local attending, etc.]. The audiovisual connection quality was adequate for clinical assessment, and the total [id number] time was 32 minutes. Participated in structured bedside multidisciplinary round with the local ICU team, reviewing current diagnostic hypotheses, active problems, and treatment plan. Evidence- based clinical protocols and care performance indicators were discussed with the bedside team. Clinical recommendations generated and communicated to the bedside team..? PDMP PDMP Reviewed: Not Reviewed Attestations 2 Medical Necessity Statement*: in shock Coding Level of Care Code Critical Care >/= 30 minutes Diagnoses Pneumonia J18.9 Interstitial lung disease J84.9
[2025-06-14] MEDS: norepinephrine 4 MG/250 ML BAG 15 MG IV (20:54)
--- NOTE | 2025-06-14 21:45 | P.PN_ITS ---
Subjective 2 Subjective: He is improving. Breathing is improving. Still some cough. No chest pain. Vitals/I&O/Wt Last Vital Signs Temp 97.1 F L 06/14/25 16:00 Pulse 98 06/14/25 19:00 Resp 18 06/14/25 19:00 BP 91/73 06/14/25 19:00 Pulse Ox 97 06/14/25 19:00 O2 Del Method Room Air 06/14/25 18:00 O2 Flow Rate 2 06/14/25 10:00 06/14/25 06/14/25 06/14/25 06:59 14:59 22:59 Intake Total 653.687 / 2242.737 1209.98 / 1209.98 335.75 / 1545.73 Output Total 425 / 1275 530 / 530 Balance 228.687 / 791.404 9050.98 / 1209.98 -194.25 / 1015.73 Weight last 48 hrs Weight 113.761 kg Weight 108.814 kg Physical Exam 2 Const: COMMON NORMALS: patient oriented x3 and alert GENERAL APPEARANCE: c ooperative ORIENTATION/CONSCIOUSNESS: Yes awake HENMT: COMMON NORMALS: oropharynx normal Neck/C-Spine: COMMON NORMALS: no JVD Resp: COMMON NORMALS: normal respiratory effort and clear to auscultation bilaterally AUSCULTATION: clear to auscultation bilaterally Cardio: COMMON NORMALS: no JVD, regular rhythm, S1 normal heart sound present, S2 normal heart sound present and No murmurs present (Cardio) RHYTHM: regular rhythm HEART SOUNDS: S1 normal heart sound present and S2 normal heart sound present GI: COMMON NORMALS: Normal to inspection, nondistended, normoactive bowel sounds present, Soft to palpation and non-tender PALPATION: Yes Soft to palpation Extremity: COMMON NORMALS: no joint enlargement GENERAL: Yes edema (3+) Neuro: COMMON NORMALS: patient oriented x3 and moves all extremities S ENSORIUM/ORIENTATION: Yes alert Skin: COMMON NORMALS: no rashes or lesions noted NARRATIVE SKIN EXAM: Loss of turgor GENERAL SKIN EXAM: no rashes or lesions noted Urinary Catheter Management: Peralta: Cath Placed During This Visit: yes Reason for Continuing Indwelling Catheter: Accurate Measurement of Urinary Output in Critically Ill Patients Urinary Catheter Date of Insertion: 06/12/25 Urinary Catheter Time of Insertion: 10:43 Data 06/14/25 03:55 06/14/25 03:55 Micro: Microbiology 06/12/25 12:50 Urine Culture - Preliminary Urine,Clean Catch Yeast A&P Assessment and plan 1. Hypotension: Shock gradually resolving. Down to 4 mics on Levophed. Off vasopressin. Had also been started on midodrine. Continue to wean off pressor. Noted some worsening of DIXON. Consider possible ATN. Monitor MAYRA. So far producing urine. Shock appears to be likely septic shock with noted developing pneumonia. Continue broaden antibiotics with Zosyn and vancomycin. Continues on Levophed, has been coming down on pressor requirement. Not fluid responsive. Reviewed TTE, good EF. Mild hypokinesia of the basal inferior wall segment, reviewed prior stress test, noted on prior study. Moderate biatrial enlargement. Reviewed vitals, CBC, noted improving leukocytosis. Afebrile. Reviewed blood culture. Preliminary negative. Continues on stress dose steroid for now, monitor for risk of gastritis, hyperglycemia, myopathy, encephalopathy. Has not received any fluids with acute congestive heart failure. Possible adrenal insufficiency. Possible adrenal insufficiency with normal sodium, hyperkalemia. Monitor intake and output. Discussed with nursing, family independence case manager. 2. Acute CHF: Held off any diuresis for now with hypotension. Reassess volume status. So far maintaining good oxygenation without signs of significant overload, but may require cautious intermittent diuresis. Acute possibly diastolic congestive heart failure. Previously normal EF on review of past echo. Several days of dyspnea and leg swelling with 7?lb weight gain; chest X-ray suggests mild pulmonary edema; NT?proBNP 3349; exam with 3+ bilateral lower extremity edema; new oxygen requirement. Bumetanide and metolazone administered in the ED; diuresis deferred until blood pressure stabilizes. - Monitor intake and output - Peralta catheter for accurate urine output monitoring - Telemetry monitoring - Reviewed echocardiogram - Consider further diuresis once blood pressure is more stable 3. Hypoxia: CHF, pneumonia Pneumonia : Sputum culture collected. Chest X-ray suggests mild pulmonary edema or interstitial pneumonia; patient denies cough and sputum. Blood culture negative to date. - Continue empiric antibiotics. - Obtain sputum culture if possible (patient currently reports no sputum production) - Reviewed viral panel Acute hypoxemia/new oxygen requirement : SpO2 94% on 2 L oxygen; no home oxygen use reported. - Continue supplemental oxygen - Telemetry monitoring - Has been on anticoagulation, lower likelihood of PE. Resumed anticoagulation with Lovenox today. 4. Acute kidney injury superimposed on CKD: Possible ATN. He is making urine. Reviewed MAYRA. So far without significant worsening of DIXON, although creatinine has not improved, 2.7 today. Continue dynamic support. Hold dapagliflozin - Monitor intake and output - Consider further diuresis once blood pressure stabilizes (to balance volume status) 5. Metabolic acidosis: Lactic acidosis with elevated anion gap : Lactate 5.2 with repeat 4.6; Negative ketones Plan: Possible sepsis : Possible sepsis: Septic shock. Continue hemodynamic support, antibiotics as above. Follow-up cultures. Hyperkalemia : Resolved. Hold spironolactone. Low potassium diet Anemia : Follow-up blood counts Atrial fibrillation : Known AFib; EKG shows atrial fibrillation; troponins stable (baseline 75; 60?minute 74). Resume beta-conner if blood pressure improved/allows. - Reviewed troponin and EKG series - Telemetry monitoring Code status discussion : Patient declines CPR (no chest compressions) but agrees to temporary ventilator support if needed; prior chart listed full code. - Update code status to DNR with acceptance of temporary mechanical ventilation. This is confirmed by his cousin Pattie. PDMP PDMP Reviewed: Not Reviewed Attestations 2 Medical Necessity Statement*: Admission over 2 midnights anticipated for assessment and management of shock, possible septic shock, acute CHF, new hypoxia, DIXON on CKD, metabolic acidosis. Coding Level of Care Code Critical Care >/= 30 minutes Critical care time (in minutes): 35 The high probability of a clinically significant, sudden or life threatening deterioration, as referenced in this documentation, required my full and direct attention, intervention and personal management. The critical care time shown is in addition to time spent performing any reported separately billable procedures and includes the following: [x] Data and vital sign review and interpretation [x ] Patient assessment, examination and intervention [x] Medication orders and management [x] Patient/Family updates as able [x] Care Coordination and Documentation. Diagnoses Hypotension I95.9 Acute CHF I50.9 Hypoxia R09.02 Acute kidney injury superimposed on CKD N17.9; N18.9 Metabolic acidosis E87.20
[2025-06-15] VITALS (95 sets, daily range): BP systolic 88–120; BP diastolic 55–89; PULSE 76–142; RESP 12–36; TEMP 36.1–36.4; O2SAT 82–100
--- NOTE | 2025-06-15 02:43 | PC.NURSE ---
Coarse Lung Sounds Patient's lungs increasingly coarse, bilateral arms still weeping with edema noted in bilateral lower extremities. Patient's oxygen saturation remaining in the high 90s on roomair. Dr. Carrizales notified of coarse lung sounds; no new orders received.
[2025-06-15] MEDS: hydrocortisone 100 mg/2 mL SDV IVP ×4 (03:41→22:17)
[2025-06-15 04:18] LABS: Hematocrit 29.6 % (37-53); Hemoglobin 8.80 g/dL (11.27-16.99); Mean Corpuscular HGB Conc 29.7 g/dL (30-55); Mean Corpuscular Hemoglobin 25.4 pg (27-33); Mean Corpuscular Volume 85.5 fl (82-101); Nucleated Red Blood Cells % 0.8 %; Platelet Count 142 10^3/cmm (157-399); Red Blood Count 3.46 10^6/uL (3.85-5.65); White Blood Count 18.26 10^3/uL (3.29-11.43)
[2025-06-15 04:33] LABS: Alanine Aminotransferase 44 U/L (0-41); Albumin Level 2.7 g/dL (3.5-5.2); Alkaline Phosphatase 234 U/L (40-130); Anion Gap 22.0 (5-19); Aspartate Amino Transferase 39 U/L (0-40); Calcium 8.7 mg/dL (8.5-10.5); Carbon Dioxide 19 mmol/L (22-29); Chloride 100 mmol/L (98-107); Globulin 2.2 g/dL (1.3-4.6); Glucose 136 mg/dL (65-115); Osmolality Calculated 313 mOsm/kg (285-295); Potassium 4.0 mmol/L (3.5-5.1); Sodium 137 mmol/L (136-145); Total Protein 4.9 g/dL (6.6-8.7)
[2025-06-15 05:02] LABS: Blood Urea Nitrogen 88 mg/dL (8-23)
--- NOTE | 2025-06-15 05:30 | PC.NURSE ---
Lasix/Albumin While attempting to reposition patient in bed, patient's respiratory effort increased while his oxygen saturation decreased into the low 80s. Oxygen saturation recovered into the 90s on room air after movement, however, patient's lung sounds noted to still be coarse with crackles. Dr. Carrizales notified and albumin, creatinine, BUN levels as well as edema/weeping present discussed. Orders placed by physician for lasix and albumin.
[2025-06-15] MEDS: albumin 25 G/100 ML BAG 60 G IV ×3 (05:43→22:17)
[2025-06-15] MEDS: piperacillin-tazobactam 3.375 GM in sodium chloride 0.9% (plus) 50 ML IV ×3 (05:48→22:22)
[2025-06-15] MEDS: FUROsemide 10 mg/mL SDV 10mL 60 MG IVP ×2 (05:58→16:43)
[2025-06-15] MEDS: AMIODARONE HCL/D5W 900 MG/500 ML BAG 16.67 MG IV (07:41)
--- NOTE | 2025-06-15 08:40 | PC.SOCIAL ---
IMM Updated Updated pt on IMM. No questions voiced. Provided pt a copy. Initialed, dated, & timed a copy & placed in chart.
--- NOTE | 2025-06-15 09:02 | PC.NURSE ---
Fluid restriction: Upon initial morning rounds, Patient found to have pitting edema to the point of the upper abdomen (no change from last shift). He has difficulty breathing while lying flat, and had a net positive fluid balance during operation shift supervisor. NUrse explained concerns for fluid overload and respiratory distress. Though there is no fluid restriction order at this time, nurse explained that there likely will be one ordered today and explained the importance of accurate intake/output tracking. WIll discuss fluid restriction with attending physician.
[2025-06-15] MEDS: pantoprazole 40 mg SDV IVP (10:05)
[2025-06-15] MEDS: norepinephrine 4 MG/250 ML BAG 7.5 MG IV (18:23)
--- NOTE | 2025-06-15 18:27 | PC.NURSE ---
SHift SUmmary: Activity: Worked with PT, but patient is very weak. Was able to stand at the bedside twice. Not able to safely transition to a chair, will attempt again tommorow. Reduced from 3mcg of levophed down to 2 mcg. Blood pressure tolerates lasix. Edema present all the way up to the upper abdomen. Started on 1000mL fluid restriction partway through shift. Total oral intake: 1000mL Total urine output: 1625mL
--- NOTE | 2025-06-15 19:31 | PC.NURSE ---
Vancomycin Trough Critical vancomycin trough resulted at 55.2 at time 1854. Lab drawn at 1742 while vancomycin administering. Pharmacy notified.
--- NOTE | 2025-06-15 20:49 | P.PN_ITS ---
Subjective 2 Subjective: Sputum production is improving. Reports he is breathing well. Vitals/I&O/Wt Last Vital Signs Temp 97 F L 06/15/25 18:00 Pulse 80 06/15/25 19:00 Resp 23 H 06/15/25 19:00 BP 98/77 06/15/25 19:00 Pulse Ox 93 06/15/25 19:00 O2 Del Method Room Air 06/15/25 18:00 O2 Flow Rate 2 06/14/25 10:00 06/15/25 06/15/25 06/15/25 06:59 14:59 22:59 Intake Total 760.25 / 2355.98 1178.113 / 1178.113 719.75 / 1897.863 Output Total 500 / 1030 425 / 425 1200 / 1625 Balance 260.25 / 1325.98 753.113 / 753.113 -480.25 / 272.863 Weight last 48 hrs Weight 116 kg Weight 113.761 kg Physical Exam 2 Const: COMMON NORMALS: patient oriented x3 and alert GENERAL APPEARANCE: c ooperative ORIENTATION/CONSCIOUSNESS: Yes awake HENMT: COMMON NORMALS: oropharynx normal OTHER: Dry MM Neck/C-Spine: COMMON NORMALS: no JVD Resp: COMMON NORMALS: normal respiratory effort and clear to auscultation bilaterally AUSCULTATION: clear to auscultation bilaterally Cardio: COMMON NORMALS: no JVD, regular rhythm, S1 normal heart sound present, S2 normal heart sound present and No murmurs present (Cardio) RHYTHM: regular rhythm HEART SOUNDS: S1 normal heart sound present and S2 normal heart sound present GI: COMMON NORMALS: Normal to inspection, nondistended, normoactive bowel sounds present, Soft to palpation and non-tender PALPATION: Yes Soft to palpation Extremity: COMMON NORMALS: no joint enlargement GENERAL: Yes edema (3+) Neuro: COMMON NORMALS: patient oriented x3 and moves all extremities S ENSORIUM/ORIENTATION: Yes alert Skin: COMMON NORMALS: no rashes or lesions noted NARRATIVE SKIN EXAM: Loss of turgor GENERAL SKIN EXAM: no rashes or lesions noted Urinary Catheter Management: Peralta: Cath Placed During This Visit: yes Reason for Continuing Indwelling Catheter: Accurate Measurement of Urinary Output in Critically Ill Patients Urinary Catheter Date of Insertion: 06/12/25 Urinary Catheter Time of Insertion: 10:43 Data 06/15/25 04:06 06/15/25 04:06 A&P Assessment and plan 1. Hypotension: Continue to wean pressor. Shock gradually resolving. Down to 2 mics on Levophed. Midodrine. Continue to wean off pressor. Noted some worsening of DIXON. Consider possible ATN. Monitor MAYRA. So far producing urine. Fluid overload. Shock appears to be likely septic shock with noted developing pneumonia. Continue broaden antibiotics with Zosyn and vancomycin. Continues on Levophed, has been coming down on pressor requirement. Salcedo trough is high. Hold Vanco. Pharmacy to dose. Not fluid responsive. Reviewed TTE, good EF. Mild hypokinesia of the basal inferior wall segment, reviewed prior stress test, noted on prior study. Moderate biatrial enlargement. Reviewed vitals, CBC, noted improving leukocytosis. Afebrile. Reviewed blood culture. Preliminary negative. Continues on stress dose steroid for now, monitor for risk of gastritis, hyperglycemia, myopathy, encephalopathy. Has not received any fluids with acute congestive heart failure. Possible adrenal insufficiency. Possible adrenal insufficiency with normal sodium, hyperkalemia. Monitor intake and output. Discussed with nursing, caser in. 2. Acute CHF: Blood pressure protocol for Lopressor, but fluid overload with anasarca. Agree with diuresis, continue Lasix 60 g IV every 12. Monitor for risk of hypotension, electrolyte abnormality, worsening renal dysfunction. Reassess chemistry. Monitor I/O. Fluid restriction 1 L. 3. Hypoxia: CHF, pneumonia Pneumonia : Sputum culture collected. Chest X-ray suggests mild pulmonary edema or interstitial pneumonia; patient denies cough and sputum. Blood culture negative to date. - Continue empiric antibiotics. Hiving prophy. Hold. Pharmacy to dose. - Obtain sputum culture if possible (patient currently reports no sputum production) - Reviewed viral panel Acute hypoxemia/new oxygen requirement : SpO2 94% on 2 L oxygen; no home oxygen use reported. - Continue supplemental oxygen - Telemetry monitoring - Has been on anticoagulation, lower likelihood of PE. Lovenox. 4. Acute kidney injury superimposed on CKD: Possible ATN. He is making urine. Creatinine unchanged. Continue hemodynamic support. Continue Peralta. Hold dapagliflozin - Monitor intake and output - Consider further diuresis once blood pressure stabilizes (to balance volume status) 5. Metabolic acidosis: Lactic acidosis on presentation. Likely continued metabolic acidosis in setting of renal dysfunction. Negative ketones Plan: Possible sepsis : Possible sepsis: Septic shock. Continue hemodynamic support, antibiotics as above. Follow-up cultures. Hyperkalemia : Resolved. Hold spironolactone. Low potassium diet Anemia : Follow-up blood counts Atrial fibrillation : Switch to oral Amio. Stop Amio drip Known AFib; EKG shows atrial fibrillation; troponins stable (baseline 75; 60?minute 74). Resume beta-conner if blood pressure improved/allows. - Reviewed troponin and EKG series - Telemetry monitoring Code status discussion : Patient declines CPR (no chest compressions) but agrees to temporary ventilator support if needed; prior chart listed full code. - Update code status to DNR with acceptance of temporary mechanical ventilation. This is confirmed by his cousin Pattie. PDMP PDMP Reviewed: Not Reviewed Attestations 2 Medical Necessity Statement*: Continue admission for assessment and management of shock, possible septic shock, acute CHF Coding Level of Care Code Critical Care >/= 30 minutes Critical care time (in minutes): 35 The high probability of a clinically significant, sudden or life threatening deterioration, as referenced in this documentation, required my full and direct attention, intervention and personal management. The critical care time shown is in addition to time spent performing any reported separately billable procedures and includes the following: [x] Data and vital sign review and interpretation [x ] Patient assessment, examination and intervention [x] Medication orders and management [x] Patient/Family updates as able [x] Care Coordination and Documentation. Diagnoses Hypotension I95.9 Acute CHF I50.9 Hypoxia R09.02 Acute kidney injury superimposed on CKD N17.9; N18.9 Metabolic acidosis E87.20
--- NOTE | 2025-06-15 22:15 | PC.NURSE ---
Central Line At approximately 2029, notification received from CHANCE Shaver that upon entering patient's room, patient's central line was laying on his chest. Pressure held on site until bleeding stopped by CHANCE Shaver. Patient alert and oriented to self, place, time, and situation. When asked what happened, patient stated I felt that home connect lpn my neck and wanted it off so I pulled it off. Education provided to patient regarding reason as well as importance of central line. One peripheral IV able to be obtained by U/S. Dr. Carrizales notified of central line removal. Dr. Carrizales at bedside for new central line placement. Patient verbalized understanding of reason for procedure as well as importance of not removing line. Central line placed in the right groin. When discussing importance of central line, Dr. Carrizales asked patient if a medical restraint on his right hand would help him remember not to remove central line that is in close proximity to that hand. Patient stated that he thought that would be a good idea. Verbal order received from Dr. Carrizales for a medical restraint for patient's right upper extremity.
--- NOTE | 2025-06-15 22:28 | P.PCN_ITS ---
Procedure/Consent Time out: Time Out Performed: Yes (We decided right at bedside to do this procedure and discussed it.) Consent: Consent for Procedure: Consent obtained from patient and Agrees to proceed with procedure Additional Consent Information: Verbally consented and already had a consent for previous right IJ signed in the chart. Procedure Narrative: Patient was placed in supine position. Right groin was prepped with ChloraPrep and bedside ultrasound was used to identify the femoral artery as well as the femoral vein. This was marked with a pen. Patient was further prepped. Soda Drier Feeder donned gown mask Gloves reprepped and then draped the patient and prepped again. Multiple preps were done because the patient had evidence of inflammation in the skin fold. Triple-lumen catheter was tested and all ports flushing well the ultrasound probe was dressed with a condom with transducer gel both inside and on the outside of the probe and sterile technique was maintained. I was able to identify the vein again and anesthetized with 3 cc 1% lidocaine. I located vessel with 22-gauge needle. Subsequent to that I used the large bore needle with good blood return guidewire was threaded. Dilator was passed after skin kandace and triple-lumen catheter was inserted guidewire removed. All ports were aspirated and flushed and sewn into place. Area was cleaned with saline and dried then prepped again with ChloraPrep and dried and dressing was placed. Acute Procedures Central Line Placement: Right Femoral: Time out performed: Yes Patient placed on monitor/pulse ox: Yes prep: mask, gown, gloves and other (cap) Central line prep: other (chloraprep) Local anesthesia used: lidocaine 1% Amount of anesthesia used (ml): 3 Ultrasound used for placement: Yes Central line lumen inserted: triple Post procedure: sutured in place, good blood return, all ports aspirated, flushed, capped and sterile dressing applied Post procedure x-ray: other (no) Patient tolerated procedure: no complications Epistaxis Control: Time out performed: Yes (We decided right at bedside to do this procedure and discussed it.)
[2025-06-16] VITALS (98 sets, daily range): BP systolic 78–114; BP diastolic 57–88; PULSE 76–112; RESP 13–32; TEMP 36.4–37.1; O2SAT 60–100
[2025-06-16] MEDS: hydrocortisone 100 mg/2 mL SDV IVP ×4 (02:23→20:40)
[2025-06-16 04:44] LABS: Hematocrit 26.8 % (37-53); Hemoglobin 7.90 g/dL (11.27-16.99); Mean Corpuscular HGB Conc 29.5 g/dL (30-55); Mean Corpuscular Hemoglobin 24.8 pg (27-33); Mean Corpuscular Volume 84.3 fl (82-101); Nucleated Red Blood Cells % 0.5 %; Platelet Count 85 10^3/cmm (157-399); Red Blood Count 3.18 10^6/uL (3.85-5.65); White Blood Count 10.30 10^3/uL (3.29-11.43)
[2025-06-16 05:04] LABS: Alanine Aminotransferase 39 U/L (0-41); Albumin Level 3.5 g/dL (3.5-5.2); Alkaline Phosphatase 297 U/L (40-130); Anion Gap 22.2 (5-19); Aspartate Amino Transferase 32 U/L (0-40); Calcium 9.1 mg/dL (8.5-10.5); Carbon Dioxide 20 mmol/L (22-29); Chloride 96 mmol/L (98-107); Globulin 1.8 g/dL (1.3-4.6); Glucose 125 mg/dL (65-115); Osmolality Calculated 309 mOsm/kg (285-295); Potassium 3.2 mmol/L (3.5-5.1); Sodium 135 mmol/L (136-145); Total Protein 5.3 g/dL (6.6-8.7)
[2025-06-16 05:15] LABS: Blood Urea Nitrogen 90 mg/dL (8-23)
[2025-06-16] MEDS: albumin 25 G/100 ML BAG 60 G IV (05:16)
[2025-06-16] MEDS: piperacillin-tazobactam 3.375 GM in sodium chloride 0.9% (plus) 50 ML IV ×3 (05:20→21:07)
[2025-06-16] MEDS: potassium chloride oral liq 20 mEq/15 mL UDC 40 MEQ PO ×2 (06:30→10:27)
[2025-06-16] MEDS: FUROsemide 10 mg/mL SDV 10mL 60 MG IVP (06:32)
[2025-06-16] MEDS: pantoprazole 40 mg SDV IVP (20:40)
--- NOTE | 2025-06-16 23:33 | PM.PN ---
Subjective Subjective: Denies shortness of breath or chest pain. Accidentally pulled out his central line. Vitals/I&O/Wt Last Vital Signs Temp 97.6 F 06/16/25 18:25 Pulse 112 H 06/16/25 18:00 Resp 27 H 06/16/25 18:00 BP 101/68 06/16/25 18:00 Pulse Ox 100 06/16/25 18:00 O2 Del Method Room Air 06/16/25 18:00 O2 Flow Rate 2 06/14/25 10:00 06/16/25 06/16/25 06/17/25 14:59 22:59 06:59 Intake Total 572 / 572 50 / 622 Output Total 200 / 200 200 / 400 Balance 372 / 372 -150 / 222 Weight last 48 hrs Weight 115.666 kg Weight 116 kg Physical Exam Const: COMMON NORMALS: patient oriented x3 and alert GENERAL APPEARANCE: cooperative ORIENTATION/CONSCIOUSNESS: Yes awake HENMT: COMMON NORMALS: oropharynx normal Neck/C-Spine: COMMON NORMALS: no JVD Resp: COMMON NORMALS: normal respiratory effort and clear to auscultation bilaterally AUSCULTATION: clear to auscultation bilaterally Cardio: COMMON NORMALS: no JVD, regular rhythm, S1 normal heart sound present, S2 normal heart sound present and No murmurs present (Cardio) RHYTHM: regular rhythm HEART SOUNDS: S1 normal heart sound present and S2 normal heart sound present GI: COMMON NORMALS: Normal to inspection, nondistended, normoactive bowel sounds present, Soft to palpation and non-tender PALPATION: Yes Soft to palpation Extremity: COMMON NORMALS: no joint enlargement GENERAL: Yes edema (3+) Neuro: COMMON NORMALS: patient oriented x3 and moves all extremities SENSORIUM/ORIENTATION: Yes alert Skin: COMMON NORMALS: no rashes or lesions noted GENERAL SKIN EXAM: no rashes or lesions noted Urinary Catheter Management: Peralta: Cath Placed During This Visit: yes Reason for Continuing Indwelling Catheter: Accurate Measurement of Urinary Output in Critically Ill Patients Urinary Catheter Date of Insertion: 06/12/25 Urinary Catheter Time of Insertion: 10:43 Data 06/16/25 04:28 06/16/25 04:28 Micro: Microbiology 06/15/25 20:56 Blood Culture - Preliminary Blood NEGATIVE TO DATE 06/15/25 20:19 Blood Culture - Preliminary Blood NEGATIVE TO DATE 06/12/25 12:50 Urine Culture - Preliminary Urine,Clean Catch Yeast A&P Assessment and plan 1. Hypotension: Weaned off pressor this morning. Blood pressure soft. Monitor in ICU for continued recovery and no need for reinitiation. Continue midodrine. Plateauing of creatinine with DIXON. Consider possible ATN. Monitor MAYRA. So far producing urine. Fluid overload. Shock appears to be likely septic shock with noted developing pneumonia. Continue broaden antibiotics with Zosyn and vancomycin. Continues on Levophed, has been coming down on pressor requirement. Salcedo trough is high. Hold Vanco. Pharmacy to dose. Reviewed TTE, good EF. Mild hypokinesia of the basal inferior wall segment, reviewed prior stress test, noted on prior study. Moderate biatrial enlargement. Continues on stress dose steroid for now, monitor for risk of gastritis, hyperglycemia, myopathy, encephalopathy. Wean down steroids. Monitor intake and output. Discussed with nursing, manager case management. 2. Anemia, unspecified type: Anticoagulation stopped due to worsening anemia. Hemoglobin with noted gradual downtrend. Recheck hemoglobin. With noted thrombocytopenia after resumption of anticoagulation. Assess for possible HIT. Assess for hemolysis, haptoglobin, LDH, peripheral smear. Reticulocyte. Hemoccult. PPI twice daily. Wean steroids. 3. Thrombocytopenia: Assess for hemolysis and HIT. Consider cytopenia secondary to Zosyn. Reassess blood counts. Continue to hold anticoagulation. 4. Acute CHF: Blood pressure protocol for Lopressor, but fluid overload with anasarca. Agree with diuresis, continue Lasix 60 g IV every 12. Also on metolazone. Monitor for risk of hypotension, electrolyte abnormality, worsening renal dysfunction. Reassess chemistry. Monitor I/O. Fluid restriction 1 L. 5. Hypoxia: CHF, pneumonia. Hypoxia resolved. Weaned down to room air. Pneumonia : Sputum culture collected. Chest X-ray suggests mild pulmonary edema or interstitial pneumonia; patient denies cough and sputum. Blood culture negative to date. - Continue empiric antibiotics. Hiving prophy. Hold. Pharmacy to dose. - Obtain sputum culture if possible (patient currently reports no sputum production) - Reviewed viral panel MRSA swab negative. Improving. Leukocytosis resolved. Afebrile. Weaned down to room air. Discontinue Vanco. Acute hypoxemia/new oxygen requirement : SpO2 94% on 2 L oxygen; no home oxygen use reported. - Continue supplemental oxygen - Telemetry monitoring - Has been on anticoagulation, lower likelihood of PE. Lovenox. 6. Acute kidney injury superimposed on CKD: Possible ATN. He is making urine. Creatinine unchanged. Continue hemodynamic support. Continue Peralta. Hold dapagliflozin - Monitor intake and output - Consider further diuresis once blood pressure stabilizes (to balance volume status) 7. Metabolic acidosis: Lactic acidosis on presentation. Likely continued metabolic acidosis in setting of renal dysfunction. Negative ketones Plan: Possible sepsis : Possible sepsis: Septic shock. Continue hemodynamic support, antibiotics as above. Follow-up cultures. Hyperkalemia : Resolved. Hold spironolactone. Low potassium diet Anemia : Follow-up blood counts Atrial fibrillation : Switch to oral Amio. Stop Amio drip Known AFib; EKG shows atrial fibrillation; troponins stable (baseline 75; 60?minute 74). Resume beta-conner if blood pressure improved/allows. - Reviewed troponin and EKG series - Telemetry monitoring Code status discussion : Patient declines CPR (no chest compressions) but agrees to temporary ventilator support if needed; prior chart listed full code. - Update code status to DNR with acceptance of temporary mechanical ventilation. This is confirmed by his cousin Pattie. PDMP PDMP Reviewed: Not Reviewed Attestations Medical Necessity Statement*: Continue admission for assessment and management of shock, possible septic shock, acute CHF Coding Level of Care Code Critical Care >/= 30 minutes Critical care time (in minutes): 35 The high probability of a clinically significant, sudden or life threatening deterioration, as referenced in this documentation, required my full and direct attention, intervention and personal management. The critical care time shown is in addition to time spent performing any reported separately billable procedures and includes the following: [x] Data and vital sign review and interpretation [x] Patient assessment, examination and intervention [x] Medication orders and management [x] Patient/Family updates as able [x] Care Coordination and Documentation. Diagnoses Hypotension I95.9 Anemia, unspecified type D64.9 Anemia type: unspecified type Thrombocytopenia D69.6 Acute CHF I50.9 Hypoxia R09.02 Acute kidney injury superimposed on CKD N17.9; N18.9 Metabolic acidosis E87.20
[2025-06-16 23:49] LABS: LAB Peripheral Smear Sent for Review
[2025-06-17] VITALS (98 sets, daily range): BP systolic 81–117; BP diastolic 54–85; PULSE 75–122; RESP 13–33; TEMP 36.4–36.6; O2SAT 78–100
[2025-06-17 00:03] LABS: Hemoglobin 8.30 g/dL (11.27-16.99)
[2025-06-17 00:20] LABS: Hematocrit 26.9 % (37-53); Retic Production Index 1.08
[2025-06-17] MEDS: hydrocortisone 100 mg/2 mL SDV 50 MG IVP ×4 (02:19→20:20)
[2025-06-17 04:28] LABS: Hematocrit 26.6 % (37-53); Hemoglobin 7.90 g/dL (11.27-16.99); Mean Corpuscular HGB Conc 29.7 g/dL (30-55); Mean Corpuscular Hemoglobin 24.7 pg (27-33); Mean Corpuscular Volume 83.1 fl (82-101); Nucleated Red Blood Cells % 0.7 %; Platelet Count 79 10^3/cmm (157-399); Red Blood Count 3.20 10^6/uL (3.85-5.65); White Blood Count 10.47 10^3/uL (3.29-11.43)
[2025-06-17 04:50] LABS: Alanine Aminotransferase 41 U/L (0-41); Albumin Level 3.6 g/dL (3.5-5.2); Alkaline Phosphatase 337 U/L (40-130); Anion Gap 21.3 (5-19); Aspartate Amino Transferase 36 U/L (0-40); Calcium 9.1 mg/dL (8.5-10.5); Carbon Dioxide 21 mmol/L (22-29); Chloride 100 mmol/L (98-107); Globulin 1.0 g/dL (1.3-4.6); Glucose 103 mg/dL (65-115); Osmolality Calculated 319 mOsm/kg (285-295); Potassium 3.3 mmol/L (3.5-5.1); Sodium 139 mmol/L (136-145); Total Protein 4.6 g/dL (6.6-8.7)
[2025-06-17] MEDS: piperacillin-tazobactam 3.375 GM in sodium chloride 0.9% (plus) 50 ML IV ×2 (05:11→13:57)
[2025-06-17 05:19] LABS: Blood Urea Nitrogen 99 mg/dL (8-23)
[2025-06-17] MEDS: pantoprazole 40 mg SDV IVP ×2 (08:27→20:20)
--- NOTE | 2025-06-17 21:10 | P.PN_ITS ---
Subjective 2 Subjective: Saw patient this afternoon, he is sitting up, eating, has hoarse voice but is breathing better. No acute events overnight, vital stable. Vitals/I&O/Wt Last Vital Signs Temp 97.6 F 06/17/25 20:15 Pulse 91 06/17/25 20:15 Resp 18 06/17/25 20:15 BP 94/68 06/17/25 20:15 Pulse Ox 100 06/17/25 20:15 O2 Del Method Room Air 06/17/25 18:00 O2 Flow Rate 3 06/16/25 23:30 06/17/25 06/17/25 06/17/25 06:59 14:59 22:59 Intake Total 50 / 672 400 / 400 200 / 600 Output Total 1000 / 1400 550 / 550 400 / 950 Balance -950 / -728 -150 / -150 -200 / -350 Weight last 48 hrs Weight 112.491 kg Weight 115.666 kg Physical Exam 2 Const: COMMON NORMALS: patient oriented x3 and alert GENERAL APPEARANCE: c ooperative ORIENTATION/CONSCIOUSNESS: Yes awake HENMT: COMMON NORMALS: oropharynx normal Neck/C-Spine: COMMON NORMALS: no JVD Resp: COMMON NORMALS: normal respiratory effort and clear to auscultation bilaterally AUSCULTATION: clear to auscultation bilaterally Cardio: COMMON NORMALS: no JVD, regular rhythm, S1 normal heart sound present, S2 normal heart sound present and No murmurs present (Cardio) RHYTHM: regular rhythm HEART SOUNDS: S1 normal heart sound present and S2 normal heart sound present GI: COMMON NORMALS: Normal to inspection, nondistended, normoactive bowel sounds present, Soft to palpation and non-tender PALPATION: Yes Soft to palpation Extremity: COMMON NORMALS: no joint enlargement GENERAL: Yes edema (3+) Neuro: COMMON NORMALS: patient oriented x3 and moves all extremities S ENSORIUM/ORIENTATION: Yes alert Skin: COMMON NORMALS: no rashes or lesions noted GENERAL SKIN EXAM: no rashes or lesions noted Urinary Catheter Management: Peralta: Cath Placed During This Visit: yes Reason for Continuing Indwelling Catheter: Accurate Measurement of Urinary Output in Critically Ill Patients Urinary Catheter Date of Insertion: 06/12/25 Urinary Catheter Time of Insertion: 10:43 Data 06/17/25 04:07 06/17/25 04:07 Micro: Microbiology 06/15/25 20:56 Blood Culture - Preliminary Blood NEGATIVE TO DATE 06/15/25 20:19 Blood Culture - Preliminary Blood NEGATIVE TO DATE A&P Assessment and plan 1. Hypotension: Weaned off pressor this morning. Blood pressure soft. Monitor in ICU for continued recovery and no need for reinitiation. Continue midodrine. Plateauing of creatinine with DIXON. Consider possible ATN. Serum creatinine is plateaued, patient is making urine in his Peralta bag. Continue monitoring urine output. Shock appears to be likely septic shock with noted developing pneumonia. Continue broaden antibiotics with Zosyn and vancomycin. Continues on Levophed, has been coming down on pressor requirement. Salcedo trough is high. Hold Vanco. Pharmacy to dose. Reviewed TTE, good EF. Mild hypokinesia of the basal inferior wall segment, reviewed prior stress test, noted on prior study. Moderate biatrial enlargement. Monitor intake and output. Discussed with nursing, sample case porter. 2. Anemia, unspecified type: Anticoagulation stopped due to worsening anemia. Hemoglobin with noted gradual downtrend. Recheck hemoglobin. With noted thrombocytopenia after resumption of anticoagulation. Assess for possible HIT. Assess for hemolysis, haptoglobin, LDH, peripheral smear. Reticulocyte. Hemoccult. PPI twice daily. Wean steroids. 3. Thrombocytopenia: Assess for hemolysis and HIT. Consider cytopenia secondary to Zosyn. Reassess blood counts. Continue to hold anticoagulation. 4. Acute CHF: Blood pressure protocol for Lopressor, but fluid overload with anasarca. Agree with diuresis, continue Lasix 60 g IV every 12. Also on metolazone. Monitor for risk of hypotension, electrolyte abnormality, worsening renal dysfunction. Reassess chemistry. Monitor I/O. Fluid restriction 1 L. 5. Hypoxia: CHF, pneumonia. Hypoxia resolved. Weaned down to room air. Pneumonia : Sputum culture collected. Chest X-ray suggests mild pulmonary edema or interstitial pneumonia; patient denies cough and sputum. Blood culture negative to date. - Continue empiric antibiotics. Hiving prophy. Hold. Pharmacy to dose. - Obtain sputum culture if possible (patient currently reports no sputum production) - Reviewed viral panel MRSA swab negative. Improving. Leukocytosis resolved. Afebrile. Weaned down to room air. Discontinue Vanco. Acute hypoxemia/new oxygen requirement : SpO2 94% on 2 L oxygen; no home oxygen use reported. - Continue supplemental oxygen - Telemetry monitoring - Has been on anticoagulation, lower likelihood of PE. Lovenox. 6. Acute kidney injury superimposed on CKD: Possible ATN. He is making urine. Creatinine unchanged. Continue hemodynamic support. Continue Peralta. Hold dapagliflozin - Monitor intake and output - Consider further diuresis once blood pressure stabilizes (to balance volume status) 7. Metabolic acidosis: Lactic acidosis on presentation. Likely continued metabolic acidosis in setting of renal dysfunction. Negative ketones Plan: Possible sepsis : Possible sepsis: Septic shock. Continue hemodynamic support, antibiotics as above. Follow-up cultures. Hyperkalemia : Resolved. Hold spironolactone. Low potassium diet Anemia : Follow-up blood counts Atrial fibrillation : Switch to oral Amio. Stop Amio drip Known AFib; EKG shows atrial fibrillation; troponins stable (baseline 75; 60?minute 74). Resume beta-conner if blood pressure improved/allows. - Reviewed troponin and EKG series - Telemetry monitoring Code status discussion : Patient declines CPR (no chest compressions) but agrees to temporary ventilator support if needed; prior chart listed full code. - Update code status to DNR with acceptance of temporary mechanical ventilation. This is confirmed by his cousin Pattie. PDMP PDMP Reviewed: Not Reviewed Attestations 2 Medical Necessity Statement*: Patient requires greater than 2 overnights for ICU level care with management of urine output, resolving renal function, resolving sepsis with septic shock. Improving overall. Diagnoses Hypotension I95.9 Anemia, unspecified type D64.9 Anemia type: unspecified type Thrombocytopenia D69.6 Acute CHF I50.9 Hypoxia R09.02 Acute kidney injury superimposed on CKD N17.9; N18.9 Metabolic acidosis E87.20
[2025-06-18] VITALS (14 sets, daily range): BP systolic 91–101; BP diastolic 58–74; PULSE 69–109; RESP 16–32; TEMP 36.6–36.7; O2SAT 93–99
[2025-06-18] MEDS: hydrocortisone 100 mg/2 mL SDV 50 MG IVP ×3 (02:07→15:18)
[2025-06-18 04:01] LABS: Hematocrit 26.5 % (37-53); Hemoglobin 8.00 g/dL (11.27-16.99); Mean Corpuscular HGB Conc 30.2 g/dL (30-55); Mean Corpuscular Hemoglobin 24.8 pg (27-33); Mean Corpuscular Volume 82.0 fl (82-101); Nucleated Red Blood Cells % 1.2 %; Platelet Count 82 10^3/cmm (157-399); Red Blood Count 3.23 10^6/uL (3.85-5.65); White Blood Count 10.85 10^3/uL (3.29-11.43)
[2025-06-18 04:21] LABS: Alanine Aminotransferase 41 U/L (0-41); Albumin Level 3.3 g/dL (3.5-5.2); Alkaline Phosphatase 349 U/L (40-130); Anion Gap 21.7 (5-19); Aspartate Amino Transferase 33 U/L (0-40); Calcium 9.2 mg/dL (8.5-10.5); Carbon Dioxide 21 mmol/L (22-29); Chloride 100 mmol/L (98-107); Globulin 1.5 g/dL (1.3-4.6); Glucose 140 mg/dL (65-115); Osmolality Calculated 323 mOsm/kg (285-295); Sodium 140 mmol/L (136-145); Total Protein 4.8 g/dL (6.6-8.7)
[2025-06-18 04:25] LABS: Add RBC Morph Yes; Anisocytosis 1+; Hypochromasia 2+; Poikilocytosis 1+; RBC Morph Comp No; Slide Review Slide Review Perform
[2025-06-18 04:26] LABS: Ovalocytes 1+; Target Cells 1+
[2025-06-18 04:39] LABS: Blood Urea Nitrogen 99 mg/dL (8-23); Potassium 2.7 mmol/L (3.5-5.1)
[2025-06-18] MEDS: pantoprazole 40 mg SDV IVP ×2 (08:12→20:38)
--- NOTE | 2025-06-18 09:57 | PC.CHAP ---
Pastoral Care Encounter/Spiritual Assessment Type of Contact [] Declined health services manager visit [] Patient/Family/Request visit [] Outpatient visit [] Follow-up visit [] Physician referral [] Code/Alert [x] Routine visit [] Staff referral [] Actively dying [] Patient sleeping [] Family support [] [] Out of room [] Palliative care [] [] Receiving care in room [] Pre-surgical visit [] Trauma [] Long length of stay [] ICU visit [] Other: Relational/Emotional Strength [x] Patient feels connected with others/family/visitors/staff [] Distress [] Loneliness/isolation [] Abandonment Spirituality of Patient [x] Person of Raina [] Attends Rastafari of their Raina [x] Believes in Prayer [] Reads Bible or Religion materials [] There are Spiritual issues to be addressed Equipment Technician Interventions [x] Prayer [x] Active listening [x] Non-anxious presence [x] Spiritual/emotional support [] Crisis/trauma care [] Spiritual counseling [] Bereavement support [] Provided bereavement packet [] Provided Bible/devotional materials [] Provided toy/stuffed animal, coloring book to patient or family member [] Provided Communion [] Anointing/Energy [] Salvation [x] Completed spiritual assessment [] Other: Impact on Illness or Injury [] Angry [] Fearful [] Anxious [] Often cries [] Exhaustion [] Unable to work [] Unable to attend confucianism [] Unable to walk/stand [] Unable to read [] Unable to drive [] Unable to eat/drink [] Unable to sleep [] Unable to be with family [] Patient intubated [] Other: Summary Time spent with patient 5 min
--- NOTE | 2025-06-18 16:12 | PC.OT ---
OT TREATMENT ATTEMPTED; PATIENT IS SLEEPING SOUNDLY. NURSING REPORTS THAT THE PATIENT HAS BEEN SLEEPING ALL DAY.
[2025-06-18] MEDS: ferric gluconate 125 MG in sodium chloride 0.9% (100 ml) 100 ML 220 MG IV (20:38)
--- NOTE | 2025-06-18 20:50 | P.PN_ITS ---
Vitals/I&O/Wt Last Vital Signs Temp 97.8 F 06/18/25 20:00 Pulse 71 06/18/25 20:00 Resp 18 06/18/25 20:00 BP 101/66 06/18/25 20:00 Pulse Ox 97 06/18/25 20:00 O2 Del Method Room Air 06/18/25 20:00 O2 Flow Rate 3 06/16/25 23:30 06/18/25 06/18/25 06/18/25 06:59 14:59 22:59 Intake Total 240 / 890 480 / 480 Output Total 675 / 1925 Balance -435 / -1035 480 / 480 Weight last 48 hrs Weight 115 kg Weight 112.491 kg Physical Exam 2 Const: COMMON NORMALS: patient oriented x3 and alert GENERAL APPEARANCE: c ooperative ORIENTATION/CONSCIOUSNESS: Yes awake HENMT: COMMON NORMALS: oropharynx normal Neck/C-Spine: COMMON NORMALS: no JVD Resp: COMMON NORMALS: normal respiratory effort and clear to auscultation bilaterally AUSCULTATION: clear to auscultation bilaterally Cardio: COMMON NORMALS: no JVD, regular rhythm, S1 normal heart sound present, S2 normal heart sound present and No murmurs present (Cardio) RHYTHM: regular rhythm HEART SOUNDS: S1 normal heart sound present and S2 normal heart sound present GI: COMMON NORMALS: Normal to inspection, nondistended, normoactive bowel sounds present, Soft to palpation and non-tender PALPATION: Yes Soft to palpation Extremity: COMMON NORMALS: no joint enlargement GENERAL: Yes edema (3+) Neuro: COMMON NORMALS: patient oriented x3 and moves all extremities S ENSORIUM/ORIENTATION: Yes alert Skin: COMMON NORMALS: no rashes or lesions noted GENERAL SKIN EXAM: no rashes or lesions noted Urinary Catheter Management: Peralta: Cath Placed During This Visit: yes Reason for Continuing Indwelling Catheter: Accurate Measurement of Urinary Output in Critically Ill Patients Urinary Catheter Date of Insertion: 06/12/25 Urinary Catheter Time of Insertion: 10:43 Data 06/18/25 03:49 06/18/25 03:49 Micro: Microbiology 06/12/25 12:50 Urine Culture - Final Urine,Clean Catch Nakaseomyces glabrata A&P Assessment and plan 1. Hypotension: Patient downgraded from ICU, stable, not requiring pressors. Kidney function stable, remains oliguric as far as urine output. Shock appears to be likely septic shock with noted developing pneumonia. Continue antibiotic holiday, patient appears stable. Reviewed TTE, good EF. Mild hypokinesia of the basal inferior wall segment, reviewed prior stress test, noted on prior study. Moderate biatrial enlargement. Monitor intake and output. Discussed with nursing, top case assembler. 2. Anemia, unspecified type: Anticoagulation stopped due to worsening anemia. Hemoglobin with noted gradual downtrend. Recheck hemoglobin. With noted thrombocytopenia after resumption of anticoagulation. Assess for possible HIT. Assess for hemolysis, haptoglobin, LDH, peripheral smear. Reticulocyte. Hemoccult. PPI twice daily. Will administer IV iron, with Koilocytes, microcytic anemia appears to be iron deficient. Could be steroids induced effect. Will discontinue steroids and check CBC in AM. 3. Thrombocytopenia: Assess for hemolysis and HIT. Consider cytopenia secondary to Zosyn. Reassess blood counts. Continue to hold anticoagulation. 4. Acute CHF: Blood pressure currently stable, holding GDMT, continue midodrine. ? Mild tachycardia, low blood pressure. Will stress test with sodium chloride IV. Reviewed echocardiogram, patient has preserved EF. 5. Hypoxia: Secondary to acute community-acquired pneumonia, now resolving. ? Does not appear to be any significant component of heart failure, patient has preserved EF ? Pneumonia improving, patient is still hoarse, but talkative. 6. Acute kidney injury superimposed on CKD: Possible ATN. He is making urine. Creatinine unchanged. Continue hemodynamic support. Continue Peralta. Hold dapagliflozin - Monitor intake and output - Consider further diuresis once blood pressure stabilizes (to balance volume status) 7. Metabolic acidosis: Lactic acidosis on presentation. Likely continued metabolic acidosis in setting of renal dysfunction. Negative ketones Plan: Possible sepsis : Possible sepsis: Septic shock. Continue hemodynamic support, antibiotics as above. Follow-up cultures. Hyperkalemia : Resolved. Hold spironolactone. Low potassium diet Anemia : Follow-up blood counts Atrial fibrillation : Switch to oral Amio. Stop Amio drip Known AFib; EKG shows atrial fibrillation; troponins stable (baseline 75; 60?minute 74). Resume beta-conner if blood pressure improved/allows. - Reviewed troponin and EKG series - Telemetry monitoring Code status discussion : Patient declines CPR (no chest compressions) but agrees to temporary ventilator support if needed; prior chart listed full code. - Update code status to DNR with acceptance of temporary mechanical ventilation. This is confirmed by his cousin Pattie. PDMP PDMP Reviewed: Not Reviewed Attestations 2 Medical Necessity Statement*: Arranges be made for assisted facility, patient's kidney function still resolving, improved respiratory function from resolving pneumonia. Anticipate discharge in 24 to 48 hours. Diagnoses Hypotension I95.9 Anemia, unspecified type D64.9 Anemia type: unspecified type Thrombocytopenia D69.6 Acute CHF I50.9 Hypoxia R09.02 Acute kidney injury superimposed on CKD N17.9; N18.9 Metabolic acidosis E87.20
[2025-06-19] VITALS (7 sets, daily range): BP systolic 99–116; BP diastolic 68–87; PULSE 82–102; RESP 17–232; TEMP 36.7–36.9; O2SAT 93–97
[2025-06-19 04:25] LABS: Hematocrit 28.0 % (37-53); Hemoglobin 8.40 g/dL (11.27-16.99); Mean Corpuscular HGB Conc 30.0 g/dL (30-55); Mean Corpuscular Hemoglobin 24.8 pg (27-33); Mean Corpuscular Volume 82.6 fl (82-101); Nucleated Red Blood Cells % 2.6 %; Platelet Count 96 10^3/cmm (157-399); Red Blood Count 3.39 10^6/uL (3.85-5.65); White Blood Count 11.03 10^3/uL (3.29-11.43)
[2025-06-19 04:55] LABS: Alanine Aminotransferase 44 U/L (0-41); Albumin Level 3.4 g/dL (3.5-5.2); Alkaline Phosphatase 384 U/L (40-130); Anion Gap 20.9 (5-19); Aspartate Amino Transferase 36 U/L (0-40); Calcium 8.9 mg/dL (8.5-10.5); Carbon Dioxide 21 mmol/L (22-29); Chloride 102 mmol/L (98-107); Globulin 1.3 g/dL (1.3-4.6); Glucose 121 mg/dL (65-115); Osmolality Calculated 324 mOsm/kg (285-295); Sodium 141 mmol/L (136-145); Total Protein 4.7 g/dL (6.6-8.7)
[2025-06-19 04:59] LABS: Magnesium 2.6 mg/dL (1.7-2.3)
[2025-06-19 05:16] LABS: Blood Urea Nitrogen 99 mg/dL (8-23); Potassium 2.9 mmol/L (3.5-5.1)
[2025-06-19] MEDS: pantoprazole 40 mg SDV IVP ×2 (08:32→21:51)
[2025-06-19] MEDS: ferric gluconate 125 MG in sodium chloride 0.9% (100 ml) 100 ML 110 MG IV (14:10)
--- NOTE | 2025-06-19 20:17 | PM.PN ---
Subjective Subjective: Patient will cooperate with PT today, was able to get out of bed to chair Authorization approved for long-term facility Patient still has indwelling Peralta catheter, noted hypokalemia Patient is conversant, no complaints, no events overnight Vitals/I&O/Wt Last Vital Signs Temp 98.0 F 06/19/25 08:00 Pulse 98 06/19/25 17:25 Resp 20 H 06/19/25 16:00 BP 103/87 06/19/25 17:25 Pulse Ox 93 06/19/25 16:00 O2 Del Method Room Air 06/19/25 04:00 O2 Flow Rate 3 06/16/25 23:30 06/19/25 06/19/25 06/19/25 06:59 14:59 22:59 Intake Total 360 / 2190 720 / 720 110 / 830 Output Total 300 / 600 650 / 650 Balance 60 / 1590 720 / 720 -540 / 180 Weight last 48 hrs Weight 117.5 kg Weight 115 kg Physical Exam Const: COMMON NORMALS: patient oriented x3 and alert GENERAL APPEARANCE: cooperative ORIENTATION/CONSCIOUSNESS: Yes awake HENMT: COMMON NORMALS: oropharynx normal Neck/C-Spine: COMMON NORMALS: no JVD Resp: COMMON NORMALS: normal respiratory effort and clear to auscultation bilaterally AUSCULTATION: clear to auscultation bilaterally Cardio: COMMON NORMALS: no JVD, regular rhythm, S1 normal heart sound present, S2 normal heart sound present and No murmurs present (Cardio) RHYTHM: regular rhythm HEART SOUNDS: S1 normal heart sound present and S2 normal heart sound present GI: COMMON NORMALS: Normal to inspection, nondistended, normoactive bowel sounds present, Soft to palpation and non-tender PALPATION: Yes Soft to palpation Extremity: COMMON NORMALS: no joint enlargement GENERAL: Yes edema (3+) Neuro: COMMON NORMALS: patient oriented x3 and moves all extremities SENSORIUM/ORIENTATION: Yes alert Skin: COMMON NORMALS: no rashes or lesions noted GENERAL SKIN EXAM: no rashes or lesions noted Urinary Catheter Management: Peralta: Cath Placed During This Visit: yes, but has since been removed by the nurse Reason for Continuing Indwelling Catheter: Accurate Measurement of Urinary Output in Critically Ill Patients Urinary Catheter Date of Insertion: 06/12/25 Urinary Catheter Time of Insertion: 10:43 Date Urinary Catheter Removed: 06/19/25 Time Urinary Catheter Discontinued: 18:11 Data 06/19/25 04:01 06/19/25 04:01 A&P Assessment and plan 1. Pneumonia: Plan: Patient initially admitted with acute hypoxic respiratory failure, decompensated heart failure in the setting of severe sepsis due to community-acquired pneumonia, improving, stable Nonischemic cardiomyopathy Iron deficiency anemia Thrombocytopenia, stable, improving Acute decompensated systolic heart failure Acute hypoxic respiratory failure secondary to community-acquired pneumonia, resolved Acute kidney injury on CKD stage III, likely ATN, making urine, continue to hold nephrotoxins including dapagliflozin Chronic atrial fibrillation, stable with rate control medications amiodarone 400 mg twice daily Continue amiodarone 400 mg twice daily Will consider discontinuing midodrine if blood pressure stays stable Continue potassium supplement, magnesium supplement, check labs in a.m. Plan to remove Peralta catheter in a.m., postvoid residual volume check 4 to 6 hours later Follow-up with cardiology for post shock heart failure management at discharge Plan discharge long-term facility tomorrow DVT prophylaxis?chemical prophylaxis held due to thrombocytopenia GI prophylaxis?Protonix PDMP PDMP Reviewed: Not Reviewed Attestations Medical Necessity Statement*: Arranges be made for long-term facility, patient's kidney function still resolving, improved respiratory function from resolving pneumonia. Anticipate discharge in 24 to 48 hours. Diagnoses Pneumonia J18.9
[2025-06-20] VITALS: BP 98/81; PULSE 113; RESP 27; O2SAT 95
[2025-06-20 04:00] VITALS: BP 122/82; PULSE 81; RESP 26; TEMP 36.8; O2SAT 95
[2025-06-20 08:00] VITALS: BP 112/80; PULSE 125; RESP 21; TEMP 36.4; O2SAT 93
[2025-06-20] MEDS: pantoprazole 40 mg SDV IVP (08:34)
--- NOTE | 2025-06-20 11:57 | P.DS_ITS ---
Discharge Providers Date of Admission: 06/12/25 07:48 Date of Discharge: June 20, 2025 Attending Provider at Admission: Ayan Burrell Attending Provider at Discharge: Dakota El MD Primary Care Provider: Ashwin Roberson MD Diagnoses at Discharge Discharge Diagnosis 1. Pneumonia: Reason for Visit Reason for Visit: CHF Brief History: Plan: Patient initially admitted with acute hypoxic respiratory failure, decompensated heart failure in the setting of severe sepsis due to community- acquired pneumonia, improving, stable Nonischemic cardiomyopathy Iron deficiency anemia Thrombocytopenia, stable, improving Acute decompensated systolic heart failure Acute hypoxic respiratory failure secondary to community-acquired pneumonia, resolved Acute kidney injury on CKD stage III, likely ATN, making urine, continue to hold nephrotoxins including dapagliflozin Chronic atrial fibrillation, stable with rate control medications amiodarone 400 mg twice daily Hospital Course Hospital Course Continue amiodarone 400 mg twice daily, switched to metoprolol succinate on discharge Will consider discontinuing midodrine if blood pressure stays stable Continue potassium supplement, magnesium supplement Successful removal of Peralta catheter, no retention on day of discharge Follow-up with cardiology for post shock heart failure management at discharge Plan discharge senior living facility DVT prophylaxis?chemical prophylaxis held due to thrombocytopenia, resume at discharge GI prophylaxis?Protonix discontinued Physical Exam Const: COMMON NORMALS: patient oriented x3 and alert GENERAL APPEARANCE: cooperative ORIENTATION/CONSCIOUSNESS: Yes awake HENMT: COMMON NORMALS: oropharynx normal Neck/C-Spine: COMMON NORMALS: no JVD Resp: COMMON NORMALS: normal respiratory effort and clear to auscultation bilaterally AUSCULTATION: clear to auscultation bilaterally Cardio: COMMON NORMALS: no JVD, regular rhythm, S1 normal heart sound present, S2 normal heart sound present and No murmurs present (Cardio) RHYTHM: regular rhythm HEART SOUNDS: S1 normal heart sound present and S2 normal heart sound present GI: COMMON NORMALS: Normal to inspection, nondistended, normoactive bowel sounds present, Soft to palpation and non-tender PALPATION: Yes Soft to palpation Extremity: COMMON NORMALS: no joint enlargement GENERAL: Yes edema (3+) Neuro: COMMON NORMALS: patient oriented x3 and moves all extremities SENSORIUM/ORIENTATION: Yes alert Skin: COMMON NORMALS: no rashes or lesions noted GENERAL SKIN EXAM: no rashes or lesions noted Urinary Catheter Management: Peralta: Cath Placed During This Visit: yes, but has since been removed by the nurse Reason for Continuing Indwelling Catheter: Accurate Measurement of Urinary Output in Critically Ill Patients Urinary Catheter Date of Insertion: 06/12/25 Urinary Catheter Time of Insertion: 10:43 Date Urinary Catheter Removed: 06/19/25 Time Urinary Catheter Discontinued: 18:11 Discharge Data Studies Completed and Pending Completed Studies During Hospitalization Category Date Time Status CXRP [XR chest 1V portable [id number]] Routine Exams 06/12/25 15:31 Completed CXRP [XR chest 1V portable [id number]] Stat Exams 06/12/25 02:24 Completed CV. echo complete* [id number] Routine Ultrasound 06/12/25 09:29 Completed Pending at discharge Category Date Time Status Blood Culture Stat Lab 06/15/25 20:56 Results Heparin Induced Thrombocytopen Routine Lab 06/16/25 23:40 Received LUKE LMWH [Serotonin Release Assay LMWH] Routine Lab 06/16/25 23:40 Received Radiology Impressions Chest X-Ray 06/12/25 15:31 IMPRESSION: 1. Right IJ CVC tip is in the superior vena cava. 2. New left basilar/retrocardiac opacity is concerning for developing consolidation. Laboratory Results WBC 11.03 10^3/uL (3.29-11.43) 06/19/25 04:01 RBC 3.39 10^6/uL (3.85-5.65) L 06/19/25 04:01 Hgb 8.40 g/dL (11.27-16.99) L 06/19/25 04:01 Hct 28.0 % (37-53) L 06/19/25 04:01 MCV 82.6 fl (82-101) 06/19/25 04:01 MCH 24.8 pg (27-33) L 06/19/25 04:01 MCHC 30.0 g/dL (30-55) 06/19/25 04:01 RDW 26.0 % (12.1-15.1) H 06/19/25 04:01 Plt Count 96 10^3/cmm (157-399) L 06/19/25 04:01 MPV 11.4 fL (7.4-10.4) H 06/19/25 04:01 Neut % (Auto) 93.3 % 06/19/25 04:01 Lymph % (Auto) 0.7 % 06/19/25 04:01 Coleman % (Auto) 4.2 % 06/19/25 04:01 Eos % (Auto) 0.0 % 06/19/25 04:01 Baso % (Auto) 0.1 % 06/19/25 04:01 Reticulocyte % (Auto) 1.6 % (0.5-2.0) 06/16/25 23:40 Neut # (Auto) 10.29 10^3/uL (1.8-7.7) H 06/19/25 04:01 Lymph # (Auto) 0.1 10^3/uL (0.8-4.8) L 06/19/25 04:01 Coleman # (Auto) 0.5 10^3/uL (0.2-0.9) 06/19/25 04:01 Eos # (Auto) 0.0 10^3/uL (0.0-0.8) 06/19/25 04:01 Baso # (Auto) 0.0 10^3/uL (0.0-0.1) 06/19/25 04:01 Nucleated RBC % (auto) 2.6 % 06/19/25 04:01 Total Counted 100 (0-100) 06/13/25 03:50 Atypical Lymphs % Not Reportable 06/13/25 03:50 Absolute Neutrophils 11.8 10^3/cmm (1.4-6.5) H 06/13/25 03:50 Segmented Neutrophils 86 % 06/13/25 03:50 Band Neutrophils 8.0 % 06/13/25 03:50 Lymphocytes (Manual) 3 % 06/13/25 03:50 Monocytes (Manual) 3.0 % 06/13/25 03:50 Absolute Monocytes 0.4 10^3/cmm (0.1-0.6) 06/13/25 03:50 Eosinophils (Manual) 0 % 06/13/25 03:50 Absolute Eosinophils 0.0 10^3/cmm (0.0-0.7) 06/13/25 03:50 Basophils (Manual) 0.0 % 06/13/25 03:50 Absolute Basophils 0.0 10^3/cmm (0.0-0.2) 06/13/25 03:50 Nucleated RBCs # 0.3 /100WBC 06/19/25 04:01 Platelet Estimate Decreased (Normal) 06/13/25 03:50 Hypochromasia 2+ H 06/18/25 03:49 Poikilocytosis 1+ H 06/18/25 03:49 Anisocytosis 1+ H 06/18/25 03:49 Target Cells 1+ H 06/18/25 03:49 Ovalocytes 1+ H 06/18/25 03:49 Denia Cells Trace 06/13/25 03:50 Peripher Smr Path Cons Sent for review 06/16/25 23:40 ESR < 1 mm/hr (0-10) 06/12/25 02:04 Retic Production Index 1.08 06/16/25 23:40 Haptoglobin 215.0 mg/L (30-200) H 06/16/25 23:40 Specimen Type Venous 06/12/25 03:15 Sample Site Not Reportable 06/12/25 03:15 Dylan Test N/a 06/12/25 03:15 VBG pH 7.38 (7.32-7.42) 06/12/25 03:15 VBG pCO2 34.8 mmHg (41-51) L 06/12/25 03:15 VBG pO2 47.2 mmHg (25-40) H 06/12/25 03:15 VBG HCO3 20.7 mmol/L (24-28) L 06/12/25 03:15 VBG Base Excess -3.9 mmol/L (-3.0-3.0) L 06/12/25 03:15 VBG Hematocrit 31.5 % (42-52) L 06/12/25 03:15 O2 Delivery Device Not Reportable 06/12/25 03:15 Mechanic Welder Truck Driver ID [email or web address] 06/12/25 03:15 Sodium 141 mmol/L (136-145) 06/19/25 04:01 Potassium 2.9 mmol/L (3.5-5.1) L 06/19/25 04:01 Chloride 102 mmol/L (98-107) 06/19/25 04:01 Carbon Dioxide 21 mmol/L (22-29) L 06/19/25 04:01 Anion Gap 20.9 (5-19) H 06/19/25 04:01 BUN 99 mg/dL (8-23) H* 06/19/25 04:01 Creatinine 2.8 mg/dL (0.7-1.2) H 06/19/25 04:01 GFR Calculation Not Reportable 06/19/25 04:01 Glucose 121 mg/dL (65-115) H 06/19/25 04:01 POC Glucose 202 mg/dL (70-110) H 06/20/25 10:09 Calculated Osmolality 324 mOsm/kg (285-295) H 06/19/25 04:01 Lactic Acid 5.2 mmol/L (0.5-2.2) H* 06/12/25 02:04 Lactic Acid (Sepsis) 4.6 mmol/L (0.5-2.2) H* 06/12/25 05:15 Calcium 8.9 mg/dL (8.5-10.5) 06/19/25 04:01 Phosphorus 5.0 mg/dL (2.5-4.5) H 06/19/25 04:01 Magnesium 2.6 mg/dL (1.7-2.3) H 06/19/25 04:01 Total Bilirubin 2.0 mg/dL (0.15-1.2) H 06/19/25 04:01 AST 36 U/L (0-40) 06/19/25 04:01 ALT 44 U/L (0-41) H 06/19/25 04:01 Alkaline Phosphatase 384 U/L (40-130) H 06/19/25 04:01 Lactate Dehydrogenase 148 U/L (135-225) 06/16/25 23:40 Troponin T Baseline 75 ng/L (0-15) H 06/12/25 02:04 Troponin T 60 Minute 73.94 ng/L (0-15) H 06/12/25 03:15 Delta Troponin T -1.06 ABS# (0-10) L 06/12/25 03:15 C-React Prot High Sens 17.380 mg/dL (0.0-0.3) H 06/12/25 02:04 NT-Pro-B Natriuret Pep 3349 pg/mL (0-450) H 06/12/25 02:04 Total Protein 4.7 g/dL (6.6-8.7) L 06/19/25 04:01 Albumin 3.4 g/dL (3.5-5.2) L 06/19/25 04:01 Globulin 1.3 g/dL (1.3-4.6) 06/19/25 04:01 Procalcitonin 1.05 ng/mL (0-0.5) H 06/12/25 02:04 TSH 6.65 uIU/mL (0.27-4.20) H 06/12/25 02:04 Urine Color Dark yellow (Yellow) A 06/12/25 12:50 Urine Appearance Clear (CLEAR) 06/12/25 12:50 Urine pH 5.0 (5-7) 06/12/25 12:50 Ur Specific [place] 1.014 (1.005-1.030) 06/12/25 12:50 Urine Protein Trace (Negative) A 06/12/25 12:50 Urine Glucose (UA) Negative (Normal) 06/12/25 12:50 Urine Ketones Negative (Negative) 06/12/25 12:50 Urine Blood Negative (Negative) 06/12/25 12:50 Urine Nitrate Negative (Negative) 06/12/25 12:50 Urine Bilirubin Negative (Negative) 06/12/25 12:50 Urine Urobilinogen 0.2 mg/dL (Negative) 06/12/25 12:50 Ur Leukocyte Esterase Negative (Negative) 06/12/25 12:50 Urine RBC 11-20 /hpf (0-2) H 06/12/25 12:50 Urine WBC 0-5 /hpf (0-5) 06/12/25 12:50 Ur Squamous Epith Cells 0-5 /hpf (0-5) 06/12/25 12:50 Amorphous Sediment Not Reportable 06/12/25 12:50 Urine Bacteria None seen /hpf (NONE) 06/12/25 12:50 Hyaline Casts 68.26 /lpf 06/12/25 12:50 Urine Yeast 1+ /hpf H 06/12/25 12:50 Vancomycin Trough 29.3 ug/mL (10-15) H* 06/16/25 15:31 Random Vancomycin 29.4 ug/mL (20.0-40.0) 06/17/25 04:07 Serum Ketones Negative (Negative) 06/12/25 02:04 Vitals Last Vital Signs Temp 97.6 F 06/20/25 08:00 Pulse 125 H 06/20/25 08:00 Resp 21 H 06/20/25 08:00 BP 112/80 06/20/25 08:00 Pulse Ox 93 06/20/25 08:00 O2 Del Method Room Air 06/20/25 04:00 O2 Flow Rate 3 06/16/25 23:30 Discharge Plan Discharge Patient Disposition: Xfer SNF Condition: Stable Prescriptions: New metoprolol succinate 50 mg tablet extended release 24 hr 50 mg PO DAILY 90 Days Qty: 90 0RF magnesium oxide 400 mg (241.3 mg magnesium) Tablet 400 mg PO BID Qty: 90 0RF Continued ascorbate calcium (vitamin C) 500 mg tablet 500 mg PO DAILY levothyroxine [Levoxyl] 25 mcg tablet 25 mcg PO DAILY Qty: 30 11RF Rx Instructions: take 30 mins prior to food or meds escitalopram oxalate 20 mg tablet 20 mg PO DAILY Qty: 30 11RF fluticasone propionate 50 mcg/actuation spray,suspension 2 spray intranasal DAILY PRN (Reason: Allergy Symptoms) Qty: 16 11RF Rx Instructions: administer into each nostril levocetirizine 5 mg tablet 5 mg PO DAILY PRN (Reason: allergy symptoms) Qty: 30 11RF aripiprazole [Abilify] 5 mg tablet 5 mg PO DAILY Qty: 30 11RF dapagliflozin propanediol 10 mg Tablet 10 mg PO DAILY Qty: 30 0RF Culturelle 10 billion cell Capsule 1 cap PO DAILY Rx Instructions: while on antibiotics prednisone 5 mg Tablet 15 mg PO DAILY spironolactone 25 mg Tablet 25 mg PO DAILY tamsulosin 0.4 mg capsule 0.4 mg PO DAILY acetaminophen 325 mg Tablet 650 mg PO Q4H PRN (Reason: Pain) pyridostigmine bromide 60 mg Tablet 60 mg PO BID Eliquis 5 mg tablet 5 mg PO BID magnesium hydroxide [Milk of Magnesia] 400 mg/5 mL Suspension 30 ml PO DAILY PRN (Reason: Constipation) bisacodyl 10 mg Suppository 10 mg SD DAILY PRN (Reason: Constipation) Fleet Enema 19-7 gram/118 mL Enema 118 ml SD DAILY PRN (Reason: Constipation) lidocaine HCl [Lidocaine Viscous] 2 % Solution 1 applic MUCOUS MEMBRANE BID PRN (Reason: Mouth Pain) potassium chloride 20 mEq Tablet Extended Release 20 meq PO BID Changed ferrous sulfate [Iron (ferrous sulfate)] 325 mg (65 mg iron) tablet 325 mg PO Q48H Qty: 60 6RF Discontinued prednisone 10 mg tablet 10 mg PO DAILY albuterol sulfate 2.5 mg /3 mL (0.083 %) Solution For Nebulization 2.5 mg INHALATION Q4H PRN (Reason: Congestion) midodrine 10 mg Tablet 10 mg PO TID Rx Instructions: do not give last dose of day after 6PM or within 4 hrs of bedtime metoprolol tartrate 25 mg tablet 12.5 mg PO BID furosemide 40 mg tablet 40 mg PO BID Discharge Order = DC NOW: Discharge Order (Routine); Ordered 06/20/25 Ordered By: Dakota El Referrals: [facility] [Outside] Raffaele Sneed M.D [Physician, Cardiology] - 2 weeks Referral Note: Management of A-fib and heart failure Ashwin Roberson MD [Primary Care Provider, Family Practice] Discharge Diet: Cardiac Discharge Activity: Resume usual activity Patient Instructions: Patient Portal & Luz Instructions Discharge Attestations Time Spent in Discharge Care*: greater than 30 min Status at Discharge: Cognitive status at discharge: cognitively intact , Behavioral status at discharge: cooperative , Quality Metrics Clinical Quality Measures [ No reported AMI, CVA or VTE this stay] Coding Level of Care Code Acute Code for [facility] Fwd Diagnoses Pneumonia J18.9
[2025-06-20 12:00] VITALS: BP 120/67; PULSE 95; RESP 22; O2SAT 97
--- NOTE | 2025-06-20 12:33 | PC.SOCIAL ---
IMM Update pg 2 of IMM updated and reviewed w/ patient. Copy provided and copy dated, initialed and placed in chart.
--- NOTE | 2025-06-20 12:51 | PC.NURSE ---
Report called to CHANCE Montes at [facility] at [phone]. [facility] is providing transportation.
[2025-06-20 14:13] VITALS: BP 120/67; PULSE 94; RESP 18; O2SAT 94
[2025-06-20 14:28] LABS: LMWH High Dose 50 IU/ML 8 % Release; LMWH Low Dose 0.1 IU/ML 8 % Release; LMWH Low Dose 1.0 IU/ML 8 % Release; LMWH SRA Result Negative (Negative)
[2025-06-20 23:54] LABS: Patient O.D 0.118
[2025-06-26 21:20] LABS: UFH High Dose, 100 IU/ML 7 % release; UFH Low Dose, 0.1 IU/ML 3 % release; UFH Low Dose, 0.5 IU/ML 4 % release
== END 2025-06-20 14:14 | disposition skilled nursing facility (03) | DRG 871 ==
LOC: ER 02:35 → ICU 07:48 → CSU 06-18 03:57
PROVIDERS: Internal Medicine; Admitting Provider Internal Medicine; Emergency Provider Student in an Organized Health Care Education/Training Program; PCP Family Medicine; Visit Provider Internal Medicine
DX: A41.9 Sepsis, unspecified organism (principal); I50.31 Acute diastolic (congestive) heart failure; J18.9 Pneumonia, unspecified organism; R65.21 Severe sepsis with septic shock; J96.01 Acute respiratory failure with hypoxia; I13.0 Hypertensive heart and chronic kidney disease with heart failure and stage 1 through stage 4 chronic kidney disease, or unspecified chronic kidney disease; N17.9 Acute kidney failure, unspecified; E87.20 Acidosis, unspecified; D84.9 Immunodeficiency, unspecified; I95.9 Hypotension, unspecified; Z99.81 Dependence on supplemental oxygen; E87.5 Hyperkalemia; I48.91 Unspecified atrial fibrillation; Z66 Do not resuscitate; Z79.890 Hormone replacement therapy; Z79.01 Long term (current) use of anticoagulants; E11.22 Type 2 diabetes mellitus with diabetic chronic kidney disease; Z83.3 Family history of diabetes mellitus; D63.1 Anemia in chronic kidney disease; M05.9 Rheumatoid arthritis with rheumatoid factor, unspecified; D69.6 Thrombocytopenia, unspecified; D50.9 Iron deficiency anemia, unspecified; N18.30 Chronic kidney disease, stage 3 unspecified; I25.5 Ischemic cardiomyopathy
CPT/HCPCS: 36415; 36416; 36592; 51702; 71045; 80053; 80202; 80503; 81001; 82009; 82803; 82962; 83010; 83605; 83615; 83735; 83880; 84100; 84145; 84443; 84484; 85007; 85014; 85018; 85025; 85045; 85651; 86022; 86141; 87040; 87086; 87106; 93005; 93306; 94664; 96372; 96374; 96375; 97110; 97161; 97167; 97530; 97535; 99285; A4222; J0282; J0283; J0456; J0696; J1650; J1720; J1815; J1938; J2270; J2470; J2543; J2598; J2916; J3372; J3373; J3490; J7030; J7050; J9999; P9046